=== PATIENT | female | born 1940 | race Caucasian/White ===

== ENCOUNTER 2016-11-04 18:29 | Inpatient (IN) | payer OTHER, BC ==
[~2016-11-04] VITALS: Ht 152.4 cm; Wt 96.5 kg
[~2016-11-04 18:29] MED LIST: ALL100 PO; ASPEC325 PO; ATOR-24 PO; CHOL100010 PO; HYDR-5688 PO; HYG/25 PO; LISI40TA PO; NIAC250T8 PO; SNK PO; SYN25 PO
[2016-11-04] MEDS ORDERED: CEFTRIAXONE SOD INJ 1 GM ADDVIAL IV STA (18:51)
--- NOTE | 2016-11-04 19:27 | EMERGENCY ROOM VISIT NOTE ---
History Report prepared by Leonardo: Artis Rodriguez Under the Supervision of: Dr. Kemal Grady M.D. First contact with patient: 18:44 Chief Complaint: URINARY SYMPTOMS Stated Complaint: UTI,SENT BY History of Present Illness The patient is a 76 year old female who presents to the Emergency Room with complaints of persistent urinary symptoms beginning 1 week ago. Her symptoms include decreased urinary output and frequency. She was seen by her PCP shortly prior to arrival for her symptoms and was referred to the ED. Her symptoms include shortness of breath with exertion, weakness, headache, fever, and chills. The patient's outpatient blood work today revealed a white blood cell count of 8.79, a hemoglobin of 11.4 and a creatinine of 3.1. She was seen at an urgent care facility two days ago for urinary symptoms and was started on a three day course of Bactrim. The patient notes that she was born with only one kidney. She states that she has not had much to drink today. She denies any chest pain, abdominal pain, cough, vomiting, or diarrhea. I obtained laboratory results from the [facility]. Urine appeared cloudy in color. Urinalysis revealed 1+ blood, 3+ leukocyte esterase, 0-2 RBC, 25-30 WBC, 0-2 epithelial and 3+ bacteria. Source of History: patient Onset: 1 week ago Quality: other (urinary symptoms) Timing: other (persistent) Associated Symptoms: + fevers, + chills, + headache, + SOB (with exertion), No cough, No chest pain, No vomiting, No abdominal pain, No diarrhea Review of Systems See HPI for pertinent positives & negatives. A total of 10 systems reviewed and were otherwise negative. Past Medical & Surgical Medical Problems: (1) Renal agenesis Family History No pertinent family history stated. Social History Smoking Status: Never Smoker Housing Status: lives with family Current/Historical Medications Scheduled Allopurinol (Allopurinol), 100 MG PO QAM Aspirin (Aspirin Ec), 325 MG PO QAM Atorvastatin (Lipitor), 40 MG PO HS Chlorthalidone (Hygroton), 25 MG PO QAM Cholecalciferol (D 1000), 1,000 UNITS PO QAM Levothyroxine Sodium (Synthroid), 25 MCG PO QAM Lisinopril (Zestril), 40 MG PO QAM Niacin (Niacin), 250 MG PO HS Allergies Coded Allergies: No Known Allergies (Verified , 11/04/16) Physical Exam Vital Signs Date Time Temp Pulse Resp B/P (MAP) Pulse Ox O2 Delivery O2 Flow Rate FiO2 11/04/16 20:21 81 19 142/63 96 Room Air 11/04/16 19:42 86 11/04/16 19:05 Room Air 11/04/16 18:31 36.9 102 20 124/64 95 Room Air Physical Exam GENERAL: Patient is in no acute distress. HEENT: No acute trauma, normocephalic atraumatic, mucous membranes moist, no nasal congestion, no scleral icterus. NECK: No stridor, no adenopathy, no meningismus, trachea is midline. LUNGS: Clear to auscultation bilaterally, no wheeze, no rhonchi, breath sounds equal. HEART: Without murmurs gallops or rubs, regular rate and rhythm. ABDOMEN: Soft, nontender, bowel sounds positive, no hernias, no peritonitis. EXTREMITIES: No cyanosis, full range of motion of all the joints without pain or difficulty, no signs for acute trauma. Mild bilateral pedal edema. NEUROLOGIC: Oriented x 3, no acute motor or sensory deficits, no focal weakness. SKIN: No rash, no jaundice, no diaphoresis. Medical Decision & Procedures ER Provider Diagnostic Interpretation: Radiology results as stated below per my review and radiologist interpretation: EXAMINATION: RENAL ULTRASOUND FINDINGS: The right kidney measures 8 cm. The left kidney measures 9.4 cm. . There is a 21 mm left renal cyst. The right kidney is abnormal in morphology. A contrast-enhanced CT scan or MRI scan might be considered in follow-up. There is a small amount of perinephric fluid bilaterally. There is equivocal dilatation of the right renal collecting system. The bladder was well-distended. Neither ureteral jet was visualized. IMPRESSION : 1. Abnormal morphology of the right kidney with equivocal dilatation of the collecting system 2. 21 mm left renal cyst 3. Small amount of perinephric fluid bilaterally Electronically signed by: Ronal Hughes M.D. CHEST ONE VIEW PORTABLE FINDINGS: The heart is mildly enlarged. There is no failure. There is no focal pulmonary consolidation. There is mild aortic tortuosity/ectasia. There are minor basilar atelectatic changes. No pleural effusions are visualized.[ IMPRESSION: No active disease in the chest. Electronically signed by: Ronal Hughes M.D. Laboratory Results 11/04/16 19:52 Red Blood Count 3.57, Mean Corpuscular Volume 94.7, Mean Corpuscular Hemoglobin 32.2, Mean Corpuscular Hemoglobin Concent 34.0, Mean Platelet Volume 9.7, Neutrophils (%) (Auto) 74.4, Lymphocytes (%) (Auto) 13.9, Monocytes (%) (Auto) 9.4, Eosinophils (%) (Auto) 1.5, Basophils (%) (Auto) 0.2, Neutrophils # (Auto) 6.13, Lymphocytes # (Auto) 1.14, Monocytes # (Auto) 0.77, Eosinophils # (Auto) 0.12, Basophils # (Auto) 0.02 11/04/16 19:52 Test 11/04/16 19:52 11/04/16 19:58 11/04/16 20:15 White Blood Count 8.23 K/uL (4.8-10.8) Red Blood Count 3.57 M/uL (4.2-5.4) Hemoglobin 11.5 g/dL (12.0-16.0) Hematocrit 33.8 % (37-47) Mean Corpuscular Volume 94.7 fL (80-100) Mean Corpuscular Hemoglobin 32.2 pg (25-34) Mean Corpuscular Hemoglobin Concent 34.0 g/dl (32-36) Platelet Count 256 K/uL (130-400) Mean Platelet Volume 9.7 fL (7.4-10.4) Neutrophils (%) (Auto) 74.4 % Lymphocytes (%) (Auto) 13.9 % Monocytes (%) (Auto) 9.4 % Eosinophils (%) (Auto) 1.5 % Basophils (%) (Auto) 0.2 % Neutrophils # (Auto) 6.13 K/uL (1.4-6.5) Lymphocytes # (Auto) 1.14 K/uL (1.2-3.4) Monocytes # (Auto) 0.77 K/uL (0.11-0.59) Eosinophils # (Auto) 0.12 K/uL (0-0.5) Basophils # (Auto) 0.02 K/uL (0-0.2) RDW Standard Deviation 46.7 fL (36.4-46.3) RDW Coefficient of Variation 13.5 % (11.5-14.5) Immature Granulocyte % (Auto) 0.6 % Immature Granulocyte # (Auto) 0.05 K/uL (0.00-0.02) Prothrombin Time 10.8 SECONDS (9.0-12.0) Prothromb Time International Ratio 1.0 (0.9-1.1) Activated Partial Thromboplast Time 23.1 SECONDS (21.0-31.0) Partial Thromboplastin Ratio 0.9 Anion Gap 10.0 mmol/L (3-11) Est Creatinine Clear Calc Drug Dose 14.4 ml/min Estimated GFR () 14.0 Estimated GFR (Non- 12.1 BUN/Creatinine Ratio 13.1 (10-20) Calcium Level 8.7 mg/dl (8.5-10.1) Magnesium Level 2.1 mg/dl (1.8-2.4) Total Bilirubin 0.2 mg/dl (0.2-1) Aspartate Amino Transf (AST/SGOT) 19 U/L (15-37) Alanine Aminotransferase (ALT/SGPT) 28 U/L (12-78) Alkaline Phosphatase 96 U/L (45-117) Troponin I < 0.015 ng/ml (0-0.045) Total Protein 7.1 gm/dl (6.4-8.2) Albumin 3.4 gm/dl (3.4-5.0) Globulin 3.7 gm/dl (2.5-4.0) Albumin/Globulin Ratio 0.9 (0.9-2) Thyroid Stimulating Hormone (TSH) 0.894 uIu/ml (0.300-4.500) Chemistry Specimen Hemolysis Bedside Lactic Acid Venous 1.54 mmol/L (0.90-1.70) Urine Color YELLOW Urine Appearance CLEAR (CLEAR) Urine pH 5.5 (4.5-7.5) Urine Specific [place] 1.018 (1.000-1.030) Urine Protein NEG (NEG) Urine Glucose (UA) NEG (NEG) Urine Ketones NEG (NEG) Urine Occult Blood NEG (NEG) Urine Nitrite NEG (NEG) Urine Bilirubin NEG (NEG) Urine Urobilinogen NEG (NEG) Urine Leukocyte Esterase NEG (NEG) Laboratory results reviewed by me. Medications Administered Medications (Trade) Dose Ordered Sig/Mary Route Start Time Stop Time Status Last Admin Dose Admin Ceftriaxone Sodium (Rocephin Inj) 1 gm NOW STAT IV 11/04/16 18:51 11/04/16 18:59 DC 11/04/16 20:19 1 GM Sodium Chloride 500 ml @ 999 mls/hr Q31M STAT IV 11/04/16 20:18 11/04/16 20:48 DC 11/04/16 20:23 999 MLS/HR Sodium Chloride 1,000 ml @ 125 mls/hr Q8H STAT IV 11/04/16 20:18 11/05/16 04:17 11/04/16 20:24 125 MLS/HR ECG Indication: weakness Rate (beats per minute): 90 Rhythm: normal sinus Findings: RBBB (incomplete), no ectopy, other (Old inferior infarct) ED Course 1846: The patient was evaluated in room B2. A complete history and physical exam was performed. 1850: Ordered Rocephin Inj 1 gm IV. 2018: Ordered Sodium Chloride 1000 ml @ 125 mls/hr IV, Sodium Chloride 500 ml @ 999 mls/hr IV. 8: Upon reexamination the patient is resting comfortably. I discussed results and treatment plan with the patient. She verbalizes agreement and understanding. The patient will be evaluated for further management. Medical Decision The patient is a 76 year old female who presents to the ED with complaints of persistent urinary symptoms. Differential diagnoses considered include pyelonephritis, renal failure, electrolyte imbalance, anemia, failed outpatient treatment, dehydration, and renal obstruction. Blood pressure screening: Patient was found to have a slightly elevated blood pressure due to circumstances. I do not believe that the patient requires hypertension monitoring. Medication Reconciliation: I attest that I have personally reviewed the patient' s current medication list. There is no leukocytosis or worrisome anemia. Renal panel testing shows acute renal failure. There was no hepatitis. No evidence for any issues with her thyroid. Chest x-ray does not show CHF or pneumonia. EKG shows a sinus rhythm , no acute ischemia. Cardiac enzyme testing times one is not consistent with acute cardiac injury. Lactic acid level was not elevated making sepsis less likely. Renal ultrasound shows some abnormal morphology to the right kidney and collecting system, the left renal system was without significant findings. Of note, the patient by report only has one normal functioning kidney. Today's urinalysis appears clean. The urinalysis report from a few days ago from the outpatient clinic does suggest infection, no culture was available for review. The patient received IV saline, she was given IV ceftriaxone. She seems to be resting comfortably. The patient requires admission/observation. She is in acute renal failure. I did speak with case management. The on-call hospitalist was consulted. Consults Time Called: 2054 Consulting Physician: Dr. Shahrzad Holloway Returned Call: [phone] Discussed the patient's case. The patient will be evaluated for further management. Impression Primary Impression: Acute renal failure Additional Impression: UTI (urinary tract infection) Scribe Attestation The scribe's documentation has been prepared under my direction and personally reviewed by me in its entirety. I confirm that the note above accurately reflects all work, treatment, procedures, and medical decision making performed by me. Departure Information Dispostion Being Evaluated By Hospitalist Referrals Jose Patino M.D. (PCP) Patient Instructions My [facility] Problem Qualifiers
[2016-11-04] MEDS ORDERED: ASPI325T39 PO (19:37)
[2016-11-04] MEDS ORDERED: CHOL100041 PO (19:37)
[2016-11-04] MEDS ORDERED: LEVO25TA PO (19:37)
[2016-11-04] MEDS ORDERED: ALL100 PO (19:37)
[2016-11-04 20:06] LABS: BASO % 0.2 %; BASO ABS # 0.02 K/uL (0-0.2); COMPLETE YES; EOS % 1.5 %; HEMATOCRIT 33.8 % (37-47); IG% 0.6 %; LYMPH % 13.9 %; LYMPH ABS # 1.14 K/uL (1.2-3.4); MEAN CELL VOLUME 94.7 fL (80-100); MEAN CORPUSCULAR HEMOGLOBIN 32.2 pg (25-34); MEAN PLATELET VOLUME 9.7 fL (7.4-10.4); MONO % 9.4 %; NEUT % 74.4 %; PLATELET COUNT 256 K/uL (130-400); RED BLOOD COUNT 3.57 M/uL (4.2-5.4); WHITE BLOOD COUNT 8.23 K/uL (4.8-10.8)
[2016-11-04] MEDS ORDERED: SODIUM CHLORIDE 0.9% 1000ML 1,000 ML IV STA (20:18)
[2016-11-04] MEDS ORDERED: SODIUM CHLORIDE 0.9% 500ML 500 ML IV STA (20:18)
[2016-11-04 20:20] LABS: PARTIAL THROMBOPLASTIN RATIO 0.9; PROTHROMBIN TIME (PATIENT) 10.8 SECONDS (9.0-12.0)
[2016-11-04 20:36] LABS: URINE APPEARANCE CLEAR (CLEAR); URINE BILIRUBIN NEG (NEG); URINE COLOR YELLOW; URINE NITRITE NEG (NEG); URINE PH 5.5 (4.5-7.5); URINE SPECIFIC GRAVITY 1.018 (1.000-1.030); UROBILINOGEN NEG (NEG); ZZURINE CULT IF INDIC CATH NO
--- NOTE | 2016-11-04 20:36 | DIAGNOSTIC IMAGING REPORT ---
CHEST ONE VIEW PORTABLE CLINICAL HISTORY: Altered mental status. Weakness. COMPARISON STUDY: 12/05/2014 FINDINGS: The heart is mildly enlarged. There is no failure. There is no focal pulmonary consolidation. There is mild aortic tortuosity/ectasia. There are minor basilar atelectatic changes. No pleural effusions are visualized.[ IMPRESSION: No active disease in the chest. Electronically signed by: Roanl Hughes M.D. 11/04/2016 8:35 PM Dictated Date/Time: 11/04/2016 8:34 PM
[2016-11-04 20:44] LABS: MANUAL MICROSCOPIC REQUIRED? NO; REVIEW REQ? NO
[2016-11-04 20:50] LABS: ALB/GLOB RATIO 0.9 (0.9-2); ALKALINE PHOSPHATASE 96 U/L (45-117); ALT/SGPT 28 U/L (12-78); AST/SGOT 19 U/L (15-37); BLOOD UREA NITROGEN 46 mg/dl (7-18); BUN/CREATININE RATIO 13.1 (10-20); CALCIUM 8.7 mg/dl (8.5-10.1); CARBON DIOXIDE 25 mmol/L (21-32); CHLORIDE 106 mmol/L (98-107); GLUCOSE 133 mg/dl (70-99); MAGNESIUM 2.1 mg/dl (1.8-2.4); POTASSIUM 4.1 mmol/L (3.5-5.1); SODIUM 141 mmol/L (136-145); THYROID STIMULATING HORMONE 0.894 uIu/ml (0.300-4.500)
--- NOTE | 2016-11-04 21:34 | DIAGNOSTIC IMAGING REPORT ---
EXAMINATION: RENAL ULTRASOUND CLINICAL HISTORY: Renal failure.. POSSIBLE SOLITARY KIDNEY COMPARISON STUDY: None FINDINGS: The right kidney measures 8 cm. The left kidney measures 9.4 cm. . There is a 21 mm left renal cyst. The right kidney is abnormal in morphology. A contrast-enhanced CT scan or MRI scan might be considered in follow-up. There is a small amount of perinephric fluid bilaterally. There is equivocal dilatation of the right renal collecting system. The bladder was well-distended. Neither ureteral jet was visualized. IMPRESSION : 1. Abnormal morphology of the right kidney with equivocal dilatation of the collecting system 2. 21 mm left renal cyst 3. Small amount of perinephric fluid bilaterally Electronically signed by: Ronal Hughes M.D. 11/04/2016 9:32 PM Dictated Date/Time: 11/04/2016 9:25 PM
[2016-11-05 00:30] VITALS: BP 143/83; PULSE 79; TEMP 36.8; O2SAT 97; Ht 152.4 cm; Wt 96.5 kg
[2016-11-05] MEDS ORDERED: ACETAMINOPHEN 325 MG TAB PO PRN (00:30)
[2016-11-05] MEDS ORDERED: ONDANSETRON INJ 2 MG/ML 2 ML VIAL IV PRN (00:30)
[2016-11-05] MEDS ORDERED: DEXTROSE 50% 50 ML SYR IV PRN (00:30)
[2016-11-05] MEDS ORDERED: TRAMADOL HCL 50 MG TAB PO PRN (00:30)
[2016-11-05] MEDS ORDERED: HYDROmorphone INJ 0.5 MG/0.5 ML SYR IV PRN (00:30)
[2016-11-05] MEDS ORDERED: GLUCOSE 10 TABS/TUBE PO PRN (00:30)
[2016-11-05] MEDS ORDERED: GLUCAGON FOR INJ 1 MG VIAL SQ PRN (00:30)
[2016-11-05] MEDS ORDERED: GLUCOSE 40% GEL 15 GM TUBE PO PRN (00:30)
[2016-11-05] MEDS ORDERED: SODIUM CHLORIDE 0.45% 1000ML 1,000 ML IV SCH (02:30)
[2016-11-05] MEDS: HEPARIN SOD 5000 UNIT/0.5 ML CARP SQ SCH ×3 (06:00→20:11)
--- NOTE | 2016-11-05 06:50 | DIAGNOSTIC IMAGING REPORT ---
HEAD CT NONCONTRAST CT DOSE: 537.48 mGy.cm HISTORY: fagan TECHNIQUE: Multiaxial CT images of the head were performed without the use of intravenous contrast. Comparison: None. Findings: The paranasal sinuses and mastoid air cells are clear. The calvarium and skull base are intact. The ventricles and sulci are within normal limits. There is no mass, hematoma, midline shift, or acute infarct. Impression: No acute intracranial abnormality. Electronically signed by: Guillermo Will M.D. 11/05/2016 6:49 AM Dictated Date/Time: 11/05/2016 6:48 AM
[2016-11-05] MEDS: LEVOTHYROXINE 25 MCG TAB PO SCH (06:51)
[2016-11-05 06:58] LABS: BASO % 0.4 %; BASO ABS # 0.03 K/uL (0-0.2); COMPLETE YES; EOS % 2.9 %; HEMATOCRIT 32.8 % (37-47); IG% 0.7 %; LYMPH % 16.7 %; MEAN CELL VOLUME 95.1 fL (80-100); MEAN CORPUSCULAR HEMOGLOBIN 31.9 pg (25-34); MEAN CORPUSCULAR HGB CONC 33.5 g/dl (32-36); MONO % 9.7 %; NEUT % 69.6 %; PLATELET COUNT 220 K/uL (130-400); RED BLOOD COUNT 3.45 M/uL (4.2-5.4); WHITE BLOOD COUNT 7.19 K/uL (4.8-10.8)
--- NOTE | 2016-11-05 07:04 | HISTORY & PHYSICAL EXAMINATION ---
DATE OF ADMISSION: 11/04/2016 PRIMARY CARE DOCTOR: Dr. Patino CHIEF COMPLAINT: Abnormal blood work. HISTORY OF PRESENT ILLNESS: Hx obtained from px and records. Medical history is significant for hypertension, DM2 diet-controlled, arthritis , hypothyroidism and chronic kidney disease (baseline creatinine of 1.5). Recent confinement December 2014 under Orthopedic service for a hip surgery. In the last 2 months, patient noted some shortness of breath on exertion. No unusual leg swelling. No chest pain. Denies depression. Last week, patient was feeling lousy, urinary bladder discomfort. frequency fever 102 frontal headache symptoms. Seen at [facility]. Bactrim prescribed for UTI. chronic right knee pain bothering her as well. ([facility] appt contemplated this Friday.) Patient also taking 2 tablets of Aleve every 4 hours RTC for aches. Patient noted decreased urination. Patient had a followup at PCP's office today, outpatient blood work showed TSH normal, creatinine of 3.1. Patient sent to the Emergency Room. MEDICAL HISTORY: As above. SURGERIES: She has had hip surgery, knee surgery, tonsillectomy and D&C. HOME MEDICATIONS: Include; lisinopril, niacin, aspirin, allopurinol, Lipitor, Hygroton, Synthroid and cholecalciferol. ALLERGIES: No known drug allergies. FAMILY HISTORY: Diabetes and heart disease. PERSONAL SOCIAL HISTORY: Nonsmoker. No chronic intake of alcoholic beverages. [employer] employee. REVIEW OF SYSTEMS: As per HPI, all other ROS negative. PHYSICAL EXAMINATION: VITAL SIGNS: Blood pressure was noted to be 124/64, pulse rate 81, RR 19, temperature 36.8 and sats 96 on room air. GENERAL: Noted to be obese, comfortable, slightly anxious, in no respiratory distress. SKIN: Pallor HEENT: Pale palpebral conjunctivae. Dry mucosa. NECK: Short. CHEST: Decreased breath sounds. HEART: Regular rate and rhythm. ABDOMEN: Some distention, NT EXTREMITIES: Minimal LE edema, R knee tenderness NEUROLOGIC: No gross focality. LABORATORIES: Hemoglobin was noted to be 11.5, hematocrit 30.8 white cell count 8.2, platelets 200 Sodium 140, potassium 4.1, chloride 106, CO2 25, BUN 46, creatinine 3.5, glucose 103. Hemoglobin A1c from August 2016 was 6. Chest x-ray; no active disease in the chest. CT of the head; no acute pathology. Renal ultrasound : 1. Abnormal morphology of the right kidney with equivocal dilatation of the collecting system 2. 21 mm left renal cyst 3. Small amount of perinephric fluid bilaterally UA normal . ASSESSMENT: 1. Acute renal failure on chronic renal insufficiency likely secondary to medications (OTC NSAIDs, Bactrim for recent UTI/home ACEI, diuretics) 2. Hypertension, stable. 3. Chronic anemia secondary to chronic kidney disease. Hg at baseline 4. DM2, diet controlled, well-controlled as of recent A1c. 5. Exertional shortness of breath for months differentials include : undiagnosed pulmonary hypertension, RSHF, pulmonary embolism chronic obstructive pulmonary disease from passive smoking, sleep disordered breathing PLAN: GMF Monitor creatinine response to IV fluids. May need Nephrology opinion if wo improvement. Hold JAYDA inhibitor, diuretics for now. Patient was counseled about hazards of NSAID use w/ hx of CKF 2D echo. VQ scan. Outpatient PFTs, sleep study RE shortness of breath. Further mx pending cooper results PT/OT eval ISS BG goal 140-180 DVT prophylaxis, Heparin subQ. Full code MTDD
[2016-11-05 07:32] VITALS: BP 123/73; PULSE 75; TEMP 36.7; O2SAT 95
[2016-11-05 07:33] LABS: BUN/CREATININE RATIO 15.1 (10-20); CALCIUM 8.5 mg/dl (8.5-10.1); CREATININE 2.6 mg/dl (0.60-1.20); POTASSIUM 4.2 mmol/L (3.5-5.1)
[2016-11-05] MEDS: INSULIN ASPART 100 UNITS/ML 3 ML PEN SC SCH ×4 (08:33→20:31)
[2016-11-05] MEDS: ASPIRIN 325 MG ECTAB PO SCH (08:36)
[2016-11-05] MEDS: ALLOPURINOL 100 MG TAB PO SCH (08:36)
--- NOTE | 2016-11-05 10:12 | Progress Note ---
Medicine Progress Note Date & Time of Visit: Nov 05, 2016 at 10:03. Subjective patient seen sitting up in bed family at bedside states she feels improved today compared to yesterday voiding well, no dysuria/hematuria no abdominal pain ,nausea/vomiting reports exertional dyspnea, no dyspnea at rest no chest pain ,dizziness, palpitations no other symptoms Objective Last 8 Hrs Date Time Temp Pulse Resp B/P (MAP) Pulse Ox O2 Delivery O2 Flow Rate FiO2 11/05/16 08:04 Room Air 11/05/16 07:32 36.7 75 16 123/73 (90) 95 Room Air Physical Exam: General- oriented x 3, not in distress, speaks in sentences with no effort Head- atraumatic Eyes- EOMI, anicteric ENT- oropharynx clear Neck- no JVD Lungs- clear breath sounds bilaterally, no rales/wheezes Heart- regular rhythm; no murmur, normal rate Abdomen- normal bowel sounds, soft, nontender Extremities- no pretibial edema, no calf tenderness Neuro- alert, oriented x 3; no gross focal deficits Skin- warm & dry Laboratory Results: Last 24 Hours Test 11/04/16 19:52 11/04/16 19:58 11/04/16 20:15 11/05/16 06:40 White Blood Count 8.23 K/uL 7.19 K/uL Red Blood Count 3.57 M/uL 3.45 M/uL Hemoglobin 11.5 g/dL 11.0 g/dL Hematocrit 33.8 % 32.8 % Mean Corpuscular Volume 94.7 fL 95.1 fL Mean Corpuscular Hemoglobin 32.2 pg 31.9 pg Mean Corpuscular Hemoglobin Concent 34.0 g/dl 33.5 g/dl Platelet Count 256 K/uL 220 K/uL Mean Platelet Volume 9.7 fL 9.0 fL Neutrophils (%) (Auto) 74.4 % 69.6 % Lymphocytes (%) (Auto) 13.9 % 16.7 % Monocytes (%) (Auto) 9.4 % 9.7 % Eosinophils (%) (Auto) 1.5 % 2.9 % Basophils (%) (Auto) 0.2 % 0.4 % Neutrophils # (Auto) 6.13 K/uL 5.00 K/uL Lymphocytes # (Auto) 1.14 K/uL 1.20 K/uL Monocytes # (Auto) 0.77 K/uL 0.70 K/uL Eosinophils # (Auto) 0.12 K/uL 0.21 K/uL Basophils # (Auto) 0.02 K/uL 0.03 K/uL RDW Standard Deviation 46.7 fL 46.9 fL RDW Coefficient of Variation 13.5 % 13.4 % Immature Granulocyte % (Auto) 0.6 % 0.7 % Immature Granulocyte # (Auto) 0.05 K/uL 0.05 K/uL Prothrombin Time 10.8 SECONDS Prothromb Time International Ratio 1.0 Activated Partial Thromboplast Time 23.1 SECONDS Partial Thromboplastin Ratio 0.9 Sodium Level 141 mmol/L 142 mmol/L Potassium Level 4.1 mmol/L 4.2 mmol/L Chloride Level 106 mmol/L 110 mmol/L Carbon Dioxide Level 25 mmol/L 23 mmol/L Anion Gap 10.0 mmol/L 9.0 mmol/L Blood Urea Nitrogen 46 mg/dl 39 mg/dl Creatinine 3.50 mg/dl 2.60 mg/dl Est Creatinine Clear Calc Drug Dose 14.4 ml/min 19.4 ml/min Estimated GFR () 14.0 20.1 Estimated GFR (Non- 12.1 17.3 BUN/Creatinine Ratio 13.1 15.1 Random Glucose 133 mg/dl 110 mg/dl Calcium Level 8.7 mg/dl 8.5 mg/dl Magnesium Level 2.1 mg/dl Total Bilirubin 0.2 mg/dl Aspartate Amino Transf (AST/SGOT) 19 U/L Alanine Aminotransferase (ALT/SGPT) 28 U/L Alkaline Phosphatase 96 U/L Troponin I < 0.015 ng/ml Total Protein 7.1 gm/dl Albumin 3.4 gm/dl Globulin 3.7 gm/dl Albumin/Globulin Ratio 0.9 Thyroid Stimulating Hormone (TSH) 0.894 uIu/ml Chemistry Specimen Hemolysis Bedside Lactic Acid Venous 1.54 mmol/L Urine Color YELLOW Urine Appearance CLEAR Urine pH 5.5 Urine Specific [place] 1.018 Urine Protein NEG Urine Glucose (UA) NEG Urine Ketones NEG Urine Occult Blood NEG Urine Nitrite NEG Urine Bilirubin NEG Urine Urobilinogen NEG Urine Leukocyte Esterase NEG Test 11/05/16 07:54 Bedside Glucose 119 mg/dl Date/Time Source Procedure Growth Status 11/04/16 19:52 Blood Blood Culture Pending Received 11/04/16 19:39 Blood Blood Culture Pending Received Assessment & Plan 76 year old female with history of CKD 3, DM, HTN, Hypothyroidism presenting with elevated crea. Acute renal failure on CKD3 -- likely secondary to medications (OTC NSAIDs, Bactrim for recent UTI/home ACEI , diuretics) -- crea improved from 3.5 to 2.6 continue IV fluids Renal US showing abnormal right kidney morphology will consult Nephro -- hold Chlorthalidone, Lisinopril Exertional Dyspnea -- ongoing for several months differentials include : undiagnosed pulmonary hypertension, pulmonary embolism chronic obstructive pulmonary disease from passive smoking, sleep disordered breathing - CXR unrevealing - Echo: pending V/Q scan: pending - outpatient PFTs Hypertension -- monitor Chronic anemia secondary to chronic kidney disease - Hg at baseline DM2, diet controlled, well-controlled as of recent A1c. - BSGs stable - monitor DVT proph Heparin Full Code Dispo pending anticipate d/c home when medically stable Current Inpatient Medications: Current Inpatient Medications Medications (Trade) Dose Ordered Sig/Mary Route Start Time Stop Time Status Last Admin Dose Admin Heparin Sodium (Porcine) (Heparin Sq 5000 Unit/0.5ml) 5,000 unit Q8H SQ 11/05/16 06:00 12/05/16 05:59 Acetaminophen (Tylenol Tab) 650 mg Q4H PRN PO 11/05/16 00:30 12/05/16 00:29 Insulin Aspart (novoLOG ASPART) SLIDING SCALE If C... ACHS SC 11/05/16 06:30 12/05/16 06:59 Glucose (Glucose 40% Gel) 15-30 GRAMS 15 GRAMS... UD PRN PO 11/05/16 00:30 12/05/16 00:29 Glucose (Glucose Chew Tab) 4-8 Tablets 4 Tabl... UD PRN PO 11/05/16 00:30 12/05/16 00:29 Dextrose (Dextrose 50% 50ML Syringe) 25-50ML OF 50% DW IV FOR... UD PRN IV 11/05/16 00:30 12/05/16 00:29 Glucagon (Glucagon Inj) 1 mg UD PRN SQ 11/05/16 00:30 12/05/16 00:29 Ondansetron HCl (Zofran Inj) 4 mg Q6H PRN IV 11/05/16 00:30 12/05/16 00:29 Tramadol HCl (Ultram Tab) 25 mg Q6H PRN PO 11/05/16 00:30 12/05/16 00:29 Hydromorphone HCl (Dilaudid Inj) 0.5 mg Q3H PRN IV 11/05/16 00:30 11/19/16 00:29 Allopurinol (Zyloprim Tab) 100 mg QAM PO 11/05/16 08:00 12/05/16 08:59 11/05/16 08:36 100 MG Aspirin (Ecotrin Tab) 325 mg QAM PO 11/05/16 08:00 12/05/16 08:59 11/05/16 08:36 325 MG Atorvastatin Calcium (Lipitor Tab) 40 mg HS PO 11/05/16 21:00 12/05/16 20:59 Levothyroxine Sodium (Synthroid Tab) 25 mcg DAILYBB PO 11/05/16 06:30 12/05/16 06:29 11/05/16 06:51 25 MCG Sodium Chloride 1,000 ml @ 80 mls/hr [id number] IV 11/05/16 10:00 12/05/16 09:59
[2016-11-05] MEDS: SODIUM CHLORIDE 0.9% 1000ML 1,000 ML IV SCH ×2 (10:24→20:29)
--- NOTE | 2016-11-05 11:27 | DIAGNOSTIC IMAGING REPORT ---
NUCLEAR MEDICINE VENTILATION/PERFUSION STUDY CLINICAL HISTORY: Shortness of breath. Possible pulmonary embolism. COMPARISON STUDY: Chest x-ray dated 11/04/2016 FINDINGS: The patient was ventilated utilizing 32.6 mCi of technetium 99m DTPA aerosol. The patient was perfused utilizing 5.6 mCi of technetium 99m MAA. There is mild central deposition of aerosol consistent with airway disease. There is a subtle matched defect involving the superior segment left lower lobe. No significant VQ mismatches are visualized. This examination is of low probability for acute pulmonary embolism. IMPRESSION: Low probability of acute pulmonary embolism. Electronically signed by: Ronal Hughes M.D. 11/05/2016 11:26 AM Dictated Date/Time: 11/05/2016 11:23 AM
[2016-11-05 16:08] VITALS: BP 140/80; PULSE 83; TEMP 36.9; O2SAT 98
--- NOTE | 2016-11-05 16:43 | NEPHROLOGY CONSULTATION ---
DATE OF CONSULTATION: 11/05/2016 REASON FOR CONSULTATION: NICHO and concerning finding on renal ultrasound. HISTORY OF PRESENT ILLNESS: This is a 76-year-old female who follows in my CKD clinic with baseline creatinine of 1.5 with diet-controlled diabetes as well as hypertension. She does have atrophic right kidney with some mild hydro on the right kidney, who did have a urinary tract infection and was treated with Bactrim. The patient also was taking 2 Aleve every 4 hours around the clock for muscle aches, noted decrease in urination and came in with a creatinine in the 3s. Stopped the Bactrim, started to hydrate the patient and the creatinine has improved from 3.5 down to 2.6. The patient is urinating, her appetite is starting to improve. She starting to feel better. When the renal ultrasound was done, showed a right kidney of 8 cm, left kidney of 9.4 cm with a 21 mm left renal cyst with a right kidney that is abnormal in morphology. They were recommending contrast enhanced CT scan or MRI in followup with a small amount of perinephric fluid bilaterally and equivocal dilation of the right renal collecting system. PAST MEDICAL HISTORY: Hypertension, diet-controlled diabetes, CKD stage III with a baseline creatinine of 1.5, hypothyroidism. PAST SURGICAL HISTORY: Tonsillectomy, knee surgery, hip surgery. FAMILY HISTORY: Significant for diabetes and heart disease. SOCIAL HISTORY: No smoking, no alcohol, no drugs. Works at the [employer]. REVIEW OF SYSTEMS: Positive occasional headache. Positive decreased appetite, which is improving. No nausea, vomiting. Has not moved her bowels, but she has not ate much either. No blurry vision, no dysphagia, no shortness of breath, no chest pain. No rash or itching. All other review of systems is otherwise negative. CURRENT MEDICATIONS: Lipitor 40 mg at night, normal saline at 80 mL an hour, allopurinol 100 mg a day, aspirin 325 mg a day, Levothyroxine 25 mcg daily, heparin 5000 units subQ q. 8. PHYSICAL EXAMINATION: VITAL SIGNS: Temperature 36.7, pulse 75, respiratory rate 16, blood pressure 123/73, satting 95% on room air. GENERAL: Awake, alert, oriented x3. EYES: No scleral icterus. ENT: Moist mucous membranes. NECK: Supple. PULMONARY: Clear to auscultation. CARDIAC: Regular rate and rhythm. ABDOMEN: Bowel sounds positive, soft, nontender. EXTREMITIES: No clubbing, cyanosis or edema. NEUROLOGICALLY: Nonfocal. DERM: No rash or ulcers noted. LABORATORY DATA: Sodium was 142, potassium 4.2, chloride is 110, bicarbonate is 23, BUN is 39, creatinine is 2.6, glucose 110, calcium is 8.5, white count 7, H&H 11 and 32, platelet count is 220. INR is 1. UA is bland. IMPRESSION AND PLAN: 1. Acute kidney injury in the setting of Bactrim and nonsteroidal antiinflammatory drugs, which appears to be improving quickly with IV fluids. Creatinine likely will be back to baseline tomorrow. Appears to be tolerating the IV fluids, with no shortness of breath. Her lungs are clear to auscultation with no edema. Would continue IV fluids and reevaluate creatinine tomorrow. Creatinine is back to baseline tomorrow. Okay with stopping the IV fluids. 2. Abnormal morphology on right kidney. Will discuss further with urology to see if we should proceed with the CT scan of the kidneys. Given the fact that the patient has acute kidney injury, may want to consider further imaging as an outpatient and/or urologic consultation as an outpatient for further evaluation, but we will discuss further with urology to determine whether they should see the patient in house or not. Appreciate the consultation.
[2016-11-05] MEDS: ATORVASTATIN 40 MG TAB PO SCH (20:29)
[2016-11-05 23:20] VITALS: BP 133/67; PULSE 66; TEMP 36.8; O2SAT 96
[2016-11-06] MEDS: HEPARIN SOD 5000 UNIT/0.5 ML CARP SQ SCH ×3 (04:42→20:46)
[2016-11-06] MEDS: LEVOTHYROXINE 25 MCG TAB PO SCH (06:24)
[2016-11-06] MEDS: INSULIN ASPART 100 UNITS/ML 3 ML PEN SC SCH ×4 (06:30→20:47)
[2016-11-06] MEDS: ALLOPURINOL 100 MG TAB PO SCH (07:26)
[2016-11-06] MEDS: ASPIRIN 325 MG ECTAB PO SCH (07:26)
[2016-11-06 08:01] LABS: BUN/CREATININE RATIO 18.1 (10-20); CREATININE 1.9 mg/dl (0.60-1.20); POTASSIUM 4.3 mmol/L (3.5-5.1)
[2016-11-06 08:04] LABS: CALCIUM 8.8 mg/dl (8.5-10.1)
[2016-11-06 08:06] VITALS: BP 108/66; PULSE 67; TEMP 36.6; O2SAT 97
[2016-11-06] MEDS: SODIUM CHLORIDE 0.9% 1000ML 1,000 ML IV SCH ×2 (08:45→18:42)
--- NOTE | 2016-11-06 09:44 | Nephrology Progress Note ---
Nephrology Progress Note Date of Service: Nov 06, 2016. Subjective Patient is a 76-year-old female with NICHO on CKD stage G3 without proteinuria in the setting of UTI on Bactrim and NSAID use. Patient states that she is greatly improved and eager to go home. reports good urination and good appetite. had bowel movement yesterday. Not currently on IV fluids. no SOB, nausea, confusion , dysuria, or chest pain. Objective Date Time Temp Pulse Resp B/P (MAP) Pulse Ox O2 Delivery O2 Flow Rate FiO2 11/06/16 08:06 36.6 67 16 108/66 (80) 97 Room Air 11/05/16 23:20 36.8 66 16 133/67 (89) 96 Room Air 11/05/16 20:00 Room Air 11/05/16 16:22 Room Air 11/05/16 16:08 36.9 83 20 140/80 (100) 98 Room Air Physical Exam: General: Alert, no distress, well nourished and well developed Head: Normocephalic, No masses, lesions, tenderness, or abnormalities ENT: no scleral icterus, moist mucosal membranes Neck: Supple, no adenopathy Heart: Regular rate and rhythm, no murmurs, no gallops Lungs: clear to auscultation Abdomen: Soft, Nontender, nondistended, +Bowel Sounds Extremities: No joint deformities, effusion, or inflammation, no clubbing, + trace edema LLE Neuro Exam: Alert and oriented x 3 with fluent speech, no focal motor/sensory deficits Current Inpatient Medications Medications (Trade) Dose Ordered Sig/Mary Route Start Time Stop Time Status Last Admin Dose Admin Heparin Sodium (Porcine) (Heparin Sq 5000 Unit/0.5ml) 5,000 unit Q8H SQ 11/05/16 06:00 12/05/16 05:59 Acetaminophen (Tylenol Tab) 650 mg Q4H PRN PO 11/05/16 00:30 12/05/16 00:29 Insulin Aspart (novoLOG ASPART) SLIDING SCALE If C... ACHS SC 11/05/16 06:30 12/05/16 06:59 Glucose (Glucose 40% Gel) 15-30 GRAMS 15 GRAMS... UD PRN PO 11/05/16 00:30 12/05/16 00:29 Glucose (Glucose Chew Tab) 4-8 Tablets 4 Tabl... UD PRN PO 11/05/16 00:30 12/05/16 00:29 Dextrose (Dextrose 50% 50ML Syringe) 25-50ML OF 50% DW IV FOR... UD PRN IV 11/05/16 00:30 12/05/16 00:29 Glucagon (Glucagon Inj) 1 mg UD PRN SQ 11/05/16 00:30 12/05/16 00:29 Ondansetron HCl (Zofran Inj) 4 mg Q6H PRN IV 11/05/16 00:30 12/05/16 00:29 Tramadol HCl (Ultram Tab) 25 mg Q6H PRN PO 11/05/16 00:30 12/05/16 00:29 Hydromorphone HCl (Dilaudid Inj) 0.5 mg Q3H PRN IV 11/05/16 00:30 11/19/16 00:29 Allopurinol (Zyloprim Tab) 100 mg QAM PO 11/05/16 08:00 12/05/16 08:59 11/06/16 07:26 100 MG Aspirin (Ecotrin Tab) 325 mg QAM PO 11/05/16 08:00 12/05/16 08:59 11/06/16 07:26 325 MG Atorvastatin Calcium (Lipitor Tab) 40 mg HS PO 11/05/16 21:00 12/05/16 20:59 11/05/16 20:29 40 MG Levothyroxine Sodium (Synthroid Tab) 25 mcg DAILYBB PO 11/05/16 06:30 12/05/16 06:29 11/06/16 06:24 25 MCG Sodium Chloride 1,000 ml @ 80 mls/hr [id number] IV 11/05/16 10:00 12/05/16 09:59 11/06/16 08:45 80 MLS/HR Last 24 Hours Test 11/05/16 11:23 11/05/16 16:45 11/05/16 20:31 11/06/16 07:02 Bedside Glucose 140 mg/dl 125 mg/dl 148 mg/dl Sodium Level 141 mmol/L Potassium Level 4.3 mmol/L Chloride Level 110 mmol/L Carbon Dioxide Level 22 mmol/L Anion Gap 9.0 mmol/L Blood Urea Nitrogen 34 mg/dl Creatinine 1.90 mg/dl Est Creatinine Clear Calc Drug Dose 26.6 ml/min Estimated GFR () 29.4 Estimated GFR (Non- 25.3 BUN/Creatinine Ratio 18.1 Random Glucose 118 mg/dl Calcium Level 8.8 mg/dl Test 11/06/16 07:47 Bedside Glucose 125 mg/dl Assessment & Plan NICHO on CKD 3 secondary to NSAID use and Bactrim. Patient's renal function is improving significantly. Creatinine at 1.9. no SOB. volume status appropriate. Almost back to baseline. Abnormal morphology on right kidney. Given recent NICHO, may want to consider further imaging as an outpatient and/or urologic consultation as an outpatient for further evaluation. Would like urology input as to whether patient should undergo imaging before d/c. This patient was seen and treated with direct collaboration with Dr. Pineda. Thank you for the opportunity to participate in this patient's care. Appreciate the Consult. ATTENDING NOTE: pt seen on 11/06/26 I performed a history and physical examination of the patient, including specifically on history- pt doing well and inquiring about when to go home. pt did undergo Ct scan and awaiting results-evaluated by urology, on physical exam -cta, no edema, and my impression and plan are NICHO on ckd stage 3 with creatinine back to baseline, ok from renal perspective to go home once medically cleared by urology. awaiting ct scan results. I have discussed the patient's management with Jocelyn Rodriguez PA-C, Please refer to above note for the documented findings and plan of care. Edward Pineda DO
--- NOTE | 2016-11-06 13:47 | Urology Consultation ---
History General Date of Service: Nov 06, 2016. Chief Complaint: right hydronephrosis Primary Care Physician: Jose aPtino M.D. Pt seen a urologist before?: No History of Present Illness am asked by DR adhikari to evaluate and treat patient for right hydronephrosis. She is admitted with illness of unknown origin. She has had fevers, poor appetite, fatigue, and very frequent urination and headache. She went to urgent care in [place] and was told she had a UTI. She has chronic renal insufficiency but was prescribed double strength bactrim. She had follow up labs and was found to have acute on chronic renal insufficiency with a cr of 3. she was directed to ER. here she has improved rapidly and her headache is gone, her appetite is normal, she is afebrile with normal white count and her urinary frequency is normal. Her creatinine is improving at 1.9 today. Her renal ultrasound shows right hydro and an unusual fluid collection around right kidney and to lessen extent left kidney. She at no time had flank pain during her illness. Imaging Imaging: Ultrasound Laboratory Results Past 24 Hours Test 11/05/16 16:45 11/05/16 20:31 11/06/16 07:02 11/06/16 07:47 Range/Units Bedside Glucose 125 148 125 70-90 mg/dl Sodium Level 141 136-145 mmol/L Potassium Level 4.3 3.5-5.1 mmol/L Chloride Level 110 98-107 mmol/L Carbon Dioxide Level 22 21-32 mmol/L Anion Gap 9.0 3-11 mmol/L Blood Urea Nitrogen 34 7-18 mg/dl Creatinine 1.90 0.60-1.20 mg/dl Est Creatinine Clear Calc Drug Dose 26.6 ml/min Estimated GFR () 29.4 Estimated GFR (Non- 25.3 BUN/Creatinine Ratio 18.1 10-20 Random Glucose 118 70-99 mg/dl Calcium Level 8.8 8.5-10.1 mg/dl Test 11/06/16 11:37 Range/Units Bedside Glucose 105 70-90 mg/dl Labs were reviewed and are within normal limits unless listed below. 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 [employer] ) Immunizations History of Influenza Vaccine: No History of Tetanus Vaccine?: Yes History of Pneumococcal: Yes History of Hepatitis B Vaccine: No History of MDRO No Allergies Coded Allergies: No Known Allergies (Verified , 11/04/16) Medications Home Medications: Home Meds and Scripts Medications Dose Route/Sig Max Daily Dose Days Date Category Aspirin Ec (Aspirin) 325 Mg Tab 325 Mg PO QAM 11/04/16 Reported D 1000 (Cholecalciferol) 1,000 Unit Cap 1,000 Units PO QAM 11/04/16 Reported Allopurinol 100 Mg Tab 100 Mg PO QAM 11/04/16 Reported Synthroid (Levothyroxine Sodium) 25 Mcg Tab 25 Mcg PO QAM 11/04/16 Reported Lipitor (Atorvastatin Calcium) 40 Mg Tab 40 Mg PO HS 12/08/14 Reported Hygro[place] (Chlorthalidone) 25 Mg Tab 25 Mg PO QAM 12/08/14 Reported Zestril (Lisinopril) 40 Mg Tab 40 Mg PO QAM 12/08/14 Reported Niacin 250 Mg Tab 250 Mg PO HS 12/08/14 Reported Inpatient Medications: Current Inpatient Medications Medications (Trade) Dose Ordered Sig/Mary Route Start Time Stop Time Status Last Admin Dose Admin Heparin Sodium (Porcine) (Heparin Sq 5000 Unit/0.5ml) 5,000 unit Q8H SQ 11/05/16 06:00 12/05/16 05:59 Acetaminophen (Tylenol Tab) 650 mg Q4H PRN PO 11/05/16 00:30 12/05/16 00:29 Insulin Aspart (novoLOG ASPART) SLIDING SCALE If C... ACHS SC 11/05/16 06:30 12/05/16 06:59 Glucose (Glucose 40% Gel) 15-30 GRAMS 15 GRAMS... UD PRN PO 11/05/16 00:30 12/05/16 00:29 Glucose (Glucose Chew Tab) 4-8 Tablets 4 Tabl... UD PRN PO 11/05/16 00:30 12/05/16 00:29 Dextrose (Dextrose 50% 50ML Syringe) 25-50ML OF 50% DW IV FOR... UD PRN IV 11/05/16 00:30 12/05/16 00:29 Glucagon (Glucagon Inj) 1 mg UD PRN SQ 11/05/16 00:30 12/05/16 00:29 Ondansetron HCl (Zofran Inj) 4 mg Q6H PRN IV 11/05/16 00:30 12/05/16 00:29 Tramadol HCl (Ultram Tab) 25 mg Q6H PRN PO 11/05/16 00:30 12/05/16 00:29 Hydromorphone HCl (Dilaudid Inj) 0.5 mg Q3H PRN IV 11/05/16 00:30 11/19/16 00:29 Allopurinol (Zyloprim Tab) 100 mg QAM PO 11/05/16 08:00 12/05/16 08:59 11/06/16 07:26 100 MG Aspirin (Ecotrin Tab) 325 mg QAM PO 11/05/16 08:00 12/05/16 08:59 11/06/16 07:26 325 MG Atorvastatin Calcium (Lipitor Tab) 40 mg HS PO 11/05/16 21:00 12/05/16 20:59 11/05/16 20:29 40 MG Levothyroxine Sodium (Synthroid Tab) 25 mcg DAILYBB PO 11/05/16 06:30 12/05/16 06:29 11/06/16 06:24 25 MCG Sodium Chloride 1,000 ml @ 80 mls/hr [id number] IV 11/05/16 10:00 12/05/16 09:59 11/06/16 08:45 80 MLS/HR Review of Systems Review of Systems Constitutional: + fever, + frequent headaches Eyes: No blurred vision Neurological: No dizzy Endocrine: + tired/sluggish, No excessive thirst Gastrointestinal: + nausea, No abdominal pain, No indigestion, No vomiting, No constipation Cardiovascular: No chest pain, No palpitations, No swelling ankles/feet Respiratory: No shortness of breath, No chronic cough Skin: No rash Musculoskeletal: + joint pain, + back pain, + arthritis Female : + frequent urination, + infections, No painful urination, No urinary retention, No weak stream, No kidney stones Physical Exam Vital Signs: Vital Signs Past 12 Hours Date Time Temp Pulse Resp B/P (MAP) Pulse Ox O2 Delivery O2 Flow Rate FiO2 11/06/16 08:06 36.6 67 16 108/66 (80) 97 Room Air 11/06/16 08:00 Room Air Physical Exam: General Appearance: WD/WN, no apparent distress, + obese Eyes: bilateral eyes normal inspection ENT: hearing grossly normal Neck: supple, no adenopathy Respiratory/Chest: no respiratory distress, no accessory muscle use Gastrointestinal: Abdomen: normal abdomen Bladder: normal bladder Renal: normal renal Hernia: absent hernia Extremities: non-tender, normal inspection, no pedal edema, no calf tenderness , normal capillary refill Neurologic/Psychiatric: alert, normal mood/affect, oriented x 3 Skin: normal color, warm/dry, no rash Lymphatic: no adenopathy Assessment & Plan Assessment & Plan right hydronephrosis with perinephric fluid collection will need a ct to determine the source of the panfilo-renal fluid collection One possible cause of perinephric fluid is a perforated fornix due to high pressures from an obstructing stone, but one would think she would have had severe colic prior to the perforation. she is certain she had no flank or bladder pain during her illness.
--- NOTE | 2016-11-06 15:16 | DIAGNOSTIC IMAGING REPORT ---
ABDOMEN AND PELVIS CT WITHOUT CONTRAST CT DOSE: 1068.98 mGy.cm HISTORY: Abnormal ultrasound right hydronephrosis, perinephric fluid, elevated cr TECHNIQUE: Multiaxial CT images of the abdomen and pelvis were performed without contrast. COMPARISON STUDY: Ultrasound 11/04/2016 FINDINGS: Minimal dependent atelectatic change of the lung bases. Liver and spleen are unremarkable. There is fatty replacement of the pancreas. The left kidney demonstrates a 2 cm cyst centrally. It is negative for hydronephrosis. 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 There are 2 nonobstructing calcifications of the right proximal ureter. Largest measures 5 mm with a small measuring 3 mm. Mild right renal hydronephrosis. Bowel pattern overall is nonobstructive. Scattered colonic diverticulosis. No evidence for diverticulitis. Fat-containing lesion relating to the left ovary measuring 4.2 x 3.8 cm. This consistent with an ovarian turmoil. Bilateral hip prosthetics limiting resolution of the low pelvic region. IMPRESSION: 1. Small left renal cyst. 2. Congenitally malrotated right kidney with 2 partially obstructing calculi of the proximal right ureter . These measure 5 and 3 mm respectively. 3. Scattered colonic diverticulosis. 4. 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 Electronically signed by: Guillermo Will M.D. 11/06/2016 3:14 PM Dictated Date/Time: 11/06/2016 3:07 PM
[2016-11-06 15:30] VITALS: BP 139/81; PULSE 65; TEMP 36.6; O2SAT 100
[2016-11-06 16:00] VITALS: O2SAT 100
--- NOTE | 2016-11-06 17:31 | Progress Note ---
Medicine Progress Note Date & Time of Visit: Nov 06, 2016 at 17:26. Subjective patient seen sitting up in bedside chair brighter states she feels better today than yesterday appetite improving no problems voiding, no dysuria/hematuria, abdominal pain had PT today, tolerated well, felt somewhat dyspneic when she returned to her room denies chest pain, palpitations, dizziness no other symptoms Objective Last 8 Hrs Date Time Temp Pulse Resp B/P (MAP) Pulse Ox O2 Delivery O2 Flow Rate FiO2 11/06/16 15:30 36.6 65 18 139/81 (100) 100 Room Air Mechanical Ventilator Physical Exam: General- oriented x 3, not in distress, speaks in sentences with no effort Eyes- anicteric Neck- no JVD Lungs- clear breath sounds bilaterally, no wheezing Heart- regular rhythm; no murmur, normal rate Abdomen- normal bowel sounds, soft, nontender Extremities- no pretibial edema, no calf tenderness Neuro- alert, oriented x 3; no gross focal deficits Skin- warm & dry Laboratory Results: Last 24 Hours Test 11/05/16 20:31 11/06/16 07:02 11/06/16 07:47 11/06/16 11:37 Bedside Glucose 148 mg/dl 125 mg/dl 105 mg/dl Sodium Level 141 mmol/L Potassium Level 4.3 mmol/L Chloride Level 110 mmol/L Carbon Dioxide Level 22 mmol/L Anion Gap 9.0 mmol/L Blood Urea Nitrogen 34 mg/dl Creatinine 1.90 mg/dl Est Creatinine Clear Calc Drug Dose 26.6 ml/min Estimated GFR () 29.4 Estimated GFR (Non- 25.3 BUN/Creatinine Ratio 18.1 Random Glucose 118 mg/dl Calcium Level 8.8 mg/dl Test 11/06/16 16:40 Bedside Glucose 95 mg/dl Assessment & Plan 76 year old female with history of CKD 3, DM, HTN, Hypothyroidism presenting with elevated crea. Acute renal failure on CKD3 -- likely secondary to medications (OTC NSAIDs, Bactrim for recent UTI/home ACEI , diuretics) -- crea improved from 3.5 to 2.6 to 1.9 continue gentle IV fluids Renal US showing abnormal right kidney morphology CT abdomen: 2 partially obstructing stones in the right proximal ureter, mild hydronephrosis -- feeling better overall -- for stent placement tomorrow per Dr. Tinsley appreciate Urology and Nephro SVC input -- hold Chlorthalidone, Lisinopril for now Exertional Dyspnea -- ongoing for several months differentials include : undiagnosed pulmonary hypertension, pulmonary embolism chronic obstructive pulmonary disease from passive smoking, sleep disordered breathing - CXR unrevealing - Echo: pending V/Q scan: low probability for PE 2 step exercise test: negative - follow up echo may need trial of bronchodilators, PFTs as outpatient Hypertension -- stable -- monitor Chronic anemia - secondary to chronic kidney disease - Hg at baseline DM2, diet controlled, well-controlled as of recent A1c. - BSGs stable - monitor DVT proph Heparin Full Code Dispo pending anticipate d/c home when medically stable Current Inpatient Medications: Current Inpatient Medications Medications (Trade) Dose Ordered Sig/Mary Route Start Time Stop Time Status Last Admin Dose Admin Heparin Sodium (Porcine) (Heparin Sq 5000 Unit/0.5ml) 5,000 unit Q8H SQ 11/05/16 06:00 12/05/16 05:59 Acetaminophen (Tylenol Tab) 650 mg Q4H PRN PO 11/05/16 00:30 12/05/16 00:29 Insulin Aspart (novoLOG ASPART) SLIDING SCALE If C... ACHS SC 11/05/16 06:30 12/05/16 06:59 Glucose (Glucose 40% Gel) 15-30 GRAMS 15 GRAMS... UD PRN PO 11/05/16 00:30 12/05/16 00:29 Glucose (Glucose Chew Tab) 4-8 Tablets 4 Tabl... UD PRN PO 11/05/16 00:30 12/05/16 00:29 Dextrose (Dextrose 50% 50ML Syringe) 25-50ML OF 50% DW IV FOR... UD PRN IV 11/05/16 00:30 12/05/16 00:29 Glucagon (Glucagon Inj) 1 mg UD PRN SQ 11/05/16 00:30 12/05/16 00:29 Ondansetron HCl (Zofran Inj) 4 mg Q6H PRN IV 11/05/16 00:30 12/05/16 00:29 Tramadol HCl (Ultram Tab) 25 mg Q6H PRN PO 11/05/16 00:30 12/05/16 00:29 Hydromorphone HCl (Dilaudid Inj) 0.5 mg Q3H PRN IV 11/05/16 00:30 11/19/16 00:29 Allopurinol (Zyloprim Tab) 100 mg QAM PO 11/05/16 08:00 12/05/16 08:59 11/06/16 07:26 100 MG Aspirin (Ecotrin Tab) 325 mg QAM PO 11/05/16 08:00 12/05/16 08:59 11/06/16 07:26 325 MG Atorvastatin Calcium (Lipitor Tab) 40 mg HS PO 11/05/16 21:00 12/05/16 20:59 11/05/16 20:29 40 MG Levothyroxine Sodium (Synthroid Tab) 25 mcg DAILYBB PO 11/05/16 06:30 12/05/16 06:29 11/06/16 06:24 25 MCG Sodium Chloride 1,000 ml @ 60 mls/hr [id number] IV 11/06/16 17:30 12/06/16 17:29 UNV
[2016-11-06] MEDS: ATORVASTATIN 40 MG TAB PO SCH (20:47)
[2016-11-06 22:49] VITALS: BP 149/83; PULSE 64; TEMP 36.5; O2SAT 96
[2016-11-07] VITALS (7 sets, daily range): BP systolic 120–169; BP diastolic 75–88; PULSE 66–80; TEMP 36.3–36.8; O2SAT 94–99
[2016-11-07] MEDS: HEPARIN SOD 5000 UNIT/0.5 ML CARP SQ SCH ×2 (05:24→13:14)
[2016-11-07] MEDS: LEVOTHYROXINE 25 MCG TAB PO SCH (05:33)
[2016-11-07] MEDS: INSULIN ASPART 100 UNITS/ML 3 ML PEN SC SCH ×4 (06:30→21:23)
[2016-11-07] MEDS: ALLOPURINOL 100 MG TAB PO SCH (08:07)
[2016-11-07 08:12] LABS: BUN/CREATININE RATIO 17.9 (10-20); CREATININE 1.6 mg/dl (0.60-1.20); POTASSIUM 4.5 mmol/L (3.5-5.1)
[2016-11-07 08:50] LABS: CALCIUM 8.7 mg/dl (8.5-10.1)
[2016-11-07] MEDS: SODIUM CHLORIDE 0.9% 1000ML 1,000 ML IV SCH (09:53)
--- NOTE | 2016-11-07 11:57 | Nephrology Progress Note ---
Nephrology Progress Note Date of Service: Nov 07, 2016. Subjective 76 yo female with ujan which improved with fluids and stopping bactrim. during workup, found concerning finding on right kidney. urology consulted and obtained a ct scan which showed congenital malrotation of the kidney and also incidental finding of two partially obstructed kidney stones. for stenting scheduled after 5 tonight. pt very comfortable and bored. despite the two stones , pt with no symptoms or pain. urinating well. on low rate of fluids and tolerating them well. Objective Date Time Temp Pulse Resp B/P (MAP) Pulse Ox O2 Delivery O2 Flow Rate FiO2 11/07/16 08:08 36.8 73 18 120/75 99 Room Air 11/07/16 08:00 Room Air 11/07/16 06:55 36.8 73 18 120/75 (90) 99 Room Air 11/07/16 00:30 Room Air 11/06/16 22:49 36.5 64 18 149/83 (105) 96 11/06/16 16:00 100 Room Air 11/06/16 15:30 36.6 65 18 139/81 (100) 100 Room Air Mechanical Ventilator Physical Exam: General-aaox3 Eyes-no scleral icterus ENT-mmm Neck-supple Lungs-cta Heart-rrr Abdomen-bs+ s/nt/nd Extremities-no c/c/e Neuro-nonfocal Current Inpatient Medications Medications (Trade) Dose Ordered Sig/Mary Route Start Time Stop Time Status Last Admin Dose Admin Heparin Sodium (Porcine) (Heparin Sq 5000 Unit/0.5ml) 5,000 unit Q8H SQ 11/05/16 06:00 12/05/16 05:59 Acetaminophen (Tylenol Tab) 650 mg Q4H PRN PO 11/05/16 00:30 12/05/16 00:29 Insulin Aspart (novoLOG ASPART) SLIDING SCALE If C... ACHS SC 11/05/16 06:30 12/05/16 06:59 Glucose (Glucose 40% Gel) 15-30 GRAMS 15 GRAMS... UD PRN PO 11/05/16 00:30 12/05/16 00:29 Glucose (Glucose Chew Tab) 4-8 Tablets 4 Tabl... UD PRN PO 11/05/16 00:30 12/05/16 00:29 Dextrose (Dextrose 50% 50ML Syringe) 25-50ML OF 50% DW IV FOR... UD PRN IV 11/05/16 00:30 12/05/16 00:29 Glucagon (Glucagon Inj) 1 mg UD PRN SQ 11/05/16 00:30 12/05/16 00:29 Ondansetron HCl (Zofran Inj) 4 mg Q6H PRN IV 11/05/16 00:30 12/05/16 00:29 Tramadol HCl (Ultram Tab) 25 mg Q6H PRN PO 11/05/16 00:30 12/05/16 00:29 Hydromorphone HCl (Dilaudid Inj) 0.5 mg Q3H PRN IV 11/05/16 00:30 11/19/16 00:29 Allopurinol (Zyloprim Tab) 100 mg QAM PO 11/05/16 08:00 12/05/16 08:59 11/07/16 08:07 100 MG Atorvastatin Calcium (Lipitor Tab) 40 mg HS PO 11/05/16 21:00 12/05/16 20:59 11/06/16 20:47 40 MG Levothyroxine Sodium (Synthroid Tab) 25 mcg DAILYBB PO 11/05/16 06:30 12/05/16 06:29 11/07/16 05:33 25 MCG Sodium Chloride 1,000 ml @ 60 mls/hr [id number] IV 11/06/16 17:30 12/06/16 17:29 11/07/16 09:53 60 MLS/HR Last 24 Hours Test 11/06/16 16:40 11/06/16 20:38 11/07/16 07:28 Bedside Glucose 95 mg/dl 159 mg/dl Sodium Level 142 mmol/L Potassium Level 4.5 mmol/L Chloride Level 111 mmol/L Carbon Dioxide Level 22 mmol/L Anion Gap 9.0 mmol/L Blood Urea Nitrogen 29 mg/dl Creatinine 1.60 mg/dl Est Creatinine Clear Calc Drug Dose 31.6 ml/min Estimated GFR () 36.2 Estimated GFR (Non- 31.2 BUN/Creatinine Ratio 17.9 Random Glucose 116 mg/dl Calcium Level 8.7 mg/dl Assessment & Plan juan on ckd stage 3 and creatinine back to baseline. ok from renal perspective to go home once urology clears the patient. will discuss doing a 24 hour urorisk in the future at the next office visit. volume status acceptable. tolerating low rate of fluids. for stenting tonight to help relieve the stone burden. greatly appreciate urology help.
[2016-11-07] MEDS ORDERED: FENTANYL CITRATE INJ 50 MCG/1 ML 2 ML VIAL ONE (16:38)
[2016-11-07] MEDS ORDERED: MIDAZOLAM HCL 1 MG/ML 2ML VIAL ONE (16:38)
[2016-11-07] MEDS ORDERED: CEFAZOLIN IV 2,000 MG/60 ML D5W IV ONE (16:39)
[2016-11-07] MEDS ORDERED: CONRAY 30% 150ML BOTTLE ONE (16:44)
--- NOTE | 2016-11-07 16:44 | History & Physical Bridge Note ---
H&P Re-Evaluation Bridge Note: I have examined the patient, reviewed the History & Physical and in the interval since the performance of the History & Physical I have noted the following changes of clinical significance: there are 2 larger stones partially obstructing the right kidney we plan right ureteroscopy laser lithotripsy basket stone extraction stent placement. I described surgery and she had an opportunity to ask questions and signed consent.
[2016-11-07] MEDS ORDERED: LACTATED RINGER'S 1000ML 1,000 ML IV PRN (16:48)
[2016-11-07] MEDS ORDERED: FENTANYL CITRATE INJ 50 MCG/1 ML 2 ML VIAL IV PRN (17:00)
[2016-11-07] MEDS ORDERED: ONDANSETRON INJ 2 MG/ML 2 ML VIAL IV PRN (17:00)
[2016-11-07] MEDS ORDERED: BELLADONNA/OPIUM SUPP 60 MG SUPP PR ONE ×2 (17:39→17:43)
[2016-11-07] MEDS ORDERED: ONDANSETRON INJ 2 MG/ML 2 ML VIAL ONE (17:44)
[2016-11-07] MEDS ORDERED: SUCCINYLCHOLINE CHLORIDE 20 MG/ML 10 ML VIAL IV ONE (17:44)
[2016-11-07] MEDS ORDERED: PROPOFOL IV EMULSION 10 MG/ML 20 ML VIAL IV ONE (17:44)
--- NOTE | 2016-11-07 18:13 | [facility] Operative Report ---
Operative Report Operative Date Nov 07, 2016. Pre-Operative Diagnosis Right obstructing upper ureteral stones Post-Operative Diagnosis right upper ureteral stones and right upper ureteral stricture Procedure(s) Performed cysto right ureteroscopy placement of right ureteral stent Surgeon Dr. Tinsley Dredge Pipe Installer Surgeon(s) none Estimated Blood Loss 0 ml Findings tight stricture no bigger than wire in right upper ureter. Radio-opaque kidney stones. Fluids 600mL Specimens Microbiology: Urine culture, Low colony count cystoscopy urine Drains 6 fr 24 centimeter double j stent Anesthesia GET Complication(s) None Disposition Recovery Room / PACU Indications febrile illness acute renal failure and obstructing right upper ureteral stones. Description of Procedure Patient was given general ET anesthesia and placed in lithotomy position. Her genitals were prepped and draped in sterile fashion. Time out held with team. I placed a 21 fr rigid cystoscope to bladder. The urethra is unremarkable. There is moderate prolapse. 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 The UOs are laterally displaced. I placed a stiff wire up right ureter and there is slight resistance to reach her low lying kidney. I then used a dual lumen catheter to calibrate the UO. I placed a flexible ureteroscope up the right ureter along side the wire and the ureter is generous size until the upper ureter where it abruptly narrows to a pinhole not bigger than the stiff wire. Under direct vision it was very difficult to get a second road runner wire thru the stricture to the kidney. I placed a 5 fr open ended to kidney and injected 3mL of dye and see dilated calyces. I then passed a 6 fr open ended to calibrate the ureteral stricture to allow for easier passage of the stent. I placed a 6 fr 24 centimeter double J stent over the stiff wire and positioned the renal and bladder ends with fluoro. I There is brisk drainage. Drainage is a bit cloudy I left bladder empty and concluded case. I placed a belladonna and opium suppository for post-op pain. She extubated and transferred to recovery under my escort, in stable condition. 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 Any exceptions are noted below.
[2016-11-07] MEDS ORDERED: LABETALOL HCL IV 5 MG/ML 20ML IV STA (18:38)
[2016-11-07] MEDS ORDERED: LABETALOL HCL IV 5 MG/ML 20ML IV ONE (18:38)
--- NOTE | 2016-11-07 19:15 | Anesthesiology Progress Note ---
Anesthesia Post Op Note Date & Time Nov 07, 2016 at 19:15 Vital Signs Pain Intensity: 0 Vital Signs Past 12 Hours Date Time Temp Pulse Resp B/P (MAP) Pulse Ox O2 Delivery O2 Flow Rate FiO2 11/07/16 19:12 69 16 98 11/07/16 19:12 68 16 11/07/16 19:11 159/77 11/07/16 19:07 63 18 165/49 94 11/07/16 19:07 62 18 11/07/16 19:02 65 14 96 11/07/16 19:02 67 14 11/07/16 19:01 140/69 11/07/16 18:57 64 19 96 11/07/16 18:57 64 19 11/07/16 18:56 167/77 11/07/16 18:54 66 22 96 11/07/16 18:54 66 22 11/07/16 18:51 155/83 11/07/16 18:49 64 18 95 11/07/16 18:49 65 18 11/07/16 18:46 168/73 11/07/16 18:44 64 17 96 11/07/16 18:44 64 17 11/07/16 18:41 155/90 11/07/16 18:39 74 16 11/07/16 18:39 77 16 94 11/07/16 18:36 160/109 11/07/16 18:34 78 18 11/07/16 18:34 81 18 96 11/07/16 18:31 177/80 11/07/16 18:29 79 14 11/07/16 18:29 78 14 96 11/07/16 18:26 167/82 11/07/16 18:24 76 15 11/07/16 18:24 77 15 95 11/07/16 18:24 36.6 78 17 167/82 100 Nasal Cannula 10 11/07/16 18:21 164/71 11/07/16 18:19 80 17 11/07/16 18:19 82 17 95 11/07/16 18:18 162/75 11/07/16 18:16 154/111 11/07/16 18:14 82 17 99 11/07/16 18:14 80 17 11/07/16 18:13 78 18 11/07/16 18:13 78 18 100 11/07/16 18:11 163/69 11/07/16 18:08 82 21 11/07/16 18:08 81 21 184/79 100 11/07/16 18:07 181/83 11/07/16 18:06 185/85 11/07/16 18:04 36.0 81 22 180/88 99 Mask 10 11/07/16 18:03 84 17 99 11/07/16 18:03 84 17 11/07/16 18:01 168/87 11/07/16 17:59 180/88 11/07/16 17:58 85 17 11/07/16 17:58 84 17 98 11/07/16 16:16 Room Air 11/07/16 16:01 36.3 66 20 169/88 (115) 96 Room Air 11/07/16 08:08 36.8 73 18 120/75 99 Room Air 11/07/16 08:00 Room Air Notes Mental Status: alert / awake / arousable, participated in evaluation Pt Amnestic to Procedure: Yes Nausea / Vomiting: adequately controlled Pain: adequately controlled Airway Patency, RR, SpO2: stable & adequate BP & HR: stable & adequate Hydration State: stable & adequate Anesthetic Complications: no major complications apparent
[2016-11-07] MEDS ORDERED: CLONIDINE HCL 0.1 MG TAB PO PRN (20:30)
--- NOTE | 2016-11-07 20:33 | Progress Note ---
Medicine Progress Note Date & Time of Visit: Nov 07, 2016 at 20:29. Subjective seen sitting up in bed, alert states she feels ok overall after procedure minimal abdominal pain no chest pain, dyspnea, dizziness, palpitations no other symptoms Objective Last 8 Hrs Date Time Temp Pulse Resp B/P (MAP) Pulse Ox O2 Delivery O2 Flow Rate FiO2 11/07/16 20:05 36.3 80 20 160/83 (108) 94 Room Air 11/07/16 19:30 36.3 68 18 160/77 (104) 98 Room Air 11/07/16 19:12 69 16 98 11/07/16 19:12 68 16 11/07/16 19:11 159/77 11/07/16 19:07 63 18 165/49 94 11/07/16 19:07 62 18 11/07/16 19:02 65 14 96 11/07/16 19:02 67 14 11/07/16 19:01 140/69 11/07/16 18:57 64 19 96 11/07/16 18:57 64 19 11/07/16 18:56 167/77 11/07/16 18:54 66 22 96 11/07/16 18:54 66 22 11/07/16 18:51 155/83 11/07/16 18:49 64 18 95 11/07/16 18:49 65 18 11/07/16 18:46 168/73 11/07/16 18:44 64 17 96 11/07/16 18:44 64 17 11/07/16 18:41 155/90 11/07/16 18:39 74 16 11/07/16 18:39 77 16 94 11/07/16 18:36 160/109 11/07/16 18:34 78 18 11/07/16 18:34 81 18 96 11/07/16 18:31 177/80 11/07/16 18:29 79 14 11/07/16 18:29 78 14 96 11/07/16 18:26 167/82 11/07/16 18:24 76 15 11/07/16 18:24 77 15 95 11/07/16 18:24 36.6 78 17 167/82 100 Nasal Cannula 10 11/07/16 18:21 164/71 11/07/16 18:19 80 17 11/07/16 18:19 82 17 95 11/07/16 18:18 162/75 11/07/16 18:16 154/111 11/07/16 18:14 82 17 99 11/07/16 18:14 80 17 11/07/16 18:13 78 18 11/07/16 18:13 78 18 100 11/07/16 18:11 163/69 11/07/16 18:08 82 21 11/07/16 18:08 81 21 184/79 100 11/07/16 18:07 181/83 11/07/16 18:06 185/85 11/07/16 18:04 36.0 81 22 180/88 99 Mask 10 11/07/16 18:03 84 17 99 11/07/16 18:03 84 17 11/07/16 18:01 168/87 11/07/16 17:59 180/88 11/07/16 17:58 85 17 11/07/16 17:58 84 17 98 11/07/16 16:16 Room Air 11/07/16 16:01 36.3 66 20 169/88 (115) 96 Room Air Physical Exam: General- oriented x 3, not in distress, speaks in sentences with no effort Eyes- anicteric Neck- no JVD Lungs- clear breath sounds no rales/wheezes bilaterally Heart- regular rhythm; no murmur, normal rate Abdomen- normal bowel sounds, soft, nontender Extremities- no pretibial edema, no calf tenderness Neuro- alert, oriented x 3; no gross focal deficits Skin- warm & dry Laboratory Results: Last 24 Hours Test 11/06/16 20:38 11/07/16 07:28 11/07/16 07:50 11/07/16 11:42 Bedside Glucose 159 mg/dl 103 mg/dl 106 mg/dl Sodium Level 142 mmol/L Potassium Level 4.5 mmol/L Chloride Level 111 mmol/L Carbon Dioxide Level 22 mmol/L Anion Gap 9.0 mmol/L Blood Urea Nitrogen 29 mg/dl Creatinine 1.60 mg/dl Est Creatinine Clear Calc Drug Dose 31.6 ml/min Estimated GFR () 36.2 Estimated GFR (Non- 31.2 BUN/Creatinine Ratio 17.9 Random Glucose 116 mg/dl Calcium Level 8.7 mg/dl Pro-B-Type Natriuretic Peptide 136 pg/ml Test 11/07/16 16:08 11/07/16 18:05 Bedside Glucose 107 mg/dl 101 mg/dl Date/Time Source Procedure Growth Status 11/07/16 17:43 Urine,Catheterized Urine Culture Pending Received Assessment & Plan 76 year old female with history of CKD 3, DM, HTN, Hypothyroidism presenting with elevated crea. Acute renal failure on CKD3 -- likely secondary to medications (OTC NSAIDs, Bactrim for recent UTI/home ACEI , diuretics) -- crea improved from 3.5 to 2.6 to 1.9 continue gentle IV fluids Renal US showing abnormal right kidney morphology CT abdomen: 2 partially obstructing stones in the right proximal ureter, mild hydronephrosis -- feeling fine overall -- s/p right ureteral stent placement by Dr. Tinsley 11/07/16 appreciate Urology and Nephro SVC input -- hold Chlorthalidone, Lisinopril for now Exertional Dyspnea -- ongoing for several months differentials include : undiagnosed pulmonary hypertension, pulmonary embolism chronic obstructive pulmonary disease from passive smoking, sleep disordered breathing - CXR unrevealing - Echo: pending V/Q scan: low probability for PE 2 step exercise test: negative - follow up echo may need trial of bronchodilators, PFTs as outpatient Hypertension add PRN clonidine -- monitor Chronic anemia - secondary to chronic kidney disease - Hg at baseline DM2, diet controlled, well-controlled as of recent A1c. - BSGs stable - monitor DVT proph hold heparin tonight post procedure Full Code Dispo anticipate d/c home tomorrow Current Inpatient Medications: Current Inpatient Medications Medications (Trade) Dose Ordered Sig/Mary Route Start Time Stop Time Status Last Admin Dose Admin Heparin Sodium (Porcine) (Heparin Sq 5000 Unit/0.5ml) 5,000 unit Q8H SQ 11/05/16 06:00 12/05/16 05:59 Acetaminophen (Tylenol Tab) 650 mg Q4H PRN PO 11/05/16 00:30 12/05/16 00:29 Insulin Aspart (novoLOG ASPART) SLIDING SCALE If C... ACHS SC 11/05/16 06:30 12/05/16 06:59 Glucose (Glucose 40% Gel) 15-30 GRAMS 15 GRAMS... UD PRN PO 11/05/16 00:30 12/05/16 00:29 Glucose (Glucose Chew Tab) 4-8 Tablets 4 Tabl... UD PRN PO 11/05/16 00:30 12/05/16 00:29 Dextrose (Dextrose 50% 50ML Syringe) 25-50ML OF 50% DW IV FOR... UD PRN IV 11/05/16 00:30 12/05/16 00:29 Glucagon (Glucagon Inj) 1 mg UD PRN SQ 11/05/16 00:30 12/05/16 00:29 Ondansetron HCl (Zofran Inj) 4 mg Q6H PRN IV 11/05/16 00:30 12/05/16 00:29 Tramadol HCl (Ultram Tab) 25 mg Q6H PRN PO 11/05/16 00:30 12/05/16 00:29 Hydromorphone HCl (Dilaudid Inj) 0.5 mg Q3H PRN IV 11/05/16 00:30 11/19/16 00:29 Allopurinol (Zyloprim Tab) 100 mg QAM PO 11/05/16 08:00 12/05/16 08:59 11/07/16 08:07 100 MG Atorvastatin Calcium (Lipitor Tab) 40 mg HS PO 11/05/16 21:00 12/05/16 20:59 11/06/16 20:47 40 MG Levothyroxine Sodium (Synthroid Tab) 25 mcg DAILYBB PO 11/05/16 06:30 12/05/16 06:29 11/07/16 05:33 25 MCG Lactated Ringer's 1,000 ml @ 130 mls/hr Q7H42M PRN IV 11/07/16 16:48 11/08/16 16:47
--- NOTE | 2016-11-07 21:03 | DIAGNOSTIC IMAGING REPORT ---
INTRAOPERATIVE RADIOGRAPHS CLINICAL HISTORY: Right-sided ureteral stent placement. Fluoroscopy time: 55 seconds. FINDINGS: 3 spot fluoroscopic views of the right mid abdomen from a retrograde ureterogram and ureteral stent placement procedure are presented. The initial image shows cannulation of the right ureter. The final 2 images show a right ureteral stent having been deployed. IMPRESSION: Intraoperative images from right ureteral stent placement as above. See operative report for detailed findings. Electronically signed by: Kemal Arevalo M.D. 11/07/2016 9:01 PM Dictated Date/Time: 11/07/2016 9:00 PM
[2016-11-07] MEDS: ATORVASTATIN 40 MG TAB PO SCH (21:22)
[2016-11-08 00:10] VITALS: BP 156/84; PULSE 71; TEMP 36.6; O2SAT 99
[2016-11-08 04:28] VITALS: BP 119/67; PULSE 72; TEMP 36.4; O2SAT 95
[2016-11-08] MEDS: LEVOTHYROXINE 25 MCG TAB PO SCH (05:42)
[2016-11-08 07:46] VITALS: BP 123/78; PULSE 75; TEMP 36.8; O2SAT 96
[2016-11-08 07:59] LABS: BASO % 0.3 %; BASO ABS # 0.02 K/uL (0-0.2); COMPLETE YES; EOS % 2.6 %; HEMATOCRIT 35.5 % (37-47); IG% 0.5 %; LYMPH % 15.3 %; MEAN CELL VOLUME 96.2 fL (80-100); MEAN CORPUSCULAR HEMOGLOBIN 31.4 pg (25-34); MEAN CORPUSCULAR HGB CONC 32.7 g/dl (32-36); MEAN PLATELET VOLUME 8.8 fL (7.4-10.4); MONO % 5.9 %; NEUT % 75.4 %; PLATELET COUNT 256 K/uL (130-400); RED BLOOD COUNT 3.69 M/uL (4.2-5.4); WHITE BLOOD COUNT 7.83 K/uL (4.8-10.8)
[2016-11-08] MEDS: INSULIN ASPART 100 UNITS/ML 3 ML PEN SC SCH ×2 (08:08→12:31)
[2016-11-08] MEDS: ALLOPURINOL 100 MG TAB PO SCH (08:09)
[2016-11-08 08:36] LABS: CALCIUM 9.2 mg/dl (8.5-10.1); CREATININE 1.5 mg/dl (0.60-1.20)
--- NOTE | 2016-11-08 08:56 | Anesthesiology Progress Note ---
Anesthesia Post Op Note Date & Time Nov 08, 2016 at 08:53 Vital Signs Pain Intensity: 0 Vital Signs Past 12 Hours Date Time Temp Pulse Resp B/P (MAP) Pulse Ox O2 Delivery O2 Flow Rate FiO2 11/08/16 08:00 Room Air 11/08/16 07:46 36.8 75 16 123/78 (93) 96 Room Air 11/08/16 04:28 36.4 72 18 119/67 (84) 95 Room Air 11/08/16 00:10 36.6 71 20 156/84 (108) 99 Room Air 11/07/16 23:45 Room Air 11/07/16 21:40 36.4 66 18 148/81 (103) 98 Room Air Notes Mental Status: alert / awake / arousable, participated in evaluation Pt Amnestic to Procedure: Yes Nausea / Vomiting: adequately controlled Pain: adequately controlled Airway Patency, RR, SpO2: stable & adequate BP & HR: stable & adequate Hydration State: stable & adequate Anesthetic Complications: no major complications apparent
--- NOTE | 2016-11-08 10:31 | ECHOCARDIOGRAM REPORT ---
*NOTICE TO RECEIVING [employer] This information is strictly Confidential and protected under [place] law. [place] law prohibits you from making any further disclosure of this information unless further disclosure is expressly permitted by the written consent of the person to whom it pertains or is authorized by law. A general authorization for the release of medical or other information is not sufficient for this purpose. Hospital accepts no responsibility if the information is made available to any other person, INCLUDING THE PATIENT. Interpretation Summary * Name: WALT CALDWELL Study Date: 11/08/2016 06:50 AM BP: 123/78 mmHg * Patient Location: [facility] HR: 74 * : 1940 (M/d/yyyy) Gender: Female Height: 60 in * Age: 76 yrs Ethnicity: CA Weight: 212 lb * Referring Physician: Jose Patino * Performed By: Kirstin Hansen RCS * * Reason For Study: EXERTIONAL DYSPNEA * BSA: 1.9 m2 * -- Conclusions -- * Normal LV chamber size with mild concentric LVH, sigmoid appearing septum. * Normal LV systolic function, EF 55-60%. * No segmental left ventricular wall motion abnormalities are noted. * Grade II diastolic dysfunction. * Aortic valve sclerosis mild, without significant aortic valvular stenosis. * Small, circumferential pericardial effusion without hemodynamic compromise. Procedure Details * A complete two-dimensional transthoracic echocardiogram was performed (2D, M-mode, Doppler and color flow Doppler). Left Ventricle * The left ventricle is normal in size. * There is mild concentric left ventricular hypertrophy. * Left ventricular systolic function is normal. * No segmental left ventricular wall motion abnormalities are noted. * Ejection Fraction = 55-60%. * The left ventricular wall motion is normal. Right Ventricle * The right ventricular cavity size is normal (basal dimension <4.2 cm in right ventricular apical 4-chamber view). * The right ventricular systolic function is normal as assessed by tricuspid annular plane systolic excursion (TAPSE) (normal >1.5 cm). Atria * The left atrial size is normal. * Right atrial size is normal. * No ASD detected; PFO is not assessed. Mitral Valve * The mitral valve is normal in structure and function. Tricuspid Valve * The tricuspid valve is normal in structure and function. Aortic Valve * The aortic valve is trileaflet. * Aortic valve sclerosis mild, without significant aortic valvular stenosis. * There is no significant aortic regurgitation. Pulmonic Valve * The pulmonary valve is not well seen, but the Doppler examination is normal without significant regurgitation or stenosis. Great Vessels * The aortic root is normal size. Pericardium/Pleural * Small pericardial effusion. * A circumferential pericardial effusion is noted. Left Ventricular Diastolic Function * Diastolic dysfunction, Grade II (pseudonormalization pattern). MMode 2D Measurements and Calculations IVSd 1.5 cm IVSs 1.7 cm LVIDd 4.4 cm LVIDs 3.2 cm LVPWd 1.2 cm LVPWs 1.6 cm IVS/LVPW 1.2 FS 27.1 % EDV(Teich) 88.5 ml ESV(Teich) 41.6 ml EF(Teich) 53.0 % EDV(cubed) 86.1 ml ESV(cubed) 33.4 ml EF(cubed) 61.2 % % IVS thick 8.1 % % LVPW thick 26.7 % LV mass(C)d 238.8 grams LV mass(C)dI 124.8 grams/m\S\2 LV mass(C)s 196.5 grams LV mass(C)sI 102.7 grams/m\S\2 SV(Teich) 46.9 ml SI(Teich) 24.5 ml/m\S\2 SV(cubed) 52.7 ml SI(cubed) 27.6 ml/m\S\2 Ao root diam 2.8 cm Ao root area 6.0 cm\S\2 LA dimension 3.2 cm LA/Ao 1.2 LVOT diam 2.0 cm LVOT area 3.2 cm\S\2 LVAd ap4 28.1 cm\S\2 LVLd ap4 7.5 cm EDV(MOD-sp4) 85.9 ml EDV(sp4-el) 90.2 ml LVAs ap4 17.5 cm\S\2 LVLs ap4 6.4 cm ESV(MOD-sp4) 40.6 ml ESV(sp4-el) 40.3 ml EF(MOD-sp4) 52.7 % EF(sp4-el) 55.3 % LVAd ap2 28.8 cm\S\2 LVLd ap2 7.5 cm EDV(MOD-sp2) 90.8 ml EDV(sp2-el) 93.2 ml LVAs ap2 20.2 cm\S\2 LVLs ap2 6.8 cm ESV(MOD-sp2) 51.3 ml ESV(sp2-el) 51.3 ml EF(MOD-sp2) 43.5 % EF(sp2-el) 45.0 % LVLd %diff 0.99 % EDV(MOD-bp) 88.1 ml LVLs %diff 5.2 % ESV(MOD-bp) 46.8 ml EF(MOD-bp) 46.9 % SV(MOD-sp4) 45.2 ml SI(MOD-sp4) 23.6 ml/m\S\2 SV(MOD-sp2) 39.5 ml SI(MOD-sp2) 20.6 ml/m\S\2 SV(MOD-bp) 41.3 ml SI(MOD-bp) 21.6 ml/m\S\2 SV(sp4-el) 49.9 ml SI(sp4-el) 26.1 ml/m\S\2 SV(sp2-el) 41.9 ml SI(sp2-el) 21.9 ml/m\S\2 Doppler Measurements and Calculations MV E max camilla 118.1 cm/sec MV A max camilla 105.2 cm/sec MV E/A 1.1 MV P1/2t max camilla 117.7 cm/sec MV P1/2t 60.9 msec MVA(P1/2t) 3.6 cm\S\2 MV dec slope 566.3 cm/sec\S\2 MV dec time 0.21 sec Ao V2 max 184.2 cm/sec Ao max PG 13.6 mmHg Ao max PG (full) 8.4 mmHg MARY(V,A) 2.0 cm\S\2 MARY(V,D) 2.0 cm\S\2 LV V1 max PG 5.2 mmHg LV V1 max 113.5 cm/sec PA V2 max 105.9 cm/sec PA max PG 4.5 mmHg TR max camilla 299.3 cm/sec
[2016-11-08 11:39] VITALS: BP 152/84; PULSE 70; TEMP 36.7; O2SAT 100
[2016-11-08 15:29] VITALS: BP 152/84; PULSE 70; TEMP 36.7; O2SAT 100
--- NOTE | 2016-11-08 15:36 | Progress Note ---
Medicine Progress Note Date & Time of Visit: Nov 08, 2016 at 15:25. Subjective patient seen resting in bedside chair in good spirits states she feels well overall and is eager to go home has blood tinged urine, but no dysuria/abdominal pain/fever/chills denies chest pain, dyspnea, palpitations, dizziness ambulates in room with no problems states she is ready and would like to go home today no other symptoms Objective Last 8 Hrs Date Time Temp Pulse Resp B/P (MAP) Pulse Ox O2 Delivery O2 Flow Rate FiO2 11/08/16 11:39 36.7 70 16 152/84 (106) 100 Room Air 11/08/16 08:00 Room Air 11/08/16 07:46 36.8 75 16 123/78 (93) 96 Room Air Physical Exam: General- oriented x 3, not in distress, speaks in sentences with no effort Eyes- anicteric Neck- no JVD Lungs- clear breath sounds bilaterally, no rales/wheezes Heart- regular rhythm; no murmur, normal rate Abdomen- normal bowel sounds, soft, nontender Extremities- no pretibial edema, no calf tenderness Neuro- alert, oriented x 3; no gross focal deficits Skin- warm & dry Laboratory Results: Last 24 Hours Test 11/07/16 16:08 11/07/16 18:05 11/07/16 20:40 11/08/16 07:46 Bedside Glucose 107 mg/dl 101 mg/dl 106 mg/dl White Blood Count 7.83 K/uL Red Blood Count 3.69 M/uL Hemoglobin 11.6 g/dL Hematocrit 35.5 % Mean Corpuscular Volume 96.2 fL Mean Corpuscular Hemoglobin 31.4 pg Mean Corpuscular Hemoglobin Concent 32.7 g/dl Platelet Count 256 K/uL Mean Platelet Volume 8.8 fL Neutrophils (%) (Auto) 75.4 % Lymphocytes (%) (Auto) 15.3 % Monocytes (%) (Auto) 5.9 % Eosinophils (%) (Auto) 2.6 % Basophils (%) (Auto) 0.3 % Neutrophils # (Auto) 5.91 K/uL Lymphocytes # (Auto) 1.20 K/uL Monocytes # (Auto) 0.46 K/uL Eosinophils # (Auto) 0.20 K/uL Basophils # (Auto) 0.02 K/uL RDW Standard Deviation 46.2 fL RDW Coefficient of Variation 13.2 % Immature Granulocyte % (Auto) 0.5 % Immature Granulocyte # (Auto) 0.04 K/uL Sodium Level 142 mmol/L Potassium Level 5.0 mmol/L Chloride Level 109 mmol/L Carbon Dioxide Level 24 mmol/L Anion Gap 9.0 mmol/L Blood Urea Nitrogen 23 mg/dl Creatinine 1.50 mg/dl Est Creatinine Clear Calc Drug Dose 33.7 ml/min Estimated GFR () 39.1 Estimated GFR (Non- 33.7 BUN/Creatinine Ratio 15.0 Random Glucose 116 mg/dl Calcium Level 9.2 mg/dl Date/Time Source Procedure Growth Status 11/07/16 17:43 Urine,Catheterized Urine Culture - Preliminary NO GROWTH - LESS THAN 1,000 COLONIES/... Resulted Assessment & Plan 76 year old female with history of CKD 3, DM, HTN, Hypothyroidism presenting with elevated crea. Acute renal failure on CKD3 -- likely secondary to medications (OTC NSAIDs, Bactrim for recent UTI/home ACEI , diuretics) -- Partially Obstructing Right Ureter Stones [employer] Inspector Dr. Pineda consulted given IV fluids crea improved from 3.5 to 1.5 Renal US showing abnormal right kidney morphology CT abdomen: 2 partially obstructing stones in the right proximal ureter, mild hydronephrosis -- s/p right ureteral stent placement by Dr. Tinsley 11/07/[address] Tinsley in 2 week for stent removal -- hold Chlorthalidone, Lisinopril for now -- repeat PRP on follow up with PCP Exertional Dyspnea -- ongoing for several months - CXR unrevealing - Echo: -- Conclusions -- * Normal LV chamber size with mild concentric LVH, sigmoid appearing septum. * Normal LV systolic function, EF 55-60%. * No segmental left ventricular wall motion abnormalities are noted. * Grade II diastolic dysfunction. * Aortic valve sclerosis mild, without significant aortic valvular stenosis. * Small, circumferential pericardial effusion without hemodynamic compromise. - V/Q scan: low probability for Pulmonary Embolism - 2 step exercise test: no oxygen desaturation with ambulation, does not require oxygen - will need PFTs as outpatient, trial of Albuterol PRN consider stress test if persistent Hypertension -- hold Lisinopril and Chlorthalidone for acute renal failure -- Amlodipine 5mg po daily for now -- monitor as outpatient Chronic anemia - secondary to chronic kidney disease - Hg at baseline DM2, diet controlled, well -controlled as of recent A1c. - BSGs stable Dispo d/c home ff up with PCP next week ff up with Urologist in 2 weeks for stent removal Current Inpatient Medications: Current Inpatient Medications Medications (Trade) Dose Ordered Sig/Mary Route Start Time Stop Time Status Last Admin Dose Admin Acetaminophen (Tylenol Tab) 650 mg Q4H PRN PO 11/05/16 00:30 12/05/16 00:29 Insulin Aspart (novoLOG ASPART) SLIDING SCALE If C... ACHS SC 11/05/16 06:30 12/05/16 06:59 Glucose (Glucose 40% Gel) 15-30 GRAMS 15 GRAMS... UD PRN PO 11/05/16 00:30 12/05/16 00:29 Glucose (Glucose Chew Tab) 4-8 Tablets 4 Tabl... UD PRN PO 11/05/16 00:30 12/05/16 00:29 Dextrose (Dextrose 50% 50ML Syringe) 25-50ML OF 50% DW IV FOR... UD PRN IV 11/05/16 00:30 12/05/16 00:29 Glucagon (Glucagon Inj) 1 mg UD PRN SQ 11/05/16 00:30 12/05/16 00:29 Ondansetron HCl (Zofran Inj) 4 mg Q6H PRN IV 11/05/16 00:30 12/05/16 00:29 Tramadol HCl (Ultram Tab) 25 mg Q6H PRN PO 11/05/16 00:30 12/05/16 00:29 Hydromorphone HCl (Dilaudid Inj) 0.5 mg Q3H PRN IV 11/05/16 00:30 11/19/16 00:29 Allopurinol (Zyloprim Tab) 100 mg QAM PO 11/05/16 08:00 12/05/16 08:59 11/08/16 08:09 100 MG Atorvastatin Calcium (Lipitor Tab) 40 mg HS PO 11/05/16 21:00 12/05/16 20:59 11/07/16 21:22 40 MG Levothyroxine Sodium (Synthroid Tab) 25 mcg DAILYBB PO 11/05/16 06:30 12/05/16 06:29 11/08/16 05:42 25 MCG Lactated Ringer's 1,000 ml @ 130 mls/hr Q7H42M PRN IV 11/07/16 16:48 11/08/16 16:47 Clonidine HCl (Catapres Tab) 0.1 mg Q6H PRN PO 11/07/16 20:30 12/07/16 20:29
[2016-11-08] MEDS ORDERED: PRVHFAIN INH (15:44)
[2016-11-08] MEDS ORDERED: NRV5 PO (15:44)
--- NOTE | 2016-11-08 15:57 | Discharge Instructions ---
Discharge Instructions Date of Service Nov 08, 2016. Admission Reason for Admission: ARF Discharge Discharge Diagnosis / Problem: Acute Renal Failure Discharge Goals Goal(s): Diagnostic testing, Therapeutic intervention Activity Recommendations Activity Limitations: as noted below (No heavy exertion until follow up with Primary Care Physician) Lifting Limitations: until after follow-up appointment Exercise/Sports Limitations: until after follow-up appointment Instructions / Follow-Up Instructions / Follow-Up PLEASE REVIEW YOUR NEW MEDICATION LIST AND FOLLOW INSTRUCTIONS CAREFULLY. NO NSAIDS- including Aspirin, Ibuprofen, Naproxen. ALWAYS CONSULT WITH YOUR DOCTOR PRIOR TO TAKING ANY NEW MEDICATION. ENSURE ADEQUATE DAILY FLUID INTAKE. CALL YOUR PRIMARY CARE PHYSICIAN OR RETURN TO ER IMMEDIATELY IF WITH RECURRENCE OF SYMPTOMS, WEAKNESS, NAUSEA/VOMITING, FEVER/CHILLS, INCREASING BLOOD IN THE URINE, PAIN WITH URINATION. FOLLOW UP WITH PCP OFFICE WITH JOSE HOROWITZ ON Friday11/11/16 AT 1: 25PM. FOLLOW UP WITH DR. EMILY JAMES IN 2 WEEKS FOR STENT REMOVAL. TEL. NO. . Current Hospital Diet Patient's current hospital diet: Diabetes Type 2 Diet Discharge Diet Recommended Diet: AHA Diet (Heart Healthy), Diabetes Type 2 Diet Procedures Procedures Performed: Cystoscopy, right ureteroscopy, placement of right ureteral stent Pending Studies Studies pending at discharge: yes List of pending studies: repeat blood work Medical Emergencies . Who to Call and When: Medical Emergencies: If at any time you feel your situation is an emergency, please call 911 immediately. . Non-Emergent Contact Non-Emergency issues call your: Primary Care Provider, Urologist (Dr. James) Call Non-Emergent contact if: you have a fever, your pain is not controlled, your pain is worsening, you have any medication questions . . "Provider Documentation" section prepared by Myles Darling. . VTE Core Measure Inpt VTE Proph given/why not?: Unfractionated heparin SQ, SCD's
--- NOTE | 2016-11-08 16:12 | Discharge Summary ---
Discharge Summary Date of Service Nov 08, 2016. Discharge Summary Admission Date: Nov 04, 2016 at 23:45 Discharge Date: Nov 08, 2016 Discharge Disposition: Home Principal Diagnosis: Acute renal failure on CKD3 -- likely secondary to medications (OTC NSAIDs, Bactrim for recent UTI/home ACEI , diuretics) -- Partially Obstructing Right Ureter Stones Secondary Diagnoses/Problems: Please refer to hospital course below for further details. Procedures: 11/07/16: cysto right ureteroscopy placement of right ureteral stent (by Dr. James) ABDOMEN AND PELVIS CT WITHOUT CONTRAST CT DOSE: 1068.98 mGy.cm HISTORY: Abnormal ultrasound right hydronephrosis, perinephric fluid, elevated cr TECHNIQUE: Multiaxial CT images of the abdomen and pelvis were performed without contrast. COMPARISON STUDY: Ultrasound 11/04/2016 FINDINGS: Minimal dependent atelectatic change of the lung bases. Liver and spleen are unremarkable. There is fatty replacement of the pancreas. The left kidney demonstrates a 2 cm cyst centrally. It is negative for hydronephrosis. 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 There are 2 nonobstructing calcifications of the right proximal ureter. Largest measures 5 mm with a small measuring 3 mm. Mild right renal hydronephrosis. Bowel pattern overall is nonobstructive. Scattered colonic diverticulosis. No evidence for diverticulitis. Fat-containing lesion relating to the left ovary measuring 4.2 x 3.8 cm. This consistent with an ovarian turmoil. Bilateral hip prosthetics limiting resolution of the low pelvic region. IMPRESSION: 1. Small left renal cyst. 2. Congenitally malrotated right kidney with 2 partially obstructing calculi of the proximal right ureter . These measure 5 and 3 mm respectively. 3. Scattered colonic diverticulosis. 4. 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 VQ scan: IMPRESSION: Low probability of acute pulmonary embolism. 2D Echo: * -- Conclusions -- * Normal LV chamber size with mild concentric LVH, sigmoid appearing septum. * Normal LV systolic function, EF 55-60%. * No segmental left ventricular wall motion abnormalities are noted. * Grade II diastolic dysfunction. * Aortic valve sclerosis mild, without significant aortic valvular stenosis. * Small, circumferential pericardial effusion without hemodynamic compromise. Procedure Details * A complete two-dimensional transthoracic echocardiogram was performed (2D, M-mode, Doppler and color flow Doppler). Left Ventricle * The left ventricle is normal in size. * There is mild concentric left ventricular hypertrophy. * Left ventricular systolic function is normal. * No segmental left ventricular wall motion abnormalities are noted. * Ejection Fraction = 55-60%. * The left ventricular wall motion is normal. Right Ventricle * The right ventricular cavity size is normal (basal dimension <4.2 cm in right ventricular apical 4-chamber view). * The right ventricular systolic function is normal as assessed by tricuspid annular plane systolic excursion (TAPSE) (normal >1.5 cm). Atria * The left atrial size is normal. * Right atrial size is normal. * No ASD detected; PFO is not assessed. Mitral Valve * The mitral valve is normal in structure and function. Tricuspid Valve * The tricuspid valve is normal in structure and function. Aortic Valve * The aortic valve is trileaflet. * Aortic valve sclerosis mild, without significant aortic valvular stenosis. * There is no significant aortic regurgitation. Pulmonic Valve * The pulmonary valve is not well seen, but the Doppler examination is normal without significant regurgitation or stenosis. Great Vessels * The aortic root is normal size. Pericardium/Pleural * Small pericardial effusion. * A circumferential pericardial effusion is noted. Left Ventricular Diastolic Function * Diastolic dysfunction, Grade II (pseudonormalization pattern). Consultations: Car Icer Dr. Pineda, Urologist Dr. James Pending Studies/Follow-Up: Repeat PRP on follow up; Monitor BP; Please refer to hospital course below. Medication Reconciliation New Medications: Albuterol (Ventolin Hfa) 60 Puffs/5400 Mcg Aers 2 PUFFS INH Q4H PRN for SOB/Wheezing, #1 UNIT 1 Refill Amlodipine Besylate (Amlodipine Besylate) 5 Mg Tab 5 MG PO DAILY for 30 Days, #30 TAB 1 Refill Continued Medications: Allopurinol (Allopurinol) 100 Mg Tab 100 MG PO QAM Atorvastatin (Lipitor) 40 Mg Tab 40 MG PO HS, TAB Cholecalciferol (D 1000) 1,000 Unit Cap 1000 UNITS PO QAM Levothyroxine Sodium (Synthroid) 25 Mcg Tab 25 MCG PO QAM, TAB Niacin (Niacin) 250 Mg Tab 250 MG PO HS, TAB Discontinued Medications: Aspirin (Aspirin Ec) 325 Mg Tab 325 MG PO QAM Chlorthalidone (Hygroton) 25 Mg Tab 25 MG PO QAM, TAB Lisinopril (Zestril) 40 Mg Tab 40 MG PO QAM, TAB Admission Information HPI (per Admitting provider): HISTORY OF PRESENT ILLNESS: Hx obtained from px and records. Medical history is significant for hypertension, DM2 diet-controlled, arthritis , hypothyroidism and chronic kidney disease (baseline creatinine of 1.5). Recent confinement December 2014 under Orthopedic service for a hip surgery. In the last 2 months, patient noted some shortness of breath on exertion. No unusual leg swelling. No chest pain. Denies depression. Last week, patient was feeling lousy, urinary bladder discomfort. frequency fever 102 frontal headache symptoms. Seen at [facility]. Bactrim prescribed for UTI. chronic right knee pain bothering her as well. (Outpx Ortho appt contemplated this Friday.) Patient also taking 2 tablets of Aleve every 4 hours RTC for aches. Patient noted decreased urination. Patient had a followup at PCP's office today, outpatient blood work showed TSH normal, creatinine of 3.1. Patient sent to the Emergency Room. Physical Exam (per Admitting): VITAL SIGNS: Blood pressure was noted to be 124/64, pulse rate 81, RR 19, temperature 36.8 and sats 96 on room air. GENERAL: Noted to be obese, comfortable, slightly anxious, in no respiratory distress. SKIN: Pallor HEENT: Pale palpebral conjunctivae. Dry mucosa. NECK: Short. CHEST: Decreased breath sounds. HEART: Regular rate and rhythm. ABDOMEN: Some distention, NT EXTREMITIES: Minimal LE edema, R knee tenderness NEUROLOGIC: No gross focality. Hospital Course 76 year old female with history of CKD 3, DM, HTN, Hypothyroidism presenting with elevated crea. Acute renal failure on CKD3 -- likely secondary to medications (OTC NSAIDs, Bactrim for recent UTI/home ACEI , diuretics) -- Partially Obstructing Right Ureter Stones -- Car Icer Dr. Pineda consulted given IV fluids crea improved from 3.5 to 1.5 Renal US showing abnormal right kidney morphology CT abdomen: 2 partially obstructing stones in the right proximal ureter, mild hydronephrosis -- s/p right ureteral stent placement by Dr. James 11/07/[address] James in 2 week for stent removal -- hold Chlorthalidone, Lisinopril for now -- repeat PRP on follow up with PCP Exertional Dyspnea -- ongoing for several months - CXR unrevealing - Echo: -- Conclusions -- * Normal LV chamber size with mild concentric LVH, sigmoid appearing septum. * Normal LV systolic function, EF 55-60%. * No segmental left ventricular wall motion abnormalities are noted. * Grade II diastolic dysfunction. * Aortic valve sclerosis mild, without significant aortic valvular stenosis. * Small, circumferential pericardial effusion without hemodynamic compromise. - V/Q scan: low probability for Pulmonary Embolism - 2 step exercise test: no oxygen desaturation with ambulation, does not require oxygen - will need PFTs as outpatient, trial of Albuterol PRN consider stress test if persistent Hypertension -- hold Lisinopril and Chlorthalidone for acute renal failure -- Amlodipine 5mg po daily for now -- monitor as outpatient Chronic anemia - secondary to chronic kidney disease - Hg at baseline DM2, diet controlled, well -controlled as of recent A1c. - BSGs stable Left Dermoid Ovarian Cyst - seen on CT abdomen - monitor Dispo d/c home ff up with PCP next week ff up with Urologist in 2 weeks for stent removal Total time spent on discharge = 40 minutes This includes examination of the patient, discharge planning, medication reconciliation, and communication with other providers. Discharge Instructions Discharge Instructions Date of Service Nov 08, 2016. Admission Reason for Admission: ARF Discharge Discharge Diagnosis / Problem: Acute Renal Failure Discharge Goals Goal(s): Diagnostic testing, Therapeutic intervention Activity Recommendations Activity Limitations: as noted below (No heavy exertion until follow up with Primary Care Physician) Lifting Limitations: until after follow-up appointment Exercise/Sports Limitations: until after follow-up appointment Instructions / Follow-Up Instructions / Follow-Up PLEASE REVIEW YOUR NEW MEDICATION LIST AND FOLLOW INSTRUCTIONS CAREFULLY. NO NSAIDS- including Aspirin, Ibuprofen, Naproxen. ALWAYS CONSULT WITH YOUR DOCTOR PRIOR TO TAKING ANY NEW MEDICATION. ENSURE ADEQUATE DAILY FLUID INTAKE. CALL YOUR PRIMARY CARE PHYSICIAN OR RETURN TO ER IMMEDIATELY IF WITH RECURRENCE OF SYMPTOMS, WEAKNESS, NAUSEA/VOMITING, FEVER/CHILLS, INCREASING BLOOD IN THE URINE, PAIN WITH URINATION. FOLLOW UP WITH PCP OFFICE WITH JOSE HOROWITZ ON Friday11/11/16 AT 1: 25PM. FOLLOW UP WITH DR. EMILY JAMES IN 2 WEEKS FOR STENT REMOVAL. TEL. NO. . Current Hospital Diet Patient's current hospital diet: Diabetes Type 2 Diet Discharge Diet Recommended Diet: AHA Diet (Heart Healthy), Diabetes Type 2 Diet Procedures Procedures Performed: Cystoscopy, right ureteroscopy, placement of right ureteral stent Pending Studies Studies pending at discharge: yes List of pending studies: repeat blood work Medical Emergencies . Who to Call and When: Medical Emergencies: If at any time you feel your situation is an emergency, please call 911 immediately. . Non-Emergent Contact Non-Emergency issues call your: Primary Care Provider, Urologist (Dr. James) Call Non-Emergent contact if: you have a fever, your pain is not controlled, your pain is worsening, you have any medication questions . . "Provider Documentation" section prepared by Myles Darling. . VTE Core Measure Inpt VTE Proph given/why not?: Unfractionated heparin SQ, SCD's
[2016-11-27] MEDS ORDERED: AMLO-110 PO (10:02)
[2016-11-27] MEDS ORDERED: METO25TA3 PO (10:02)
[2016-12-04] MEDS ORDERED: TAMS0.4C38 PO (08:36)
[2016-12-04] MEDS ORDERED: PHEN-775 PO (08:36)
[2016-12-04] MEDS ORDERED: OXYC-57 PO (08:36)
[2017-02-04] MEDS ORDERED: LEVO50TA6 PO (09:19)
[2017-02-04] MEDS ORDERED: ATOR-24 PO (09:19)
[2017-02-04] MEDS ORDERED: ALLO300T2 PO (09:19)
== END 2016-11-08 16:15 | disposition home or self-care (01) | DRG 660 ==
LOC: C.EDB 18:30 → C.MS4W 23:45 → ENRESERV 23:59 → CANRESERV 23:59 → ENRESERV 11-05 00:24
PROVIDERS: ADMIT Internal Medicine; ATTEND Internal Medicine
PROC: 0T768ZZ Dilation of Right Ureter, Via Natural or Artificial Opening Endoscopic (ICD-10-PCS; principal; 2016-11-08)
DX: N20.1 Calculus of ureter (principal); N17.9 Acute kidney failure, unspecified; Z68.41 Body mass index [BMI] 40.0-44.9, adult; N18.3 Chronic kidney disease, stage 3 (moderate); T36.95XA Adverse effect of unspecified systemic antibiotic, initial encounter; T46.4X5A Adverse effect of angiotensin-converting-enzyme inhibitors, initial encounter; T39.315A Adverse effect of propionic acid derivatives, initial encounter; T50.2X5A Adverse effect of carbonic-anhydrase inhibitors, benzothiadiazides and other diuretics, initial encounter; E03.9 Hypothyroidism, unspecified; E11.22 Type 2 diabetes mellitus with diabetic chronic kidney disease; I12.9 Hypertensive chronic kidney disease with stage 1 through stage 4 chronic kidney disease, or unspecified chronic kidney disease; D63.1 Anemia in chronic kidney disease; E66.9 Obesity, unspecified; M19.90 Unspecified osteoarthritis, unspecified site; R06.09 Other forms of dyspnea; D27.9 Benign neoplasm of unspecified ovary; Q63.2 Ectopic kidney; Z79.899 Other long term (current) drug therapy; Z79.82 Long term (current) use of aspirin; Z79.1 Long term (current) use of non-steroidal anti-inflammatories (NSAID)

== ENCOUNTER 2016-12-04 05:05 | Day surgery (SDC) | payer OTHER, BC ==
[2016-11-27 10:03] VITALS: BMI 39.0
[~2016-12-04] VITALS: Ht 152.4 cm; Wt 90.9 kg
[~2016-12-04 05:05] MED LIST changes: +AMLO-110 PO; -ASPEC325 PO; -ATOR-24 PO; -CHOL100010 PO; +CHOL100041 PO; -HYDR-5688 PO; -HYG/25 PO; +LEVO25TA PO; -LISI40TA PO; +METO25TA3 PO; +PRVHFAIN INH; -SNK PO; -SYN25 PO
[2016-12-04 05:46] VITALS: BP 148/64; PULSE 75; TEMP 36.5; O2SAT 96; Ht 152.4 cm; Wt 90.9 kg
[2016-12-04] MEDS ORDERED: LACTATED RINGER'S 1000ML 1,000 ML IV SCH (06:00)
[2016-12-04] MEDS ORDERED: ONDANSETRON INJ 2 MG/ML 2 ML VIAL ONE (06:40)
[2016-12-04] MEDS ORDERED: LIDOCAINE HCL 2% 2 ML VIAL (20MG/ML) ONE (06:40)
[2016-12-04] MEDS ORDERED: PROPOFOL IV EMULSION 10 MG/ML 20 ML VIAL IV ONE (06:40)
[2016-12-04] MEDS ORDERED: DEXAMETHASONE SOD INJ 4 MG/ML VIAL ONE (06:40)
[2016-12-04] MEDS ORDERED: FENTANYL CITRATE INJ 50 MCG/1 ML 2 ML VIAL ONE (06:41)
[2016-12-04] MEDS ORDERED: NURSING VERBAL MED ORDER ONE (07:00)
[2016-12-04] MEDS ORDERED: CEFAZOLIN IV 2,000 MG/60 ML D5W IV ONE (07:04)
--- NOTE | 2016-12-04 07:07 | History and Physical ---
History Date of Service: Dec 04, 2016. Chief Complaint: right ureteral stones Primary Care Physician: Jose Patino M.D. Pt seen a urologist before?: Yes If yes, why?: right ureteral stones History of Present Illness Patient here for stone surgery. She had attempt a few weeks ago but her upper ureter was severely strictured so only a stent was placed. We plan to remove stone today. She has no symptoms of uti now. Imaging CT Laboratory Labs were reviewed and are within normal limits unless listed below. Labs are available in the chart and at [facility] Problem List Medical Problems: (1) Acute renal failure Status: Acute (2) UTI (urinary tract infection) Status: Acute Past History Past Medical History: arthritis, coronary artery disease, diabetes, gout, high cholesterol, hypertension Family History not contributory for this issue Social History Hx Tobacco Use In Past Year?: No Smoking: non-smoker Alcohol: never Drug use: none Marital status: Housing status: lives with family Occupation status: employed Immunizations History of Influenza Vaccine: No History of Tetanus Vaccine?: Yes History of Pneumococcal: Yes History of Hepatitis B Vaccine: No History of MDRO No Allergies Coded Allergies: Sulfamethoxazole w/Trimethoprim (Verified Allergy, Unknown, "MADE ME WORSE WITH THE UTI", 12/04/16) Medications Home Medications: Home Meds and Scripts Medications Dose Route/Sig Max Daily Dose Days Date Category Norvasc (Amlodipine Besylate) 5 Mg Tab 5 Mg PO QAM 11/27/16 Reported Toprol-Xl (Metoprolol Succinate) 25 Mg Tabcr 12.5 Mg PO QAM 11/27/16 Reported Ventolin Hfa (Albuterol) 60 Puffs/5400 Mcg Aers 2 Puffs INH Q4H PRN 11/08/16 Rx D 1000 (Cholecalciferol) 1,000 Unit Cap 1,000 Units PO QAM 11/04/16 Reported Allopurinol 100 Mg Tab 100 Mg PO QAM 11/04/16 Reported Synthroid (Levothyroxine Sodium) 25 Mcg Tab 25 Mcg PO QAM 11/04/16 Reported Niacin 250 Mg Tab 250 Mg PO HS 12/08/14 Reported Inpatient Medications: Current Inpatient Medications Medications (Trade) Dose Ordered Sig/Mary Route Start Time Stop Time Status Last Admin Dose Admin Lactated Ringer's 1,000 ml @ 15 mls/hr Q24H IV 12/04/16 06:00 12/05/16 05:59 Miscellaneous Information (Nursing Verbal Med Order) 1 ea ONE ONCE N/A 12/04/16 07:00 12/04/16 07:01 UNV Review of Systems Review of Systems Constitutional: No fever, No chills Neurological: No dizzy Endocrine: + tired/sluggish, No excessive thirst, No too hot, No too cold Gastrointestinal: No abdominal pain, No indigestion, No nausea, No vomiting Respiratory: + shortness of breath, + chronic cough Female : + frequent urination, No painful urination, No infections, No kidney stones Physical Exam Vital Signs: Vital Signs Past 12 Hours Date Time Temp Pulse Resp B/P (MAP) Pulse Ox O2 Delivery O2 Flow Rate FiO2 12/04/16 05:46 36.5 75 20 148/64 (92) 96 Room Air Physical Exam: General Appearance: WD/WN, no apparent distress, + obese Eyes: bilateral eyes normal inspection ENT: hearing grossly normal Neck: supple, no adenopathy, no JVD, trachea midline Respiratory/Chest: normal breath sounds, no respiratory distress, no accessory muscle use Cardiovascular: regular rate, rhythm, no edema Extremities: non-tender, normal inspection, no calf tenderness, + pedal edema Neurologic/Psychiatric: alert, normal mood/affect, oriented x 3 Skin: normal color, warm/dry, no rash Assessment & Plan Assessment & Plan right ureteral stones and right upper ureteral stricture. 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
[2016-12-04] MEDS ORDERED: CONRAY 30% 150ML BOTTLE ONE (07:29)
[2016-12-04] MEDS ORDERED: BELLADONNA/OPIUM SUPP 60 MG SUPP PR ONE ×2 (07:59→08:02)
[2016-12-04] MEDS ORDERED: EpHEDrine SULFATE 50MG/5ML SYR ONE (08:22)
--- NOTE | 2016-12-04 08:27 | DIAGNOSTIC IMAGING REPORT ---
RETROGRADE INCLUDES KUB HISTORY: 76 years Female RT CYSTOSCOPY,LITHOTRYPSY COMPARISON: Retrograde cystourethrogram 11/07/2016, CT 11/06/2016 TECHNIQUE: 3 spot fluoroscopic images of the right abdomen and pelvis were obtained utilizing 50.2 seconds of fluoroscopy time. FINDINGS: First image demonstrates cannulation of the right ureter with injection of contrast into the right renal collecting system which again appears moderately dilated. The second image demonstrates contrast superior to the expected region of the right kidney collecting system suspicious for possible forniceal rupture. The last image demonstrates distal portion of the right ureteral stent in the expected region of the urinary bladder. No definite filling defects are seen to suggest residual calculus. Incidental note is made of right hip arthroplasty. IMPRESSION: Intraoperative images of right sided cystoscopy and lithotripsy. Please see procedural report for further details. The above report was generated using voice recognition software. It may contain grammatical, syntax or spelling errors. Electronically signed by: Antony Fontaine M.D. 12/04/2016 8:26 AM Dictated Date/Time: 12/04/2016 8:18 AM
--- NOTE | 2016-12-04 08:33 | [facility] Operative Report ---
Operative Report Operative Date Dec 04, 2016. Pre-Operative Diagnosis Right Ureteral stone, right ureteral stricture Post-Operative Diagnosis no stones seen, Right Ureteral stricture Procedure(s) Performed Cystoscopy, Right Ureteroscopy, Right Ureteral Stent Exchange Surgeon Dr. Sherri Tinsley Quill Picking Machine Operator Surgeon(s) None Estimated Blood Loss 0ml Findings ureteral stricture in upper ureter has widened enough to just barely allow scope passage. Fluids 1000mL Specimens No specimens per Dr. Tinsley Drains 6 fr 24 centimeter double J ureteral stent Anesthesia LMA Complication(s) None Disposition Recovery Room / PACU Indications admitted last month with multifactorial renal failure. CT showed right hydro with 2 stones in upper ureter. Ureteroscopy was attempted but scope could not get beyond a tight upper right ureteral stricture. Stent was placed and now we return weeks later to remove stones. Description of Procedure Patient was given general LMA anesthesia and placed in very low narrow lithotomy position. She has poor mobility in hips and knees and so positioning was very gentle. Her genitals were prepped and draped in sterile fashion. Time out held with team. I placed a half speculum in vaginal for posterior retraction. I placed a 22 fr rigid cystoscope to bladder. The urethra is unremarkable. The UOs are laterally displaced and half stadium shape. I grasped stent tip and withdrew to the meatus. I placed a stiff wire up the stent to the low lying kidney. I removed stent and found it to be intact. I placed a flexible ureteroscope over a second wire up the ureter. It is a tight fit at the upper ureteral stricture but with medium pressure the scope passes into the collecting system. I carefully examined the collecting system and see no stone. I backed down the upper ureter and see no stone. I injected dye into the kidney to map out the calyces to make sure I inspected each one. I do not see any stone. I withdrew scope slowly and find ureter to be stone free. I placed a 24 centimeter 6 Fr double J stent easily. I left bladder empty and concluded case. I placed a belladonna and opium suppository for post-op pain. She transferred to recovery under my escort, in stable condition. Plan: Home today Pyridium for dysuria x 3 days flomax daily oral pain meds as needed stent out one week ASA 3 clean contaminated case 30 seconds fluoro ancef antibiotic workers compensation analyst I attest to the content of the Intraoperative Record and any orders documented therein. Any exceptions are noted below.
[2016-12-04] MEDS ORDERED: TAMS0.4C38 PO (08:36)
[2016-12-04] MEDS ORDERED: PHEN-775 PO (08:36)
[2016-12-04] MEDS ORDERED: OXYC-57 PO (08:36)
--- NOTE | 2016-12-04 08:37 | Discharge Instructions ---
Discharge Instructions Date of Service Dec 04, 2016. Admission Reason for Admission: Kidney Stones Discharge Discharge Diagnosis / Problem: right ureteral stricture Discharge Goals Goal(s): Decrease discomfort, Improve disease control Activity Recommendations Activity Limitations: resume your previous activity Lifting Limitations: none Exercise/Sports Limitations: none Shower/Bathe: no limitations Driving or Machine Use: resume 1 day after discharge . Discharge Diet Recommended Diet: Diabetes Type 2 Diet Fluid Restriction: None Procedures Procedures Performed: Cystoscopy, Right Ureteroscopy, Right Ureteral Stent Exchange Pending Studies Studies pending at discharge: no Medical Emergencies . Who to Call and When: Medical Emergencies: If at any time you feel your situation is an emergency, please call 911 immediately. . Non-Emergent Contact Non-Emergency issues call your: Urologist ([phone]) Call Non-Emergent contact if: temperature is above 101, your pain is not controlled . . "Provider Documentation" section prepared by Sherri Tinsley. . VTE Core Measure Inpt VTE Proph given/why not?: SCD's [place] Drug Monitoring Program Search Results: patient reviewed within database, no issues identified
[2016-12-04] MEDS ORDERED: ONDANSETRON INJ 2 MG/ML 2 ML VIAL IV PRN (08:45)
[2016-12-04] MEDS ORDERED: FENTANYL CITRATE INJ 50 MCG/1 ML 2 ML VIAL IV PRN (08:45)
[2016-12-04] MEDS ORDERED: ATROPINE SULFATE 0.1 MG/ML 5ML SYR IV PRN (08:45)
[2016-12-04 09:00] VITALS: BP 143/71; PULSE 81; TEMP 36.4; O2SAT 94
[2016-12-04 09:30] VITALS: BP 152/71; PULSE 78; TEMP 36.4; O2SAT 96
--- NOTE | 2016-12-04 09:52 | Anesthesiology Progress Note ---
Anesthesia Post Op Note Date & Time Dec 04, 2016 at 09:51 Vital Signs Pain Intensity: 0 Vital Signs Past 12 Hours Date Time Temp Pulse Resp B/P (MAP) Pulse Ox O2 Delivery O2 Flow Rate FiO2 12/04/16 09:30 36.4 78 20 152/71 96 Room Air 12/04/16 09:00 36.4 81 20 143/71 94 Room Air 12/04/16 08:52 145/74 12/04/16 08:51 78 15 12/04/16 08:51 78 15 93 12/04/16 08:47 142/80 12/04/16 08:46 77 14 97 12/04/16 08:46 77 14 12/04/16 08:42 144/69 12/04/16 08:41 76 16 96 12/04/16 08:41 76 16 12/04/16 08:39 36.9 79 16 144/69 96 Nasal Cannula 2 12/04/16 08:37 145/75 12/04/16 08:36 80 19 12/04/16 08:36 80 19 94 12/04/16 08:32 146/70 12/04/16 08:31 79 15 12/04/16 08:31 79 15 96 12/04/16 08:27 146/72 12/04/16 08:26 76 16 96 12/04/16 08:26 77 16 12/04/16 08:25 77 14 96 12/04/16 08:25 76 14 12/04/16 08:22 150/65 12/04/16 08:20 77 12 97 12/04/16 08:20 77 12 12/04/16 08:16 146/69 12/04/16 08:15 78 12 12/04/16 08:15 36.1 79 14 146/69 (97) 96 Nasal Cannula 10 12/04/16 08:15 78 12 96 12/04/16 05:46 36.5 75 20 148/64 (92) 96 Room Air Notes Mental Status: alert / awake / arousable, participated in evaluation Pt Amnestic to Procedure: Yes Nausea / Vomiting: adequately controlled Pain: adequately controlled Airway Patency, RR, SpO2: stable & adequate BP & HR: stable & adequate Hydration State: stable & adequate Anesthetic Complications: no major complications apparent
[2016-12-04 10:00] VITALS: BP 158/72; PULSE 80; TEMP 36.5; O2SAT 93
[2017-02-04] MEDS ORDERED: ALLO300T2 PO (09:19)
[2017-02-04] MEDS ORDERED: LEVO50TA6 PO (09:19)
[2017-02-04] MEDS ORDERED: ATOR-24 PO (09:19)
== END 2016-12-04 10:09 | disposition home or self-care (01) ==
LOC: C.ACU 05:05
PROVIDERS: ATTEND Urology
DX: N13.5 Crossing vessel and stricture of ureter without hydronephrosis (principal); I25.10 Atherosclerotic heart disease of native coronary artery without angina pectoris; I10 Essential (primary) hypertension; E78.00 Pure hypercholesterolemia, unspecified; E11.9 Type 2 diabetes mellitus without complications; M10.9 Gout, unspecified; M19.90 Unspecified osteoarthritis, unspecified site; Z79.899 Other long term (current) drug therapy

== ENCOUNTER 2017-02-05 08:29 | Inpatient (IN) | payer OTHER, BC ==
[2017-02-04 09:21] VITALS: BMI 39.0
[2017-02-05] VITALS (8 sets, daily range): BP systolic 118–161; BP diastolic 44–84; PULSE 69–80; TEMP 36.3–36.7; O2SAT 94–97; Ht 152.4 cm; Wt 90.9 kg
[~2017-02-05] VITALS: Ht 152.4 cm; Wt 90.9 kg
--- NOTE | 2017-02-05 07:08 | History and Physical ---
History & Physical Date Feb 05, 2017. Chief Complaint Severe end-stage DJD right knee large positive conservative therapy including physical therapy viscous supplementations corticosteroid injections relative rest and activity modification History of Present Illness The patient is a 76 year old female with complaints of persistent ongoing right knee pain failed attempts at recent viscus supplementation corticosteroid injection presents for total knee arthroplasty Past Medical/Surgical History Medical Problems: (1) ARF (acute renal failure) (2) Renal agenesis Additional History Hepatic Disease: No Endocrine Disorder: No Kidney Disease: No Hypertension: Yes Heart Disease: Yes Bleeding Tendencies: No Infectious Diseases: No Allergies Coded Allergies: Sulfamethoxazole w/Trimethoprim (Verified Allergy, Unknown, "MADE ME WORSE WITH THE UTI", 02/04/17) Home Medications Scheduled Allopurinol (Zyloprim), 300 MG PO QAM Amlodipine (Norvasc), 2.5 MG PO QAM Atorvastatin (Lipitor), 40 MG PO HS Cholecalciferol (D 1000), 1,000 UNITS PO QAM Levothyroxine Sodium (Levothyroxine Sodium), 1 TAB PO QAM Metoprolol Succ (Toprol Xl) (Toprol-Xl), 12.5 MG PO QAM Niacin (Niacin), 250 MG PO HS Physical Examination Skin: warm/dry, no rash Eyes: normal inspection, EOMI, sclerae normal ENT: normal ENT inspection, pharynx normal Head: normocephalic, atraumatic Neck: supple, no adenopathy, trachea midline Respiratory/Chest: lungs clear, normal breath sounds, no respiratory distress Cardiovascular: regular rate, rhythm, no edema, no murmur Abdomen / GI: normal bowel sounds, non tender Back: normal inspection Extremities: + pertinent finding (severe DJD with varus alignment right knee) Neurologic/Psych: no motor/sensory deficits, alert, normal reflexes, oriented x 3 Diagnosis 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
--- NOTE | 2017-02-05 07:14 | History & Physical Bridge Note ---
H&P Re-Evaluation Bridge Note: I have examined the patient, reviewed the History & Physical and in the interval since the performance of the History & Physical I have noted the following changes of clinical significance: No changes noted
[~2017-02-05 08:29] MED LIST changes: +ACETAMINOPHEN 500 MG TAB PO SCH; -ALL100 PO; +ALLO300T2 PO; +ATOR-24 PO; +BUPIVACAINE 0.25% 30 ML VIAL ONE; +BUPIVACAINE 0.5 % 5 MG/1 ML PF 10ML VIAL ONE; +CEFAZOLIN 2000 MG/60 ML D5W IV SCH; +CeleBREX 200 MG CAP PO SCH; +DEXAMETHASONE 4 MG TAB PO SCH; +FAMOTIDINE 20 MG TAB PO SCH; +GABAPENTIN 300 MG CAP PO SCH; +LACTATED RINGER'S 1000ML 1,000 ML IV SCH; -LEVO25TA PO; +LEVO50TA6 PO; +METOCLOPRAMIDE HCL 10 MG TAB PO SCH; -PRVHFAIN INH
[2017-02-05] MEDS ORDERED: ROPIVACAINE 5MG/ML 30 ML 150 MG, BUPIVACAINE/EPINEPHR 0.5% MPF 30 ML, KETOROLAC TROMETH... INFIL SCH ×7 (09:00)
[2017-02-05] MEDS ORDERED: MIDAZOLAM HCL 1 MG/ML 2ML VIAL ONE (10:22)
[2017-02-05] MEDS ORDERED: PROPOFOL IV EMULSION 10 MG/ML 20 ML VIAL IV ONE ×2 (10:22→13:09)
[2017-02-05] MEDS ORDERED: ONDANSETRON INJ 2 MG/ML 2 ML VIAL IV PRN ×2 (11:00→14:00)
[2017-02-05] MEDS ORDERED: FENTANYL CITRATE INJ 50 MCG/1 ML 2 ML VIAL IV PRN (11:00)
[2017-02-05] MEDS ORDERED: HYDROmorphone INJ 1 MG/ML SYR IV PRN (11:00)
[2017-02-05] MEDS ORDERED: LABETALOL HCL IV 5 MG/ML 20ML IV PRN (11:00)
[2017-02-05] MEDS ORDERED: EpHEDrine SULFATE INJ 50 MG/ML AMP IV PRN (11:00)
[2017-02-05] MEDS ORDERED: MEPERIDINE HCL 25 MG/ML CARP IV PRN (11:00)
[2017-02-05] MEDS ORDERED: ATROPINE SULFATE 0.1 MG/ML 5ML SYR IV PRN (11:00)
[2017-02-05] MEDS: TRANEXAMIC ACID INJ 1,000 MG in SODIUM CHLORIDE 0.9% 100ML 100 ML IV SCH ×2 (11:15→16:49)
[2017-02-05] MEDS ORDERED: ORTHO JOINT ANESTHETIC ONE (11:24)
[2017-02-05] MEDS ORDERED: POVIDONE-IODINE OP SOLN 30 ML BTL ONE (11:24)
[2017-02-05] MEDS ORDERED: BACITRACIN 50000 UNIT VIAL ONE (11:24)
--- NOTE | 2017-02-05 13:14 | [facility] Operative Report ---
Operative Report Operative Date Feb 05, 2017. Pre-Operative Diagnosis Severe end-stage degenerative joint disease Post-Operative Diagnosis Same as preoperative diagnosis Procedure(s) Performed Right total knee arthroplasty utilizing Hansen & Nephew journey 2 nonlocked total knee arthroplasty size 3 femur to tibia Poly-[address] Eber Ariza Passenger [employer]ge Master Surgeon(s) Rajan Ballesteros PA-C Estimated Blood Loss 5 mL Findings Severe end-stage DJD with [id number] changes varus alignment large muscle conservative therapy including injections viscus of rotations corticosteroid injections Roto-Rest activity modification attempt at weight reduction Specimens Permanent specimens A: Right knee bone and tissue Complication(s) None Disposition Recovery Room / PACU Indications Severe varus DJD [id number] changes subchondral sclerosis subchondral cystic changes large medial and lateral osteophytes as well as patellofemoral bone-on- bone Nourse wants to conservative therapy Description of Procedure After proper prepping and draping of the Right lower extremity anterior midline incision was made over the region of the extensor extensor mechanism after meticulous hemostasis was obtained and maintained in subcutaneous tissues a medial parapatellar incision was made The patella was subluxed lateralward the medial lateral gutter were cleaned from any hypertrophic synovitis and scar tissue of the distal femoral block was placed and the distal femoral osteotomy cut was made subsequently the chamfers anterior and posterior osteotomy cuts were made utilizing the 4-in-1 block the tibia was subsequently subluxed anteriorward medial and ateral meniscal remnants were excised in their entirety remnants of the anterior and posterior cruciate ligaments were excised in their entirety excellent exposure of the proximal tibia was obtained the tibial osteotomy guide was placed on the proximal tibial osteotomy cut was made once again the knee was irrigated with copious amounts of sterile saline solution the patella was subsequently everted lateralward thickened scar tissue around the patella was removed the patella was subsequently cut utilizing a freehand technique and was drilled prepared for final preparation and placement of patella socially flexion-extension gaps were checked and the equal and symmetric trials were placed to the appropriate femoral and tibial trials with poly-spacer being placed for equal flexion and extension gaps and full range of motion including extension to 0 and flexion to 140 the trial components after having been taken to recovery range of motion was subsequently removed meticulous hemostasis was obtained and maintained subsequently a knee block injection of joint cocktail including ropivacaine 0.5% 150 mg. Bupivacaine 0.5 % epinephrine 1-200,030 mL's toradol 30 mg dexamethasone 4 mg ketamine 10 mg clonidine 100 micrograms normal saline solution 30 mg was infiltrated into the soft tissues of the posterior knee medial lateral gutters and periosteal synovium special attention was paid to protect neurovascular structures at all times subsequently trial components having been removed the knee was irrigated with sterile saline solution. debris was removed the proximal tibia was subsequently prepared and was made ready for the placement of the tibial component tibial component was also cemented and tamped into position the femoral component was subsequently placed and cemented in the position the patellar component was subsequently cemented in position because hemostasis once again obtained and maintained wound having been thoroughly irrigated with debridement and debridement lavage was performed as well as a medial parapatellar incision closed with #1 Vicryl in interrupted fashion subcutaneous was closed with #2 Vicryl skin was closed with skin clips. PA-C was necessary for prepping and drapping as well as wound closure of deep fascia Sub cutaneous tissue and skin and was necessary for the case. A sterile compressive dressing was placed patient was taken to recovery in stable condition of report dictated by To I attest to the content of the Intraoperative Record and any orders documented therein. Any exceptions are noted below. I attest to the content of the Intraoperative Record and any orders documented therein. Any exceptions are noted below.
[2017-02-05] MEDS ORDERED: ALUMINUM/MAGNESIUM/SIMETH (MAALOX MAX) 30 ML UDC PO PRN (14:00)
[2017-02-05] MEDS ORDERED: OXYCODONE HCL IR 5 MG TAB (IMMEDIATE RELEASE) PO PRN (14:00)
[2017-02-05] MEDS ORDERED: BISACODYL 10 MG SUPP PR PRN (14:00)
[2017-02-05] MEDS ORDERED: TRAMADOL HCL 50 MG TAB PO PRN (14:00)
[2017-02-05] MEDS ORDERED: MAGNESIUM HYDROXIDE SUSP 30 ML UDC PO PRN (14:00)
[2017-02-05] MEDS ORDERED: MoRPHine SULFATE 2 MG/ML CARP IV PRN (14:00)
[2017-02-05] MEDS ORDERED: MoRPHine SULFATE 4 MG/ML 1 ML CARP\\VIAL IV PRN (14:00)
--- NOTE | 2017-02-05 14:40 | Anesthesiology Progress Note ---
Anesthesia Post Op Note Date & Time Feb 05, 2017 at 14:40 Vital Signs Pain Intensity: 0 Vital Signs Past 12 Hours Date Time Temp Pulse Resp B/P (MAP) Pulse Ox O2 Delivery O2 Flow Rate FiO2 02/05/17 14:35 36.4 61 16 135/70 100 Nasal Cannula 2 02/05/17 14:25 66 15 142/66 100 Nasal Cannula 2 02/05/17 14:15 71 19 133/72 100 Nasal Cannula 2 02/05/17 14:05 74 18 133/77 100 Nasal Cannula 2 02/05/17 13:57 36.4 75 16 124/63 99 Oxymask 10 02/05/17 09:10 36.5 72 20 151/79 95 Room Air Notes Mental Status: alert / awake / arousable, participated in evaluation Pt Amnestic to Procedure: Yes Nausea / Vomiting: adequately controlled Pain: adequately controlled Airway Patency, RR, SpO2: stable & adequate BP & HR: stable & adequate Hydration State: stable & adequate Neuraxial Anesthesia: was administered, sensory block is resolving Anesthetic Complications: no major complications apparent
--- NOTE | 2017-02-05 14:54 | DIAGNOSTIC IMAGING REPORT ---
RIGHT KNEE 1 OR 2 VIEWS ROUTINE CLINICAL HISTORY: AP/LATERAL IN PACU RIGHT KNEE Right COMPARISON: None. DISCUSSION: Total right knee prosthetic in position. Good contact between prosthetic and underlying bone. Alignment is anatomic. Expected soft tissue postoperative change IMPRESSION: Anatomic alignment status post right knee arthroplasty The above report was generated using voice recognition software. It may contain grammatical, syntax or spelling errors. Electronically signed by: Guillermo Will M.D. 02/05/2017 2:53 PM Dictated Date/Time: 02/05/2017 2:52 PM
[2017-02-05] MEDS ORDERED: INFLUENZA VACCINE HIGH DOSE 65+ 0.5 ML SYR IM. ONE (16:45)
[2017-02-05] MEDS ORDERED: INFLUENZA ADMINISTRATION CHARGE ONE (16:45)
[2017-02-05] MEDS: D5W AND 1/2NSS + 20MEQ KCL 1,000 ML IV SCH (16:51)
[2017-02-05] MEDS: FERROUS GLUCONATE 324 MG TAB PO SCH (17:45)
[2017-02-05] MEDS: ACETAMINOPHEN 500 MG TAB PO SCH ×2 (18:13→22:16)
[2017-02-05] MEDS: CEFAZOLIN IV 2,000 MG in DEXTROSE 5% 50ML 50 ML IV SCH (20:29)
[2017-02-05] MEDS: OXYCODONE HCL 10 MG TABCR (OXYCONTIN) PO SCH (20:29)
[2017-02-05] MEDS: DOCUSATE SODIUM 100 MG CAP PO SCH (20:30)
[2017-02-05] MEDS: ASPIRIN 81 MG ECTAB PO SCH (20:30)
[2017-02-05] MEDS: SENNA 8.6 MG TAB PO SCH (20:30)
[2017-02-05] MEDS: ATORVASTATIN 40 MG TAB PO SCH (20:31)
[2017-02-06] MEDS: D5W AND 1/2NSS + 20MEQ KCL 1,000 ML IV SCH ×2 (02:37→12:22)
[2017-02-06] MEDS: CEFAZOLIN IV 2,000 MG in DEXTROSE 5% 50ML 50 ML IV SCH (03:34)
[2017-02-06 03:37] VITALS: BP 128/72; PULSE 78; TEMP 36.5; O2SAT 97
[2017-02-06] MEDS: LEVOTHYROXINE 50 MCG TAB PO SCH (06:03)
[2017-02-06] MEDS: ACETAMINOPHEN 500 MG TAB PO SCH ×4 (06:04→22:26)
[2017-02-06 07:33] VITALS: BP 136/78; PULSE 68; TEMP 36.4; O2SAT 95
[2017-02-06 08:28] LABS: HEMATOCRIT 35.7 % (37-47); MEAN CELL VOLUME 95.7 fL (80-100); MEAN CORPUSCULAR HEMOGLOBIN 32.2 pg (25-34); MEAN CORPUSCULAR HGB CONC 33.6 g/dl (32-36); MEAN PLATELET VOLUME 8.6 fL (7.4-10.4); PLATELET COUNT 213 K/uL (130-400); RED BLOOD COUNT 3.73 M/uL (4.2-5.4); WHITE BLOOD COUNT 14.23 K/uL (4.8-10.8)
[2017-02-06] MEDS: PANTOprazole SOD 40 MG TAB PO SCH (08:32)
[2017-02-06] MEDS: ASPIRIN 81 MG ECTAB PO SCH ×2 (08:33→21:08)
[2017-02-06] MEDS: METOPROLOL SUCC 25MG EXT REL TAB PO SCH (08:33)
[2017-02-06] MEDS: ALLOPURINOL 300 MG TAB PO SCH (08:33)
[2017-02-06] MEDS: AMLODIPINE BESYLATE 5 MG TAB PO SCH (08:33)
[2017-02-06] MEDS: MULTIVITAMIN TAB PO SCH (08:34)
[2017-02-06] MEDS: FERROUS GLUCONATE 324 MG TAB PO SCH ×3 (08:34→17:04)
[2017-02-06] MEDS: DOCUSATE SODIUM 100 MG CAP PO SCH ×2 (08:34→21:08)
[2017-02-06] MEDS: OXYCODONE HCL 10 MG TABCR (OXYCONTIN) PO SCH ×2 (08:36→21:00)
[2017-02-06 08:57] LABS: BUN/CREATININE RATIO 17.6 (10-20); CALCIUM 9.3 mg/dl (8.5-10.1); CREATININE 1.6 mg/dl (0.60-1.20); POTASSIUM 4.6 mmol/L (3.5-5.1)
--- NOTE | 2017-02-06 09:56 | Anesthesiology Progress Note ---
Anesthesia Post Op Note Date & Time Feb 06, 2017 at 09:56 Vital Signs Pain Intensity: 0.0 Vital Signs Past 12 Hours Date Time Temp Pulse Resp B/P (MAP) Pulse Ox O2 Delivery O2 Flow Rate FiO2 02/06/17 07:33 36.4 68 18 136/78 (97) 95 Room Air 02/06/17 07:25 Room Air 02/06/17 03:37 36.5 78 16 128/72 (90) 97 Room Air 02/05/17 23:57 Room Air 02/05/17 23:50 36.5 73 16 118/44 (68) 94 Room Air Notes Mental Status: alert / awake / arousable, participated in evaluation Pt Amnestic to Procedure: Yes Nausea / Vomiting: adequately controlled Pain: adequately controlled Airway Patency, RR, SpO2: stable & adequate BP & HR: stable & adequate Hydration State: stable & adequate Neuraxial Anesthesia: sensory block resolved Anesthetic Complications: no major complications apparent
--- NOTE | 2017-02-06 10:43 | Orthopedic Progress Note ---
Orthopedic Progress Note Date of Service Feb 06, 2017. Subjective Post OP Day: 1 Reports: feeling well, Denies: complaints Objective calves soft nontender, N/V intact, dressing C/D/I, A&O x3, toes mobile Date Time Temp Pulse Resp B/P (MAP) Pulse Ox O2 Delivery O2 Flow Rate FiO2 02/06/17 07:33 36.4 68 18 136/78 (97) 95 Room Air 02/06/17 07:25 Room Air 02/06/17 03:37 36.5 78 16 128/72 (90) 97 Room Air 02/05/17 23:57 Room Air 02/05/17 23:50 36.5 73 16 118/44 (68) 94 Room Air 02/05/17 20:10 36.4 77 18 161/79 (106) 95 Room Air 02/05/17 18:42 36.7 76 18 127/69 (88) 94 Room Air 02/05/17 17:45 36.7 80 16 139/73 (95) 97 Room Air 02/05/17 16:45 36.3 69 18 146/80 (102) 95 Room Air 02/05/17 16:15 36.6 73 17 146/84 (104) 97 Room Air 02/05/17 15:45 97 Nasal Cannula 2.0 02/05/17 15:45 Room Air 02/05/17 15:45 36.4 77 16 156/78 (104) 97 Nasal Cannula 2.0 02/05/17 15:45 97 Nasal Cannula 2.0 02/05/17 15:30 72 15 138/73 100 Nasal Cannula 2 02/05/17 15:15 72 17 139/73 99 Nasal Cannula 2 02/05/17 14:45 36.4 78 17 151/73 100 Nasal Cannula 2 02/05/17 14:35 36.4 61 16 135/70 100 Nasal Cannula 2 02/05/17 14:25 66 15 142/66 100 Nasal Cannula 2 02/05/17 14:15 71 19 133/72 100 Nasal Cannula 2 02/05/17 14:05 74 18 133/77 100 Nasal Cannula 2 02/05/17 13:57 36.4 75 16 124/63 99 Oxymask 10 Laboratory Results 24 Hours: Test 02/06/17 08:15 Hematocrit 35.7 % Hemoglobin 12.0 g/dL Assessment & Plan Assessment: POD 1 s/p Right TKA Plan: PT/OT Planning for OPPT [facility] Planning Pain Management: Oxycontin, Ultram, PO Tylenol, Oxy IR DVT Prophylaxis: TEDs, SCDs, ASA Discharge Planning Discharge Planning: home with oppt
[2017-02-06 10:54] VITALS: O2SAT 95
[2017-02-06 11:41] VITALS: BP 134/68; PULSE 62; TEMP 36.6; O2SAT 99
--- NOTE | 2017-02-06 12:51 | Discharge Instructions ---
Discharge Instructions Date of Service Feb 06, 2017. Admission Reason for Admission: Right Knee Osteoarthritis Discharge Discharge Diagnosis / Problem: right total knee replacement Discharge Goals Goal(s): Decrease discomfort, Improve function, Increase independence Activity Recommendations Activity Limitations: as noted below Weightbearing Status: Right weightbearing (as tolerated) . Instructions / Follow-Up Instructions / Follow-Up ACTIVITY RECOMMENDATIONS: SELF CARE INSTRUCTIONS AFTER TOTAL KNEE REPLACEMENT A. You may need to continue a physical therapy program after discharge from the hospital. There are several options available to you. Your doctor will assist you in selecting the best one for you. 1. An out-patient facility 2 to 3 times a week for therapy or home therapy. 2. Continue working on all exercises taught to you in the hospital. Your goals should be to increase bending of your knee to 90 degrees and beyond and to fully straighten your knee. B. You may progress at your own pace from walking with a walker or crutches to a cane; then to no assistive devices. C. Make walking a part of your daily routine. Be up as much as comfortable with rest periods throughout the day. Rest with leg elevation is very important. Use the ice wrap frequently for the first 3-4 weeks. D. There are no restrictions on activities. You may ride in a car, shop, participate in meters superintendent and all social activities. E. Wear the long elastic stockings (ERICH hose) 20 hours a day for 2 weeks after surgery. They can be removed several times a day for laundering and for a bath. F. You may shower, no tub baths until cleared by your doctor. SPECIAL CARE INSTRUCTIONS: VERY IMPORTANT TO READ AND REVIEW A. There are a few signs you need to watch for after you are home. Call [facility] if you notice any of the followin. Increased severe knee pain. Some pain is expected especially when you exercise. 2. Increased swelling in your leg or knee; pain or swelling of the calf muscle in either lower leg. 3. Any fluid drainage from the incision. 4. Shortness of breath or chest pain. B. Please call [facility] at if you have any concerns or questions about your operation or recovery. The doctor or his nurse will return your call promptly. C. You must take antibiotics before dental work, bladder, bowel or other surgery. Your doctor will provide you with a permanent care to carry describing this precaution. IMPORTANT: * REMEMBER TO TAKE ASPIRIN, 81 MG, TWICE DAILY FOR 4 WEEKS UNLESS OTHERWISE DIRECTED. THIS IS YOUR BLOOD THINNER. * HIGH RISK PATIENTS MAY BE PRESCRIBED A STRONGER BLOOD THINNER. THIS WILL BE PROVIDED AT DISCHARGE. * CALL IF INCREASED PAIN, REDNESS, DRAINAGE OR FEVER GREATER THAT 101. * WEAR ERICH HOSE 20 HOURS PER DAY FOR 2 WEEKS. * YOU MAY HAVE A LARGE BAND-AID LIKE DRESSING (SILVERON). THIS WILL REMAIN ON YOUR INCISION FOR 7 DAYS, THEN CAN BE REMOVED. IF INCISION IS LEAKING THROUGH DRESSING, CALL THE OFFICE . DERMABOND Prineo- This is a mesh tape dressing that is covered with glue. It should remain in place until the incision is properly healed, usually 10-14 days. This dressing is designed to naturally slough off. You may trim the excess mesh tape as it peels off. Incision may be briefly wet in a shower. Dry immediately by blotting with a clean, dry towel. Do not bath or swim until instructed by your doctor. Do not scratch, rub, or pick at the dressing. Do not apply any topical ointments or lotions until dressing is completely removed and/or instructed by your doctor. There may be a small piece of suture material at one end of your incision. Do not pull or trim this. If it is bothersome or catching on clothing, you may cover it with a band-aid. FOLLOW UP VISIT: If appointment is not already scheduled: Please call [facility] to make a follow-up appointment for 2 weeks after your surgery at . Current Hospital Diet Patient's current hospital diet: Regular Diet Discharge Diet Recommended Diet: Regular Diet Procedures Procedures Performed: Right total knee arthroplasty utilizing Hansen & Nephew journey 2 nonlocked total knee arthroplasty size 3 femur to tibia Poly-29 oval patella Pending Studies Studies pending at discharge: no Medical Emergencies . Who to Call and When: Medical Emergencies: If at any time you feel your situation is an emergency, please call 911 immediately. . Non-Emergent Contact Non-Emergency issues call your: Primary Care Provider, Surgeon . "Provider Documentation" section prepared by Guillermo Bowman. . VTE Core Measure Inpt VTE Proph given/why not?: Other Anticoagulation (ASA 81mg po bid x 1 month ), T.E.DJuanita Stockings, SCD's [place] Drug Monitoring Program Search Results: patient reviewed within database, no issues identified
[2017-02-06 16:01] VITALS: BP 129/81; PULSE 64; TEMP 36.5; O2SAT 99
[2017-02-06] MEDS: ATORVASTATIN 40 MG TAB PO SCH (21:08)
[2017-02-06] MEDS: SENNA 8.6 MG TAB PO SCH (21:09)
[2017-02-06 23:03] VITALS: BP 131/79; PULSE 71; TEMP 36.7; O2SAT 97
[2017-02-07] MEDS: LEVOTHYROXINE 50 MCG TAB PO SCH (05:54)
[2017-02-07] MEDS: ACETAMINOPHEN 500 MG TAB PO SCH (05:54)
[2017-02-07 06:21] VITALS: BP 134/87; PULSE 66; TEMP 36.8; O2SAT 97
[2017-02-07] MEDS: FERROUS GLUCONATE 324 MG TAB PO SCH (07:30)
[2017-02-07] MEDS: MULTIVITAMIN TAB PO SCH (07:30)
[2017-02-07] MEDS: AMLODIPINE BESYLATE 5 MG TAB PO SCH (07:31)
[2017-02-07] MEDS: PANTOprazole SOD 40 MG TAB PO SCH (07:32)
[2017-02-07] MEDS: METOPROLOL SUCC 25MG EXT REL TAB PO SCH (07:32)
[2017-02-07] MEDS: ALLOPURINOL 300 MG TAB PO SCH (07:33)
[2017-02-07] MEDS: OXYCODONE HCL 10 MG TABCR (OXYCONTIN) PO SCH (07:37)
--- NOTE | 2017-02-07 07:49 | Orthopedic Progress Note ---
Orthopedic Progress Note Date of Service Feb 07, 2017. Subjective Post OP Day: 2 Reports: feeling well, pain controlled w PO medications, Denies: complaints, chest pain, SOB, nausea / vomiting, light headedness, calf pain Objective calves soft nontender, N/V intact, capillary refill less than 2 sec., dressing C /D/I (prevena in place), A&O x3, toes mobile Date Time Temp Pulse Resp B/P (MAP) Pulse Ox O2 Delivery O2 Flow Rate FiO2 02/07/17 06:21 36.8 66 16 134/87 (103) 97 Room Air 02/06/17 23:41 Room Air 02/06/17 23:03 36.7 71 16 131/79 (96) 97 Room Air 02/06/17 16:45 Room Air 02/06/17 16:01 36.5 64 16 129/81 (97) 99 Room Air 02/06/17 11:41 36.6 62 18 134/68 (90) 99 Room Air 02/06/17 10:54 95 Room Air Laboratory Results 24 Hours: Test 02/06/17 08:15 Hematocrit 35.7 % Hemoglobin 12.0 g/dL Assessment & Plan Assessment: POD 2 s/p Right TKA Plan: PT/OT Planning for OPPT [facility] Discharge Planning Discharge Planning: home with oppt DVT Prophylaxis: TEDs, SCDs, ASA Therapy: Physical Therapy
[2017-02-07] MEDS ORDERED: CLC100 PO (08:07)
[2017-02-07] MEDS ORDERED: ONDA8TAB6 PO (08:07)
[2017-02-07] MEDS ORDERED: HYDR-5688 PO (08:07)
[2017-02-07] MEDS ORDERED: ASPEC81 PO (08:07)
[2017-02-07] MEDS: ASPIRIN 81 MG ECTAB PO SCH (08:55)
[2017-02-07] MEDS: DOCUSATE SODIUM 100 MG CAP PO SCH (08:55)
--- NOTE | 2017-02-07 09:26 | Discharge Summary ---
Orthopedic Discharge Summary Admission Date/Reason Feb 05, 2017 at 10:30 Right Knee Osteoarthritis. Discharge Date/Disposition Feb 07, 2017 Home Diagnosis Principal Diagnosis: Right Knee Osteoarthritis Secondary Diagnoses/Problems: Htn, CKD, DM2, Hypothyroid Procedure(s) Performed Right TKA Medication Reconciliation New Medications: Hydrocodone/Acetaminophen 5MG/325MG ([place] 5MG/325MG) Tab 1-2 TABLETS PO q4-6 hours PRN for Pain, #60 TAB Ondansetron Hcl (Zofran) 8 Mg Tab 8 MG PO Q8 PRN for Nausea, #20 TAB Aspirin (Aspirin EC Low Dose) 81 Mg Ectab 81 MG PO BID for 30 Days, #60 TAB Docusate Sodium (Docusate Sodium) 100 Mg Cap 100 MG PO BID for 10 Days, #20 CAP Continued Medications: Allopurinol (Zyloprim) 300 Mg Tab 300 MG PO QAM, TAB Amlodipine (Norvasc) 5 Mg Tab 2.5 MG PO QAM, TAB Atorvastatin (Lipitor) 40 Mg Tab 40 MG PO HS, TAB Cholecalciferol (D 1000) 1,000 Unit Cap 1000 UNITS PO PM Levothyroxine Sodium (Levothyroxine Sodium) 50 Mcg Tab 1 TAB PO QAM, TAB 3 Refills Metoprolol Succ (Toprol Xl) (Toprol-Xl) 25 Mg Tabcr 12.5 MG PO QAM Niacin (Niacin) 250 Mg Tab 250 MG PO HS, TAB Admission Physical Exam As per Admitting History & Physical. Hospital Course The Patient had an uneventful hospital course. Labs remained stable- lowest hemoglobin recorded: 12.0 . Pain controlled on oral medications. Participated in PT with ambulation distance of 400 feet. ROM of operative knee reached 85 degrees. Drainage output totaled 650 cc prior to discontinuation. Patient did not have a reported bowel movement. Incision remained clean/dry/ intact. DVT prophylaxis with Aspirin EC 81mg BID x 30 days/Jax stockings. Patient discharged home with Outpatient PT in stable condition. Please refer to daily progress notes for further details. Discharge Instructions Please refer to the electronic Patient Visit Report (Discharge Instructions) for additional information.
[2017-02-07 09:44] VITALS: BP 134/87; PULSE 66; TEMP 36.8; O2SAT 97
== END 2017-02-07 10:17 | disposition home or self-care (01) | DRG 470 ==
LOC: C.ACU 08:29 → C.MSN 10:30 → ENRESERV 15:21
PROVIDERS: ADMIT Orthopaedic Surgery; ATTEND Orthopaedic Surgery
PROC: 0SRC0J9 Replacement of Right Knee Joint with Synthetic Substitute, Cemented, Open Approach (ICD-10-PCS; principal; 2017-02-05 11:15)
DX: M17.11 Unilateral primary osteoarthritis, right knee (principal); Q60.0 Renal agenesis, unilateral; I12.9 Hypertensive chronic kidney disease with stage 1 through stage 4 chronic kidney disease, or unspecified chronic kidney disease; N18.9 Chronic kidney disease, unspecified; E11.9 Type 2 diabetes mellitus without complications; E03.9 Hypothyroidism, unspecified; R01.1 Cardiac murmur, unspecified; R00.2 Palpitations; E66.9 Obesity, unspecified; Z68.39 Body mass index [BMI] 39.0-39.9, adult; Z79.899 Other long term (current) drug therapy

== ENCOUNTER 2024-09-09 11:31 | Inpatient (IN) ==
--- NOTE | 2024-08-18 13:58 | PAT Medication Instructions ---
Medication Instructions Date of Service August 18, 2024 Home Medications acetaminophen 325 mg tablet 325 mg PO QID PRN allopurinol 300 mg tablet 300 mg PO QAM aspirin 81 mg tablet,delayed release 81 mg PO QAM atorvastatin 80 mg tablet 80 mg PO QAM cholecalciferol (vitamin D3) 25 mcg (1,000 unit) capsule (Vitamin D3) 50 mcg PO DAILY hydrochlorothiazide 12.5 mg tablet 12.5 mg PO 3XWK levothyroxine 50 mcg tablet 50 mcg PO QAM lisinopril 10 mg tablet 10 mg PO QAM metoprolol succinate 25 mg tablet,extended release 24 hr 12.5 mg PO QAM ASK your prescriber and surgeon aspirin 81 mg tablet,delayed release 81 mg PO QAM DO NOT take the morning of surgery cholecalciferol (vitamin D3) 25 mcg (1,000 unit) capsule (Vitamin D3) 50 mcg PO DAILY hydrochlorothiazide 12.5 mg tablet 12.5 mg PO 3XWK lisinopril 10 mg tablet 10 mg PO QAM Take morning of surgery With a small sip of water, OTHERWISE NOTHING TO EAT OR DRINK AFTER MIDNIGHT: acetaminophen 325 mg tablet 325 mg PO QID PRN(if needed) allopurinol 300 mg tablet 300 mg PO QAM atorvastatin 80 mg tablet 80 mg PO QAM levothyroxine 50 mcg tablet 50 mcg PO QAM metoprolol succinate 25 mg tablet,extended release 24 hr 12.5 mg PO QAM Take evening before surgery acetaminophen 325 mg tablet 325 mg PO QID PRN(if needed) Other Notes If you have any questions please call us at [phone] or [phone] or [phone] or [phone]
--- NOTE | 2024-08-26 11:45 | Anesthesiology Consultation ---
Date of Service August 26, 2024 Assessment & Plan (1) Encounter for pre-operative examination: - awaiting surgeon ordered medical clearance, S PCP 08/31/24. - patient plans to complete UA and take specimen to [facility] 08/30/ or 08/31. - check BSG am DOS. - cardiology office visit 08/05/24 [facility]: "...decompression and fusion under general anesthesia...chronically with dyspnea with activities of daily living...RBBB...aortic stenosis...stage III CKD...risk stratify via 2 day Lexiscan nuclear stress testing. If stress testing is acceptable, patient would be considered an acceptable, at least moderate, perioperative risk...aspirin should be held for the shortest period of time felt to be safe...lisinopril and HCTZ should be held the morning of procedure, resuming postoperatively as hemodynamics permit...exertional dyspnea, multifactorial in etiology (aortic stenosis, deconditioning, diffuse arthritis, obesity, aging), stable...repeat resting echocardiography at [facility] in July 2025...bilateral carotid bruits...July 2024 revealed stable mild bilateral ICA disease..." Subsequent stress test acceptable. Chart Review Chart Review: Pending: Refer to Additional Notes / Consult section and Patient seen in Pre Admission Testing Teaching & Discussion Pre-Anesthesia Teaching/Discussion Notes: Instructed NPO after midnight before surgery, except medications with 15 cc of water. Medication instructions provided according to the PAT guidelines. History Surgery Operation Date: 09/09/24 11:05 Proposed Procedures p T9-T10 Decompression and Fusion with Spinal Cord Monitoring - Wolfgang Jordan y, Height/Weight Height: 5 ft Weight: 90.2 kg Allergies Allergy/AdvReac Type Severity Reaction Status Date / Time sulfamethoxazole [Bactrim] Allergy Unknown "made the Verified 08/18/24 10:02 UTI worse" trimethoprim [Bactrim] Allergy Unknown "made the Verified 08/18/24 10:02 UTI worse" Medications Home Medications Medication Instructions Recorded Confirmed Last Taken acetaminophen 325 mg tablet 325 mg PO QID PRN Pain 08/18/24 08/18/24 Unknown allopurinol 300 mg tablet 300 mg PO QAM 08/18/24 08/18/24 Unknown aspirin 81 mg tablet,delayed 81 mg PO QAM 08/18/24 08/18/24 Unknown release atorvastatin 80 mg tablet 80 mg PO QAM 08/18/24 08/18/24 Unknown cholecalciferol (vitamin D3) 25 50 mcg PO DAILY 08/18/24 08/18/24 Unknown mcg (1,000 unit) capsule (Vitamin D3) hydrochlorothiazide 12.5 mg tablet 12.5 mg PO 3XWK 08/18/24 08/18/24 Unknown levothyroxine 50 mcg tablet 50 mcg PO QAM 08/18/24 08/18/24 Unknown lisinopril 10 mg tablet 10 mg PO QAM 08/18/24 08/18/24 Unknown metoprolol succinate 25 mg 12.5 mg PO QAM 08/18/24 08/18/24 Unknown tablet,extended release 24 hr Past Medical History Medical History (Updated 08/26/24 @ 12:30 by Danika Duckworth PA-C) Aortic stenosis moderate Carotid artery stenosis mild bilat ICA stenosis per [facility] EMR CKD (chronic kidney disease) stage 3, GFR 30-59 ml/min Degenerative disc disease MUSA (dyspnea on exertion) chronic Gout History of kidney stones Hyperlipidemia Hypertension controlled, stable per pt Hypothyroidism Osteoarthritis RBBB Type 2 diabetes mellitus Patient denies h/o stroke, seizures, heart attack, heart failure, blood clots/DVTs or blood transfusions. Exercise / Class Metabolic Activity II 4-5 Yardwork/Stairs/Walk up hill (chronic shortness of breath with one flight of stairs-denies change or worsening; denies chest discomfort) Past Family History Family History Mother Diabetes Aunt No problems noted. Past Surgical History Surgical History History of cataract surgery bilat History of cystoscopy hx of stent and since removed History of dilatation and curettage History of tonsillectomy History of tooth extraction History of total hip arthroplasty bilat History of total knee replacement right Past Anesthesia History No Hx of Anesthesia Complications and No Family Hx of Anesthesia Complications History of PONV No Hx of PONV and No Hx of Motion Sickness Social History Smoking Status: Never smoker Do You Dip or Chew Tobacco: No Hx Alcohol Use: No Hx Substance Use: No substance use type: does not use Review of Systems Patient denies chest pain, snoring, witnessed apneas, reflux, fever, chills, cough, wheezing, or palpitations. Physical Exam Vital Signs Vitals BP 139/79 P 85 TEMP 97.7 SP02 96% on RA RESP 18 Physical Patient resting comfortably in chair in no acute distress, alert and oriented, responding appropriately throughout visit Full cervical extension range of motion without pain TMD 3.5 finger breadths Mallampati Score 3 Dentition: edentulous, full upper and lower dentures Lungs: normal respiratory effort. Good air movement, clear throughout to auscultation, no adventitious breath sounds Cardiac: regular rate and rhythm, 2/6 systolic murmur, no gallops or rubs Carotid arteries: negative bruit bilat Lab Results Anesthesia Preop Results Results Anesthesia Widget: WBC 6.62 K/ul (4.8-10.8) 08/26/24 Hgb 12.1 g/dl (12.0-16.0) 08/26/24 Hct 37.6 % (37.0-47.0) 08/26/24 Plt 155 K/uL (130-400) 08/26/24 Na 141 mmol/L (136-145) 08/26/24 K 4.9 mmol/L (3.5-5.1) 08/26/24 Cl 107 mmol/L (98-107) 08/26/24 CO2 30 mmol/L (21-32) 08/26/24 BUN 29 mg/dl (6-23) H 08/26/24 Creat 1.37 mg/dl (0.6-1.2) H 08/26/24 Glucose Level 212 mg/dl (70-99(Fasting)) H 08/26/24 PT 10.3 Seconds (9.0-12.0) 08/26/24 PTT 21 Seconds (21-31) 08/26/24 INR 0.9 (0.9-1.1) 08/26/24 HA1c 7.1 % (4.5-5.6) H 08/26/24 Blood Type A Negative 08/26/24 Antibody Screen NEGATIVE 08/26/24 Testing Electrocardiogram Date: 08/05/24 NSR, rate 87 bpm RBBB Inferior infarct, cited on or before 02/11/19 No significant change vs 08/25/23 EKG Chest X-Ray Date: 08/26/24 No acute findings. Echocardiogram Date: 07/29/24 EF 55-59% Normal LV wall motion Severely calcified Moderate aortic valve stenosis (MARY 0.8 cm2, mean PG 25 mmHg, max 43 mmHg) Moderate aortic regurgitation Mild cLVH Mild mitral regurgitation Mild tricuspid regurgitation Grade I diastolic dysfunction Stress Test Date: 08/17/24 MPHR 73% Normal without evidence of scar or inducible ischemia Normal wall motion EF > 70% Other Testing Carotid doppler 07/29/24 Right carotid artery duplex examination indicates evidence of less than 50% stenosis of the internal carotid artery. Left carotid artery duplex examination indicates evidence of less than 50% stenosis of the internal carotid artery.
[2024-09-09] MEDS: GABAPENTIN 300 MG CAP PO SCH (11:13)
[2024-09-09] MEDS: ACETAMINOPHEN 500 MG TAB PO SCH (11:13)
[2024-09-09] MEDS: LR 15ML/HR IV SCH (11:13)
[2024-09-09] MEDS: LR 60ML/HR IV SCH (11:14)
[2024-09-09] MEDS: CeleBREX 200 MG CAP PO SCH (11:14)
[~2024-09-09 11:31] MED LIST changes: -ACETAMINOPHEN 500 MG TAB PO SCH; -ALLO300T2 PO; -AMLO-110 PO; -ATOR-24 PO; -BUPIVACAINE 0.25% 30 ML VIAL ONE; -BUPIVACAINE 0.5 % 5 MG/1 ML PF 10ML VIAL ONE; -CEFAZOLIN 2000 MG/60 ML D5W IV SCH; -CHOL100041 PO; -CeleBREX 200 MG CAP PO SCH; -DEXAMETHASONE 4 MG TAB PO SCH; +DEXAMETHASONE SOD INJ 4 MG/ML VIAL ONE; -FAMOTIDINE 20 MG TAB PO SCH; -GABAPENTIN 300 MG CAP PO SCH; -LACTATED RINGER'S 1000ML 1,000 ML IV SCH; -LEVO50TA6 PO; +LIDOCAINE 2% 2 ML VIAL/AMP(20MG/ML) INFIL ONE; -METO25TA3 PO; -METOCLOPRAMIDE HCL 10 MG TAB PO SCH; -NIAC250T8 PO; +ONDANSETRON INJ 2 MG/ML 2 ML VIAL ONE; +PROPOFOL IV EMULSION 10 MG/ML 20 ML VIAL IV ONE; +ROCURONIUM BROMIDE 10 MG/ML 5 ML VIAL IV ONE; +fentaNYL citrate PF 100 MCG/2 ML VIAL ONE
--- NOTE | 2024-09-09 12:34 | History & Physical Bridge Note ---
Date of Service September 09, 2024 History & Physical Bridge Note I have examined the patient, reviewed the History & Physical and in the interval since the performance of the History & Physical I have noted the following changes of clinical significance: no changes noted
--- NOTE | 2024-09-09 12:35 | History & Physical Report ---
Date of Service September 09, 2024 Assessment & Plan (1) Myelopathy concurrent with and due to spinal stenosis of thoracic region: Plan: T9-T10 decompression and fusion History of Present Illness Chief Complaint: Thoracic back pain with leg weakness Primary Care Provider: Jose Patino MD This is a 84-year-old female presents with severe thoracic spinal stenosis and myelopathy is here for surgical invention. Allergies Allergy/AdvReac Type Severity Reaction Status Date / Time sulfamethoxazole [Bactrim] Allergy Unknown "made the Verified 09/09/24 11:04 UTI worse" trimethoprim [Bactrim] Allergy Unknown "made the Verified 09/09/24 11:04 UTI worse" Home Medications Medication Instructions Recorded Confirmed Type acetaminophen 325 mg tablet 325 mg PO QID PRN Pain 08/18/24 09/09/24 History allopurinol 300 mg tablet 300 mg PO QAM 08/18/24 09/09/24 History aspirin 81 mg tablet,delayed 81 mg PO QAM 08/18/24 09/09/24 History release atorvastatin 80 mg tablet 80 mg PO QAM 08/18/24 09/09/24 History cholecalciferol (vitamin D3) 25 50 mcg PO DAILY 08/18/24 09/09/24 History mcg (1,000 unit) capsule (Vitamin D3) hydrochlorothiazide 12.5 mg tablet 12.5 mg PO 3XWK 08/18/24 09/09/24 History levothyroxine 50 mcg tablet 50 mcg PO QAM 08/18/24 09/09/24 History lisinopril 10 mg tablet 10 mg PO QAM 08/18/24 09/09/24 History metoprolol succinate 25 mg 12.5 mg PO QAM 08/18/24 09/09/24 History tablet,extended release 24 hr Past Med/Surg History Problem List (Updated 09/09/24 @ 12:35 by Wolfgang Porras DO) Myelopathy concurrent with and due to spinal stenosis of thoracic region Encounter for pre-operative examination Right knee DJD Renal agenesis (Chronic) Medical History (Updated 09/09/24 @ 12:35 by Wolfgang Porras DO) Carotid artery stenosis mild bilat ICA stenosis per S EMR Type 2 diabetes mellitus CKD (chronic kidney disease) stage 3, GFR 30-59 ml/min Aortic stenosis moderate RBBB Hyperlipidemia Hypertension controlled, stable per pt Degenerative disc disease Osteoarthritis Gout Hypothyroidism History of kidney stones MUSA (dyspnea on exertion) chronic Surgical History History of dilatation and curettage History of tooth extraction History of total knee replacement right History of total hip arthroplasty bilat History of cataract surgery bilat History of tonsillectomy History of cystoscopy hx of stent and since removed Family History Mother Diabetes Aunt No problems noted. Social History Smoking Status: Never smoker Second Hand Exposure: No; Do You Dip or Chew Tobacco: No; Tobacco Cessation Education Requested by Patient: No Hx Alcohol Use: No Hx Substance Use: No Preferred Language: Lao Communication Ability: Effective Char Filter Operator Helper Required: No Beliefs That Will Affect Care: None Current Living Situation: Family Other Information That Helps Us Care for You: No Feels Safe at Home: Yes Safety Concerns: Feels Safe At This Time Assistive Devices: Denture - Upper and Glasses Physical Exam Physical Exam: Patient is alert and oriented Heart regular rhythm Lungs clear Results & Data Results & Data Vital Signs (Past 12 Hours) Vital Signs Temp Pulse Resp BP Pulse Ox O2 Del Method 09/09/24 11:31 36.6 C 73 20 182/89 H 96 Room Air
[2024-09-09] MEDS: ceFAZolin 2000MG 2,000 MG/15 ML SYR IV SCH ×2 (13:09→22:30)
[2024-09-09] MEDS ORDERED: PHENYLEPHRINE HCL 10 MG/ML VIAL ONE (13:25)
[2024-09-09] MEDS ORDERED: fentaNYL citrate PF 100 MCG/2 ML VIAL IV PRN (13:28)
[2024-09-09] MEDS ORDERED: FLUMAZENIL 0.1 MG/1 ML 10 ML VIAL IV PRN (13:28)
[2024-09-09] MEDS ORDERED: ATROPINE SULFATE 0.1 MG/ML 10ML SYR IV PRN (13:28)
[2024-09-09] MEDS ORDERED: NALOXONE HCL 0.4 MG/1 ML VIAL/CARP IV PRN ×2 (13:28→16:43)
[2024-09-09] MEDS ORDERED: HYDROmorphone INJ 1 MG/ML SYRINGE IV PRN ×2 (13:28→16:43)
[2024-09-09] MEDS ORDERED: ePHEDrine sulfate 50 MG/ML AMP IV PRN (13:28)
[2024-09-09] MEDS ORDERED: PROMETHAZINE HCL 6.25 MG in SODIUM CHLORIDE 0.9% 50 ML IV PRN (13:28)
[2024-09-09] MEDS ORDERED: ONDANSETRON INJ 2 MG/ML 2 ML VIAL IV PRN ×2 (13:28→16:43)
[2024-09-09] MEDS ORDERED: fentaNYL citrate PF 100 MCG/2 ML VIAL ONE (13:39)
[2024-09-09] MEDS: BUPIVACAINE/EPINEPHRINE 0.25% 1:200,000 30 ML VIAL ONE (13:55)
[2024-09-09] MEDS ORDERED: SUGAMMADEX SODIUM 200 MG/2 ML VIAL IV ONE (14:10)
[2024-09-09] MEDS: ceFAZolin 330 MG/ML 1 GM VIAL ONE (14:22)
[2024-09-09] MEDS: FLOSEAL HEMOSTATIC MATRIX 10ML TOP ONE (14:23)
--- NOTE | 2024-09-09 14:25 | Operative Report ---
Post Operative Report Pre & Post Diagnosis Operation Date: 09/09/24 12:35 Pre-Op Diagnosis: Thoracic spinal stenosis with myelopathy Post-Op Diagnosis: Same I identified the patient and participated in the time-out.: Yes Procedure Operation Date: 09/09/24 12:35 Actual Procedures #1 thoracic decompression with bilateral medial facetectomies foraminotomies T9- T10. #2 posterior spinal fusion T9-T10. #3 placement posterior instrumentation using medic Creo T9-T10. #4 placement of infuse collagen sponge, with Koros in the posterior gutters T9-T10. Surgeon Wolfgang Porras, DO [employer] Field Coordinator Genevieve Mobley Estimated Blood Loss 150 Findings See Below The patient is 5 foot tall weighing 89 kg with a BMI in excess of 38. The patient's body obesity contribute to significant technical difficulty with positioning exposure and the procedure itself. This added at least 50% increased operative time. Specimens None Indications This is an 84-year-old female who presents with the above-mentioned diagnosis. In light of her myelopathy we elected undergo decompression in hopes of preventing further decline. Description of Procedure Patient was met with identified informed consent obtained. Patient was then taken to the operative suite underwent intubation placed in a prone position on the OR table chest padded bolsters. All bony promises well-padded eyes inspected to ensure no external precipice on them. This point the thoracic spine was prepped and draped in dorsal fashion. The assistance of fluoroscopy identified the T9 team 10 to space. Sharp dissection with the assistance of Bovie cautery from down to expose the lamina of T9 and transverse processes of T9-10. Informed complete laminectomy of T9 with bilateral medial facetectomies for complete wide decompression of this level. Pedicle screws then placed in T9-T10 bilaterally with assistance of fluoroscopy and appropriate size ke locked into position. The transverse processes of T9-T10 produced a cortical bleeding bone. Infuse collagen sponge combined with Koros bone graft placed in the posterior gutters. 15 round ATA drain inserted. The incision was then closed with 1 Vicryl the fascia 2-0 Vicryl subcutaneously and 4 Monocryl for final skin closure. Steri-Strips sterile dressing placed. Patient waken taken to PACU in stable condition. Please note spinal cord monitoring was utilized at the procedure no changes noted. Genevieve Linn was present at the entire surgery while the patient positioning complex portion of the surgery and final skin closure. I attest to the content of the Intraoperative Record and any orders documented therein. Any exceptions are noted below.
--- NOTE | 2024-09-09 14:48 | Fluoroscopy Report ---
FL thoracic spine 2V CLINICAL HISTORY: T9-T10 DECOMPRESSION COMPARISON STUDY: None FLUOROSCOPY TIME: 27 seconds FLUOROSCOPY IMAGES: There are EXPOSURE DOSE: 10 mGy FINDINGS: Fluoroscopy was provided for spinal surgery. IMPRESSION: Intraoperative fluoroscopy. ACT 112: Negative or not required by law. Electronically signed by: Tony Noguera M.D. 09/09/2024 2:47 PM
[2024-09-09] MEDS: hydrALAZINE HCL 20 MG/ML VIAL IV STA ×2 (15:21→15:41)
[2024-09-09] MEDS: hydrALAZINE HCL 20 MG/ML VIAL ONE (15:21)
--- NOTE | 2024-09-09 16:09 | Anesthesiology Progress Note ---
Date of Service September 09, 2024 Anesthesia Post Procedure Vital Signs Vital Signs: Temp Pulse Pulse Resp BP Pulse Ox O2 Del Method 09/09/24 15:45 76 21 164/64 H 94 Room Air 09/09/24 15:35 36.2 C L 73 17 191/86 H 94 Room Air 09/09/24 15:25 59 L 16 178/69 H 94 Room Air 09/09/24 15:15 57 L 15 177/83 H 97 Room Air 09/09/24 15:05 54 L 15 173/74 H 99 High Flow Nasal Cannula 09/09/24 14:55 58 L 15 173/72 H 97 High Flow Nasal Cannula 09/09/24 14:47 36 C L 61 18 177/80 H 96 High Flow Nasal Cannula 09/09/24 11:31 36.6 C 73 20 182/89 H 96 Room Air O2 Flow Rate 09/09/24 15:45 09/09/24 15:35 09/09/24 15:25 09/09/24 15:15 09/09/24 15:05 2 09/09/24 14:55 3 09/09/24 14:47 4 09/09/24 11:31 Transfer of Care Handoff Completed per policy Notes Mental Status: alert / awake / arousable Patient Amnestic to Procedure: Yes Nausea / Vomiting: adequately controlled Pain: adequately controlled Airway Patency, RR, SpO2: stable & adequate BP & HR: stable & adequate Hydration State: stable & adequate Anesthetic Complications: no major complications apparent
[2024-09-09] MEDS ORDERED: DO NOT ADMINISTER FLU VACCINE PRN (16:43)
[2024-09-09] MEDS ORDERED: MAGNESIUM HYDROXIDE SUSP 30 ML UDC PO PRN (16:43)
[2024-09-09] MEDS ORDERED: PROMETHAZINE 12.5 MG/50.5 ML BAG IV PRN (16:43)
[2024-09-09] MEDS ORDERED: ONDANSETRON 4 MG OD TAB PO PRN (16:43)
[2024-09-09] MEDS ORDERED: hydrOXYzine HCl 25 MG TAB PO PRN (16:43)
[2024-09-09] MEDS ORDERED: ACETAMINOPHEN 1,000 MG/100 ML VIAL IV PRN (16:43)
[2024-09-09] MEDS ORDERED: DO NOT ADMINISTER PNEUMOCOCCAL VACCINE PRN (16:43)
[2024-09-09] MEDS ORDERED: oxyCODONE HCL IR 5 MG TAB (IMMEDIATE RELEASE) PO PRN (16:43)
[2024-09-09] MEDS ORDERED: diphenhydrAMINE Capsule 25 MG CAP PO PRN (16:43)
[2024-09-09] MEDS ORDERED: LORazepam 0.5 MG TAB PO PRN (16:43)
[2024-09-09] MEDS ORDERED: bisacodyL 10 MG SUPP PR PRN (16:43)
[2024-09-09] MEDS ORDERED: HYDROmorphone INJ 0.5 MG/0.5 ML SYR IV PRN (16:43)
[2024-09-09] MEDS ORDERED: METOCLOPRAMIDE HCL INJ 5 MG/ML 2 ML VIAL IV PRN (16:43)
[2024-09-09] MEDS ORDERED: LORazepam 2 MG/1 ML VIAL IV PRN (16:43)
[2024-09-09] MEDS ORDERED: ALUMINUM/MAGNESIUM SUSP 30 ML UDC PO PRN (16:43)
[2024-09-09] MEDS ORDERED: traMADol HCL 50 MG TABLET PO PRN (16:43)
[2024-09-09] MEDS ORDERED: FAMOTIDINE 20 MG TAB PO PRN (16:43)
[2024-09-09] MEDS ORDERED: SOD PHOSPHATE/SOD BIPHOSPHATE ENEMA 132 ML BTL PR PRN (16:43)
--- NOTE | 2024-09-09 16:55 | Hospitalist Consultation ---
Date of Consultation September 09, 2024 Assessment & Plan (1) Myelopathy concurrent with and due to spinal stenosis of thoracic region: (2) S/P spinal surgery: Micaela Giles is an 84y/o F with PMHx significant for DM type II, hypothyroidism, HTN, HLD, CKD stage IIIb, dyspnea on exertion, nonrheumatic aort ic valve stenosis and primary osteoarthritis of right shoulder who is being seen in consultation for routine postoperative medical management after undergoing elective T9-T10 decompression and fusion performed by Dr. Porras on 09/09/24. Per ortho for pain control, wound care, anticoagulation and activities. Continue incentive spirometry, PT/OT when appropriate as per ortho team. Preop Hgb = 12.1; monitor H/H for acute blood loss anemia and transfuse blood products PRN. (3) Type 2 diabetes mellitus: Hgb A1c 7.1% as of 08/26/24. Utilize SSI regimen while inpatient. BSG checks ACHS. Patient not currently on any glycemic agents as an outpatient. (4) Stage 3b chronic kidney disease (CKD): Cr stable as of 08/26/24, baseline Cr around 1.2-1.4 as per chart review. Avoid nephrotoxic agents when able. Monitor renal function closely with daily labs and renally dose medications when able. (5) Hypertension: Hold HCTZ for now. Continue additional home antihypertensives with routine BP monitoring and hold parameters. Other Chronic Medical Conditions: Hypothyroidism/HLD/Gout - Continue home medications for these specific conditions as tolerated/as able. DVT Prophylaxis: SCDs/TEDs as per primary service. Code Status: FULL CODE PCP: Jose Patino MD Disposition: Discharge planning as per primary service. Thank you for this consultation. We will follow the patient with you during their hospital stay. You can reach a [facility] via eeden. Patient seen in collaboration with Dr. Hall. Please see addendum. I spent a total of 40 minutes coordinating, documenting, and providing care for this patient excluding time spent in the performance of separately billed ser vices or time spent by another provider/QHP. This included personally reviewing all current laboratories and imaging studies, medical reconciliation, outpatient chart review and discussion with specialists. This chart was completed in part utilizing Speech Voice Recognition Software. Grammatical errors, random word insertions, pronoun errors, and incomplete sentences are an occasional consequence of this system due to software limitations, ambient noise, and hardware issues. Any formal questions or concerns about the content, text, or information contained within the body of this dictation should be directly addressed to the provider for clarification. Supervising Physician Co-Signing Physician Notes Attending addendum: The patient was seen and examined in medical floor She is status post T9-T10 decompression and fusion Minimal pain in the lower back otherwise asymptomatic On examination Lying in bed without any acute distress Hemodynamically stable and is afebrile Chest clear to auscultate bilateral HeartS1-S2, regular Abdomenbenign Extremitiesno edema His labs, medications and imaging studies reviewed Status post T9-T10 decompression fusion and doing fine following surgery Remains medically stable with other medical conditions as mentioned in consultation note Agree with assessment plan as outlined above by jaelyn Patel PA-C and take the full responsibility of care in the hospital Total time taken to document on this was [address] Socrates Hall History of Present Illness Reason for Consultation: Routine Postoperative Medical Management Requesting Physician: Wolfgang Porras DO Attending Physician: Wolfgang Porras DO History of Present Illness Micaela Giles is an 84y/o F with PMHx significant for DM type II, hypothyroidism, HTN, HLD, CKD stage IIIb, dyspnea on exertion, nonrheumatic aortic valve stenosis and primary osteoarthritis of right shoulder who is being seen in consultation for routine postoperative medical management after undergoing elective T9-T10 decompression and fusion performed by Dr. Porras on 09/09/24. History obtained from the patient and associated chart review. Feeling well postoperatively, pain controlled. Has Raya catheter in place which is intact and draining clear, yellow urine without issue. Also has ATA drain x 1 wh ich is draining serosanguineous output. Denies any chest pain or SOB. Last BM was yesterday. BLE neuropathy improving. Has not yet been out of bed postoperatively. Allergies Allergy/AdvReac Type Severity Reaction Status Date / Time sulfamethoxazole [Bactrim] Allergy Unknown "made the Verified 09/09/24 11:04 UTI worse" trimethoprim [Bactrim] Allergy Unknown "made the Verified 09/09/24 11:04 UTI worse" Home Medications Medication Instructions Recorded Confirmed Type acetaminophen 325 mg tablet 325 mg PO QID PRN Pain 08/18/24 09/09/24 History allopurinol 300 mg tablet 300 mg PO QAM 08/18/24 09/09/24 History aspirin 81 mg tablet,delayed 81 mg PO QAM 08/18/24 09/09/24 History release atorvastatin 80 mg tablet 80 mg PO QAM 08/18/24 09/09/24 History cholecalciferol (vitamin D3) 25 50 mcg PO DAILY 08/18/24 09/09/24 History mcg (1,000 unit) capsule (Vitamin D3) hydrochlorothiazide 12.5 mg tablet 12.5 mg PO 3XWK 08/18/24 09/09/24 History levothyroxine 50 mcg tablet 50 mcg PO QAM 08/18/24 09/09/24 History lisinopril 10 mg tablet 10 mg PO QAM 08/18/24 09/09/24 History metoprolol succinate 25 mg 12.5 mg PO QAM 08/18/24 09/09/24 History tablet,extended release 24 hr Patient History Medical History Carotid artery stenosis mild bilat ICA stenosis per [facility] E[facility] Type 2 diabetes mellitus CKD (chronic kidney disease) stage 3, GFR 30-59 ml/min Aortic stenosis moderate RBBB Hyperlipidemia Hypertension controlled, stable per pt Degenerative disc disease Osteoarthritis Gout Hypothyroidism History of kidney stones MUSA (dyspnea on exertion) chronic Surgical History History of dilatation and curettage History of tooth extraction History of total knee replacement right History of total hip arthroplasty bilat History of cataract surgery bilat History of tonsillectomy History of cystoscopy hx of stent and since removed Family History Mother Diabetes Aunt No problems noted. Social History Smoking Status: Never smoker Second Hand Exposure: No; Do You Dip or Chew Tobacco: No; Tobacco Cessation Education Requested by Patient: No Hx Alcohol Use: No Hx Substance Use: No Preferred Language: Fijian Communication Ability: Effective Dispatcher Tow Truck Required: No Beliefs That Will Affect Care: None Current Living Situation: Family Other Information That Helps Us Care for You: No Feels Safe at Home: Yes Safety Concerns: Feels Safe At This Time Assistive Devices: Denture - Upper and Glasses Review of Systems Review of Systems: At least ten systems reviewed and negative, except as noted in the HPI. Physical Exam Physical Exam: General: WD/WN, elderly F. NAD. Laying down in bed. Very pleasant. A&Ox4, conversing appropriately. HEENT: Normocephalic, atraumatic. Conjunctivae normal. External ear and nose normal, oropharynx normal. Respiratory: Normal respiratory effort, lungs clear to auscultation bilaterally. On RA. No accessory muscle use. Cardiovascular: Regular rate and rhythm. + holosystolic murmur. Normal peripheral pulses. No BLE edema. Abdomen/GI: Normal bowel sounds, soft, nondistended, nontender to palpation in all quadrants. : Raya catheter intact and draining clear, yellow urine without issue. Extremities/MSK: BLE TEDs in place. Surgical site dressing C/D/I. ATA drain x 1 intact and draining serosanguineous output. Results & Data Results & Data Vital Signs (Past 12 Hours) Vital Signs Temp Pulse Pulse Resp BP Pulse Ox O2 Del Method 09/09/24 16:47 35.5 C L 75 16 125/68 92 Room Air 09/09/24 16:00 36.3 C L 75 16 136/62 93 Room Air 09/09/24 15:45 76 21 164/64 H 94 Room Air 09/09/24 15:35 36.2 C L 73 17 191/86 H 94 Room Air 09/09/24 15:25 59 L 16 178/69 H 94 Room Air 09/09/24 15:15 57 L 15 177/83 H 97 Room Air 09/09/24 15:05 54 L 15 173/74 H 99 High Flow Nasal Cannula 09/09/24 14:55 58 L 15 173/72 H 97 High Flow Nasal Cannula 09/09/24 14:47 36 C L 61 18 177/80 H 96 High Flow Nasal Cannula 09/09/24 11:31 36.6 C 73 20 182/89 H 96 Room Air O2 Flow Rate 09/09/24 16:47 09/09/24 16:00 09/09/24 15:45 09/09/24 15:35 04/24/25 15:25 09/09/24 15:15 09/09/24 15:05 2 09/09/24 14:55 3 09/09/24 14:47 4 09/09/24 11:31 (3) Type 2 diabetes mellitus Diabetes mellitus complication status: without complication Diabetes mellitus bi application developer insulin use: unspecified bi application developer insulin use status Qualified Code(s): E11.9 - Type 2 diabetes mellitus without complications (5) Hypertension Hypertension type: unspecified Qualified Code(s): I10 - Essential (primary) hypertension
[2024-09-09] MEDS ORDERED: DEXTROSE 50% 50 ML SYRINGE IV PRN (17:26)
[2024-09-09] MEDS ORDERED: GLUCAGON FOR INJ 1 MG VIAL SQ PRN (17:26)
[2024-09-09] MEDS ORDERED: GLUCOSE 10 TAB/TUBE PO PRN (17:26)
[2024-09-09] MEDS ORDERED: GLUCOSE 40% GEL 15 GM TUBE PO PRN (17:26)
[2024-09-09] MEDS ORDERED: CARBOHYDRATES FOR HYPOGLYCEMIA PO PRN (17:26)
[2024-09-09] MEDS: dexAMETHasone 6 MG in SYRINGE 0 ML IV SCH (17:33)
--- OUTSIDE RECORDS SUMMARY | 2024-09-09 18:28 | External Medical Summary | Summary of Care ---
Author Name Unknown Organization [facility] Address [address] [place] [address] Phone [phone] Care Team Providers Care Corporate Accountant Name Role Phone Jose Patino MD Primary Care Provide r Reason for Visit * Reason Onset Date Comments Advice 09/03/2024 Encounter Details Date Type Department Care Team (Late st Contact Info) Description 09/03/2024 Telephone Family Medicine [address] [phone] Jose Patino MD [address] [place] [address] [place] [address] Advice Allergies Active Allergy Reactions Criticality Noted Date Comments Sulfamethoxazole-Trim ethoprim Other (Please comment) 11/11/2016 Kidney function documented as of this encounter (statuses as of 09/07/2024) Medications acetaminophen (TYLENOL) 325 MG Tablet Take 2 Tablets by mouth 4 times a day as needed. Active Aspirin 81 MG Tablet Take 1 Tablet by mouth in the morning. 31 Tab 5 8 Active Cholecalciferol (VITAMIN D) 2000 units Capsule Take 1 Capsule by mouth in the morning. 9 Active Lisinopril 10 MG Oral Tablet (Prinivil)Indicatio ns:HTN, goal below 140/90 Take 1 Tablet by mouth in the morning. 90 Tablet 1 5 Active Levothyroxine Sodium 50 MCG Oral Tablet (Levoxyl)Indication s:Other specified hypothyroidism TAKE ONE TABLET BY MOUTH first thing in the morning 90 Tablet 3 5 Active hydroCHLOROthiazide 12.5 MG Oral CapsuleIndications: HTN, goal below 140/90,Diastolic dysfunction,Hyperte nsive heart and kidney disease without heart failure and with stage 3 chronic kidney disease, unspecified whether stage 3a or 3b CKD (HCC) Take 1 Capsule by mouth in the morning. Every morning.. 90 Capsule 3 5 Active Gabapentin 100 MG Oral Capsule (Neurontin)Indicati ons:Lumbar radicular pain,Radicular pain of thoracic region Take one capsule by mouth 1 hour prior to bed for one week then increase to one capsule AM and one capsule PM. 60 Capsule 2 5 Active Atorvastatin Calcium 80 MG Oral Tablet (Lipitor)Indication s:Dyslipidemia, goal LDL below 100 Take 1 Tablet by mouth in the morning. In the morning.. 90 Tablet 5 Active Allopurinol 300 MG Oral Tablet (Zyloprim)Indicatio ns:Gouty arthropathy Take 1 Tablet by mouth in the morning. 90 Tablet 2 5 Active Metoprolol Succinate ER 25 MG Oral Tablet Extended Release 24 Hour (toPROL XL)Indications:HTN, goal below 140/90 Take 0.5 Tablets by mouth in the morning. 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 hydroCHLOROthiazide 12.5 MG Oral Capsule; Take 1 Capsule by mouth in the morning. Every morning.. Metoprolol Succinate ER 25 MG Oral Tablet Extended Release 24 Hour (toPROL XL); Take 0.5 Tablets by mouth in the morning. Dyslipidemia, goal LDL below 100 04/25/2009 Overview (04/25/2009): Per Lipid Taxonomy. Assessment & Plan (08/31/2024 3:40 PM EDT): Orders: Atorvastatin Calcium 80 MG Oral Tablet (Lipitor); Take 1 Tablet by mouth in the morning. In the morning.. Type 2 diabetes mellitus wit h hemoglobin A1c goal of less than 7.0% 03/02/2009 Overview (09/12/2015): Modified per Diabetes protocol #14. ICD-10 update of inactive term Hypothyroidism 07/26/2007 Assessment & Plan (08/31/2024 3:40 PM EDT): - stable no changes Orders: Levothyroxine Sodium 50 MCG Oral Tablet (Levoxyl); TAKE ONE TABLET BY MOUTH first thing in the morning documented as of this encounter (statuses as of 09/07/2024) Resolved Problems Problem Noted Date Diagnosed Date Resolved Date Hypertensive heart and kidne y disease without heart failure and with stage 3 chronic kidney disease 06/14/2022 12/12/2022 Type 2 diabetes mellitus wit h stage 3 chronic kidney disease, without long-term current use of insulin 06/02/2020 06/08/2021 Body mass index (BMI) of 40. 0 to 44.9 in adult 06/02/2020 06/02/2020 Diabetes mellitus with stage 3 chronic kidney disease 03/27/2020 06/02/2020 Overview: Per CKD protocol Body mass index (BMI) of 45. 0 to 49.9 in adult 11/29/2019 06/02/2020 Overview: Per Obesity protocol - Per Obesity protocol - - Body mass index (BMI) of 40. 0 to 44.9 in adult 12/28/2018 12/02/2019 Overview: Per Obesity protocol - - Body mass index (BMI) of 45. 0 to 49.9 in adult 02/23/2018 12/31/2018 Overview: Per Obesity protocol #1 - - Body mass index (BMI) of 40. 0 to 44.9 in adult 12/30/2017 03/02/2018 Overview: Per Obesity protocol #1 - Type 2 diabetes mellitus wit h stage 3 chronic kidney disease, without long-term current use of insulin 03/13/2017 03/30/2020 Overview: Per CKD protocol Hypertensive heart and kidne y disease without heart failure and with chronic kidney disease stage III 03/13/2017 03/30/2020 Overview: Per CKD protocol BMI 40.0-44.9, adult 05/26/2011 018 Kidney disease, chronic, sta ge III (GFR 30-59 ml/min) 12/07/2009 06/02/2020 Overview (12/07/2009): Per CKD Protocol, #1 Obesity, morbid (more than 1 00 lbs over ideal weight or BMI > 40) 10/31/2009 07/06/2024 Overview (08/07/2015): Per Obesity Protocol, #19 ICD-10 update of inactive term HTN, goal below 130/80 06/14/200902/24 Overview (06/14/2009): Modified per HTN Taxonomy. HTN, GOAL BELOW 140/90 03/24/200906/14 Overview (06/14/2009): Modified per HTN Taxonomy. DM type 2, not at goal 11/18/200703/02 Overview (03/02/2009): Modified per Diabetes protocol #14. ADVANCE DIRECTIVE INFORMATION 07/12/2005 03/22/2024 Overview (07/12/2005): Yes, Patient instructed to provide copy of advance directive for provider to review and to be scanned into Electronic Medical Record ABN CLINICAL FINDING NEC 01/28/200504/2015 Mixed dyslipidemia 01/28/2005 9 Overview (04/25/2009): Per Lipid Taxonomy. HTN, goal below 140/90 05/31/200403/24 Overview (03/24/2009): Modified per HTN Taxonomy. Dyslipidemia, goal to be determined 04/12/2009 Overview (04/12/2009): Per Lipid Taxonomy documented as of this encounter (statuses as of 09/07/2024) Immunizations Name Administration Dates Next Due COVID-19 mRNA, LNP-s, No Pre serve, 2-Dose Series (Moderna) 08/17/2020,07/13/2020 Pneumococcal Conjugate Vacc, 13 Valent (Prevnar) 02/27/2015 Pneumococcal Polysaccharide PPV23 (Pneumovax) 11/26/2006 Seasonal Influenza Vac., MDV , IM, 0.5 mL (Fluzone) 03/05/2014,03/03/2013,02/04/2012,07/2011,05/07/2010,02/23/2009,02/24/20 08 Seasonal Influenza, PF, 6 M & above, IM , (FluLaval or Fluzone) 05/20/2024,02/10/2018 02/10/2019 Seasonal Influenza, Quadriva lent Hd (Fluzone Hd) 05/29/2023,06/08/2021 Seasonal Influenza, Quadriva lent, No Preserve, IM 02/11/2017,03/08/2016,02/27/2015 Seasonal Influenza, Trivalen t, Adjuvanted, 65+ YRS, PF, (Fluad) 04/07/2020,02/11/2019 02/12/2020 TD, Preservative Free 02/24/2008 Varicella Zoster Vaccine Henry lt (Zostavax) 02/16/2013 documented as of this encounter Social History Tobacco Use Types Packs/Day Years Used Date Smoking Tobacco: Never Smokeless Tobacco: Never Alcohol Use Standard Drinks/Week Comments No 0 (1 standard drink = 0.6 oz pur e alcohol) PHQ-2 Answer Date Recorded PHQ Adult Total Score 0 07/06/2024 Comments No Sex and Gender Information Value Date Recorded Sex Assigned at Not on file Legal Sex Female 5:27 AM EST Gender Identity Not on file Sexual Orientation Not on file documented as of this encounter Miscellaneous Notes * Telephone Encounter - Dora Mathew CMA - 09/07/2024 3:15 PM EDT [facility] called back and states per Dr Porras no need to treat asymptomatic UTI at this time * Telephone Encounter - Wanda Santoro OSA - 09/07/2024 3:12 PM EDT Returning Call to office. Transferred call to [facility] * Telephone Encounter - Jayesh Worley CRNP - 09/06/2024 4:07 PM EDT Spoke with José Luis at [facility]. Going to reach out to Dr. Porras to see if he would like this treated or not given the patient is asymptomatic. If requesting treatment will plan to send Keflex BID x5 days. * Telephone Encounter - Jayesh Worley CRNP - 09/06/2024 4:03 PM EDT Called to speak with patient. She is not having any symptoms. Generally would not recommend treating asymptomatic bacteruria. Will reach out to [facility] to clarify if they are requiring treatment prior to procedure. * Telephone Encounter - Margarita Monroy LPN - 09/06/2024 3:01 PM EDT Pre op urine culture shows UTI. They are reaching out to PCP for treatment. * Telephone Encounter - Renita Hansen OSA - 09/03/2024 12:39 PM EDT Danika from [facility] called to speak to Jayesh Worley about abnormal lab results. documented in this encounter Plan of Treatment Upcoming Encounters Date Type Department Care Team (Late st Contact Info) Description 01/31/2025 2:00 PM EDT Office Visit Family Medicine [address] [place] [phone] Jose Patino MD [address] [place] [address] [place] [address] 04/07/2025 3:20 PM EST Office Visit Nephrology [address] [place] [address] Yina Francois MD [address] [place], [place] [address] [address] 06/21/2025 2:00 PM EST Office Visit Cardiology [address] [place] [address] Guillermo Kulkarni PA-C [address] [place] [address] Health Maintenance Due Date Last Done Comments DXA Scan 1941 Adult Wellness Visit 2007 DTap/Tdap Vaccines (1 - Tdap) 02/25/2008 02/24/2008 Zoster Vaccines (2 of 3) 04/13/2013 02/16/2013 COVID-19 Vaccine ( season) 2024 08/17/2020, 07/13/2020 Diabetic Eye Exam 02/13/2025 02/14/2024, , 10/04/2022, Additional history exists GFR 02/25/2025 08/26/2024, 06/19, 12/26/2023, Additional history exists HbA1c 02/25/2025 08/26/2024, 06/19, 12/26/2023, Additional history exists Albumin/Creatinine Ratio 07/06/2025 025, 05/29/2023, 09/12/2022, Additional history exists CKD PHOS USE SMARTSET 91218 07/06/202506/19, 05/29/2023, 12/12/2022, Additional history exists Depression Screening 07/06/2025 07/06/2024 Diabetic Foot Exam 07/06/2025 07/06/2024, 0 06/14/2022, 06/08/2021, Additional history exists TSH 07/06/2025 07/06/2024, 05/19, 06/14/2022, Additional history exists CKD HGB USE SMARTSET 91636 08/26/202508/26, 08/25/2023, 05/29/2023, Additional history exists Pneumococcal Vaccine: 50+ Years Completed 02/27/2015, 11/26/2006 Influenza Vaccine (FLU shot) Completed 06/2024, 05/29/2023, 03/25/2022, Additional history exists HPV (Gardasil) Vaccine Aged Out No lo nger eligible based on patient's age to complete this topic Hepatitis B Vaccine Aged Out No longe r eligible based on patient's age to complete this topic MENINGOCOCCAL (MENACTRA/MENVEO) Aged Out No longer eligible based on patient's age to complete this topic Meningitis B Vaccine (Bexsero/Trumemba) Aged Out No longer eligible based on patient's age to complete this topic documented as of this encounter Medical Devices Not on filedocumented as of this encounter Visit Diagnoses Diagnosis Preop examination- Primary Preoperative examination, unspecified HTN, goal below 140/90 Unspecified essential hypertension Other specified hypothyroidism Diastolic dysfunction Heart disease, unspecified Hypertensive heart and kidney disease without heart failure and with stage 3 chronic kidney disease, unspecified whether stage 3a or 3b CKD (HCC) Lumbar radicular pain Thoracic or lumbosacral neuritis or radiculitis, unspecified Radicular pain of thoracic region Thoracic or lumbosacral neuritis or radiculitis, unspecified Dyslipidemia, goal LDL below 100 Other and unspecified hyperlipidemia Gouty arthropathy Gouty arthropathy, unspecified Asymptomatic bacteriuria- Primary Other nonspecific finding on examination of urine documented in this encounter Care Teams Corporate Accountant Relationship Specialty Start Date End Date Jose Patino MD [address] [place] [address] [place] [id number] PCP - General Family Medicine 11/25/14 documented as of this encounter
--- OUTSIDE RECORDS SUMMARY | 2024-09-09 18:29 | External Medical Summary | Summary of Care ---
Author Name Unknown Organization [facility] Address [address] [place] [address] Phone [phone] Care Team Providers Care Windlasser Name Role Phone Jose Patino MD Primary Care Provide r Encounter Details Date Type Department Care Team (Late st Contact Info) Description 09/03/2024 Orders Only Family Medicine [address] [phone] Jose Patino MD [address] [place], [place] [address] [address] Allergies Active Allergy Reactions Criticality Noted Date Comments Sulfamethoxazole-Trim ethoprim Other (Please comment) 11/11/2016 Kidney function documented as of this encounter (statuses as of 09/03/2024) Medications acetaminophen (TYLENOL) 325 MG Tablet Take [...] as of this encounter (statuses as of 09/03/2024) Active Problems Problem Noted Date Diagnosed Date [...] as of this encounter (statuses as of 09/03/2024) Resolved Problems Problem Noted Date Diagnosed Date [...] as of this encounter (statuses as of 09/03/2024) Immunizations Name Administration Dates Next Due COVID-19 [...] on file documented as of this encounter Plan of Treatment Upcoming Encounters Date Type Department Care Team (Late st Contact Info) Description 01/31/2025 2:00 PM EDT Office Visit Family Medicine [address] [place] [phone] Jose Patino MD [address] [place] [address] [place] [address] 04/07/2025 3:20 PM EST Office Visit Nephrology [address] [place] [address] Yina Francois MD [address] [facility] [place] [address] 06/21/2025 2:00 PM EST Office Visit Cardiology [address] [place] [address] Guillermo Kulkarni PAAniyahC [address] [place] [address] Health Maintenance Due Date Last Done Comments DXA Scan 1941 Adult Wellness Visit 2007 DTap/Tdap Vaccines (1 - Tdap) 02/25/2008 02/24/2008 Zoster Vaccines (2 of 3) 04/13/2013 02/16/2013 COVID-19 Vaccine (3 - season) 2024 08/17/2020, 07/13/2020 Diabetic Eye Exam 02/13/2025 02/14/2024, , 10/04/2022, Additional history exists GFR 02/25/2025 08/26/2024, 06/19, 12/26/2023, Additional history exists HbA1c 02/25/2025 08/26/2024, 06/19, 12/26/2023, Additional history exists Albumin/Creatinine Ratio 07/06/2025 025, 05/29/2023, 09/12/2022, Additional history exists CKD PHOS USE SMARTSET 60600 07/06/202506/19, 05/29/2023, 12/12/2022, Additional history exists Depression Screening 07/06/2025 07/06/2024 Diabetic Foot Exam 07/06/2025 07/06/2024, 0 06/14/2022, 06/08/2021, Additional history exists TSH 07/06/2025 07/06/2024, 05/19, 06/14/2022, Additional history exists CKD HGB USE SMARTSET 31668 08/26/202508/26, 08/25/2023, 05/29/2023, Additional history exists Pneumococcal [...] Not on filedocumented as of this encounter Procedures Procedure Name Priority Date/Time Associated Diagnosis Comments XR CHEST 2 VIEWS Routine 08/26/2024 CHEMISTRY-OUTSIDE Routine 08/26/2024 documented in this encounter Results * (ABNORMAL) CHEMISTRY-OUTSIDE (08/26/2024) Not all results display below - see scan for full detail OUTSIDE LAB (SEE SCANNED REPORT) Comment:SCAN INCLUDES - PREA DMISSION TESTING: CBCD, PT, INR, PTT, BMP, HBA1C, UA CREATININE 1.37(A) 0.6 - 1.2 MG/DL OUTSIDE LAB (SEE SCANNED REPORT) EGFR 38.31 OUTSIDE LA B (SEE SCANNED REPORT) POTASSIUM 4.9 3.5 - 5.1 MMOL/L OUTSIDE LAB (SEE SCANNED REPORT) GLUCOSE 212(A) 70 - 99 MG/DL OUTSIDE LAB (SEE SCANNED REPORT) HOURS FASTING OUTSID E LAB (SEE SCANNED REPORT) TRIGLYCERIDES-OU TSIDE LAB OUTSIDE LAB (SEE SCANNED REPORT) CHOLESTEROL-OUTS RENNY LAB OUTSIDE LAB (SEE SCANNED REPORT) HDL-OUTSIDE LAB OUTS RENNY LAB (SEE SCANNED REPORT) CHOL/HDL RATIO-OUTSIDE LAB OUTSIDE LAB (SEE SCANNED REPORT) LDL (CALCULATED)-OUT SIDE LAB OUTSIDE LAB (SEE SCANNED REPORT) LDL (DIRECT MEASURE)-OUTSIDE LAB OUTSIDE LAB (SEE SCANNED REPORT) HEMOGLOBIN, J9I-PPLGIYI LAB 7.1(A) 4.5 - 5.6 % OUTSIDE LAB (SEE SCANNED REPORT) PHOSPHORUS-OUTSI DE LAB OUTSIDE LAB (SEE SCANNED REPORT) PTH-OUTSIDE LAB OUTS RENNY LAB (SEE SCANNED REPORT) MICROALBUMIN RATIO-OUTSIDE LAB OUTSIDE LAB (SEE SCANNED REPORT) PROTEIN, UA-OUTSIDE LAB 1+(H) NEGATIVE OUTSIDE LAB (SEE SCANNED REPORT) HGB 12.1 12.0 - 16.0 G/DL OUTSIDE LAB (SEE SCANNED REPORT) 08/26/2024 Wolfgang Porras DO LABORATORY Fin al Result OUTSIDE LAB (SEE SCANNED REPORT) * XR CHEST 2 VIEWS (08/26/2024) Anatomical Region Laterality Modality Chest Other 08/26/2024 us Wolfgang Porras DO RADIOLOGY (RAD GENE RAL) Final Result documented in this encounter Care Teams Windlasser Relationship Specialty Start Date End Date Jose Patino MD NPI: [id number] [place] [address] [place] [address] PCP - General Family Medicine 11/25/14 documented as of this encounter
--- OUTSIDE RECORDS SUMMARY | 2024-09-09 18:29 | External Medical Summary | Summary of Care ---
Author Name Unknown Organization [facility] Address [address] [place] [address] Phone [phone] Care Team Providers Care Information Management Officer Name Role Phone Jose Patino MD Primary Care Provide r Encounter Details Date Type Department Care Team (Late st Contact Info) Description 08/27/2024 Result Scan Unspecified Department <No scans attached> Allergies Active Allergy Reactions Criticality Noted Date Comments Sulfamethoxazole-Trim ethoprim Other (Please comment) 11/11/2016 Kidney function documented as of this encounter (statuses as of 09/03/2024) Medications acetaminophen (TYLENOL) 325 MG Tablet Take 2 Tablets by mouth 4 times a day as needed. Active Aspirin 81 MG Tablet Take 1 Tablet by mouth in the morning. 31 Tab 5 02/10/2018 Active Cholecalciferol (VITAMIN D) 2000 units Capsule Take 1 Capsule by mouth in the morning. 08/06/2018 Active documented as of this encounter (statuses [...] 2:00 PM EDT Office Visit Family Medicine [address] [place] [phone] Jose Patino MD [address] [place] [address] [place] [address] 04/07/2025 3:20 PM EST Office Visit Nephrology [address] [place] [address] Yina Francois MD [address] [place], [place] [address] [address] 06/21/2025 2:00 PM EST Office Visit Cardiology [address] [place] [address] Guillermo Kulkarni PA-C [address] [place] [address] Health Maintenance Due Date Last Done Comments DXA Scan 1940 Adult Wellness Visit 2007 DTap/Tdap Vaccines (1 - Tdap) 02/25/2008 02/24/2008 Zoster Vaccines (2 of 3) 04/13/2013 02/16/2013 COVID-19 Vaccine (3 season) 2024 08/17/2020, 07/13/2020 Diabetic Eye Exam 02/13/2025 02/14/2024, , 10/04/2022, Additional history exists GFR 02/25/2025 08/26/2024, 06/19, 12/26/2023, Additional history exists HbA1c 02/25/2025 08/26/2024, 06/19, 12/26/2023, Additional history exists Albumin/Creatinine Ratio 07/06/2025 025, 05/29/2023, 09/12/2022, Additional history exists CKD PHOS USE SMARTSET 68224 07/06/202506/19, 05/29/2023, 12/12/2022, Additional history exists Depression Screening 07/06/2025 07/06/2024 Diabetic Foot Exam 07/06/2025 07/06/2024, 0 06/14/2022, 06/08/2021, Additional history exists TSH 07/06/2025 07/06/2024, 05/19, 06/14/2022, Additional history exists CKD HGB USE SMARTSET 08196 08/26/202508/26, 08/25/2023, 05/29/2023, Additional history exists Pneumococcal [...] Procedure Name Priority Date/Time Associated Diagnosis Comments OUTSIDE LAB RESULTS 08/27/2024 OUTSIDE LAB RESULTS 08/26/2024 documented in this encounter Results * OUTSIDE LAB RESULTS (08/27/2024) 08/27/2024 us No Physician Data Unknown LABORATORY Final Result * OUTSIDE LAB RESULTS (08/26/2024) 08/26/2024 us No Physician Data Unknown LABORATORY Final Result documented in this encounter Care Teams Information Management Officer Relationship Specialty Start Date End Date Jose Patino MD [address] [place] [address] [place] [address] PCP - General Family Medicine 11/25/14 documented as of this encounter
--- OUTSIDE RECORDS SUMMARY | 2024-09-09 18:29 | External Medical Summary | Summary of Care ---
Author Name Unknown Organization [facility] Address [address] [place] [address] Phone [phone] Care Team Providers Care Assessment Nurse Name Role Phone Jose Patino MD Primary Care Provide r Reason for Visit * Reason Onset Date Comments Advice 09/03/2024 Encounter Details Date Type Department Care Team (Late st Contact Info) Description 09/03/2024 Telephone Family Medicine [address] [phone] Jose Patino MD [address] [place] [address] [place] [address] Advice Allergies Active Allergy Reactions Criticality [...] Mathew CMA - 09/07/2024 3:15 PM EDT [facility] [place] and [place] per Dr Porras no need to treat asymptomatic UTI at this time * Telephone Encounter - Wanda Santoro OSA - 09/07/2024 3:12 PM EDT Returning Call to office. Transferred call to [facility] * Telephone Encounter - Jayesh Worley CRNP - 09/06/2024 4:07 PM EDT Spoke with José Luis at [facility] Going to reach out to Dr. Porras [...] treating asymptomatic bacteruria. Will reach out to [facility] to clarify if they are requiring treatment prior to procedure. * Telephone Encounter - Margarita Monroy LPN - 09/06/2024 3:01 PM EDT Pre op urine culture shows UTI. They are reaching out to PCP for treatment. * Telephone Encounter - Renita Hansen OSA - 09/03/2024 12:39 PM EDT Danika from [facility] called to speak to Jayesh Worley about abnormal lab results. documented in this encounter Plan of Treatment Upcoming Encounters Date Type Department Care Team (Late st Contact Info) Description 01/31/2025 2:00 PM EDT Office Visit Family Medicine [address] [place] [phone] Jose Patino MD [address] [place] [address] [place] [address] 04/07/2025 3:20 PM EST Office Visit Nephrology [address] [place] [address] Yina Francois MD [address] [place], [place] [address] [address] 06/21/2025 2:00 PM EST Office Visit Cardiology [address] [place] [address] Guillermo Kulkarni PA-C [address] [place] [address] Health Maintenance Due Date Last Done Comments [...] Additional history exists CKD PHOS USE SMARTSET 09405 07/06/202506/19, 05/29/2023, 12/12/2022, Additional history exists Depression Screening 07/06/2025 07/06/2024 Diabetic Foot Exam 07/06/2025 07/06/2024, 0 06/14/2022, 06/08/2021, Additional history exists TSH 07/06/2025 07/06/2024, 05/19, 06/14/2022, Additional history exists CKD HGB USE SMARTSET 50608 08/26/202508/26, 08/25/2023, 05/29/2023, Additional history exists Pneumococcal [...] urine documented in this encounter Care Teams Assessment Nurse Relationship Specialty Start Date End Date Jose Patino MD [address] [place] [address] [place] [address] PCP - General Family Medicine 11/25/14 documented as of this encounter
--- OUTSIDE RECORDS SUMMARY | 2024-09-09 18:29 | External Medical Summary | Summary of Care ---
Author Name Unknown Organization [facility] Address [address] [place] [address] Phone [phone] Care Team Providers Care Last Pattern Grader Name Role Phone Jose Patino MD Primary Care Provide r Reason for Visit * Reason Onset Date Comments Advice 09/03/2024 Encounter Details Date Type Department Care Team (Late st Contact Info) Description 09/03/2024 Telephone Family Medicine [address] [phone] Jose Patino MD [address] [place] [address] [place] [id number] Advice Allergies Active Allergy [...] encounter Miscellaneous Notes * Telephone Encounter - Jayesh Worley CRNP - 09/06/2024 4:07 PM EDT Spoke with José Luis at [facility]. Going to reach out to Dr. Porras [...] treating asymptomatic bacteruria. Will reach out to U to clarify if they are requiring treatment prior to procedure. * Telephone Encounter - Margarita Monroy LPN - 09/06/2024 3:01 PM EDT Pre op urine culture shows UTI. They are reaching out to PCP for treatment. * Telephone Encounter - Renita Hansen OSA - 09/03/2024 12:39 PM EDT Danika from [facility] called to speak to Jayesh Worley about abnormal lab results. documented in this encounter Plan of Treatment Upcoming Encounters Date Type Department Care Team (Late st Contact Info) Description 01/31/2025 2:00 PM EDT Office Visit Family Medicine [address] [place] [phone] Jose Patino MD [address] [place] [address] [place] [id number] 04/07/2025 3:20 PM EST Office Visit Nephrology [address] [place] [address] FrancoisYina larios [facility] [address] 06/21/2025 2:00 PM EST Office Visit Cardiology [address] [place] [address] Guillermo Kulkarni PADeric [address] [place] [address] Health Maintenance Due Date Last Done Comments [...] 06/19, 12/26/2023, Additional history exists Albumin/Creatinine Ratio 07/06/20252 025, 05/29/2023, 09/12/2022, Additional history exists CKD PHOS USE SMARTSET 06157 07/06/202506/19, 05/29/2023, 12/12/2022, Additional history exists Depression Screening 07/06/2025 07/06/2024 Diabetic Foot Exam 07/06/2025 07/06/2024, 0 06/14/2022, 06/08/2021, Additional history exists TSH 07/06/2025 07/06/2024, 05/19, 06/14/2022, Additional history exists CKD HGB USE SMARTSET 63384 08/26/202508/26, 08/25/2023, 05/29/2023, Additional history exists Pneumococcal [...] urine documented in this encounter Care Teams Last Pattern Grader Relationship Specialty Start Date End Date Jose Patino MD [address] [place] [address] [place] [id number] PCP - General Family Medicine 11/25/14 documented as of this encounter
--- OUTSIDE RECORDS SUMMARY | 2024-09-09 18:29 | External Medical Summary | Summary of Care ---
Author Name Unknown Organization [facility] Address [address] [place] [address] Phone [phone] Care Team Providers Care Mobile Home Mechanic Name Role Phone Jose Patino MD Primary Care Provide r Reason for Visit * Reason Onset Date Comments FYI 09/03/2024 Encounter Details Date Type Department Care Team (Late st Contact Info) Description 09/03/2024 Telephone Family Medicine [address] [phone] Jose Patino MD [address] [place] [address] [place] [phone] FYI Allergies Active Allergy Reactions Criticality Noted Date [...] encounter Miscellaneous Notes * Telephone Encounter - Nohemi Carrillo LPN - 09/03/2024 10:41 AM EDT Pre op note faxed to Dr. Porras's office. * Telephone Encounter - Jose Patino MD - 09/03/2024 10:35 AM EDT Please fax preoperative clearance office note from 08/31/[address] Porras's office. * Telephone Encounter - Sandra Swanson OSA - 09/03/2024 9:39 AM EDT Fran Webb needs the Dr to give the word that Micaela is or is not good for surgery. She was seen for the clearance however the Dr did not let them know if she was good or not. documented in this encounter Plan of Treatment Upcoming Encounters Date Type Department Care Team (Late st Contact Info) Description 01/31/2025 2:00 PM EDT Office Visit Family Medicine [address] [place] [phone] Jose Patino MD [address] [place] [address] [place] [phone] 04/07/2025 3:20 PM EST Office Visit Nephrology [address] [place] [address] Yina Francois MD [address] [place] [address] 06/21/2025 2:00 PM EST Office Visit Cardiology [address] [place] [address] Guillermo Kulkarni PA-C [address] [place] [address] Health Maintenance Due Date Last Done Comments [...] Additional history exists CKD PHOS USE SMARTSET 16859 07/06/202506/19, 05/29/2023, 12/12/2022, Additional history exists Depression Screening 07/06/2025 07/06/2024 Diabetic Foot Exam 07/06/2025 07/06/2024, 0 06/14/2022, 06/08/2021, Additional history exists TSH 07/06/2025 07/06/2024, 05/19, 06/14/2022, Additional history exists CKD HGB USE SMARTSET 30136 08/26/202508/26, 08/25/2023, 05/29/2023, Additional history exists Pneumococcal [...] Not on filedocumented as of this encounter Care Teams Mobile Home Mechanic Relationship Specialty Start Date End Date Jose Patino MD [address] [place] [address] [place] [id number] PCP - General Family Medicine 11/25/14 documented as of this encounter
[2024-09-09] MEDS: ACETAMINOPHEN 500 MG TAB PO PRN (22:29)
[2024-09-09] MEDS: DOCUSATE SODIUM/SENNA 50/8.6MG TAB PO SCH (22:29)
[2024-09-09] MEDS: INSULIN ASPART PER UNIT CHARGE SC SCH (22:30)
[2024-09-10] MEDS: LEVOTHYROXINE SODIUM 50 MCG TABLET PO SCH (06:24)
[2024-09-10] MEDS: POLYETHYLENE (MIRALAX) 17 GM PACK PO SCH (06:24)
[2024-09-10] MEDS: ATORVASTATIN 40 MG TAB PO SCH (08:11)
[2024-09-10] MEDS: hydroCHLOROthiazide 25 MG TAB PO SCH (08:11)
[2024-09-10] MEDS: allopurinoL 300 MG TAB PO SCH (08:12)
[2024-09-10] MEDS: lisinopril 10 MG TAB PO SCH (08:12)
[2024-09-10] MEDS: ASPIRIN 81 MG ECTAB PO SCH (08:12)
[2024-09-10] MEDS: METOPROLOL SUCC 25MG EXT REL TAB PO SCH (08:12)
[2024-09-10] MEDS: CHOLECALCIFEROL 25 MCG (1000 UNITS) TAB PO SCH (08:12)
[2024-09-10 08:20] LABS: Magnesium 1.7 mg/dl (1.7-2.4)
[2024-09-10 08:26] LABS: BUN Creatinine Ratio 23.8 (10-20); Creatinine Clr Calc Pharmacy 34.7 ml/min
[2024-09-10 09:38] LABS: Hematocrit (blood only) 38.1 % (37.0-47.0); Hemoglobin 12.8 g/dl (12.0-16.0); Mean Corpuscular Hemoglobin 32.6 pg (25.0-34.0); Mean Corpuscular Hgb Conc 33.6 g/dL (32.0-36.0); Mean Corpuscular Volume 96.9 fL (80.0-100.0); Mean Platelet Volume 10.1 fL (9.4-12.4); Platelet Count 209 K/uL (130-400); RDW Coefficient of Variation 13.8 % (11.5-14.5); RDW Standard Deviation 48.5 fL (36.4-46.3); Red Blood Count 3.93 M/uL (4.20-5.40); White Blood Count 11.94 K/ul (4.8-10.8)
--- NOTE | 2024-09-10 09:47 | Orthopedic Progress Note ---
Date of Service September 10, 2024 Assessment & Plan (1) Myelopathy concurrent with and due to spinal stenosis of thoracic region: Plan: At this time we will continue physical therapy monitor her ATA operatively discharge over the next few days. Admission and Anticipated Discharge Date Admission Date: September 09, 2024 Subjective back pain controlled leg symptoms improved Physical Exam Physical Exam: Patient is sitting in the chair at the bedside. She is comfortable. Good strength testing. Results & Data Vital Signs (Past 12 Hours) Vital Signs Temp Pulse Resp BP Pulse Ox O2 Del Method 09/10/24 07:34 36.3 C L 67 18 183/71 H 94 Room Air 09/10/24 03:06 36.3 C L 60 16 146/66 H 97 Room Air 09/09/24 23:09 36.3 C L 68 16 165/85 H 94 Room Air Queries Orthopedic Spine Obesity: Yes
[2024-09-10 09:57] LABS: Basophils # (auto) 0.02 K/uL (0.00-0.20); Basophils % (auto) 0.2 %; Immature Granulocytes # (auto) 0.06 K/uL (0.01-0.20); Immature Granulocytes % (auto) 0.5 %; Lymphocytes # (auto) 0.71 K/uL (1.20-3.40); Lymphocytes % (auto) 5.9 %; Monocytes % (auto) 1.7 %; Neutrophils # (auto) 10.95 K/uL (1.40-6.50); Neutrophils % (auto) 91.7 %
--- NOTE | 2024-09-10 10:21 | Hospitalist Progress Note ---
Date of Service September 10, 2024 Assessment & Plan (1) Myelopathy concurrent with and due to spinal stenosis of thoracic region: (2) S/P spinal surgery: Plan: Micaela Giles is an 84y/o F with PMHx significant for DM type II, hypothyroidism, HTN, HLD, CKD stage IIIb, dyspnea on exertion, nonrheumatic aortic valve stenosis and primary osteoarthritis of right shoulder who is being seen in consultation for routine postoperative medical management after undergoi ng elective T9-T10 decompression and fusion performed by Dr. Porras on 09/09/24. S/P T9-T10 decompression fusion by Dr. Porras POD #1 Per ortho for pain control, wound care, anticoagulation and activities. Continue incentive spirometry, PT/OT when appropriate as per ortho team. Preop Hgb = 12.1; post operative day 1 hgb is 12.8 repeat cbc in a.m. Minimal blood loss with surgery (3) Type 2 diabetes mellitus: Plan: Hgb A1c 7.1% as of 08/26/24. ISS per protocol, BSG 157 (4) Stage 3b chronic kidney disease (CKD): Plan: Chronic, stable Cr 1.22, baseline 1.2-1.4 avoid nephrotoxic agents (5) Hypertension: Plan: Continue HCTZ and lisinopril BP elevated today, likely in setting of pain and IV steroids will have nursing closely monitor DVT Prophylaxis: SCDs/TEDs as per primary service. Code Status: FULL CODE PCP: Jose Patino MD Disposition: per primary Thank you for this consultation. We will follow the patient with you during their hospital stay. You can reach a member of the [facility] 09/12 via Register My Info. I spent a total of 45 minutes coordinating, documenting, and providing care for this patient excluding time spent in the performance of separately billed services or time spent by another provider/QHP. This included personally reviewing all current laboratories and imaging studies, medical reconciliation, outpatient chart review and discussion with specialists. Admission and Anticipated Discharge Date Admission Date: September 09, 2024 Supervising Physician Co-Signing Physician Notes I have reviewed the advanced practitioner's documentation, and I agree with, and take responsibility for the plan of care Subjective Pt was seen and examined in room 301-1. F/U Thoracic surgery by Dr. Porras. She states her buttock/leg pain has resolved. She is so thankful for that. She tolerated her breakfast. She denies f/c/s, chest pain, sob, n/v. She is passing gas. She has a mccormack cath in tact. Review of Systems Review of Systems: All systems reviewed & are unremarkable except as noted in HPI & below Physical Exam Physical Exam: Gen: WD/WN, NAD, A&O x3, sitting up in bed HEENT: Normocephalic, atraumatic, conjunctivae moist, sclerae anicteric, mucous membranes moist. Lung: Clear to Auscultation bilaterally, no wheezes/rales/rhonchi Heart: Regular rate, regular rhythm, 2/6 CADEN noted LUSB, rubs, or gallops Abdomen: Soft, NT, ND +BS x 4 Extremities: No edema, b/l SCDs, lumbar dressing CDI, paco drain with serosang drainage Skin: Warm, no rash, negative turgor. : mccormack cath in tact Results & Data Results & Data Vital Signs (Past 12 Hours) Vital Signs Temp Pulse Resp BP Pulse Ox O2 Del Method 09/10/24 07:34 36.3 C L 67 18 183/71 H 94 Room Air 09/10/24 03:06 36.3 C L 60 16 146/66 H 97 Room Air 09/09/24 23:09 36.3 C L 68 16 165/85 H 94 Room Air Laboratory Results Short CBC 09/10/24 09/10/24 Range/Units 07:43 09:08 WBC Cancelled 11.94 H Hgb Cancelled 12.8 Hct Cancelled 38.1 Plt Count Cancelled 209 BMP 09/10/24 07:43 Sodium 137 Potassium 5.0 Chloride 105 Carbon Dioxide 25 BUN 29 H Creatinine 1.22 H Glucose 149 H Calcium 9.0 I have independently reviewed and interpreted patient's cbc, bmp, mag Medications Administered Current Inpatient Medications Acetaminophen (Acetaminophen 500 Mg Tab) 1,000 mg PO Q8H PRN PRN Reason: MILD Pain Scale 1,2,3 & Pre PT Stop: 10/09/24 16:42 Last Admin: 09/09/24 22:29 Dose: 1,000 mg Al Hydrox/Mg Hydrox/Simethicone (Aluminum/Magnesium Susp 30 Ml Udc) 30 ml PO Q6H PRN PRN Reason: Dyspepsia Stop: 10/09/24 16:42 Allopurinol (Allopurinol 300 Mg Tab) 300 mg PO [facility] Stop: 10/10/24 08:59 Last Admin: 09/10/24 08:12 Dose: 300 mg Aspirin (Aspirin 81 Mg Ectab) 81 mg PO [facility] Stop: 10/10/24 08:59 Last Admin: 09/10/24 08:12 Dose: 81 mg Atorvastatin Calcium (Atorvastatin 40 Mg Tab) 80 mg PO [facility] Stop: 10/10/24 08:59 Last Admin: 09/10/24 08:11 Dose: 80 mg Bisacodyl (Bisacodyl 10 Mg Supp) 10 mg WI DAILY PRN PRN Reason: Constipation Stop: 10/09/24 16:42 Dextrose (Dextrose 50% 50 Ml Syringe) 25 - 50 ml IV UD PRN; Protocol PRN Reason: Hypoglycemia Protocol Stop: 10/09/24 17:25 Diphenhydramine HCl (Diphenhydramine Capsule 25 Mg Cap) 25 mg PO Q6H PRN PRN Reason: Allergic Rhinitis/Insomnia Stop: 10/09/24 16:42 Famotidine (Famotidine 20 Mg Tab) 20 mg PO Q12H PRN PRN Reason: Dyspepsia Stop: 10/09/24 16:42 Glucagon (Glucagon For Inj 1 Mg Vial) 1 mg SQ UD PRN; Protocol PRN Reason: Hypoglycemia Protocol Stop: 10/09/24 17:25 Glucose (Glucose 40% Gel 15 Gm Tube) 15 - 30 gm PO UD PRN; Protocol PRN Reason: Hypoglycemia Protocol Stop: 10/09/24 17:25 Glucose (Glucose 10 Tab/Tube) 4 - 8 tab PO UD PRN; Protocol PRN Reason: Hypoglycemia Protocol Stop: 10/09/24 17:25 Hydrochlorothiazide (Hydrochlorothiazide 25 Mg Tab) 12.5 mg PO MoWeFr@0900 [facility] Stop: 10/10/24 08:59 Last Admin: 09/10/24 08:11 Dose: 12.5 mg Hydromorphone HCl (Hydromorphone Inj 0.5 Mg/0.5 Ml Syr) 0.5 mg IV Q3H PRN PRN Reason: MODERATE Pain (Scale 4,5,6) & Pre PT Stop: 09/23/24 16:42 Hydromorphone HCl (Hydromorphone Inj 1 Mg/Ml Syringe) 1 mg IV Q3H PRN PRN Reason: SEVERE Pain (Scale 7,8,9,10) Stop: 09/23/24 16:42 Hydroxyzine HCl (Hydroxyzine Hcl 25 Mg Tab) 25 mg PO Q8H PRN PRN Reason: Anxiety Stop: 10/09/24 16:42 Acetaminophen (Ofirmev) 1,000 mg in 100 mls @ 400 mls/hr IV Q8H PRN PRN Reason: Pain Rating 1-3 & Pre PT Stop: 09/10/24 16:43 Promethazine HCl (Phenergan) 12.5 mg in 50.5 mls @ 202 mls/hr IV Q6H PRN PRN Reason: Nausea And Vomiting Stop: 10/09/24 16:42 Influenza Virus Vaccine Quadrival (Do Not Administer Flu Vaccine) 1 each N/A PRN PRN PRN Reason: Notification Stop: 10/09/24 16:42 Insulin Aspart (Insulin Aspart Per Unit Charge) 0 units SC ACHS [facility] Stop: 10/09/24 20:59 Last Admin: 09/10/24 08:14 Dose: 5 units Levothyroxine Sodium (Levothyroxine Sodium 50 Mcg Tablet) 50 mcg PO DAILYBB [facility] Stop: 10/10/24 06:29 Last Admin: 09/10/24 06:24 Dose: 50 mcg Lisinopril (Lisinopril 10 Mg Tab) 10 mg PO QAM [facility] Stop: 10/10/24 08:59 Last Admin: 09/10/24 08:12 Dose: 10 mg Lorazepam (Lorazepam 0.5 Mg Tab) 0.5 mg PO Q8H PRN PRN Reason: Sedation/Anxiety Stop: 10/09/24 16:42 Lorazepam (Lorazepam 2 Mg/1 Ml Vial) 0.5 mg IV Q8H PRN PRN Reason: Sedation/Anxiety Stop: 10/09/24 16:42 Magnesium Hydroxide (Magnesium Hydroxide Susp 30 Ml Udc) 30 ml PO Q24H PRN PRN Reason: Constipation Stop: 10/09/24 16:42 Metoclopramide HCl (Metoclopramide Hcl Inj 5 Mg/Ml 2 Ml Vial) 10 mg IV Q6H PRN PRN Reason: Nausea &/or Vomiting Stop: 10/09/24 16:42 Metoprolol Succinate (Metoprolol Succ 25mg Ext Rel Tab) 12.5 mg PO QAM [facility] Stop: 10/10/24 08:59 Last Admin: 09/10/24 08:12 Dose: 12.5 mg Miscellaneous (Carbohydrates For Hypoglycemia ) 15 - 30 gm PO UD PRN PRN Reason: Hypoglycemia Protocol Stop: 10/09/24 17:25 Naloxone HCl (Naloxone Hcl 0.4 Mg/1 Ml Vial/Carp) 0.1 mg IV Q5M PRN PRN Reason: Oversedation/Resp depression Stop: 10/09/24 16:42 Ondansetron HCl (Ondansetron Inj 2 Mg/Ml 2 Ml Vial) 4 mg IV Q6H PRN PRN Reason: Nausea &/or Vomiting Stop: 10/09/24 16:42 Ondansetron HCl (Ondansetron 4 Mg Od Tab) 4 mg PO Q6H PRN PRN Reason: Nausea Stop: 10/09/24 16:42 Oxycodone HCl (Oxycodone Hcl Ir 5 Mg Tab (Immediate Release)) 5 - 10 mg PO Q4H PRN PRN Reason: Pain & Pre PT Stop: 09/23/24 16:42 Pneumococcal Polyvalent Vaccine (Do Not Administer Pneumococcal Vaccine) 1 each N/A PRN PRN PRN Reason: Notification Stop: 10/09/24 16:42 Polyethylene Glycol (Polyethylene (Miralax) 17 Gm Pack) 17 gm PO Q6 [facility] Stop: 10/10/24 05:59 Last Admin: 09/10/24 06:24 Dose: 17 gm Senna/Docusate Sodium (Docusate Sodium/Senna 50/8.6mg Tab) 2 tab PO HS [facility] Stop: 10/09/24 20:59 Last Admin: 09/09/24 22:29 Dose: 2 tab Sodium Biphosphate/Sodium Phosphate (Sod Phosphate/Sod Biphosphate Enema 132 Ml Btl) 132 ml WI ONE PRN PRN Reason: Constipation Stop: 10/09/24 16:42 Tramadol HCl (Tramadol Hcl 50 Mg Tablet) 50 - 100 mg PO Q4H PRN PRN Reason: Moderate-Severe pain & Pre PT Stop: 10/09/24 16:42 Vitamin D (Cholecalciferol 25 Mcg (1000 Units) Tab) 50 mcg PO DAILY [facility] Stop: 10/10/24 08:59 Last Admin: 09/10/24 08:12 Dose: 50 mcg (3) Type 2 diabetes mellitus Diabetes mellitus complication status: without complication Diabetes mellitus retirement insulin use: unspecified retirement insulin use status Qualified Code(s): E11.9 - Type 2 diabetes mellitus without complications (5) Hypertension Hypertension type: unspecified Qualified Code(s): I10 - Essential (primary) hypertension
[2024-09-11 06:21] LABS: Hematocrit (blood only) 36.6 % (37.0-47.0); Hemoglobin 12.1 g/dl (12.0-16.0); Mean Corpuscular Hemoglobin 32.4 pg (25.0-34.0); Mean Corpuscular Hgb Conc 33.1 g/dL (32.0-36.0); Mean Corpuscular Volume 98.1 fL (80.0-100.0); Mean Platelet Volume 10.1 fL (9.4-12.4); Platelet Count 220 K/uL (130-400); RDW Coefficient of Variation 13.9 % (11.5-14.5); RDW Standard Deviation 49.3 fL (36.4-46.3); Red Blood Count 3.73 M/uL (4.20-5.40); White Blood Count 16.94 K/ul (4.8-10.8)
--- NOTE | 2024-09-11 07:21 | Hospitalist Progress Note ---
Date of Service September 11, 2024 Assessment & Plan (1) Myelopathy concurrent with and due to spinal stenosis of thoracic region: (2) S/P spinal surgery: Plan: Micaela Giles is an 84y/o F with PMHx significant for DM type II, hypothyroidism, HTN, HLD, CKD stage IIIb, dyspnea on exertion, nonrheumatic aortic valve stenosis and primary osteoarthritis of right shoulder who is being seen in consultation for routine postoperative medical management after undergoi ng elective T9-T10 decompression and fusion performed by Dr. Porras on 09/09/24. S/P T9-T10 decompression fusion by Dr. Porras POD #2 Per ortho for pain control, wound care, anticoagulation and activities. Continue incentive spirometry, PT/OT when appropriate as per ortho team. Preop Hgb = 12.1; today Hgb 12.11 repeat cbc in a.m. Minimal blood loss with surgery (3) Type 2 diabetes mellitus: Plan: Hgb A1c 7.1% as of 08/26/24. ISS per protocol (4) Stage 3b chronic kidney disease (CKD): Plan: Chronic, stable Cr 1.22, baseline 1.2-1.4 avoid nephrotoxic agents Check BMP in AM to monitor (5) Hypertension: Plan: Continue HCTZ and lisinopril BP was elevated post op; likely secondary to steroids. This has resolved; normotensive today. DVT Prophylaxis: SCDs/TEDs as per primary service. Code Status: FULL CODE PCP: Jose Patino MD Disposition: per primary Thank you for this consultation. We will follow the patient with you during their hospital stay. You can reach a member of [facility] via Deminos. I spent a total of 42 minutes coordinating, documenting, and providing care for this patient excluding time spent in the performance of separately billed services or time spent by another provider/QHP. This included personally reviewing all current laboratories and imaging studies, medical reconciliation, outpatient chart review and discussion with specialists. Admission and Anticipated Discharge Date Admission Date: September 09, 2024 Supervising Physician Co-Signing Physician Notes I have reviewed the advanced practitioner's documentation, and I agree with, and take responsibility for the plan of care Subjective Patient sitting in her bedside chair in no apparent acute distress. Patient slept in her bedside chair overnight stating that the bed was uncomfortable and made her back hurt. ZERO doses of pain medication given over the past 24 hours. Denies chest pain, shortness of breath, dizziness, peripheral neuropathy impro ving in her lower extremities. Noted chronic murmur on examination; patient states this is not a new finding for her. Reports that her legs are chronically enlarged; adjusted ERICH hose for comfort Ortho has not seen patient yet this morning; plan for home without rehab support pending additional recommendations with PT. Review of Systems Review of Systems: Neuro: (-) Falls, trauma, slurred speech HEENT: (-) [place], dizziness, dysphagia, visual or auditory changes CV: (-) CP, palpitations, swelling Resp: (-) SOB GI: (-) appetite changes, N/V/D, bowel changes. positive flatulence : (-) urinary changes Skin: (-) rashes Psych: (-) anxiety, depression Physical Exam Physical Exam: Neuro: AAOx4, PERRLA, no aphagia, memory changes, CNII-XII grossly intact HEENT: head normocephalic, moist mucus membranes CV: S1/S2, (-) M/G/R, (-) edema, cap refill < 3 seconds. ATA drain x 1. Resp: Lungs CTA in all ramsey. On RA GI: Abdomen S/NT/ND, Ax4 bowel sounds, (-) CVA tenderness Positive BM x 1 Musculoskeletal: 5/5 B/L UE strength, 5/5 B/L LE strength. No gait disturbance Skin: (-) rashes , (-) erythema. Vertical thoracic level dressing CDI. Psych: euthymic mood Results & Data Results & Data Vital Signs (Past 12 Hours) Vital Signs Temp Pulse Resp BP Pulse Ox O2 Del Method 09/11/24 07:12 36.4 C L 66 16 121/73 100 Room Air 09/10/24 19:22 36.4 C L 79 18 138/83 98 Room Air (3) Type 2 diabetes mellitus Diabetes mellitus complication status: without complication Diabetes mellitus buttermaker helper insulin use: unspecified buttermaker helper insulin use status Qualified Code(s): E11.9 - Type 2 diabetes mellitus without complications (5) Hypertension Hypertension type: unspecified Qualified Code(s): I10 - Essential (primary) hypertension
--- NOTE | 2024-09-11 09:58 | Orthopedic Progress Note ---
Date of Service September 11, 2024 Assessment & Plan (1) Myelopathy concurrent with and due to spinal stenosis of thoracic region: Plan: We will continue physical therapy today monitor her ATA output possible discharge home tomorrow. Admission and Anticipated Discharge Date Admission Date: September 09, 2024 Subjective Back pain controlled leg symptoms improved. She is tolerating physical therapy. Physical Exam Physical Exam: Patient is in the chair at the bedside. Discomfort is constricted testing. Results & Data Vital Signs (Past 12 Hours) Vital Signs Temp Pulse Resp BP Pulse Ox O2 Del Method 09/11/24 07:49 36.3 C L 66 18 142/85 H 98 Room Air 09/11/24 07:12 36.4 C L 66 16 121/73 100 Room Air Queries Orthopedic Spine Obesity: Yes
--- NOTE | 2024-09-12 07:06 | Hospitalist Progress Note ---
Date of Service September 12, 2024 Assessment & Plan (1) Myelopathy concurrent with and due to spinal stenosis of thoracic region: (2) S/P spinal surgery: Plan: Micaela Giles is an 84y/o F with PMHx significant for DM type II, hypothyroidism, HTN, HLD, CKD stage IIIb, dyspnea on exertion, nonrheumatic aortic valve stenosis and primary osteoarthritis of right shoulder who is being seen in consultation for routine postoperative medical management after undergoi ng elective T9-T10 decompression and fusion performed by Dr. Porras on 09/09/24. S/P T9-T10 decompression fusion by Dr. Porras POD #3 Per ortho for pain control, wound care, anticoagulation and activities. Continue incentive spirometry, PT/OT when appropriate as per ortho team. Preop Hgb = 12.1-->12.2 Minimal blood loss with surgery (3) Type 2 diabetes mellitus: Plan: Hgb A1c 7.1% as of 08/26/24. ISS per protocol (4) Stage 3b chronic kidney disease (CKD): Plan: NICHO on CKD: Chronic, stable Cr 1.22, baseline 1.2-1.4; this AM 2.1--> repeat 2.54 Gave 500 cc bolus; no improvement Check BMP in AM to monitor Hold Lisinopril and other nephrotoxic agents LR @ 80/hr Repeat BMP in AM; if continues to worsen, consider renal US and Nephro involvement (5) Hypertension: Plan: HCTZ and lisinopril BP normotensive; hold HCTZ and Lisinopril given NICHO DVT Prophylaxis: SCDs/TEDs as per primary service. Code Status: FULL CODE PCP: Jose Patino MD Disposition: per primary Thank you for this consultation. We will follow the patient with you during their hospital stay. You can reach a member [facility] 09/12 via [employer]. I spent a total of 56 minutes coordinating, documenting, and providing care for this patient excluding time spent in the performance of separately billed services or time spent by another provider/QHP. This included personally reviewing all current laboratories and imaging studies, medical reconciliation, outpatient chart review and discussion with specialists. Admission and Anticipated Discharge Date Admission Date: September 09, 2024 Supervising Physician Co-Signing Physician Notes 09/12/2024 The patient was seen and examined in the presence of her granddaughter She has been feeling much better and is noted to have minimally increased BUN and creatinine today She has been given a small amount of intravenous fluid and also advised to drink more fluid and she wants to go home this afternoon On examination Sitting on a chair without any acute distress Remains hemodynamically stable Unremarkable physical examination Her labs, medications and imaging studies noted She is status post [id number] and fusion and doing fine following the procedure Minimally elevated BUN and creatinine likely secondary dehydration and will get minimal dose of IV fluid and the PRP will be rechecked prior to discharge this afternoon Agree with assessment and plan as outlined above by Serena GRACE and take the full responsibility of care in the hospital Total time taken to document all this including patient's examination reviewing the chart and medications was [address] Socrates Hall Subjective Patient sitting in her bedside chair in no apparent acute distress. Patient slept in her bedside chair overnight stating that the bed was uncomfortable and made her back hurt. She received Tylenol for pain control Denies chest pain, shortness of breath, dizziness, peripheral neuropathy improving in her lower extremities. Noted chronic murmur on examination; patient states this is not a new finding for her. Reports that her legs are chronically enlarged; TEDS removed overnight by patient. Discussed worsening creatinine/NICHO with Ortho and discussed pt staying inpt for closer monitoring. See below for A/P for further details. Review of Systems Review of Systems: Neuro: (-) Falls, trauma, slurred speech HEENT: (-) VELÁSQUEZ, dizziness, dysphagia, visual or auditory changes CV: (-) CP, palpitations, swelling Resp: (-) SOB GI: (-) appetite changes, N/V/D, bowel changes. positive flatulence : (-) urinary changes Skin: (-) rashes Psych: (-) anxiety, depression Physical Exam Physical Exam: Neuro: AAOx4, PERRLA, no aphagia, memory changes, CNII-XII grossly intact HEENT: head normocephalic, moist mucus membranes CV: S1/S2, (-) M/G/R, (-) edema, cap refill < 3 seconds. ATA drain x 1. Resp: Lungs CTA in all ramsey. On RA GI: Abdomen S/NT/ND, Ax4 bowel sounds, (-) CVA tenderness Positive BM x 1 Musculoskeletal: 5/5 B/L UE strength, 5/5 B/L LE strength. No gait disturbance Skin: (-) rashes , (-) erythema. Vertical thoracic level dressing CDI. Psych: euthymic mood Results & Data Results & Data Vital Signs (Past 12 Hours) Vital Signs Temp Pulse Resp BP Pulse Ox O2 Del Method 09/11/24 20:09 36.9 C 71 16 124/74 94 Room Air Laboratory Results Short CBC 09/12/24 Range/Units 07:05 WBC 12.73 H (4.8-10.8) K/ul Hgb 12.2 (12.0-16.0) g/dl Hct 36.9 L (37.0-47.0) % Plt Count 227 (130-400) K/uL BMP 09/12/24 09/12/24 07:05 14:35 Sodium 135 L 134 L Potassium 5.0 4.8 Chloride 101 101 Carbon Dioxide 26 27 BUN 69 H D 74 H Creatinine 2.19 H D 2.54 H D Glucose 165 H 143 H Calcium 8.8 8.4 L (3) Type 2 diabetes mellitus Diabetes mellitus complication status: without complication 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
[2024-09-12 07:23] LABS: Hematocrit (blood only) 36.9 % (37.0-47.0); Hemoglobin 12.2 g/dl (12.0-16.0); Mean Corpuscular Hemoglobin 32.8 pg (25.0-34.0); Mean Corpuscular Hgb Conc 33.1 g/dL (32.0-36.0); Mean Corpuscular Volume 99.2 fL (80.0-100.0); Mean Platelet Volume 9.8 fL (9.4-12.4); Nucleated RBC # (auto) 0.04 K/uL (0.00-0.12); Nucleated RBC % (auto) 0.3 %; Platelet Count 227 K/uL (130-400); RDW Coefficient of Variation 14.2 % (11.5-14.5); RDW Standard Deviation 51.5 fL (36.4-46.3); Red Blood Count 3.72 M/uL (4.20-5.40); White Blood Count 12.73 K/ul (4.8-10.8)
[2024-09-12 07:55] LABS: BUN Creatinine Ratio 31.5 (10-20); Calcium 8.8 mg/dl (8.6-10.3); Creatinine Clr Calc Pharmacy 19.3 ml/min
--- NOTE | 2024-09-12 08:29 | Discharge Summary ---
Date of Service September 12, 2024 Admission HPI Per Admitting Provider This is a 84-year-old female presents with severe thoracic spinal stenosis and myelopathy is here for surgical invention. Admission Exam (Per Admitting) Constitutional WD/WN, vitals as above Eyes normal visual ramsey by confrontation ENMT external ear and nose normal, oropharynx normal Neck normal visual inspection Respiratory normal respiratory effort Cardiovascular Extremities: normal capillary refill Gastrointestinal (Abdomen) Inspection/Auscultation: abdomen normal to inspection Musculoskeletal Spine: + pain with thoraco-lumbar ROM Extremities: extremities normal to inspection and strength 5/5 throughout Skin no rashes, warm and dry Neurologic normal touch/pain/proprioception and moves all extremities Psychiatric A+Ox3, euthymic affect Eye Contact: good eye contact Discharge Data Consultations 09/09/24 16:43 Consult Hospitalist Routine Procedures Performed Operation Date: 09/09/24 12:35 Actual Procedures p T9-T10 Decompression and Fusion with Spinal Cord Monitoring(Not Applicable) - Wolfgang Porras, Hospital Course (1) Myelopathy concurrent with and due to spinal stenosis of thoracic region: Micaela is being discharged home on postoperative day 3 status post T9-T10 decompression and instrumented fusion. She is doing really well. She is Ambulating over 300 feet in physical therapy plus the hallways. ATA drain output last shift was 10 cc. H&H upon day of discharge was 12.2 and 36.9. She has had a bowel movement. Lower extremity symptoms that she had preoperatively are greatly improved. She has had an uneventful hospital course. Lab values have been stable. Discharge Instructions ACTIVITY RECOMMENDATIONS: SELF CARE INSTRUCTIONS AFTER THORACIC/LUMBAR FUSIONS 1. You may walk to your tolerance. It is good exercise for your legs and back. Expect some back and intermittent leg aches and pains. 2. You may perform "counter-top" level activities (make a sandwich, randy with a project, etc.). 3. No bending or lifting of more than 10 pounds or back twisting of any nature (roll like a log when turning in bed). 4. You may ride in a car for 20-30 minutes at a time. No driving until after your first visit with your doctor. 5. Frequent changes of position and restricting sitting to 30 minutes at a time will help limit the amount of back spasms and stiffness you may experience. 6. You may discontinue the use of ambulatory aids (cane, crutches, etc.) once your strength and confidence allow. 7. You may drivers license examiner the shower and let water strike your incision when you arrive home at least once daily. Do not take a tub bath, sit in a hot tub or go into a swimming pool until after your first recheck in the office. 8. You may resume previous diet. SPECIAL CARE INSTRUCTIONS: VERY IMPORTANT TO READ AND REVIEW A. Your surgical incision has been closed with a cosmetic suture under the skin that will dissolve in about 6 weeks. In 14 days, you can use a pair of clean scissors and cut the suture that is left outside of the skin at the ends of your incision. 1. The small skin tapes can be removed 7 days after surgery if they have not fallen off by that point. 2. You may keep the wound open to air as much as possible to promote healing after post-op day number 5 unless told otherwise by your doctor. 3. If you think the wound looks like it is becoming infected (redness or worsening drainage) and/or you are experiencing fever, chill or worsening back pain and muscle spasms, contact the office so that we may evaluate you as soon as possible. B. Complications are uncommon, but please contact us if you have any signs or symptoms of: 1. wound infection (fever higher than 102.5 degrees F, redness, separation of wound, drainage, or increasing pain from the incision) 2. blood clots in legs (pain, swelling, redness and warmth in legs) 3. urinary tract infection (fever higher than 102.5 degrees F, burning upon urination or increased frequency of urination) 4. nerve problems (inability to walk on your toes or heels, numbness, loss of bowel or bladder control) 5. any other symptoms that concern you C. Please call the office at if you have any concerns or questions about your operation or recovery. D. No smoking! Smoking drastically decreases the chance of a solid fusion. E. Do not take any anti-inflammatory medications (Indocin, Advil, Motrin, Aspirin, Naprosyn, etc.) as these may inhibit the chance of a solid fusion. Tylenol is okay to take for pain. MANAGING PAIN AFTER SPINAL SURGERY 1. Narcotic medication is intended for short-term use and will be provided for surgical pain. Surgical pain usually lasts for a period of 4-6 weeks. Narcotic medication includes Percocet, Vicodin, Darvocet, Tylenol #3 or Lortab. 2. Longer-term pain is more appropriately treated with non-narcotic medication such as Tylenol ES. 3. Muscle spasm is not appropriately treated with narcotics. Muscle relaxers such as Soma, Flexeril or Skelaxin can be used along with Tylenol ES. 4. Remember that we all live with some "aches and pains". This is not unusual or uncommon after an injury or as we get older. a. Back pain is expected and may include muscle spasms for 4 to 6 weeks after surgery. The pain should gradually improve. If the pain worsens for no apparent reason, please contact the office. b. Intermittent leg pain may also be experienced and should not be concerned about unless it worsens for no apparent reason. If so, please contact the office. 5. We will provide appropriate medication within the normal guidelines of their prescribed use. We will also be very cautious and aware of potential abuse and extended duration of patients' medication needs. a. Pain medications are for your comfort and to assist with sleep and rest so that the tissue can heal. They are not provided in order to return to normal activity and should not be used through the day. To do so or worsening pain at night can result from ongoing tissue damage and development of tolerance to the prescribed medicine. 6. Please allow 2-3 days to process refills. Prescriptions will not be mailed but must be picked up at the office. FOLLOW UP VISIT: Keep your scheduled follow-up appointment. Any questions, please call the office at .
[2024-09-12] MEDS: SODIUM CHLORIDE 0.9% 500 ML IV SCH (10:32)
[2024-09-12 15:08] LABS: BUN Creatinine Ratio 29.1 (10-20); Calcium 8.4 mg/dl (8.6-10.3); Creatinine Clr Calc Pharmacy 16.7 ml/min; Potassium 4.8 mmol/L (3.5-5.1)
[2024-09-12] MEDS: LACTATED RINGER'S 1,000 ML IV SCH (15:48)
[2024-09-13 07:37] LABS: Hematocrit (blood only) 34.3 % (37.0-47.0); Hemoglobin 11.2 g/dl (12.0-16.0); Mean Corpuscular Hemoglobin 32.6 pg (25.0-34.0); Mean Corpuscular Hgb Conc 32.7 g/dL (32.0-36.0); Mean Corpuscular Volume 99.7 fL (80.0-100.0); Platelet Count 186 K/uL (130-400); RDW Coefficient of Variation 14.2 % (11.5-14.5); RDW Standard Deviation 51.2 fL (36.4-46.3); Red Blood Count 3.44 M/uL (4.20-5.40); White Blood Count 10.64 K/ul (4.8-10.8)
[2024-09-13 07:54] LABS: BUN Creatinine Ratio 33.2 (10-20); Calcium 8.6 mg/dl (8.6-10.3); Creatinine Clr Calc Pharmacy 21.6 ml/min; Potassium 4.7 mmol/L (3.5-5.1)
[2024-09-13 07:55] VITALS: BP 138/78; PULSE 78; RESP 16; TEMP 97.7; O2SAT 97
--- NOTE | 2024-09-13 08:03 | Hospitalist Progress Note ---
Date of Service September 13, 2024 Assessment & Plan (1) Myelopathy concurrent with and due to spinal stenosis of thoracic region: (2) S/P spinal surgery: Plan: Micaela Giles is an 84y/o F with PMHx significant for DM type II, hypothyroidism, HTN, HLD, CKD stage IIIb, dyspnea on exertion, nonrheumatic aortic valve stenosis and primary osteoarthritis of right shoulder who is being seen in consultation for routine postoperative medical management after undergoi ng elective T9-T10 decompression and fusion performed by Dr. Porras on 09/09/24. S/P T9-T10 decompression fusion by Dr. Porras POD #3 Per ortho for pain control, wound care, anticoagulation and activities. Continue incentive spirometry, PT/OT when appropriate as per ortho team. Preop Hgb = 12.1-->12.2 Minimal blood loss with surgery (3) Type 2 diabetes mellitus: Plan: Hgb A1c 7.1% as of 08/26/24. ISS per protocol (4) Stage 3b chronic kidney disease (CKD): Plan: NICHO on CKD: Chronic, stable Cr 1.22, baseline 1.2-1.4; this AM 2.1-->2.54. This AM improved with IVF overnight to 1.96 discontinue IV fluids Lisinopril restarted Note to follow up with blood work with PCP in a few days to ensure complete resolution of NICHO (5) Hypertension: Plan: HCTZ and lisinopril BP normotensive; hold HCTZ and Lisinopril given NICHO; resume and follow blood work in a few days upon discharge DVT Prophylaxis: SCDs/TEDs as per primary service. Code Status: FULL CODE PCP: Jose Patino MD Disposition: per primary Thank you for this consultation. We will follow the patient with you during their hospital stay. You can reach a member of the [facility] 09/12 via [employer]. I spent a total of 48 minutes coordinating, documenting, and providing care for this patient excluding time spent in the performance of separately billed services or time spent by another provider/QHP. This included personally reviewing all current laboratories and imaging studies, medical reconciliation, outpatient chart review and discussion with specialists. Admission and Anticipated Discharge Date Admission Date: September 09, 2024 Supervising Physician Co-Signing Physician Notes 09/12/2024 The patient was seen and examined in the presence of her granddaughter She has been feeling much better and is noted to have minimally increased BUN and creatinine today She has been given a small amount of intravenous fluid and also advised to drink more fluid and she wants to go home this afternoon 09/14/2019 The patient was seen and examined in medical floor She has been feeling much better and denies any significant symptoms Her creatinine has improved and she will be discharged home this afternoon She was advised to drink more fluid On examination Sitting on a chair without any acute distress Remains hemodynamically stable Unremarkable physical examination Her labs, medications and imaging studies noted She is status post [id number] and fusion and doing fine following the procedure Creatinine has improved and she will be discharged home this afternoon Agree with assessment and plan as outlined above by Serena GRACE and take the full responsibility of care in the hospital Total time taken to document all this including patient's examination reviewing the chart and medications was [address] Socrates Hall Subjective Patient sitting in her bedside chair in no apparent acute distress. Patient slept in her bed more last evening and moved to the chair in the middle of the night. Denies chest pain, shortness of breath, dizziness, peripheral neuropathy improving in her lower extremities. Noted chronic murmur on examination; patient states this is not a new finding for her. Creatinine improved this AM: ok for discharge today. Discussed with Ortho and RN as wel. I called pt son Gio @ [phone] Review of Systems Review of Systems: Neuro: (-) Falls, trauma, slurred speech HEENT: (-) VELÁSQUEZ, dizziness, dysphagia, visual or auditory changes CV: (-) CP, palpitations, swelling Resp: (-) SOB GI: (-) appetite changes, N/V/D, bowel changes. positive flatulence : (-) urinary changes Skin: (-) rashes Psych: (-) anxiety, depression Physical Exam Physical Exam: Neuro: AAOx4, PERRLA, no aphagia, memory changes, CNII-XII grossly intact HEENT: head normocephalic, moist mucus membranes CV: S1/S2, (-) M/G/R, (-) edema, cap refill < 3 seconds. ATA drain x 1. Resp: Lungs CTA in all ramsey. On RA GI: Abdomen S/NT/ND, Ax4 bowel sounds, (-) CVA tenderness Positive BM x 1 Musculoskeletal: 5/5 B/L UE strength, 5/5 B/L LE strength. No gait disturbance Skin: (-) rashes , (-) erythema. Vertical thoracic level dressing CDI. Psych: euthymic mood Results & Data Results & Data Vital Signs (Past 12 Hours) Vital Signs Temp Pulse Resp BP Pulse Ox O2 Del Method 09/13/24 07:53 36.5 C 78 16 138/78 97 Room Air Laboratory Results Short CBC 09/13/24 Range/Units 07:26 WBC 10.64 (4.8-10.8) K/ul Hgb 11.2 L (12.0-16.0) g/dl Hct 34.3 L (37.0-47.0) % Plt Count 186 (130-400) K/uL BMP 09/12/24 09/13/24 14:35 07:26 Sodium 134 L 137 Potassium 4.8 4.7 Chloride 101 104 Carbon Dioxide 27 27 BUN 74 H 65 H Creatinine 2.54 H D 1.96 H D Glucose 143 H 154 H Calcium 8.4 L 8.6 (3) Type 2 diabetes mellitus Diabetes mellitus complication status: without complication 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
--- NOTE | 2024-09-13 11:01 | Discharge Summary ---
Date of Service September 13, 2024 Admission HPI Per Admitting Provider This is a 84-year-old female presents with severe thoracic spinal stenosis and myelopathy is here for surgical invention. Principal Diagnosis Thoracic stenosis with myelopathy Discharge Data Allergies Allergy/AdvReac Type Severity Reaction Status Date / Time sulfamethoxazole [Bactrim] Allergy Unknown "made the Verified 09/09/24 11:04 UTI worse" trimethoprim [Bactrim] Allergy Unknown "made the Verified 09/09/24 11:04 UTI worse" Consultations 09/09/24 16:43 Consult Hospitalist Routine Procedures Performed Operation Date: 09/09/24 12:35 Actual Procedures p T9-T10 Decompression and Fusion with Spinal Cord Monitoring(Not Applicable) - Wolfgang Porras DO Ordered Studies 09/09/24 12:35 [place] thoracic spine 2V Routine Hospital Course (1) Myelopathy concurrent with and due to spinal stenosis of thoracic region: Patient underwent thoracic decompression fusion earlier as well as taken orthopedic for postoperative. Postop patient progressed appropriately throughout her stay. ATA drain decreasing. Strength improved. Good pain control. Subsidy discharged home. Discharge orders instructions found in chart for further review. Total Time Total Time Spent Total Time Spent (In Minutes): 20 minutes Discharge Plan Discharge Items Patient Disposition: Home - Self-Care Reason For Visit: Thoracic Disc Herniation, Spinal Cord Compression, Discharge Diagnosis: Thoracic discrimination with myelopathy Activity: As commented below Lifting: No more than 5 pounds Bathing Comment: brooklynn shower 09/12 Exercise/Sports: None Non-emergency contact: Primary Care Provider Call non-emergency contact if: you have any medication questions Follow-up/Referrals: Jose Patino MD [Primary Care Provider] - (Date & Time 09/17/2024 10:20 AM Provider: Nela Treviño MD Family Medicine [facility]) Diet: Regular Addtl Attending Provider Instructions: ACTIVITY RECOMMENDATIONS: SELF CARE INSTRUCTIONS AFTER THORACIC/LUMBAR FUSIONS 1. You may walk to your tolerance. It is good exercise for your legs and back. Expect some back and intermittent leg aches and pains. 2. You may perform "counter-top" level activities (make a sandwich, randy with a project, etc.). 3. No bending or lifting of more than 10 pounds or back twisting of any nature (roll like a log when turning in bed). 4. You may ride in a car for 20-30 minutes at a time. No driving until after your first visit with your doctor. 5. Frequent changes of position and restricting sitting to 30 minutes at a time will help limit the amount of back spasms and stiffness you may experience. 6. You may discontinue the use of ambulatory aids (cane, crutches, etc.) once your strength and confidence allow. 7. You may testing shaking shipping the shower and let water strike your incision when you arrive home at least once daily. Do not take a tub bath, sit in a hot tub or go into a swimming pool until after your first recheck in the office. 8. You may resume previous diet. SPECIAL CARE INSTRUCTIONS: VERY IMPORTANT TO READ AND REVIEW A. Your surgical incision has been closed with a cosmetic suture under the skin that will dissolve in about 6 weeks. In 14 days, you can use a pair of clean scissors and cut the suture that is left outside of the skin at the ends of your incision. 1. The small skin tapes can be removed 7 days after surgery if they have not fallen off by that point. 2. You may keep the wound open to air as much as possible to promote healing after post-op day number 5 unless told otherwise by your doctor. 3. If you think the wound looks like it is becoming infected (redness or worsening drainage) and/or you are experiencing fever, chill or worsening back pain and muscle spasms, contact the office so that we may evaluate you as soon as possible. B. Complications are uncommon, but please contact us if you have any signs or symptoms of: 1. wound infection (fever higher than 102.5 degrees F, redness, separation of wound, drainage, or increasing pain from the incision) 2. blood clots in legs (pain, swelling, redness and warmth in legs) 3. urinary tract infection (fever higher than 102.5 degrees F, burning upon urination or increased frequency of urination) 4. nerve problems (inability to walk on your toes or heels, numbness, loss of bowel or bladder control) 5. any other symptoms that concern you C. Please call the office at if you have any concerns or questions about your operation or recovery. D. No smoking! Smoking drastically decreases the chance of a solid fusion. E. Do not take any anti-inflammatory medications (Indocin, Advil, Motrin, Aspirin, Naprosyn, etc.) as these may inhibit the chance of a solid fusion. Tylenol is okay to take for pain. MANAGING PAIN AFTER SPINAL SURGERY 1. Narcotic medication is intended for short-term use and will be provided for surgical pain. Surgical pain usually lasts for a period of 4-6 weeks. Narcotic medication includes Percocet, Vicodin, Darvocet, Tylenol #3 or Lortab. 2. Longer-term pain is more appropriately treated with non-narcotic medication such as Tylenol ES. 3. Muscle spasm is not appropriately treated with narcotics. Muscle relaxers such as Soma, Flexeril or Skelaxin can be used along with Tylenol ES. 4. Remember that we all live with some "aches and pains". This is not unusual or uncommon after an injury or as we get older. a. Back pain is expected and may include muscle spasms for 4 to 6 weeks after surgery. The pain should gradually improve. If the pain worsens for no apparent reason, please contact the office. b. Intermittent leg pain may also be experienced and should not be concerned about unless it worsens for no apparent reason. If so, please contact the office. 5. We will provide appropriate medication within the normal guidelines of their prescribed use. We will also be very cautious and aware of potential abuse and extended duration of patients' medication needs. a. Pain medications are for your comfort and to assist with sleep and rest so that the tissue can heal. They are not provided in order to return to normal activity and should not be used through the day. To do so or worsening pain at night can result from ongoing tissue damage and development of tolerance to the prescribed medicine. 6. Please allow 2-3 days to process refills. Prescriptions will not be mailed but must be picked up at the office. FOLLOW UP VISIT: Keep your scheduled follow-up appointment. Any questions, please call the office at . Addtl Public Health Dentist Provider Instructions: [facility] Hospitalist Service was grateful to be involved with your care during your hospital stay. We assisted in monitoring your blood work and identified that your kidney function was worsening from when you arrived to the hospital. This is not uncommon after surgery due to something called hypovolemia. Your creatinine ( kidney function blood test) increased from 1.22 to 2.19 and further increased to 2.54. We gave you additional IV fluids and your creatinine improved to 1.96 this morning. We also held your blood pressure medications (Lisinopril and HCTZ) as these medications can worsen kidney function. We feel comfortable with you resuming your blood pressure medications and recommend having basic blood work done (PRP) within 2-3 days of being discharged to monitor your kidney function. We wish you the best with your continued recovery. Pending Studies at Discharge: No Stand-Alone Forms: [facility], Pain - Opioid Pain Management, Smoking Cessation Medications and DC Order Prescriptions: New tramadol 50 mg tablet 50 mg PO Q6H PRN (Reason: pain, moderate) Qty: 30 0RF oxycodone 5 mg tablet 5 mg PO Q6H PRN (Reason: pain) Qty: 30 0RF Continued acetaminophen 325 mg Tablet 325 mg PO QID PRN (Reason: Pain) aspirin 81 mg Tablet,Delayed Release (Dr/Ec) 81 mg PO QAM levothyroxine 50 mcg Tablet 50 mcg PO QAM lisinopril 10 mg Tablet 10 mg PO QAM allopurinol 300 mg Tablet 300 mg PO QAM metoprolol succinate 25 mg Tablet Extended Release 24 Hr 12.5 mg PO QAM cholecalciferol (vitamin D3) [Vitamin D3] 25 mcg (1,000 unit) Capsule 50 mcg PO DAILY hydrochlorothiazide 12.5 mg Tablet 12.5 mg PO 3XWK Patient Comments: M/W/F atorvastatin 80 mg Tablet 80 mg PO QAM Discharge Orders: Discharge Order (Routine); Ordered 09/13/24 Ordered By: Serena Ji/Other Patient Handouts: DVT Post Op Prevention Admission Data Admit Date/Time: 09/09/24 14:28 Attending Provider: Wolfgang Porras Admit Provider: Wolfgang Porras Primary Care Provider: Jose Patino Other Providers: Katty Garza; Jenn Hall Other Interventions: Discharge Summary Assessment (RN) Last Done: 09/13/24 09:42
== END 2024-09-13 11:55 | disposition home or self-care (01) | DRG 451 ==
LOC: ASU 11:31 → 3E 14:28

== ENCOUNTER 2024-12-18 14:12 | Inpatient (IN) ==
--- NOTE | 2024-12-18 14:31 | Emergency Department Note ---
History of Present Illness General Chief Complaint: Back Injury/Pain Stated Complaint: LOWER BACK PAIN Time Seen by Provider: 12/18/24 14:21 History of Present Illness Provider Complaint: back injury Onset (ago): hour(s) (13) Duration: constant and progressively worsening Location: lumbar spine Quality: + sharp, + dull, + aching and + throbbing Radiation: left leg and right leg Relieved By: + immobilization Exacerbated By: + movement and + walking Context: + fall; no history of kidney stones or no IV drug use Associated symptoms: + difficulty walking; no increased urinary urgency, no increased urinary frequency, no urinary incontinence, no fecal incontinence, no a change in bowel habits, no fever, no chills, no abdominal pain, no dysuria, no hematuria or no parasthesias Patient denies striking her head. Patient denies any chest pain abdominal pain difficulty breathing or headache. No neck pain. Home Medications Medication Instructions Recorded Confirmed Type acetaminophen 325 mg tablet 325 mg PO QID PRN Pain 08/18/24 12/18/24 History allopurinol 300 mg tablet 300 mg PO QAM 08/18/24 12/18/24 History aspirin 81 mg tablet,delayed 81 mg PO QAM 08/18/24 12/18/24 History release atorvastatin 80 mg tablet 80 mg PO QAM 08/18/24 12/18/24 History cholecalciferol (vitamin D3) 25 50 mcg PO DAILY 08/18/24 12/18/24 History mcg (1,000 unit) capsule (Vitamin D3) hydrochlorothiazide 12.5 mg tablet 12.5 mg PO 3XWK 08/18/24 12/18/24 History levothyroxine 50 mcg tablet 50 mcg PO QAM 08/18/24 12/18/24 History lisinopril 10 mg tablet 10 mg PO QAM 08/18/24 12/18/24 History metoprolol succinate 25 mg 12.5 mg PO QAM 08/18/24 12/18/24 History tablet,extended release 24 hr oxycodone 5 mg tablet 5 mg PO Q6H PRN Pain 12/18/24 12/18/24 History tramadol 50 mg tablet 50 mg PO Q6H PRN Pain 12/18/24 12/18/24 History Allergies Allergy/AdvReac Type Severity Reaction Status Date / Time sulfamethoxazole [Bactrim] AdvReac Intermediate "made the Verified 12/18/24 17:01 UTI worse" trimethoprim [Bactrim] AdvReac Intermediate "made the Verified 12/18/24 17:01 UTI worse" Past Med/Surg History Problem List (Updated 12/18/24 @ 18:15 by Gorge Girard MD) Back pain (Acute) Lumbar stenosis with neurogenic claudication Stage 3b chronic kidney disease (CKD) S/P spinal surgery 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) Medical History Carotid artery stenosis mild bilat ICA stenosis per [facility] EMR Type 2 diabetes mellitus CKD (chronic kidney disease) stage 3, GFR 30-59 ml/min Aortic stenosis moderate RBBB Hyperlipidemia Hypertension controlled, stable per pt Degenerative disc disease Osteoarthritis Gout Hypothyroidism History of kidney stones MUSA (dyspnea on exertion) chronic Surgical History History of dilatation and curettage History of tooth extraction History of total knee replacement right History of total hip arthroplasty bilat History of cataract surgery bilat History of tonsillectomy History of cystoscopy hx of stent and since removed Family History Mother Diabetes Aunt No problems noted. Social History Smoking Status: Never smoker Second Hand Exposure: No; Do You Dip or Chew Tobacco: No; Hx Alcohol Use: No Hx Substance Use: No Preferred Language: Serbian Communication Ability: Effective Piping Blocker Required: No Beliefs That Will Affect Care: None Current Living Situation: Family Feels Safe at Home: Yes Assistive Devices: Walker Physical Exam Vital Signs Vital Signs - 24 hr 12/18/24 14:18 12/18/24 14:18 12/18/24 14:24 Temperature 36.6 C 36.6 C Temperature Source Oral Oral Pulse Rate 77 78 Pulse Rate [Apical] 79 Pulse Rhythm Regular Pulse Rhythm [Apical] Regular Pulse Strength Normal Pulse Strength [Apical] Normal Respiratory Rate 17 17 Respiratory Effort / Characteristics Non-Labored Non-Labored Spontaneous Respiratory Depth Normal Normal Respiratory Pattern Regular Regular Blood Pressure 161/77 H Blood Pressure [Left Arm] 161/77 H Blood Pressure Mean 105 Blood Pressure Mean [Left Arm] 105 Blood Pressure Position Sitting Blood Pressure Position [Left Arm] Sitting Pulse Oximetry 98 99 Oxygen Delivery Method Room Air Room Air Sepsis Recent Fever Within 48 Hours No Sepsis New/Unexplained Change in Mental Status N/A Sepsis Action Taken by Nursing No Action Required 12/18/24 15:13 12/18/24 15:13 Temperature Temperature Source Pulse Rate Pulse Rate [Apical] 69 Pulse Rhythm Pulse Rhythm [Apical] Pulse Strength Pulse Strength [Apical] Respiratory Rate 18 Respiratory Effort / Characteristics Respiratory Depth Respiratory Pattern Blood Pressure Blood Pressure [Left Arm] 190/93 H Blood Pressure Mean Blood Pressure Mean [Left Arm] 125 Blood Pressure Position Blood Pressure Position [Left Arm] Pulse Oximetry 97 Oxygen Delivery Method Room Air Room Air Sepsis Recent Fever Within 48 Hours Sepsis New/Unexplained Change in Mental Status Sepsis Action Taken by Nursing Physical Exam HENT: Exam performed. -Head: Normocephalic and atraumatic. -Right Ear: External ear normal. No mastoid erythema -Left Ear: External ear normal. No mastoid erythema -Mouth/Throat: The oropharynx is clear and moist. No trismus in the jaw. No dental abscesses or uvula swelling. No oropharyngeal exudate or tonsillar abscesses. EYES: Conjunctivae and EOM are normal. Pupils are equal, round, and reactive to light. Right eye exhibits no discharge. Left eye exhibits no discharge. No scleral icterus. NECK: Normal range of motion. Neck supple. No JVD present. No spinous process tenderness present. No tracheal deviation and normal range of motion present. CV: Normal rate, regular rhythm. Systolic murmur present and intact distal pulses. There is no peripheral edema. Palpable radial pulses bue. PULM/CHEST: Effort normal and breath sounds normal. No respiratory distress. No stridor. She has no wheezes. She has no rales. -Chest Wall: She exhibits no tenderness. ABD: The abdomen is soft. There is no tenderness. There is no rebound, no guarding. MUSC/SKEL: No C or T-spine tenderness. Pain on palpation of the L-spine reproducing chief complaint. NEURO: Diminished sensation bilateral lower extremities. Sensation in the bilateral upper extremities are intact. Motor grossly intact. SKIN: Skin is warm and dry. She is not diaphoretic. Course Course 1421: The patient was evaluated in room C6. A complete history and physical exam was performed Cardiac monitoring: An order was placed for continuous cardiac monitoring. The monitor shows a rate of 70 with sinus rhythm interpreted by me 1713: Vital signs stable. Labs and imaging are unremarkable. Patient states her pain is better with morphine but is afraid that her pain will reappear. Family is stating they cannot manage her pain at home. After long discussion with the patient and her son at bedside we thought it was best for the patient to be admitted for pain control PT OT eval and possible placement into rehab facility. Administered Medications Discontinued Medications Morphine Sulfate (Morphine Sulfate 4 Mg/Ml 1 Ml Carp\\Vial) 4 mg IV NOW STA Stop: 12/18/24 15:09 Last Admin: 12/18/24 15:25 Dose: 4 mg Documented By: LEANNA Ondansetron HCl (Ondansetron Inj 2 Mg/Ml 2 Ml Vial) 4 mg IV NOW STA Stop: 12/18/24 15:09 Last Admin: 12/18/24 15:25 Dose: 4 mg Documented By: LEANNA Medical Decision Making Laboratory Data Attestation: I reviewed the patient's lab results. 12/18/24 14:20 12/18/24 14:20 Lab Results 12/18/24 Range/Units 14:20 WBC 8.03 (4.8-10.8) K/ul RBC 3.73 L (4.20-5.40) M/uL Hgb 12.1 (12.0-16.0) g/dl Hct 37.3 (37.0-47.0) % MCV 100.0 (80.0-100.0) fL MCH 32.4 (25.0-34.0) pg MCHC 32.4 (32.0-36.0) g/dL RDW Std Deviation 50.1 H (36.4-46.3) fL RDW Coeff of Rubi 13.7 (11.5-14.5) % Plt Count 216 (130-400) K/uL MPV 10.1 (9.4-12.4) fL Immature Gran % (Auto) 0.6 % Neut % (Auto) 68.7 % Lymph % (Auto) 20.3 % Benton % (Auto) 8.6 % Eos % (Auto) 1.4 % Baso % (Auto) 0.4 % Neut # (Auto) 5.52 (1.40-6.50) K/uL Lymph # (Auto) 1.63 (1.20-3.40) K/uL Benton # (Auto) 0.69 H (0.11-0.59) K/uL Eos # (Auto) 0.11 (0.00-0.50) K/uL Baso # (Auto) 0.03 (0.00-0.20) K/uL Immature Gran # (Auto) 0.05 (0.01-0.20) K/uL PT 10.3 (9.0-12.0) Seconds INR 0.9 (0.9-1.1) APTT 25 (21-31) Seconds PTT Ratio 0.9 Sodium 141 (136-145) mmol/L Potassium 4.7 (3.5-5.1) mmol/L Chloride 108 H (98-107) mmol/L Carbon Dioxide 25 (21-32) mmol/L Anion Gap 8 (3-11) BUN 37 H (6-23) mg/dl Creatinine 1.30 H (0.6-1.2) mg/dl Est Cr Clr Drug Dosing 29.9 ml/min eGFR 40.80 BUN/Creatinine Ratio 28.5 H (10-20) Glucose 148 H (70-99(Fasting)) mg/dl Calcium 9.6 (8.6-10.3) mg/dl Magnesium 1.6 L (1.7-2.4) mg/dl Total Creatine Kinase 30 (26-192) U/L Troponin I High Sens 13.9 (0-14) pg/ml Imaging Data Attestation: I personally reviewed and interpreted this imaging study as follows: My Impression: Chest x-ray negative. Airway clear. No pneumothorax. No consolidation. No cardiomegaly or cephalization.. No free air under the diaphragm. No fractures of the skeletal structures. Radiologist's Impression: Lumbar Spine X-Ray 12/18/24 14:29 Exam: XR lumbar and thoracic spine, 5 views History: Back pain Comparison: None available. Findings: AP and lateral views the lumbar spine were obtained. 5 lumbar type vertebral bodies are assumed for the purpose of this dictation. There is no acute osseous abnormality of the thoracic or lumbar spine. Normal lumbar lordosis is maintained. 5 mm of L3 anterolisthesis appears related to degenerative facet changes. Degenerative facet changes are moderate to advanced extending from L3-4 to L4-5, L5-S1. Severe L5-S1 degenerative disc height loss. Posterior ke and screw fixation changes of the thoracic spine are seen at T9-T10. Moderate multilevel degenerative disc height loss of the thoracic spine and prominent marginal osteophytes are seen. Vascular calcifications. The visualized bowel gas pattern is non-obstructive. Decreased bone mineral density. Bilateral hip arthroplasty. Impression: 1. No acute osseous abnormality. 2. Multilevel degenerative changes Electronically signed by Adrian Hansen 12-18-2024 4:02 PM Chest X-Ray 12/18/24 14:30 Chest radiograph, one view History: Trauma Comparison: None Findings: Single AP view of the chest performed. No focal consolidation or pleural effusion. No pneumothorax. The cardiomediastinal silhouette is within normal limits. Normal pulmonary vascularity. No evidence for lymphadenopathy. No visualized bony or soft tissue abnormality. Prominent, hypertrophic degenerative changes of both glenohumeral joints. Impression: Normal chest radiograph Electronically signed by Adrian Hansen 12-18-2024 3:53 PM Thoracic Spine X-Ray 12/18/24 14:31 Exam: XR lumbar and thoracic spine, 5 views History: Back pain Comparison: None available. Findings: AP and lateral views the lumbar spine were obtained. 5 lumbar type vertebral bodies are assumed for the purpose of this dictation. There is no acute osseous abnormality of the thoracic or lumbar spine. Normal lumbar lordosis is maintained. 5 mm of L3 anterolisthesis appears related to degenerative facet changes. Degenerative facet changes are moderate to advanced extending from L3-4 to L4-5, L5-S1. Severe L5-S1 degenerative disc height loss. Posterior ke and screw fixation changes of the thoracic spine are seen at T9-T10. Moderate multilevel degenerative disc height loss of the thoracic spine and prominent marginal osteophytes are seen. Vascular calcifications. The visualized bowel gas pattern is non-obstructive. Decreased bone mineral density. Bilateral hip arthroplasty. Impression: 1. No acute osseous abnormality. 2. Multilevel degenerative changes Electronically signed by Adrian Hansen 12-18-2024 4:02 PM ECG Data Attestation: I personally reviewed and interpreted this ECG as follows: Rate (beats per minute): 74 Rhythm: normal sinus Findings: + RBBB; no ST depression, no ST elevation or no prolonged QT MDM Narrative 1421: The patient was evaluated in room C6. A complete history and physical exam was performed Cardiac monitoring: An order was placed for continuous cardiac monitoring. The monitor shows a rate of 70 with sinus rhythm interpreted by va 1713: Vital signs stable. Labs and imaging are unremarkable. Patient states her pain is better with morphine but is afraid that her pain will reappear. Family is stating they cannot manage her pain at home. After long discussion with the patient and her son at bedside we thought it was best for the patient to be admitted for pain control PT OT eval and possible placement into rehab facility. Impression & Plan Back pain Discharge Plan Visit Data Chief Complaint: Back Injury/Pain Stated Complaint: LOWER BACK PAIN ED Provider: Gorge Girard Discharge Problem: Back pain Patient Disposition: Admitted As Inpatient Condition: Fair Forms Stand Alone Forms: [facility] Prescriptions Prescriptions: No Action tramadol 50 mg tablet 50 mg PO Q6H PRN (Reason: Pain) oxycodone 5 mg tablet 5 mg PO Q6H PRN (Reason: Pain) acetaminophen 325 mg Tablet 325 mg PO QID PRN (Reason: Pain) aspirin 81 mg Tablet,Delayed Release (Dr/Ec) 81 mg PO QAM levothyroxine 50 mcg Tablet 50 mcg PO QAM lisinopril 10 mg Tablet 10 mg PO QAM allopurinol 300 mg Tablet 300 mg PO QAM metoprolol succinate 25 mg Tablet Extended Release 24 Hr 12.5 mg PO QAM cholecalciferol (vitamin D3) [Vitamin D3] 25 mcg (1,000 unit) Capsule 50 mcg PO DAILY hydrochlorothiazide 12.5 mg Tablet 12.5 mg PO 3XWK Patient Comments: M/W/F Rx Instructions: MON, WED, & FRI atorvastatin 80 mg Tablet 80 mg PO QAM Referrals Referrals: Jose Patino MD [Primary Care Provider] - Discharge Problem: Back pain Qualifiers: Back pain location: low back pain Chronicity: acute Back pain laterality: m idline Sciatica presence: unspecified whether sciatica present Qualified Code(s): M54.50 - Low back pain, unspecified
[2024-12-18 14:42] LABS: Hematocrit (blood only) 37.3 % (37.0-47.0); Hemoglobin 12.1 g/dl (12.0-16.0); Immature Granulocytes # (auto) 0.05 K/uL (0.01-0.20); Immature Granulocytes % (auto) 0.6 %; Mean Corpuscular Hemoglobin 32.4 pg (25.0-34.0); Mean Corpuscular Volume 100.0 fL (80.0-100.0); Platelet Count 216 K/uL (130-400); RDW Standard Deviation 50.1 fL (36.4-46.3); Red Blood Count 3.73 M/uL (4.20-5.40); White Blood Count 8.03 K/ul (4.8-10.8)
[2024-12-18 14:49] LABS: Anion Gap 8.0 (3-11); Blood Urea Nitrogen 37.0 mg/dl (6-23); Calcium 9.6 mg/dl (8.6-10.3); Carbon Dioxide 25.0 mmol/L (21-32); Chloride 108.0 mmol/L (98-107); Creatine Kinase 30.0 U/L (26-192); Creatinine Clr Calc Pharmacy 29.9 ml/min; Glucose 148.0 mg/dl (70-99(Fasting)); Magnesium 1.6 mg/dl (1.7-2.4); Potassium 4.7 mmol/L (3.5-5.1); Sodium 141.0 mmol/L (136-145)
[2024-12-18] MEDS: MoRPHine SULFATE 4 MG/ML 1 ML CARP\\VIAL IV STA (15:25)
[2024-12-18] MEDS: ONDANSETRON INJ 2 MG/ML 2 ML VIAL IV STA (15:25)
[2024-12-18 15:38] LABS: INR 0.9 (0.9-1.1); Partial Thromboplastin Time 25 Seconds (21-31); Prothrombin Time 10.3 Seconds (9.0-12.0)
--- NOTE | 2024-12-18 15:54 | XRay Report ---
Chest radiograph, one view History: Trauma Comparison: None Findings: Single AP view of the chest performed. No focal consolidation or pleural effusion. No pneumothorax. The cardiomediastinal silhouette is within normal limits. Normal pulmonary vascularity. No evidence for lymphadenopathy. No visualized bony or soft tissue abnormality. Prominent, hypertrophic degenerative changes of both glenohumeral joints. Impression: Normal chest radiograph Electronically signed by Adrian Hnasen 12-18-2024 3:53 PM
--- NOTE | 2024-12-18 15:54 | Electrocardiogram Report ---
Test Reason : Blood Pressure : */* mmHG Vent. Rate : 74 BPM Atrial Rate : 74 BPM P-R Int : 178 ms QRS Dur : 114 ms QT Int : 400 ms P-R-T Axes : 21 -17 5 degrees QTcB Int : 444 ms Normal sinus rhythm Right bundle branch block Possible Lateral infarct , age undetermined possible Inferior infarct (cited on or before 04-Nov-2016) Abnormal ECG When compared with ECG of 04-Nov-2016 19:05, Right bundle branch block is now Present Borderline criteria for Lateral infarct are now Present Confirmed by Adrian Sorto ([id number]) on 12/18/2024 3:54:11 PM Referred By: REFERRED SELF Confirmed By: Adrian Sorto
--- NOTE | 2024-12-18 16:02 | XRay Report ---
Exam: XR lumbar and thoracic spine, 5 views History: Back pain Comparison: None available. Findings: AP and lateral views the lumbar spine were obtained. 5 lumbar type vertebral bodies are assumed for the purpose of this dictation. There is no acute osseous abnormality of the thoracic or lumbar spine. Normal lumbar lordosis is maintained. 5 mm of L3 anterolisthesis appears related to degenerative facet changes. Degenerative facet changes are moderate to advanced extending from L3-4 to L4-5, L5-S1. Severe L5-S1 degenerative disc height loss. Posterior ke and screw fixation changes of the thoracic spine are seen at T9-T10. Moderate multilevel degenerative disc height loss of the thoracic spine and prominent marginal osteophytes are seen. Vascular calcifications. The visualized bowel gas pattern is non-obstructive. Decreased bone mineral density. Bilateral hip arthroplasty. Impression: 1. No acute osseous abnormality. 2. Multilevel degenerative changes Electronically signed by Adrian Hansen 12-18-2024 4:02 PM
--- NOTE | 2024-12-18 17:39 | History & Physical Report ---
Date of Service December 18, 2024 Assessment & Plan (1) Lumbar stenosis with neurogenic claudication: (2) Recurrent falls: (3) Hypertension: (4) Stage 3b chronic kidney disease (CKD): (5) Hypothyroidism: (6) Hypomagnesemia: (7) Type 2 diabetes mellitus: Plan 84 yo female with pmhx of DM Type 2, hypothyroidism, HTN, dyslipidemia, CKD Stage 3b, osteoarthritis, s/p bilateral T9-T10 facetectomies/foraminotomies and fusion done on 09/09/24 c/b radicular pain/chronic pain syndrome now following with pain management who presents to the ED today for fall and intractable back pain in the setting of deconditioning and chronic pain syndrome. Work-up in the ED included thoracic and lumbar spine x-rays, which were negative. Labs without evidence of leukocytosis or anemia. Magnesium low at 1.6. Creatinine appears to be around baseline at 1.30. Pt was referred for admission for pain management, evaluation by PT/OT, and additional work-up of worsening back pain and recurrent falls. -Suspect patient with mechanical falls at home due to progressive deconditioning and weakness/giving out of RLE -Patient has neuropathic pain with nociceptive components, neuropathic pain not being addressed by medications at home - was prescribed gabapentin in the past but reports she is not taking this/does not recall taking it -treatment for chronic pain is physical therapy, non-opioids, multifaceted pain management #Fall #Intractable Back Pain #Chronic Pain Syndrome - chronic pain in setting of facetectomy and foraminotomies in 08/2024 -Admit to med surg -PT/OT ordered -NSAIDS relative contraindication due to CKD -lidocaine patch, scheduled acetaminopehn ordered -rotate oxycodone 5mg/tramadol 50mg to dilaudid 2mg (oxycodone not effective at home, 5mg oxy=7.5MME/4=around 2, no dose reduction given noneffective oxycodone) -IV dilaudid 0.5mg for breakthrough pain -would titrate off opioids post discharge if possible -start pregablin 25mg tid, target dose 150 mg per day due to renal function -ortho spine consult, appreciate recs -MRI thoracic and lumbar spine in view of LE weakness, recurrent falls #Hypomagnesemia - Replete and repeat labs in the AM #HTN - BPs elevated in the ED, likely due to pain in combination with missed doses of medications this morning -continue lisinopril -continue metoprolol per cardiology recommendations (outpatient cardio note from July 2024 in Epic reviewed) -continue aspirin #DM Type 2 -not on meds at home -monitor #Hypothyroidism -continue levothyroxine #HLD -continue statin Pt seen and reviewed with collaborating physician, Dr. Bagley. Plan of care discussed and as outlined above. Code status: full code DVT prophylaxis: Lovenox Pt's son Bharathi (Gio Johnston) updated at the bedside. He reports that his brother (Preston Giles) has POA for decision-making. Jeremiah Forrest PA-C History of Present Illness Chief Complaint: fall, intractable back pain Primary Care Provider: Jose Patino MD 84 yo female with pmhx of DM Type 2, hypothyroidism, HTN, dyslipidemia, CKD Stage 3b, osteoarthritis, s/p bilateral T9-T10 facetectomies/foraminotomies and fusion done on 09/09/24 c/b radicular pain/chronic pain syndrome now following with pain management who presents to the ED today for fall and intractable back pain. Last admission was on 08/2024 for the facetectomies and foraminotomies/fusion. Pt reports improvement of her thoracic back pain since surgery but increasing pain in the lumbar area. She underwent L3L4 MARCELO on 11/15/24 with one day of relief before return of pain. Since the MARCELO, her pain and functional status has continued to worsen. She reports four falls in the last month, with most recent being around 1 am today when she went to get into bed and could lift her right leg resulting in a loss of balance and fall onto her knees. She denies LOC or hitting her head. Her son, who she lives with, came and helped her into bed. This morning, when she went to get out of bed, she was unable to move her legs to get up. When her son came home, he found her in bed and called EMS. Pt reports ongoing issues with numbness and pain radiating in her right > left leg, right leg is giving out on her at times which is contributing to her falls. She denies loss of control of bowel or bladder. She does struggle with some constipation but uses prn stool softeners, salads to help regulate bowel movements. She denies recent illness, denies chest pain, palpitations, shortness of breath, syncope, dizziness, VELÁSQUEZ. She is taking acetaminophen twice a day most days and more recently has tried using the Tramadol and oxycodone she received after her surgery in August but it doesn't seem to help her pain. She lives with her son, uses a cane to ambulate but does have access to a walker as well. She was given morphine in the ED for pain with partial improvement of her symptoms. Allergies Allergy/AdvReac Type Severity Reaction Status Date / Time sulfamethoxazole [Bactrim] AdvReac Intermediate "made the Verified 12/18/24 17:01 UTI worse" trimethoprim [Bactrim] AdvReac Intermediate "made the Verified 12/18/24 17: UTI worse" Home Medications Medication Instructions Recorded Confirmed Type acetaminophen 325 mg tablet 325 mg PO QID PRN Pain 08/18/24 12/18/24 History allopurinol 300 mg tablet 300 mg PO QAM 08/18/24 12/18/24 History aspirin 81 mg tablet,delayed 81 mg PO QAM 08/18/24 12/18/24 History release atorvastatin 80 mg tablet 80 mg PO QAM 08/18/24 12/18/24 History cholecalciferol (vitamin D3) 25 50 mcg PO DAILY 08/18/24 12/18/24 History mcg (1,000 unit) capsule (Vitamin D3) hydrochlorothiazide 12.5 mg tablet 12.5 mg PO 3XWK 08/18/24 12/18/24 History levothyroxine 50 mcg tablet 50 mcg PO QAM 08/18/24 12/18/24 History lisinopril 10 mg tablet 10 mg PO QAM 08/18/24 12/18/24 History metoprolol succinate 25 mg 12.5 mg PO QAM 08/18/24 12/18/24 History tablet,extended release 24 hr oxycodone 5 mg tablet 5 mg PO Q6H PRN Pain 12/18/24 12/18/24 History tramadol 50 mg tablet 50 mg PO Q6H PRN Pain 12/18/24 12/18/24 History Past Med/Surg History Problem List (Updated 12/18/24 @ 18:41 by Teresita Forrest PA-C) Hypomagnesemia Recurrent falls Back pain (Acute) Lumbar stenosis with neurogenic claudication Stage 3b chronic kidney disease (CKD) S/P spinal surgery 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) Medical History (Updated 12/18/24 @ 18:41 by Teresita Forrest PA-C) Carotid artery stenosis mild bilat ICA stenosis per [facility] EMR Type 2 diabetes mellitus CKD (chronic kidney disease) stage 3, GFR 30-59 ml/min Aortic stenosis moderate RBBB Hyperlipidemia Hypertension controlled, stable per pt Degenerative disc disease Osteoarthritis Gout Hypothyroidism History of kidney stones MUSA (dyspnea on exertion) chronic Surgical History History of surgical procedure on thoracic spine T9-T10 decompression fusion - August 2024 History of dilatation and curettage History of tooth extraction History of total knee replacement right History of total hip arthroplasty bilat History of cataract surgery bilat History of tonsillectomy History of cystoscopy hx of stent and since removed Family History Mother Diabetes Aunt No problems noted. Social History Smoking Status: Never smoker Second Hand Exposure: No; Do You Dip or Chew Tobacco: No; Hx Alcohol Use: No Hx Substance Use: No Preferred Language: German Communication Ability: Effective Race Car Driver Required: No Beliefs That Will Affect Care: None Current Living Situation: Family Feels Safe at Home: Yes Assistive Devices: Walker Review of Systems Review of Systems: All systems reviewed & are unremarkable except as noted in Subjective Physical Exam Physical Exam: General: awake, alert, appears anxious HEENT: no scleral icterus, moist oral mucosa Neck: supple, trachea midline Heart: RRR, +systolic murmur Lungs: CTA bilaterally, no W/R/R Abdomen: soft, NT, +BS Extremities: no pedal edema, distal pulses intact and equal Skin: warm, dry Neurologic: Ox3, no confusion or dysarthria, moving all extremities, dorsiflexion/plantar flexion 3-4/5 bilaterally but unclear how much is true weakness vs. related to movement causing pain Back: mild to moderate lumbosacral tenderness to palpation Results & Data Results & Data Vital Signs (Past 12 Hours) Vital Signs Temp Pulse Pulse Resp BP BP Pulse Ox 12/18/24 15:13 69 18 190/93 H 97 12/18/24 15:13 12/18/24 14:24 78 12/18/24 14:18 36.6 C 79 17 161/77 H 99 12/18/24 14:18 36.6 C 77 17 161/77 H 98 O2 Del Method 12/18/24 15:13 Room Air 12/18/24 15:13 Room Air 12/18/24 14:24 12/18/24 14:18 Room Air 12/18/24 14:18 Room Air Laboratory Results Lab Results 12/18/24 Range/Units 14:20 WBC 8.03 (4.8-10.8) K/ul RBC 3.73 L (4.20-5.40) M/uL Hgb 12.1 (12.0-16.0) g/dl Hct 37.3 (37.0-47.0) % MCV 100.0 (80.0-100.0) fL MCH 32.4 (25.0-34.0) pg MCHC 32.4 (32.0-36.0) g/dL RDW Std Deviation 50.1 H (36.4-46.3) fL RDW Coeff of Rubi 13.7 (11.5-14.5) % Plt Count 216 (130-400) K/uL MPV 10.1 (9.4-12.4) fL Immature Gran % (Auto) 0.6 % Neut % (Auto) 68.7 % Lymph % (Auto) 20.3 % Cameron % (Auto) 8.6 % Eos % (Auto) 1.4 % Baso % (Auto) 0.4 % Neut # (Auto) 5.52 (1.40-6.50) K/uL Lymph # (Auto) 1.63 (1.20-3.40) K/uL Cameron # (Auto) 0.69 H (0.11-0.59) K/uL Eos # (Auto) 0.11 (0.00-0.50) K/uL Baso # (Auto) 0.03 (0.00-0.20) K/uL Immature Gran # (Auto) 0.05 (0.01-0.20) K/uL PT 10.3 (9.0-12.0) Seconds INR 0.9 (0.9-1.1) APTT 25 (21-31) Seconds PTT Ratio 0.9 Sodium 141 (136-145) mmol/L Potassium 4.7 (3.5-5.1) mmol/L Chloride 108 H (98-107) mmol/L Carbon Dioxide 25 (21-32) mmol/L Anion Gap 8 (3-11) BUN 37 H (6-23) mg/dl Creatinine 1.30 H (0.6-1.2) mg/dl Est Cr Clr Drug Dosing 29.9 ml/min eGFR 40.80 BUN/Creatinine Ratio 28.5 H (10-20) Glucose 148 H (70-99(Fasting)) mg/dl Calcium 9.6 (8.6-10.3) mg/dl Magnesium 1.6 L (1.7-2.4) mg/dl Total Creatine Kinase 30 (26-192) U/L Troponin I High Sens 13.9 (0-14) pg/ml Diagnostic Findings Lumbar Spine X-Ray 12/18/24 14:29 Exam: XR lumbar and thoracic spine, 5 views History: Back pain Comparison: None available. Findings: AP and lateral views the lumbar spine were obtained. 5 lumbar type vertebral bodies are assumed for the purpose of this dictation. There is no acute osseous abnormality of the thoracic or lumbar spine. Normal lumbar lordosis is maintained. 5 mm of L3 anterolisthesis appears related to degenerative facet changes. Degenerative facet changes are moderate to advanced extending from L3-4 to L4-5, L5-S1. Severe L5-S1 degenerative disc height loss. Posterior ke and screw fixation changes of the thoracic spine are seen at T9-T10. Moderate multilevel degenerative disc height loss of the thoracic spine and prominent marginal osteophytes are seen. Vascular calcifications. The visualized bowel gas pattern is non-obstructive. Decreased bone mineral density. Bilateral hip arthroplasty. Impression: 1. No acute osseous abnormality. 2. Multilevel degenerative changes Electronically signed by Adrian Hansen 12-18-2024 4:02 PM Chest X-Ray 12/18/24 14:30 Chest radiograph, one view History: Trauma Comparison: None Findings: Single AP view of the chest performed. No focal consolidation or pleural effusion. No pneumothorax. The cardiomediastinal silhouette is within normal limits. Normal pulmonary vascularity. No evidence for lymphadenopathy. No visualized bony or soft tissue abnormality. Prominent, hypertrophic degenerative changes of both glenohumeral joints. Impression: Normal chest radiograph Electronically signed by Adrian Hansen 12-18-2024 3:53 PM Thoracic Spine X-Ray 12/18/24 14:31 Exam: XR lumbar and thoracic spine, 5 views History: Back pain Comparison: None available. Findings: AP and lateral views the lumbar spine were obtained. 5 lumbar type vertebral bodies are assumed for the purpose of this dictation. There is no acute osseous abnormality of the thoracic or lumbar spine. Normal lumbar lordosis is maintained. 5 mm of L3 anterolisthesis appears related to degenerative facet changes. Degenerative facet changes are moderate to advanced extending from L3-4 to L4-5, L5-S1. Severe L5-S1 degenerative disc height loss. Posterior ke and screw fixation changes of the thoracic spine are seen at T9-T10. Moderate multilevel degenerative disc height loss of the thoracic spine and prominent marginal osteophytes are seen. Vascular calcifications. The visualized bowel gas pattern is non-obstructive. Decreased bone mineral density. Bilateral hip arthroplasty. Impression: 1. No acute osseous abnormality. 2. Multilevel degenerative changes Electronically signed by Adrian Hansen 12-18-2024 4:02 PM Medications Administered Discontinued Medications Morphine Sulfate (Morphine Sulfate 4 Mg/Ml 1 Ml Carp\\Vial) 4 mg IV NOW STA Stop: 12/18/24 15:09 Last Admin: 12/18/24 15:25 Dose: 4 mg Documented By: LEANNA Ondansetron HCl (Ondansetron Inj 2 Mg/Ml 2 Ml Vial) 4 mg IV NOW STA Stop: 12/18/24 15:09 Last Admin: 12/18/24 15:25 Dose: 4 mg Documented By: LEANNA Code Status & VTE Plan VTE Prophylaxis Plan VTE Prophylaxis will be ordered: Yes Supervising Physician Co-Signing Physician Notes Patient seen and examined at bedside. Helped co-write note above. Pain control as above, imaging as above, ortho spine consult as above. I have seen and discussed the case with the collaborating advanced practitioner. I agree with the above H&P. I have reviewed and confirmed the patients medical history, the findings on physical examination, and the patients diagnosis and treatment plan with Teresita Forrest PA-C and agree with the information documented. I spent a total of 30 minutes coordinating, documenting, and providing care for this patient excluding time spent in the performance of separately billed services. All of the aforementioned completed outside of collaborating with the assigned advanced practitioner for a full treatment plan. I have reviewed the advanced practitioner's documentation, and I agree with, and take responsibility for the plan of care (3) Hypertension Hypertension type: unspecified Qualified Code(s): I10 - Essential (primary) hypertension (5) Hypothyroidism Hypothyroidism type: unspecified Qualified Code(s): E03.9 - Hypothyroidism, unspecified (7) Type 2 diabetes mellitus Diabetes mellitus complication status: without complication Diabetes mellitus buttermaker continuous churn insulin use: unspecified buttermaker continuous churn insulin use status Qualified Code(s): E11.9 - Type 2 diabetes mellitus without complications
[2024-12-18] MEDS: LIDOCAINE 5% 1 PATCH TD STA (18:12)
[2024-12-18] MEDS: HYDROmorphone INJ 0.5 MG/0.5 ML SYR IV PRN (18:13)
[2024-12-18] MEDS: METOPROLOL SUCC 25MG EXT REL TAB PO ONE (19:16)
[2024-12-18] MEDS: MAGNESIUM SULFATE / D5W 1 GM/100 ML BAG IV ONE (19:23)
[2024-12-18] MEDS: PREGABALIN 25 MG CAP PO SCH (21:25)
[2024-12-18] MEDS: ENOXAPARIN INJ 40 MG/0.4 ML SYR SQ SCH (21:25)
[2024-12-18] MEDS: REMOVE LIDODERM PATCH SCH (21:26)
[2024-12-18] MEDS: ACETAMINOPHEN SUSP 160 MG/5 ML BTL PO SCH (21:26)
[2024-12-19 06:37] LABS: Hematocrit (blood only) 34.4 % (37.0-47.0); Hemoglobin 10.8 g/dl (12.0-16.0); Immature Granulocytes # (auto) 0.03 K/uL (0.01-0.20); Immature Granulocytes % (auto) 0.5 %; Mean Corpuscular Hemoglobin 31.8 pg (25.0-34.0); Mean Corpuscular Volume 101.2 fL (80.0-100.0); Platelet Count 185 K/uL (130-400); RDW Standard Deviation 50.9 fL (36.4-46.3); Red Blood Count 3.40 M/uL (4.20-5.40); White Blood Count 5.46 K/ul (4.8-10.8)
[2024-12-19 07:07] LABS: Anion Gap 8.0 (3-11); Blood Urea Nitrogen 38.0 mg/dl (6-23); Calcium 9.0 mg/dl (8.6-10.3); Carbon Dioxide 25.0 mmol/L (21-32); Chloride 107.0 mmol/L (98-107); Creatinine Clr Calc Pharmacy 30.9 ml/min; Glucose 109.0 mg/dl (70-99(Fasting)); Magnesium 1.8 mg/dl (1.7-2.4); Potassium 5.3 mmol/L (3.5-5.1); Sodium 140.0 mmol/L (136-145)
[2024-12-19] MEDS: CHOLECALCIFEROL 25 MCG (1000 UNITS) TAB PO SCH (09:22)
[2024-12-19] MEDS: LEVOTHYROXINE SODIUM 50 MCG TABLET PO SCH (09:22)
[2024-12-19] MEDS: ASPIRIN 81 MG ECTAB PO SCH (09:22)
[2024-12-19] MEDS: ATORVASTATIN 40 MG TAB PO SCH (09:22)
[2024-12-19] MEDS: METOPROLOL SUCC 25MG EXT REL TAB PO SCH (09:23)
[2024-12-19] MEDS: POLYETHYLENE (MIRALAX) 17 GM PACK PO PRN (09:26)
--- NOTE | 2024-12-19 13:38 | Hospitalist Progress Note ---
Date of Service December 19, 2024 Assessment & Plan (1) Lumbar stenosis with neurogenic claudication: (2) Recurrent falls: (3) Hypertension: (4) Stage 3b chronic kidney disease (CKD): (5) Hypothyroidism: (6) Hypomagnesemia: (7) Type 2 diabetes mellitus: Plan 84 yo female with pmhx of DM Type 2, hypothyroidism, HTN, dyslipidemia, CKD Stage 3b, osteoarthritis, s/p bilateral T9-T10 facetectomies/foraminotomies and fusion done on 09/09/24 c/b radicular pain/chronic pain syndrome now following with pain management who presents to the ED today for fall and intractable back pain in the setting of deconditioning and chronic pain syndrome. Work-up in the ED included thoracic and lumbar spine x-rays, which were negative. Labs without evidence of leukocytosis or anemia. Magnesium low at 1.6. Creatinine appears to be around baseline at 1.30. Pt was referred for admission for pain management, evaluation by PT/OT, and additional work-up of worsening back pain and recurrent falls. -Suspect patient with mechanical falls at home due to progressive deconditioning and weakness/giving out of RLE -Patient has neuropathic pain with nociceptive components, neuropathic pain not being addressed by medications at home - was prescribed gabapentin in the past but reports she is not taking this/does not recall taking it -treatment for chronic pain is physical therapy, non-opioids, multifaceted pain management #Fall #Intractable Back Pain #Chronic Pain Syndrome - chronic pain in setting of facetectomy and foraminotomies in 08/2024 - has had injection at the back as an outpatient without any improvement Denies any bladder and/or bowel problem -rotate oxycodone 5mg/tramadol 50mg to dilaudid 2mg (oxycodone not effective at home, 5mg oxy=7.5MME/4=around 2, no dose reduction given noneffective oxycodone) -IV dilaudid 0.5mg for breakthrough pain -would titrate off opioids post discharge if possible -start pregablin 25mg tid, target dose 150 mg per day due to renal function - orthospine consult has not been placed - awaiting MRI of the lumbar and thoracic spine for further evaluation Minimally better since admission Will ask Ortho evaluation by Dr. Porras as per patient choice #Hypomagnesemia - Replete and repeat labs in the AM Magnesium is normal #HTN - BPs elevated in the ED, likely due to pain in combination with missed doses of medications this morning -continue lisinopril -continue metoprolol per cardiology recommendations (outpatient cardio note from July 2024 in Epic reviewed) -continue aspirin #DM Type 2 -not on meds at home -monitor #Hypothyroidism -continue levothyroxine #HLD -continue statin Code status: full code DVT prophylaxis: Lovenox Pt's son Bharathi (Gio Johnston) updated at the bedside. He reports that his brother (Preston Giles) has POA for decision-making. Admission and Anticipated Discharge Date Admission Date: December 18, 2024 Subjective 12/19/2024 The patient was seen and examined in medical floor in presence of her sister She was admitted with intractable back pain with radiculopathy with failed outpatient injection Denies any urinary and/or bowel problem Will have MRI and further management as per orthospine Review of Systems Review of Systems: All systems reviewed and are unremarkable except as noted below Physical Exam Physical Exam: Sitting on a chair with low back pain and numbness involving the legs Constitutional: well developed, well nourished, + ill appearing and + obese Eyes: PERRL, conjunctivae normal, anicteric sclerae ENMT: external ear and nose normal, oropharynx normal Neck: trachea midline, no thyromegaly Respiratory: no respiratory distress Auscultation: lungs clear to auscultation bilaterally Cardiovascular: Rate/Rhythm: regular rate and regular rhythm; not tachycardic Heart Sounds: normal S1 and normal S2; no murmur Extremities: no edema Gastrointestinal (Abdomen): Inspection/Auscultation: normal bowel sounds; abdomen not distended Percussion/Palpation: abdomen soft; abdomen nontender Musculoskeletal: Low back pain with tenderness of the lumbar spine area Neurologic: normal touch/pain/proprioception and moves all extremities; no focal motor deficits Lymphatic: no cervical or axillary lymphadenopathy Results & Data Results & Data Vital Signs (Past 12 Hours) Vital Signs Temp Pulse Resp BP Pulse Ox O2 Del Method 12/19/24 07:23 36.5 C 71 18 144/82 H 98 Room Air Laboratory Results Short CBC 12/18/24 12/19/24 Range/Units 14:20 05:38 WBC 8.03 5.46 (4.8-10.8) K/ul Hgb 12.1 10.8 L (12.0-16.0) g/dl Hct 37.3 34.4 L (37.0-47.0) % Plt Count 216 185 (130-400) K/uL BMP 12/18/24 12/19/24 14:20 05:38 Sodium 141 140 Potassium 4.7 5.3 H Chloride 108 H 107 Carbon Dioxide 25 25 BUN 37 H 38 H Creatinine 1.30 H 1.31 H Glucose 148 H 109 H Calcium 9.6 9.0 Cardiac Enzymes 12/18/24 Range/Units 14:20 Total Creatine Kinase 30 (26-192) U/L Medications Administered Current Inpatient Medications Acetaminophen (Acetaminophen Susp 160 Mg/5 Ml Btl) 1,000 mg PO Q8 [facility] Stop: 01/17/25 21:59 Last Admin: 12/19/24 13:20 Dose: 1,000 mg Allopurinol (Allopurinol 300 Mg Tab) 300 mg PO [facility] Stop: 01/18/25 08:59 Last Admin: 12/19/24 09:22 Dose: 300 mg Aspirin (Aspirin 81 Mg Ectab) 81 mg PO [facility] Stop: 01/18/25 08:59 Last Admin: 12/19/24 09:22 Dose: 81 mg Atorvastatin Calcium (Atorvastatin 40 Mg Tab) 80 mg PO [facility] Stop: 01/18/25 08:59 Last Admin: 12/19/24 09:22 Dose: 80 mg Enoxaparin Sodium (Enoxaparin Inj 40 Mg/0.4 Ml Syr) 40 mg SQ Q24H [facility] Stop: 01/17/25 20:59 Last Admin: 12/18/24 21:25 Dose: 40 mg Hydromorphone HCl (Hydromorphone Hcl 2 Mg Tab) 2 mg PO Q4 PRN PRN Reason: Severe Pain (Scale 7, 8, 9,10) Stop: 01/01/25 17:34 Hydromorphone HCl (Hydromorphone Inj 0.5 Mg/0.5 Ml Syr) 0.5 mg IV Q4 PRN PRN Reason: Breakthrough Pain Stop: 01/01/25 17:34 Last Admin: 12/19/24 05:49 Dose: 0.5 mg Levothyroxine Sodium (Levothyroxine Sodium 50 Mcg Tablet) 50 mcg PO [facility] Stop: 01/18/25 08:59 Last Admin: 12/19/24 09:22 Dose: 50 mcg Lisinopril (Lisinopril 10 Mg Tab) 10 mg PO QAM [facility] Stop: 01/18/25 08:59 Last Admin: 12/19/24 09:22 Dose: 10 mg Metoprolol Succinate (Metoprolol Succ 25mg Ext Rel Tab) 12.5 mg PO QAM [facility] Stop: 01/18/25 08:59 Last Admin: 12/19/24 09:23 Dose: 12.5 mg Miscellaneous (Remove Lidoderm Patch) 1 each N/A DAILY@2100 [facility] Stop: 01/17/25 20:59 Last Admin: 12/18/24 21:26 Dose: 1 each Ondansetron HCl (Ondansetron Inj 2 Mg/Ml 2 Ml Vial) 4 mg IV Q6H PRN PRN Reason: Nausea Stop: 01/17/25 20:21 Polyethylene Glycol (Polyethylene (Miralax) 17 Gm Pack) 17 gm PO DAILY PRN PRN Reason: Constipation Stop: 01/17/25 20:21 Last Admin: 12/19/24 09:26 Dose: 17 gm Pregabalin (Pregabalin 25 Mg Cap) 25 mg PO TID [facility] Stop: 01/17/25 20:59 Last Admin: 12/19/24 13:20 Dose: 25 mg Vitamin D (Cholecalciferol 25 Mcg (1000 Units) Tab) 50 mcg PO DAILY [facility] Stop: 01/18/25 08:59 Last Admin: 12/19/24 09:22 Dose: 50 mcg (3) Hypertension Hypertension type: unspecified Qualified Code(s): I10 - Essential (primary) hypertension (5) Hypothyroidism Hypothyroidism type: unspecified Qualified Code(s): E03.9 - Hypothyroidism, unspecified (7) Type 2 diabetes mellitus Diabetes mellitus intermediate project manager insulin use: unspecified correction insulin use status Diabetes mellitus complication status: without complication Qualified Code(s): E11.9 - Type 2 diabetes mellitus without complications
--- NOTE | 2024-12-20 14:18 | Hospitalist Progress Note ---
Date of Service December 20, 2024 Assessment & Plan (1) Lumbar stenosis with neurogenic claudication: (2) Recurrent falls: (3) Hypertension: (4) Stage 3b chronic kidney disease (CKD): (5) Hypothyroidism: (6) Hypomagnesemia: (7) Type 2 diabetes mellitus: Plan 84 yo female with pmhx of DM Type 2, hypothyroidism, HTN, dyslipidemia, CKD Stage 3b, osteoarthritis, s/p bilateral T9-T10 facetectomies/foraminotomies and fusion done on 09/09/24 c/b radicular pain/chronic pain syndrome now following with pain management who presents to the ED today for fall and intractable back pain in the setting of deconditioning and chronic pain syndrome. Work-up in the ED included thoracic and lumbar spine x-rays, which were negative. Labs without evidence of leukocytosis or anemia. Magnesium low at 1.6. Creatinine appears to be around baseline at 1.30. Pt was referred for admission for pain management, evaluation by PT/OT, and additional work-up of worsening back pain and recurrent falls. -Suspect patient with mechanical falls at home due to progressive deconditioning and weakness/giving out of RLE -Patient has neuropathic pain with nociceptive components, neuropathic pain not being addressed by medications at home - was prescribed gabapentin in the past but reports she is not taking this/does not recall taking it -treatment for chronic pain is physical therapy, non-opioids, multifaceted pain management #Fall #Intractable Back Pain #Chronic Pain Syndrome - chronic pain in setting of facetectomy and foraminotomies in 08/2024 - has had injection at the back as an outpatient without any improvement Denies any bladder and/or bowel problem -rotate oxycodone 5mg/tramadol 50mg to dilaudid 2mg (oxycodone not effective at home, 5mg oxy=7.5MME/4=around 2, no dose reduction given noneffective oxycodone) -IV dilaudid 0.5mg for breakthrough pain -would titrate off opioids post discharge if possible -start pregablin 25mg tid, target dose 150 mg per day due to renal function - orthospine consult has not been placed - awaiting MRI of the lumbar and thoracic spine for further evaluation Minimally better since admission Will ask Ortho evaluation by Dr. Porras as per patient choice Remains symptomatic with back pain and radiculopathy and awaiting lumbar and thoracic MRI Appreciate orthospine input and recommendation Remains hemodynamically stable #Hypomagnesemia - Replete and repeat labs in the AM Magnesium is normal #HTN - BPs elevated in the ED, likely due to pain in combination with missed doses of medications this morning -continue lisinopril -continue metoprolol per cardiology recommendations (outpatient cardio note from July 2024 in Epic reviewed) -continue aspirin #DM Type 2 -not on meds at home -monitor #Hypothyroidism -continue levothyroxine #HLD -continue statin Code status: full code DVT prophylaxis: Lovenox Pt's son Bharathi (Gio Johnston) updated at the bedside. He reports that his brother (Preston Giles) has POA for decision-making. Admission and Anticipated Discharge Date Admission Date: December 18, 2024 Subjective 12/19/2024 The patient was seen and examined in medical floor in presence of her sister She was admitted with intractable back pain with radiculopathy with failed outpatient injection Denies any urinary and/or bowel problem Will have MRI and further management as per orthospine 12/20/2024 The patient was seen and examined in medical floor in presence of the son She has been complaining of back pain with bilateral leg weakness and numbness and tingling involving the legs Denies any problem with urine or bowel habit Awaiting MRIs Review of Systems Review of Systems: All systems reviewed and are unremarkable except as noted below Physical Exam Physical Exam: Sitting on a chair with low back pain and numbness involving the legs Constitutional: well developed, well nourished, + ill appearing and + obese Eyes: PERRL, conjunctivae normal, anicteric sclerae ENMT: external ear and nose normal, oropharynx normal Neck: trachea midline, no thyromegaly Respiratory: no respiratory distress Auscultation: lungs clear to auscultation bilaterally Cardiovascular: Rate/Rhythm: regular rate and regular rhythm; not tachycardic Heart Sounds: normal S1 and normal S2; no murmur Extremities: no edema Gastrointestinal (Abdomen): Inspection/Auscultation: normal bowel sounds; abdomen not distended Percussion/Palpation: abdomen soft; abdomen nontender Neurologic: normal touch/pain/proprioception and moves all extremities; no focal motor deficits Lymphatic: no cervical or axillary lymphadenopathy Results & Data Results & Data Vital Signs (Past 12 Hours) Vital Signs Temp Pulse Resp BP Pulse Ox O2 Del Method 12/20/24 11:59 36.6 C 74 18 132/84 96 Room Air 12/20/24 08:00 Room Air 12/20/24 07:53 36.3 C L 65 18 111/65 97 Room Air Medications Administered Current Inpatient Medications Acetaminophen (Acetaminophen Susp 160 Mg/5 Ml Btl) 1,000 mg PO Q8 [facility] Stop: 01/17/25 21:59 Last Admin: 12/20/24 13:46 Dose: 1,000 mg Allopurinol (Allopurinol 300 Mg Tab) 300 mg PO [facility] Stop: 01/18/25 08:59 Last Admin: 12/20/24 09:09 Dose: 300 mg Aspirin (Aspirin 81 Mg Ectab) 81 mg PO [facility] Stop: 01/18/25 08:59 Last Admin: 12/20/24 09:09 Dose: 81 mg Atorvastatin Calcium (Atorvastatin 40 Mg Tab) 80 mg PO [facility] Stop: 01/18/25 08:59 Last Admin: 12/20/24 09:10 Dose: 80 mg Enoxaparin Sodium (Enoxaparin Inj 40 Mg/0.4 Ml Syr) 40 mg SQ Q24H [facility] Stop: 01/17/25 20:59 Last Admin: 12/19/24 20:40 Dose: 40 mg Hydromorphone HCl (Hydromorphone Hcl 2 Mg Tab) 2 mg PO Q4 PRN PRN Reason: Severe Pain (Scale 7, 8, 9,10) Stop: 01/01/25 17:34 Last Admin: 12/20/24 05:31 Dose: 2 mg Hydromorphone HCl (Hydromorphone Inj 0.5 Mg/0.5 Ml Syr) 0.5 mg IV Q4 PRN PRN Reason: Breakthrough Pain Stop: 01/01/25 17:34 Last Admin: 12/19/24 05:49 Dose: 0.5 mg Levothyroxine Sodium (Levothyroxine Sodium 50 Mcg Tablet) 50 mcg PO [facility] Stop: 01/18/25 08:59 Last Admin: 12/20/24 09:10 Dose: 50 mcg Lisinopril (Lisinopril 10 Mg Tab) 10 mg PO [facility] Stop: 01/18/25 08:59 Last Admin: 12/20/24 09:10 Dose: 10 mg Metoprolol Succinate (Metoprolol Succ 25mg Ext Rel Tab) 12.5 mg PO QAM [facility] Stop: 01/18/25 08:59 Last Admin: 12/20/24 09:10 Dose: 12.5 mg Miscellaneous (Remove Lidoderm Patch) 1 each N/A DAILY@2100 [facility] Stop: 01/17/25 20:59 Last Admin: 12/19/24 20:45 Dose: 1 each Ondansetron HCl (Ondansetron Inj 2 Mg/Ml 2 Ml Vial) 4 mg IV Q6H PRN PRN Reason: Nausea Stop: 01/17/25 20:21 Polyethylene Glycol (Polyethylene (Miralax) 17 Gm Pack) 17 gm PO DAILY PRN PRN Reason: Constipation Stop: 01/17/25 20:21 Last Admin: 12/19/24 09:26 Dose: 17 gm Pregabalin (Pregabalin 25 Mg Cap) 25 mg PO TID [facility] Stop: 01/17/25 20:59 Last Admin: 12/20/24 13:46 Dose: 25 mg Vitamin D (Cholecalciferol 25 Mcg (1000 Units) Tab) 50 mcg PO DAILY [facility] Stop: 01/18/25 08:59 Last Admin: 12/20/24 10:29 Dose: 50 mcg (3) Hypertension Hypertension type: unspecified Qualified Code(s): I10 - Essential (primary) hypertension (5) Hypothyroidism Hypothyroidism type: unspecified Qualified Code(s): E03.9 - Hypothyroidism, unspecified (7) Type 2 diabetes mellitus 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
--- NOTE | 2024-12-21 01:36 | Magnetic Resonance Report ---
Exam(s): MRI T SPINE Without Contrast EXAM: MR Thoracic Spine Without Intravenous Contrast CLINICAL HISTORY: Reason for exam: leg weakness. TECHNIQUE: Magnetic resonance images of the thoracic spine without intravenous contrast in multiple planes. COMPARISON: Prior plain film images of the lumbar spine from December 18, 2024. FINDINGS: Vertebrae: There are 12 thoracic type vertebral bodies with a mild levoscoliosis and increased thoracic kyphosis. Patient is status post posterior decompression and fusion of T8 and T9 with transpedicular screws and connecting rods in place. No acute fracture. Discs/spinal canal/neural foramina: No acute findings. Mild to moderate multilevel disc degeneration with 5.5 mm right paracentral disc protrusion at T9-10 causing a critical spinal canal stenosis with AP diameter measuring 2.5 mm Spinal cord: There is flattening of the cord at T9-10 with cord edema. Soft tissues: Unremarkable. IMPRESSION: There is a 5.5 cm right paracentral disc protrusion at T9-10 impinging the cord and causing a critical spinal canal stenosis with cord edema. Recommend neurosurgical consult for decompression. Communications: Verify Receipt Electronically signed by: Zo Hoyos MD 12/21/24 01:36 AM
--- NOTE | 2024-12-21 01:50 | Magnetic Resonance Report ---
Exam(s): MRI L SPINE Without Contrast EXAM: MR Lumbar Spine Without Intravenous Contrast CLINICAL HISTORY: Reason for exam: leg pain. TECHNIQUE: Magnetic resonance images of the lumbar spine without intravenous contrast in multiple planes. COMPARISON: No relevant prior studies available. FINDINGS: Vertebrae: There are 4 lumbar type vertebral bodies. The L5 vertebral body is transitional. There is a mild grade 1 anterolisthesis at L3 and L4 measuring 16 mm. Otherwise, there is normal vertebral body height and alignment. The bone marrow signal is heterogeneous with reactive endplate changes. Mild to advanced facet joint arthropathy with mild to advanced synovitis, most significant at L2-3 and L3-4 with bone marrow edema and inflammation of the surrounding soft tissues. No acute fracture. Positive Pine sign at L2-3 and L3-4. Spinal cord: The conus is normal size, shape and signal characteristics, terminating at L1-L2. Normal signal. Soft tissues: Advanced atrophy of the iliopsoas, paraspinous intraspinous musculature. The aorta and IVC flow voids are intact. Bilateral renal cyst. DISCS/SPINAL CANAL/NEURAL FORAMINA: L1-L2: Advanced disc degeneration with annular disc bulge causing a mild subarticular recess stenosis with disc and osteophyte extending to the neural foramina causing a mild left stenosis without evidence of neural impingement. L2-L3: Moderate disc degeneration with annular disc bulging causing a severe subarticular recess stenosis with impingement of the transiting L3 nerve roots with superimposed epidural lipomatosis a congenitally short pedicles causing a critical spinal canal stenosis with thecal sac and hemorrhage and 0.29 cm². There is disc and osteophyte extending to the neural foramina causing a mild right and moderate left stenosis with mild impingement of the left L2 nerve or ganglia. L3-L4: Moderate disc degeneration with annular disc bulge causing a mild subarticular recess stenosis with superimposed congenitally short pedicles and spondylolisthesis causing a severe spinal canal stenosis with thecal sac area measuring 0.33 cm². There is disc extending to the neural foramina causing a moderately severe bilateral stenoses with impingement of the bilateral L3 nerve or ganglia. L4-L5: There is mild disc degeneration with annular disc bulging flattening the ventral thecal sac. L5-S1: Moderate disc degeneration with annular disc bulge flattening the ventral thecal sac. IMPRESSION: 1. Advanced disc degeneration at L1-L2, moderate disc degeneration at L2- 3, L3-4, L5-S1 and mild disc degeneration at L4-5 with annular disc bulging flattening the ventral thecal sac and causing a mild subarticular recess stenosis at L1-L2 and severe subarticular recess stenosis at L2-3 and L3-4 with impingement of the transiting L3 and L4 nerve roots respectively. 2. There is a critical spinal canal stenosis at L2-3 and severe stenosis at L3-4. 3. There is a mild right and moderate left L2-3, and moderately severe bilateral L3-4 neural foraminal stenosis with impingement of the left L2 and bilateral L3 nerve root ganglia. 4. There is mild to advanced facet arthropathy with mild to advanced synovitis, most significant at the L2-3 and L3-4 facet joints. 5. No evidence of fracture, infection, tumor or arachnoiditis. Electronically signed by: Zo Hoyos MD 12/21/24 01:48 AM
--- NOTE | 2024-12-21 09:14 | Orthopedic Consultation ---
Date of Consultation December 21, 2024 Assessment & Plan (1) Spondylolisthesis, lumbar region: Assessment #1 lumbar spondylosis with radiculopathy. #2 lumbar spondylolisthesis L3-L4. #3 lumbar spinal stenosis. Plan at length discussed today with the patient reviewing MRI findings and clinical course. At this time she has advanced severe neural compression with obvious facet hypertrophy and instability on her MRI. She would be a candidate for surgery. Would require a lumbar decompression and fusion L2-L3 L3-L4. Risk benefits pros cons and alternatives were all in detail. Risk include but not limited to anesthesia blindness stroke paralysis nerve damage blood loss requiring transfusion infection requiring reoperation. Benefits hopefully be marked improvement of her radiculopathy and in time improvement of her strength and ambulation. At this time we will try to perform surgery as soon as possible. Will try to optimize her medically and plan for surgery in the next few days. History of Present Illness Reason for Consultation: Back and bilateral leg pain Attending Physician: Jenn Hall MD History of Present Illness This is an 84-year-old female well-known to me the presents with a marked decline in status over the past several months. She has had approximately 4 falls at home secondary to pain leg pain and weakness. She has been now been taken to the hospital with complaints of significant bilateral leg pain and inability to ambulate and leg weakness. This morning she is in the chair at the bedside. She states she can find a position of comfort while seated. She describes intermittent numbness and tingling in her lower extremities. She describes weakness in lower extremities as well as radicular type pain. She has had lumbar epidural injections. Unfortunately this failed to provide any relief. In fact she feels they have exacerbated her pain. Allergies Allergy/AdvReac Type Severity Reaction Status Date / Time sulfamethoxazole [Bactrim] AdvReac Intermediate "made the Verified 12/18/24 17:01 UTI worse" trimethoprim [Bactrim] AdvReac Intermediate "made the Verified 12/18/24 17:01 UTI worse" Home Medications Medication Instructions Recorded Confirmed Type acetaminophen 325 mg tablet 325 mg PO QID PRN Pain 08/18/24 12/18/24 History allopurinol 300 mg tablet 300 mg PO QAM 08/18/24 12/18/24 History aspirin 81 mg tablet,delayed 81 mg PO QAM 08/18/24 12/18/24 History release atorvastatin 80 mg tablet 80 mg PO QAM 08/18/24 12/18/24 History cholecalciferol (vitamin D3) 25 50 mcg PO DAILY 08/18/24 12/18/24 History mcg (1,000 unit) capsule (Vitamin D3) hydrochlorothiazide 12.5 mg tablet 12.5 mg PO 3XWK 08/18/24 12/18/24 History levothyroxine 50 mcg tablet 50 mcg PO QAM 08/18/24 12/18/24 History lisinopril 10 mg tablet 10 mg PO QAM 08/18/24 12/18/24 History metoprolol succinate 25 mg 12.5 mg PO QAM 08/18/24 12/18/24 History tablet,extended release 24 hr oxycodone 5 mg tablet 5 mg PO Q6H PRN Pain 12/18/24 12/18/24 History tramadol 50 mg tablet 50 mg PO Q6H PRN Pain 12/18/24 12/18/24 History Patient History Medical History (Updated 12/21/24 @ 09:13 by Wolfgang Porras DO) Carotid artery stenosis mild bilat ICA stenosis per S EMR Type 2 diabetes mellitus CKD (chronic kidney disease) stage 3, GFR 30-59 ml/min Aortic stenosis moderate RBBB Hyperlipidemia Hypertension controlled, stable per pt Degenerative disc disease Osteoarthritis Gout Hypothyroidism History of kidney stones MUSA (dyspnea on exertion) chronic Surgical History History of surgical procedure on thoracic spine T9-T10 decompression fusion - August 2024 History of dilatation and curettage History of tooth extraction History of total knee replacement right History of total hip arthroplasty bilat History of cataract surgery bilat History of tonsillectomy History of cystoscopy hx of stent and since removed Family History Mother Diabetes Aunt No problems noted. Social History Smoking Status: Never smoker Second Hand Exposure: No; Do You Dip or Chew Tobacco: No; Tobacco Cessation Education Requested by Patient: No Hx Alcohol Use: No Hx Substance Use: No Preferred Language: Mongolian Communication Ability: Effective Assembler Clip On Sunglasses Required: No Beliefs That Will Affect Care: None Current Living Situation: Family Other Information That Helps Us Care for You: No Feels Safe at Home: Yes Safety Concerns: Feels Safe At This Time Assistive Devices: Cane, Hospital Bed and Walker Physical Exam Physical Exam: Patient is in the chair at the bedside. She exhibits a 4/5 plantarflexion dorsiflexion quadriceps. She maintains sensory. Deep tendon reflexes are diminished. Negative logroll. Results & Data Vital Signs (Past 12 Hours) Vital Signs Temp Pulse Resp BP Pulse Ox O2 Del Method 12/21/24 08:09 85 17 108/68 12/21/24 07:27 36.7 C 85 16 82/54 L 96 Room Air 12/20/24 23:21 36.5 C 74 18 161/77 H 98 Room Air
--- NOTE | 2024-12-21 16:07 | Hospitalist Progress Note ---
Date of Service December 21, 2024 Assessment & Plan (1) Lumbar stenosis with neurogenic claudication: (2) Recurrent falls: (3) Hypertension: (4) Stage 3b chronic kidney disease (CKD): (5) Hypothyroidism: (6) Hypomagnesemia: (7) Type 2 diabetes mellitus: Plan 84 yo female with pmhx of DM Type 2, hypothyroidism, HTN, dyslipidemia, CKD Stage 3b, osteoarthritis, s/p bilateral T9-T10 facetectomies/foraminotomies and fusion done on 09/09/24 c/b radicular pain/chronic pain syndrome now following with pain management who presents to the ED today for fall and intractable back pain in the setting of deconditioning and chronic pain syndrome. Work-up in the ED included thoracic and lumbar spine x-rays, which were negative. Labs without evidence of leukocytosis or anemia. Magnesium low at 1.6. Creatinine appears to be around baseline at 1.30. Pt was referred for admission for pain management, evaluation by PT/OT, and additional work-up of worsening back pain and recurrent falls. -Suspect patient with mechanical falls at home due to progressive deconditioning and weakness/giving out of RLE -Patient has neuropathic pain with nociceptive components, neuropathic pain not being addressed by medications at home - was prescribed gabapentin in the past but reports she is not taking this/does not recall taking it -treatment for chronic pain is physical therapy, non-opioids, multifaceted pain management #Fall #Intractable Back Pain #Chronic Pain Syndrome - chronic pain in setting of facetectomy and foraminotomies in 08/2024 - has had injection at the back as an outpatient without any improvement Denies any bladder and/or bowel problem -rotate oxycodone 5mg/tramadol 50mg to dilaudid 2mg (oxycodone not effective at home, 5mg oxy=7.5MME/4=around 2, no dose reduction given noneffective oxycodone) -IV dilaudid 0.5mg for breakthrough pain -would titrate off opioids post discharge if possible -start pregablin 25mg tid, target dose 150 mg per day due to renal function - orthospine consult has not been placed - awaiting MRI of the lumbar and thoracic spine for further evaluation Minimally better since admission Will ask Ortho evaluation by Dr. Porras as per patient choice Remains symptomatic with back pain and radiculopathy and awaiting lumbar and thoracic MRI Appreciate orthospine input and recommendation Remains hemodynamically stable MRI of the lumbar and thoracic spine showed significant cord compression and nerve entrapment. Likely to need surgery as per orthospine -Remains otherwise medically stable and awaiting surgery by the orthospine-no medical contraindication for the proposed surgery. Has had nuclear stress echocardiogram in August which was unremarkable and the patient does not have any cardiac symptoms Pain reasonably controlled at rest #Hypomagnesemia - Replete and repeat labs in the AM Magnesium is normal #HTN - BPs elevated in the ED, likely due to pain in combination with missed doses of medications this morning -continue lisinopril -continue metoprolol per cardiology recommendations (outpatient cardio note from July 2024 in Epic reviewed) -continue aspirin Blood pressure remains stable #DM Type 2 -not on meds at home -monitor #Hypothyroidism -continue levothyroxine #HLD -continue statin Code status: full code DVT prophylaxis: Lovenox Pt's son Bharathi (Gio Johnston) updated at the bedside. He reports that his brother (Preston Giles) has POA for decision-making. Admission and Anticipated Discharge Date Admission Date: December 18, 2024 Subjective 12/19/2024 The patient was seen and examined in medical floor in presence of her sister She was admitted with intractable back pain with radiculopathy with failed outpatient injection Denies any urinary and/or bowel problem Will have MRI and further management as per orthospine 12/20/2024 The patient was seen and examined in medical floor in presence of the son She has been complaining of back pain with bilateral leg weakness and numbness and tingling involving the legs Denies any problem with urine or bowel habit Awaiting MRIs 12/21/2024 The patient was seen and examined in medical floor She has been hemodynamically stable but complaining of severe pain at the lower back with radiation down to the legs Has had MRI which did show significant spinal disease with stenosis and likely require surgery as par orthospine Review of Systems Review of Systems: All systems reviewed and are unremarkable except as noted below Physical Exam Physical Exam: Sitting on a chair with low back pain and numbness involving the legs Constitutional: well developed, well nourished, + ill appearing and + obese Eyes: PERRL, conjunctivae normal, anicteric sclerae ENMT: external ear and nose normal, oropharynx normal Neck: trachea midline, no thyromegaly Respiratory: no respiratory distress Auscultation: lungs clear to auscultation bilaterally Cardiovascular: Rate/Rhythm: regular rate and regular rhythm; not tachycardic Heart Sounds: normal S1 and normal S2; no murmur Extremities: no edema Gastrointestinal (Abdomen): Inspection/Auscultation: normal bowel sounds; abdomen not distended Percussion/Palpation: abdomen soft; abdomen nontender Neurologic: normal touch/pain/proprioception and moves all extremities; no focal motor deficits Lymphatic: no cervical or axillary lymphadenopathy Results & Data Results & Data Vital Signs (Past 12 Hours) Vital Signs Temp Pulse Resp BP Pulse Ox O2 Del Method 12/21/24 15:36 36.3 C L 83 16 122/75 96 Room Air 12/21/24 08:09 85 17 108/68 12/21/24 07:27 36.7 C 85 16 82/54 L 96 Room Air Medications Administered Current Inpatient Medications Acetaminophen (Acetaminophen Susp 160 Mg/5 Ml Btl) 1,000 mg PO Q8 [facility] Stop: 01/17/25 21:59 Last Admin: 12/21/24 13:25 Dose: 1,000 mg Allopurinol ([facility]op[facility]ol 300 Mg Tab) [facility] [place]: 01/18/25 08:59 Last Admin: 12/21/24 08:11 Dose: 300 mg Aspirin (Aspirin 81 Mg Ectab) 81 mg PO QAM [facility] Stop: 01/18/25 08:59 Last Admin: 12/21/24 08:11 Dose: 81 mg Atorvastatin Calcium (Atorvastatin 40 Mg Tab) 80 mg PO [facility] Stop: 01/18/25 08:59 Last Admin: 12/21/24 08:11 Dose: 80 mg Enoxaparin Sodium (Enoxaparin Inj 40 Mg/0.4 Ml Syr) 40 mg SQ Q24H [facility] Stop: 01/17/25 20:59 Last Admin: 12/20/24 20:17 Dose: 40 mg Hydromorphone HCl (Hydromorphone Hcl 2 Mg Tab) 2 mg PO Q4 PRN PRN Reason: Severe Pain (Scale 7, 8, 9,10) Stop: 01/01/25 17:34 Last Admin: 12/21/24 00:52 Dose: 2 mg Hydromorphone HCl (Hydromorphone Inj 0.5 Mg/0.5 Ml Syr) 0.5 mg IV Q4 PRN PRN Reason: Breakthrough Pain Stop: 01/01/25 17:34 Last Admin: 12/19/24 05:49 Dose: 0.5 mg Levothyroxine Sodium (Levothyroxine Sodium 50 Mcg Tablet) [facility] [place]: 01/18/25 08:59 Last Admin: 12/21/24 08:11 Dose: 50 mcg Lisinopril (Lisinopril 10 Mg Tab) 10 mg PO [facility] Stop: 01/18/25 08:59 Last Admin: 12/21/24 08:10 Dose: Not Given Metoprolol Succinate (Metoprolol Succ 25mg Ext Rel Tab) 12.5 mg PO [facility] Stop: 01/18/25 08:59 Last Admin: 12/21/24 08:10 Dose: Not Given Miscellaneous (Remove Lidoderm Patch) 1 each N/A DAILY@2100 [facility] Stop: 01/17/25 20:59 Last Admin: 12/20/24 20:17 Dose: 1 each Ondansetron HCl (Ondansetron Inj 2 Mg/Ml 2 Ml Vial) 4 mg IV Q6H PRN PRN Reason: Nausea Stop: 01/17/25 20:21 Polyethylene Glycol (Polyethylene (Miralax) 17 Gm Pack) 17 gm PO DAILY PRN PRN Reason: Constipation Stop: 01/17/25 20:21 Last Admin: 12/21/24 06:06 Dose: 17 gm Polyethylene Glycol (Polyethylene (Miralax) 17 Gm Pack) 17 gm PO DAILY [facility] Stop: 01/21/25 08:59 Pregabalin (Pregabalin 25 Mg Cap) 25 mg PO TID [facility] Stop: 01/17/25 20:59 Last Admin: 12/21/24 13:25 Dose: 25 mg Vitamin D (Cholecalciferol 25 Mcg (1000 Units) Tab) 50 mcg PO DAILY [facility] Stop: 01/18/25 08:59 Last Admin: 12/21/24 08:11 Dose: 50 mcg (3) Hypertension Hypertension type: unspecified Qualified Code(s): I10 - Essential (primary) hypertension (5) Hypothyroidism Hypothyroidism type: unspecified Qualified Code(s): E03.9 - Hypothyroidism, unspecified (7) Type 2 diabetes mellitus Diabetes mellitus regional sales leader insulin use: unspecified usp insulin use status Diabetes mellitus complication status: without complication Qualified Code(s): E11.9 - Type 2 diabetes mellitus without complications
[2024-12-22 06:56] LABS: Creatinine Clr Calc Pharmacy 27.5 ml/min
--- NOTE | 2024-12-22 09:12 | Orthopedic Progress Note ---
Date of Service December 22, 2024 Assessment & Plan (1) Spondylolisthesis, lumbar region: Plan: Discussed with the patient that we will plan for surgery this week. Were planning for Friday morning. Will make her n.p.o. after midnight . All questions were addressed. Admission and Anticipated Discharge Date Admission Date: December 18, 2024 Subjective Patient continues to have marked limitations with back and leg pain with weakness. Physical Exam Physical Exam: Patient is able to ambulate with assistance. Results & Data Vital Signs (Past 12 Hours) Vital Signs Temp Pulse Resp BP Pulse Ox O2 Del Method 12/22/24 07:17 36.3 C L 79 18 117/72 99 Room Air 12/21/24 23:06 36.6 C 99 H 18 118/71 98 Room Air
[2024-12-22] MEDS: POLYETHYLENE (MIRALAX) 17 GM PACK PO SCH (09:35)
[2024-12-22 11:35] LABS: Anion Gap 9.0 (3-11); Blood Urea Nitrogen 46.0 mg/dl (6-23); Calcium 9.2 mg/dl (8.6-10.3); Carbon Dioxide 23.0 mmol/L (21-32); Chloride 101.0 mmol/L (98-107); Creatinine Clr Calc Pharmacy 26.8 ml/min; Glucose 155.0 mg/dl (70-99(Fasting)); Potassium 4.9 mmol/L (3.5-5.1); Sodium 133.0 mmol/L (136-145)
[2024-12-22 13:13] LABS: Hematocrit (blood only) 38.5 % (37.0-47.0); Hemoglobin 12.4 g/dl (12.0-16.0); Immature Granulocytes # (auto) 0.10 K/uL (0.01-0.20); Immature Granulocytes % (auto) 1.0 %; Mean Corpuscular Hemoglobin 32.2 pg (25.0-34.0); Mean Corpuscular Volume 100.0 fL (80.0-100.0); Platelet Count 219 K/uL (130-400); RDW Standard Deviation 50.4 fL (36.4-46.3); Red Blood Count 3.85 M/uL (4.20-5.40); White Blood Count 9.91 K/ul (4.8-10.8)
--- NOTE | 2024-12-22 17:56 | Hospitalist Progress Note ---
Date of Service December 22, 2024 Assessment & Plan (1) Lumbar stenosis with neurogenic claudication: (2) Recurrent falls: (3) Hypertension: (4) Stage 3b chronic kidney disease (CKD): (5) Hypothyroidism: (6) Hypomagnesemia: (7) Type 2 diabetes mellitus: Plan per previous hospitalist notes with addendum: 84 yo female with pmhx of DM Type 2, hypothyroidism, HTN, dyslipidemia, CKD Stage 3b, osteoarthritis, s/p bilateral T9-T10 facetectomies/foraminotomies and fusion done on 09/09/24 c/b radicular pain/chronic pain syndrome now following with pain management who presents to the ED today for fall and intractable back pain in the setting of deconditioning and chronic pain syndrome. Work-up in the ED included thoracic and lumbar spine x-rays, which were negative. Labs without evidence of leukocytosis or anemia. Magnesium low at 1.6. Creatinine appears to be around baseline at 1.30. Pt was referred for admission for pain management, evaluation by PT/OT, and additional work-up of worsening back pain and recurrent falls. -Suspect patient with mechanical falls at home due to progressive deconditioning and weakness/giving out of RLE -Patient has neuropathic pain with nociceptive components, neuropathic pain not being addressed by medications at home - was prescribed gabapentin in the past but reports she is not taking this/does not recall taking it -treatment for chronic pain is physical therapy, non-opioids, multifaceted pain management #Fall #Intractable Back Pain #Chronic Pain Syndrome - chronic pain in setting of facetectomy and foraminotomies in 08/2024 - has had injection at the back as an outpatient without any improvement Denies any bladder and/or bowel problem -rotate oxycodone 5mg/tramadol 50mg to dilaudid 2mg (oxycodone not effective at home, 5mg oxy=7.5MME/4=around 2, no dose reduction given noneffective oxycodone) -IV dilaudid 0.5mg for breakthrough pain -would titrate off opioids post discharge if possible -start pregablin 25mg tid, target dose 150 mg per day due to renal function - orthospine consult has not been placed - awaiting MRI of the lumbar and thoracic spine for further evaluation Minimally better since admission Will ask Ortho evaluation by Dr. Chiquita as per patient choice Remains symptomatic with back pain and radiculopathy and awaiting lumbar and thoracic MRI Appreciate orthospine input and recommendation Remains hemodynamically stable MRI of the lumbar and thoracic spine showed significant cord compression and nerve entrapment. Likely to need surgery as per orthospine -Remains otherwise medically stable and awaiting surgery by the orthospine-no medical contraindication for the proposed surgery. Has had nuclear stress echocardiogram in August which was unremarkable and the patient does not have any cardiac symptoms Pain reasonably controlled at rest 12/22 pain control plan for surgical intervention on 12/24 as per Ortho #Hypomagnesemia - Replete and repeat labs in the AM Magnesium is normal #HTN - BPs elevated in the ED, likely due to pain in combination with missed doses of medications this morning -continue lisinopril -continue metoprolol per cardiology recommendations (outpatient cardio note from July 2024 in Epic reviewed) -continue aspirin Blood pressure remains stable #DM Type 2 -not on meds at home -monitor #Hypothyroidism -continue levothyroxine #HLD -continue statin Code status: full code DVT prophylaxis: Lovenox Pt's son Bharathi (Gio Johnston) updated at the bedside. He reports that his brother (Preston Giles) has POA for decision-making. Admission and Anticipated Discharge Date Admission Date: December 18, 2024 Subjective ff up for back pain, lumbar spine compression, etc seen resting in bed, not in distress states she still has significant back pain, pain meds helping has some leg weakness, no numbness no other symptoms Review of Systems Review of Systems: all noted and negative except for above Physical Exam Physical Exam: General- oriented x 3, not in distress, speaks in sentences with no effort or accessory muscle use Eyes- anicteric Neck- no JVD Lungs- clear breath sounds bilaterally, no rales/wheezes Heart- normal rate, regular rhythm; no murmurs Abdomen- normal bowel sounds, nondistended, soft, nontender Extremities- no pretibial edema, no calf tenderness Neuro- alert, oriented x 3; no gross focal neurologic deficits Skin- warm & dry Results & Data Results & Data Vital Signs (Past 12 Hours) Vital Signs Temp Pulse Resp BP Pulse Ox O2 Del Method 12/22/24 14:42 36.6 C 74 18 96/61 L 96 Room Air 12/22/24 08:00 Room Air 08/06/25 07:17 36.3 C L 79 18 117/72 99 Room Air all noted and reviewed including below (3) Hypertension Hypertension type: unspecified Qualified Code(s): I10 - Essential (primary) hypertension (5) Hypothyroidism Hypothyroidism type: unspecified Qualified Code(s): E03.9 - Hypothyroidism, unspecified (7) Type 2 diabetes mellitus Diabetes mellitus vice president of instruction insulin use: unspecified vice president of instruction insulin use status Diabetes mellitus complication status: without complication Qualified Code(s): E11.9 - Type 2 diabetes mellitus without complications
[2024-12-22] MEDS: ENOXAPARIN INJ 30 MG/0.3 ML SYR SQ SCH (20:36)
[2024-12-22] MEDS: ACETAMINOPHEN 500 MG TAB PO SCH (21:29)
--- NOTE | 2024-12-23 08:11 | Orthopedic Progress Note ---
Date of Service December 23, 2024 Assessment & Plan (1) Spondylolisthesis, lumbar region: Plan: This time I will make the patient n.p.o. after midnight we will plan for surgery tomorrow. All questions were addressed. Admission and Anticipated Discharge Date Admission Date: December 18, 2024 Subjective Patient continues to struggle with significant back and leg pain and inability to ambulate. Physical Exam Physical Exam: Patient currently is in the chair at the bedside. Breakaway weakness to testing lower extremities. Results & Data Vital Signs (Past 12 Hours) Vital Signs Temp Pulse Resp BP Pulse Ox O2 Del Method 12/22/24 23:00 36.5 C 91 H 18 94/60 L 95 Room Air
--- NOTE | 2024-12-23 17:19 | Hospitalist Progress Note ---
Date of Service December 23, 2024 Assessment & Plan (1) Lumbar stenosis with neurogenic claudication: (2) Recurrent falls: (3) Hypertension: (4) Stage 3b chronic kidney disease (CKD): (5) Hypothyroidism: (6) Hypomagnesemia: (7) Type 2 diabetes mellitus: Plan per previous hospitalist notes with addendum: 84 yo female with pmhx of DM Type 2, hypothyroidism, HTN, dyslipidemia, CKD Stage 3b, osteoarthritis, s/p bilateral T9-T10 facetectomies/foraminotomies and fusion done on 09/09/24 c/b radicular pain/chronic pain syndrome now following with pain management who presents to the ED today for fall and intractable back pain in the setting of deconditioning and chronic pain syndrome. Work-up in the ED included thoracic and lumbar spine x-rays, which were negative. Labs without evidence of leukocytosis or anemia. Magnesium low at 1.6. Creatinine appears to be around baseline at 1.30. Pt was referred for admission for pain management, evaluation by PT/OT, and additional work-up of worsening back pain and recurrent falls. -Suspect patient with mechanical falls at home due to progressive deconditioning and weakness/giving out of RLE -Patient has neuropathic pain with nociceptive components, neuropathic pain not being addressed by medications at home - was prescribed gabapentin in the past but reports she is not taking this/does not recall taking it -treatment for chronic pain is physical therapy, non-opioids, multifaceted pain management #Fall #Intractable Back Pain #Chronic Pain Syndrome - chronic pain in setting of facetectomy and foraminotomies in 08/2024 - has had injection at the back as an outpatient without any improvement Denies any bladder and/or bowel problem -rotate oxycodone 5mg/tramadol 50mg to dilaudid 2mg (oxycodone not effective at home, 5mg oxy=7.5MME/4=around 2, no dose reduction given noneffective oxycodone) -IV dilaudid 0.5mg for breakthrough pain -would titrate off opioids post discharge if possible -start pregablin 25mg tid, target dose 150 mg per day due to renal function - orthospine consult has not been placed - awaiting MRI of the lumbar and thoracic spine for further evaluation Minimally better since admission Will ask Ortho evaluation by Dr. Chiquita as per patient choice Remains symptomatic with back pain and radiculopathy and awaiting lumbar and thoracic MRI Appreciate orthospine input and recommendation Remains hemodynamically stable MRI of the lumbar and thoracic spine showed significant cord compression and nerve entrapment. Likely to need surgery as per orthospine -Remains otherwise medically stable and awaiting surgery by the orthospine-no medical contraindication for the proposed surgery. Has had nuclear stress echocardiogram in August which was unremarkable and the patient does not have any cardiac symptoms Pain reasonably controlled at rest 12/22 pain control plan for surgical intervention on 12/24 as per Ortho 12/23 stable overall continue pain medication regimen For surgical intervention tomorrow by Dr. Porras #Hypomagnesemia - Replete and repeat labs in the AM Magnesium is normal #HTN - BPs elevated in the ED, likely due to pain in combination with missed doses of medications this morning -continue lisinopril -continue metoprolol per cardiology recommendations (outpatient cardio note from July 2024 in Epic reviewed) -continue aspirin 12/23 blood pressure on the lower side Hold lisinopril Gentle IV fluids Encouraged to drink more water Monitor closely #DM Type 2 -not on meds at home -monitor #Hypothyroidism -continue levothyroxine #HLD -continue statin Code status: full code DVT prophylaxis: Lovenox Admission and Anticipated Discharge Date Admission Date: December 18, 2024 Subjective seen sitting up in bedside chair, not in distress States she still has significant, intense back pain, worse with minimal movement Current pain regimen seems to be helping no chest pain, dyspnea, palpitations, dizziness No other new symptoms Review of Systems Review of Systems: all noted and negative except for above Physical Exam Physical Exam: General- oriented x 3, not in distress, speaks in sentences with no effort or accessory muscle use Eyes- anicteric Neck- no JVD Lungs- clear breath sounds bilaterally, no rales/wheezes Heart- normal rate, regular rhythm; no murmurs Abdomen- normal bowel sounds, nondistended, soft, nontender Extremities- no pretibial edema, no calf tenderness Neuro- alert, oriented x 3; no gross focal neurologic deficits Skin- warm & dry Results & Data Results & Data Vital Signs (Past 12 Hours) Vital Signs Temp Pulse Resp BP Pulse Ox O2 Del Method 12/23/24 13:28 36.2 C L 79 16 91/51 L 98 Room Air 08/07/25 08:58 116/65 12/23/24 08:15 36.3 C L 82 16 97/61 L 94 Room Air all noted and reviewed including below (3) Hypertension Hypertension type: unspecified Qualified Code(s): I10 - Essential (primary) hypertension (5) Hypothyroidism Hypothyroidism type: unspecified Qualified Code(s): E03.9 - Hypothyroidism, unspecified (7) Type 2 diabetes mellitus Diabetes mellitus chcf insulin use: unspecified chcf insulin use status Diabetes mellitus complication status: without complication Qualified Code(s): E11.9 - Type 2 diabetes mellitus without complications
[2024-12-23] MEDS: SODIUM CHLORIDE 0.9% 1,000 ML IV SCH (18:20)
[2024-12-24] MEDS ORDERED: MIDAZOLAM HCL 1 MG/ML 2ML VIAL ONE (06:39)
[2024-12-24] MEDS ORDERED: ROCURONIUM BROMIDE 10 MG/ML 5 ML VIAL IV ONE ×2 (06:39→08:23)
[2024-12-24] MEDS ORDERED: ONDANSETRON INJ 2 MG/ML 2 ML VIAL ONE (06:39)
[2024-12-24] MEDS ORDERED: PROPOFOL IV EMULSION 10 MG/ML 20 ML VIAL IV ONE (06:39)
[2024-12-24] MEDS ORDERED: DEXAMETHASONE SOD INJ 4 MG/ML VIAL ONE (06:39)
[2024-12-24] MEDS ORDERED: SUGAMMADEX SODIUM 200 MG/2 ML VIAL IV ONE ×2 (06:39→09:04)
[2024-12-24] MEDS ORDERED: KETAMINE HCL 10MG/ML SYR ONE (06:39)
[2024-12-24] MEDS ORDERED: HYDROmorphone INJ 2 MG/ML SYR/VIAL ONE (06:40)
--- NOTE | 2024-12-24 07:34 | History & Physical Bridge Note ---
Date of Service December 24, 2024 History & Physical Bridge Note I have examined the patient, reviewed the History & Physical and in the interval since the performance of the History & Physical I have noted the following changes of clinical significance: no changes noted Decompression fusion L2-L3 L3-L4
--- NOTE | 2024-12-24 07:35 | Anesthesiology Consultation ---
Date of Service December 24, 2024 Assessment & Plan Chart Review Chart Review: Acceptable Risk for Surgery and Patient NOT seen in Pre Admission Testing Consults Requested none ASA ASA3 Proposed Anesthesia Anesthesia Type: General Risk / Benefits Reviewed With: PT / POA / Parent / Guardian, Accepts Plan and Informed Consent Obtained History Surgery Operation Date: 12/24/24 07:45 Proposed Procedures p L2-L4 Decompression and Fusion - Wolfgang Porras, Height/Weight Height: 5 ft Weight: 82.1 kg Allergies Allergy/AdvReac Type Severity Reaction Status Date / Time sulfamethoxazole [Bactrim] AdvReac Intermediate "made the Verified 12/18/24 17:01 UTI worse" trimethoprim [Bactrim] AdvReac Intermediate "made the Verified 12/18/24 17:01 UTI worse" Medications Home Medications Medication Instructions Recorded Confirmed Last Taken acetaminophen 325 mg tablet 325 mg PO QID PRN Pain 08/18/24 12/18/24 Unknown allopurinol 300 mg tablet 300 mg PO QAM 08/18/24 12/18/24 12/17/24 aspirin 81 mg tablet,delayed 81 mg PO QAM 08/18/24 12/18/24 12/17/24 release atorvastatin 80 mg tablet 80 mg PO QAM 08/18/24 12/18/24 12/17/24 cholecalciferol (vitamin D3) 25 50 mcg PO DAILY 08/18/24 12/18/24 12/17/24 mcg (1,000 unit) capsule (Vitamin D3) hydrochlorothiazide 12.5 mg tablet 12.5 mg PO 3XWK 08/18/24 12/18/24 12/17/24 levothyroxine 50 mcg tablet 50 mcg PO QAM 08/18/24 12/18/24 12/17/24 lisinopril 10 mg tablet 10 mg PO QAM 08/18/24 12/18/24 12/17/24 metoprolol succinate 25 mg 12.5 mg PO QAM 08/18/24 12/18/24 12/17/24 tablet,extended release 24 hr oxycodone 5 mg tablet 5 mg PO Q6H PRN Pain 12/18/24 12/18/24 12/17/24 12:00 tramadol 50 mg tablet 50 mg PO Q6H PRN Pain 12/18/24 12/18/24 Unknown Active Medications Generic Name Dose Route Start Last Admin Trade Name Freq PRN Reason Stop Dose Admin Acetaminophen 1,000 mg 12/22/24 22:00 12/24/24 06:13 Acetaminophen 500 Mg Tab PO 01/21/25 21:59 1,000 mg Q8H HARIKA Administration Allopurinol 300 mg 12/19/24 09:00 12/23/24 08:55 Allopurinol 300 Mg Tab PO 01/18/25 08:59 300 mg QAM HARIKA Administration Aspirin 81 mg 12/19/24 09:00 12/23/24 09:19 Aspirin 81 Mg Ectab PO 01/18/25 08:59 Not Given QAM HARIKA Atorvastatin Calcium 80 mg 12/19/24 09:00 12/23/24 08:56 Atorvastatin 40 Mg Tab PO 01/18/25 08:59 80 mg QAM HARIKA Administration Enoxaparin Sodium 30 mg 12/22/24 21:00 12/23/24 20:21 Enoxaparin Inj 30 Mg/0.3 Ml Syr SQ 01/21/25 20:59 30 mg Q24H HARIKA Administration Hydromorphone HCl 2 mg 12/18/24 17:35 12/22/24 22:33 Hydromorphone Hcl 2 Mg Tab PO 01/01/25 17:34 2 mg Q4 PRN Administration Severe Pain (Scale 7, 8, 9,10) Hydromorphone HCl 0.5 mg 12/18/24 17:35 12/19/24 05:49 Hydromorphone Inj 0.5 Mg/0.5 Ml Syr IV 01/01/25 17:34 0.5 mg Q4 PRN Administration Breakthrough Pain Sodium Chloride 1,000 mls @ 60 mls/hr 12/23/24 15:15 12/23/24 18:20 Nss IV 12/24/24 07:54 60 mls/hr .[id number] HARIKA Administration Levothyroxine Sodium 50 mcg 12/19/24 09:00 12/23/24 08:56 Levothyroxine Sodium 50 Mcg Tablet PO 01/18/25 08:59 50 mcg QAM HARIKA Administration Metoprolol Succinate 12.5 mg 12/19/24 09:00 12/23/24 08:58 Metoprolol Succ 25mg Ext Rel Tab PO 01/18/25 08:59 12.5 mg QAM HARIKA Administration Miscellaneous 1 each 12/18/24 21:00 12/23/24 20:20 Remove Lidoderm Patch N/A 01/17/25 20:59 Not Given DAILY@2100 HARIKA Polyethylene Glycol 17 gm 12/18/24 20:22 12/21/24 06:06 Polyethylene (Miralax) 17 Gm Pack PO 01/17/25 20:21 17 gm DAILY PRN Administration Constipation Polyethylene Glycol 17 gm 12/22/24 09:00 12/23/24 08:54 Polyethylene (Miralax) 17 Gm Pack PO 01/21/25 08:59 Not Given DAILY HARIKA Pregabalin 25 mg 12/18/24 21:00 12/23/24 22:19 Pregabalin 25 Mg Cap PO 01/17/25 20:59 25 mg TID HARIKA Administration Vitamin D 50 mcg 12/19/24 09:00 12/23/24 08:56 Cholecalciferol 25 Mcg (1000 Units) Tab PO 01/18/25 08:59 50 mcg DAILY HARIKA Administration NPO Date Last Intake of Fluids: 12/23/24 Time Last Intake of Fluids: 21:00 Last Intake of Fluids Comment: tylenol at 0600 sip of water Date Last Intake of Solids: 12/23/24 Time Last Intake of Solids: 21:00 Past Medical History Medical History Carotid artery stenosis mild bilat ICA stenosis per [facility] EMR Type 2 diabetes mellitus CKD (chronic kidney disease) stage 3, GFR 30-59 ml/min Aortic stenosis moderate RBBB Hyperlipidemia Hypertension controlled, stable per pt Degenerative disc disease Osteoarthritis Gout Hypothyroidism History of kidney stones MUSA (dyspnea on exertion) chronic Exercise / Class Metabolic Activity III < 4 Walking/Shop/Light housework Past Family History Family History Mother Diabetes Aunt No problems noted. Past Surgical History Surgical History History of surgical procedure on thoracic spine T9-T10 decompression fusion - August 2024 History of dilatation and curettage History of tooth extraction History of total knee replacement right History of total hip arthroplasty bilat History of cataract surgery bilat History of tonsillectomy History of cystoscopy hx of stent and since removed Past Anesthesia History No Hx of Anesthesia Complications and No Family Hx of Anesthesia Complications History of PONV No Hx of PONV and No Hx of Motion Sickness Social History Smoking Status: Never smoker Do You Dip or Chew Tobacco: No Hx Alcohol Use: No Hx Substance Use: No substance use type: does not use Review of Systems ROS Unobtainable: All systems reviewed & are unremarkable except as noted in HPI & below Physical Exam Vital Signs Last Vital Signs Temp 36.9 C 12/24/24 07:15 Pulse 100 H 12/24/24 07:15 Resp 20 12/24/24 07:15 BP 108/54 L 12/24/24 07:15 Pulse Ox 96 12/24/24 07:15 O2 Del Method Room Air 12/24/24 07:15 ENMT Mouth: no TMJ abnormality Thyromental Distance: > or= 3.5 Finger Breadths Mallampati Class: II Neck normal visual inspection and trachea midline; neck extension not limited Respiratory normal respiratory effort Auscultation: lungs clear to auscultation bilaterally Cardiovascular Rate/Rhythm: regular rate and regular rhythm Heart Sounds: no murmur Musculoskeletal Spine: normal cervical ROM Extremities: full ROM of extremities Neurologic moves all extremities Psychiatric Orientation: alert and oriented x 3 Testing Laboratory Results 12/22/24 13:03 12/22/24 10:54 PT 10.3 Seconds (9.0-12.0) 12/18/24 14:20 INR 0.9 (0.9-1.1) 12/18/24 14:20 APTT 25 Seconds (21-31) 12/18/24 14:20 Blood Type A Negative 12/23/24 15:24 Antibody Screen NEGATIVE 12/23/24 15:24
[2024-12-24] MEDS ORDERED: PHENYLEPHRINE 100MCG/ML 5ML SYR ONE (08:14)
[2024-12-24] MEDS ORDERED: ceFAZolin 330 MG/ML 1 GM VIAL ONE (08:14)
[2024-12-24] MEDS ORDERED: PHENYLEPHRINE HCL 10 MG/ML VIAL ONE ×4 (08:14→09:01)
[2024-12-24] MEDS: BUPIVACAINE/EPINEPHRINE 0.25% 1:200,000 30 ML VIAL ONE (08:34)
[2024-12-24] MEDS: ceFAZolin 330 MG/ML 1 GM VIAL ONE ×2 (08:34→10:00)
[2024-12-24] MEDS ORDERED: ALBUMIN HUMAN 5% 12.5 GM/250 ML VIAL IV ONE (09:57)
[2024-12-24] MEDS: FLOSEAL HEMOSTATIC MATRIX 10ML TOP ONE (09:59)
--- NOTE | 2024-12-24 10:28 | Operative Report ---
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 #2 posterior spinal fusion L2-L4. #3 placement posterior instrumentation L2-L4 using camber. #4 interbody fusion L4-L3 L3-L4. #5 placement of Spira 12 x 26 mm x 2 L3-L4 and 11 x 26 mm x 2 at L2-L3. #6 placement locally harvested morselized autograft in the posterior lateral gutters. #7 placement of Proteus combined with Koros in the posterior lateral gutters and os design in the interbody space. #8 application of versa wrap over the exposed dura Surgeon Wolfgang Porras, DO Adjunct Mathematics Instructor None Estimated Blood Loss 950 Findings See Below The patient is 5 foot tall weighing over 82 kg and a BMI in excess of 35. This combined with an EBL of greater than 900 cc. Significant technical difficulty with positioning exposure and the procedure itself. This at least 50% increased operative time. And recommending a modifier 22. Specimens None Indications This is a 84-year-old female who presents problems diagnosis of failing course of nonoperative care demonstrating significant neurologic decline and functional limitation she is here for surgical invention. Description of Procedure Patient was met with identified informed consent obtained. Patient was then taken to the operative suite underwent a patient placed in a prone position on the Dany table atop the Kevon frame. All bony prominences well-padded eyes inspected to ensure no external pressure placed upon the. This point lumbar spine was prepped and draped in normal sterile fashion. Sharp dissection with the assistance of Bovie cautery from down to and exposing the lamina transverse processes of L2-L3-L4 bilaterally. Regardless of fashion complete laminectomy of L3 was performed bleeding bilateral medial facetectomies and foraminotomies addressing severe neural compression. This is followed by complete laminectomy of L2 with bilateral medial facetectomies and foraminotomies addressing severe neural compression and lastly partial laminectomy of L1 with bilateral medial facetectomies to address all subarticular stenosis. Pedicle screws were then placed in L2-L3-L4 bilaterally with assistance of fluoroscopy and appropriately sized ke contoured and placed. By way of transforaminal approach on the right a discectomy of L3-L4 was performed endplates corrected to subcortical bone and a 12 x 26 mm spiral cage tapped into position. Then proceeded to the left transforaminal region at L3-L4. Again discectomy performed. Endplates guided to subcortically bone. A second 12 x 26 mm spiral cage tapped in position. Then proceeded to L to L3 and by way of transfer approach and left a discectomy was performed. Endplates guided to subcortical bleeding bone and 11 x 26 mm spiral cage tapped in position. Number seated to the right transforaminal region at L2-L3. Again discectomy performed. Endplates coated distal cortical bleeding bone. A second 11 x 26 mm spiral cage tapped into position. Please note all cages were packed with os design bone graft. The rods were then compressed locked in a final position bilaterally. The transverse processes of L2-L3-L4 burred to subcortical bleeding bone. Proteus combined with Koros and local autograft placed in posterior gutters. First wrap placed over the exposed dura. 15 round ATA drain inserted. The incision was then closed with 1 Vicryl the fascia 2-0 Vicryl subcutaneously and 4-0 Monocryl for final skin closure. Steri-Strips sterile dressing placed. Patient waken taken to PACU stable condition. I attest to the content of the Intraoperative Record and any orders documented therein. Any exceptions are noted below.
--- NOTE | 2024-12-24 10:56 | Fluoroscopy Report ---
FL lumbar spine 2-3V CLINICAL HISTORY: L2-L4 DECOMPRESSION/FUSION COMPARISON STUDY: 12/18/2024 FLUOROSCOPY TIME: 22 seconds FLUOROSCOPY IMAGES: 3 EXPOSURE DOSE: 18 mGy FINDINGS: Fluoroscopy was provided for lumbar fusion. IMPRESSION: Intraoperative fluoroscopy. ACT 112: Negative or not required by law. Electronically signed by: Tony Noguera M.D. 12/24/2024 10:55 AM
[2024-12-24] MEDS ORDERED: SOD PHOSPHATE/SOD BIPHOSPHATE ENEMA 132 ML BTL PR PRN (11:43)
[2024-12-24] MEDS ORDERED: HYDROmorphone INJ 0.5 MG/0.5 ML SYR IV PRN (11:43)
[2024-12-24] MEDS ORDERED: MAGNESIUM HYDROXIDE SUSP 30 ML UDC PO PRN (11:43)
[2024-12-24] MEDS ORDERED: ACETAMINOPHEN 1,000 MG/100 ML VIAL IV PRN (11:43)
[2024-12-24] MEDS ORDERED: DO NOT ADMINISTER FLU VACCINE PRN (11:43)
[2024-12-24] MEDS ORDERED: ONDANSETRON 4 MG OD TAB PO PRN (11:43)
[2024-12-24] MEDS ORDERED: PROMETHAZINE 12.5 MG/50.5 ML BAG IV PRN (11:43)
[2024-12-24] MEDS ORDERED: diphenhydrAMINE Capsule 25 MG CAP PO PRN (11:43)
[2024-12-24] MEDS ORDERED: LORazepam 0.5 MG TAB PO PRN (11:43)
[2024-12-24] MEDS ORDERED: HYDROmorphone INJ 1 MG/ML SYRINGE IV PRN (11:43)
[2024-12-24] MEDS ORDERED: METOCLOPRAMIDE HCL INJ 5 MG/ML 2 ML VIAL IV PRN (11:43)
[2024-12-24] MEDS ORDERED: ALUMINUM/MAGNESIUM SUSP 30 ML UDC PO PRN (11:43)
[2024-12-24] MEDS ORDERED: NALOXONE HCL 0.4 MG/1 ML VIAL/CARP IV PRN (11:43)
[2024-12-24] MEDS ORDERED: FAMOTIDINE 20 MG TAB PO PRN (11:43)
[2024-12-24] MEDS ORDERED: DO NOT ADMINISTER PNEUMOCOCCAL VACCINE PRN (11:43)
[2024-12-24] MEDS ORDERED: ONDANSETRON INJ 2 MG/ML 2 ML VIAL IV PRN (11:43)
[2024-12-24] MEDS: ONDANSETRON INJ 2 MG/ML 2 ML VIAL IV PRN (11:45)
--- NOTE | 2024-12-24 11:57 | Anesthesiology Progress Note ---
Date of Service December 24, 2024 Anesthesia Post Procedure Vital Signs Vital Signs: Temp Pulse Pulse Resp BP Pulse Ox O2 Del Method 12/24/24 11:40 36.4 C L 92 H 14 95/59 L 95 Room Air 12/24/24 11:23 92 H 12 95/44 L 93 Room Air 12/24/24 11:15 89 12 91/55 L 92 Room Air 12/24/24 11:05 36.6 C 92 H 12 94/44 L 95 Room Air 12/24/24 10:55 89 16 102/47 L 99 Oxymask 12/24/24 10:45 87 12 92/44 L 100 Oxymask 12/24/24 10:35 88 16 101/53 L 100 Oxymask 12/24/24 10:28 36.6 C 100 H 15 125/55 L 100 Oxymask 12/24/24 07:15 36.9 C 100 H 20 108/54 L 96 Room Air 12/23/24 22:17 36.6 C 82 18 128/64 99 Room Air 12/23/24 13:28 36.2 C L 79 16 91/51 L 98 Room Air O2 Flow Rate 12/24/24 11:40 12/24/24 11:23 0 12/24/24 11:15 0 12/24/24 11:05 0 12/24/24 10:55 4 12/24/24 10:45 8 12/24/24 10:35 8 12/24/24 10:28 8 12/24/24 07:15 12/23/24 22:17 12/23/24 13:28 Pain Intensity Bilateral Back: Pain Intensity: 3 Right Leg: Pain Intensity: 4 Transfer of Care Handoff Completed per policy Notes Mental Status: alert / awake / arousable Patient Amnestic to Procedure: Yes Nausea / Vomiting: adequately controlled Pain: adequately controlled Airway Patency, RR, SpO2: stable & adequate BP & HR: stable & adequate Hydration State: stable & adequate Anesthetic Complications: no major complications apparent and Pt Satisfied with anesthetic care
[2024-12-24] MEDS: LACTATED RINGER'S 1,000 ML IV SCH (12:30)
--- NOTE | 2024-12-24 19:15 | Hospitalist Progress Note ---
Date of Service December 24, 2024 delayed entry date of service noted above Assessment & Plan (1) Lumbar stenosis with neurogenic claudication: (2) Recurrent falls: (3) Hypertension: (4) Stage 3b chronic kidney disease (CKD): (5) Hypothyroidism: (6) Hypomagnesemia: (7) Type 2 diabetes mellitus: Plan per previous hospitalist notes with addendum: 84 yo female with pmhx of DM Type 2, hypothyroidism, HTN, dyslipidemia, CKD Stage 3b, osteoarthritis, s/p bilateral T9-T10 facetectomies/foraminotomies and fusion done on 09/09/24 c/b radicular pain/chronic pain syndrome now following with pain management who presents to the ED today for fall and intractable back pain in the setting of deconditioning and chronic pain syndrome. Work-up in the ED included thoracic and lumbar spine x-rays, which were negative. Labs without evidence of leukocytosis or anemia. Magnesium low at 1.6. Creatinine appears to be around baseline at 1.30. Pt was referred for admission for pain management, evaluation by PT/OT, and additional work-up of worsening back pain and recurrent falls. -Suspect patient with mechanical falls at home due to progressive deconditioning and weakness/giving out of RLE -Patient has neuropathic pain with nociceptive components, neuropathic pain not being addressed by medications at home - was prescribed gabapentin in the past but reports she is not taking this/does not recall taking it -treatment for chronic pain is physical therapy, non-opioids, multifaceted pain management #Fall #Intractable Back Pain #Chronic Pain Syndrome - chronic pain in setting of facetectomy and foraminotomies in 08/2024 - has had injection at the back as an outpatient without any improvement Denies any bladder and/or bowel problem -rotate oxycodone 5mg/tramadol 50mg to dilaudid 2mg (oxycodone not effective at home, 5mg oxy=7.5MME/4=around 2, no dose reduction given noneffective oxycodone) -IV dilaudid 0.5mg for breakthrough pain -would titrate off opioids post discharge if possible -start pregablin 25mg tid, target dose 150 mg per day due to renal function - orthospine consult has not been placed - awaiting MRI of the lumbar and thoracic spine for further evaluation Minimally better since admission Will ask Ortho evaluation by Dr. Porras as per patient choice Remains symptomatic with back pain and radiculopathy and awaiting lumbar and thoracic MRI Appreciate orthospine input and recommendation Remains hemodynamically stable MRI of the lumbar and thoracic spine showed significant cord compression and nerve entrapment. Likely to need surgery as per orthospine -Remains otherwise medically stable and awaiting surgery by the orthospine-no medical contraindication for the proposed surgery. Has had nuclear stress echocardiogram in August which was unremarkable and the patient does not have any cardiac symptoms Pain reasonably controlled at rest 12/22 pain control plan for surgical intervention on 12/24 as per Ortho 12/23 stable overall continue pain medication regimen For surgical intervention tomorrow by Dr. Porras 12/24 continue to monitor closely #Hypomagnesemia - Replete and repeat labs in the AM Magnesium is normal #HTN - BPs elevated in the ED, likely due to pain in combination with missed doses of medications this morning -continue lisinopril -continue metoprolol per cardiology recommendations (outpatient cardio note from July 2024 in Epic reviewed) -continue aspirin 12/24 continue to monitor #DM Type 2 -not on meds at home -monitor #Hypothyroidism -continue levothyroxine #HLD -continue statin Code status: full code DVT prophylaxis: Lovenox Admission and Anticipated Discharge Date Admission Date: December 18, 2024 Subjective Resting in bed, comfortable Patient's son at the bedside visiting States she feels much better Minimal back pain Can move legs better No other new symptom Review of Systems Review of Systems: all noted and negative except for above Physical Exam Physical Exam: General- oriented x 3, not in distress, speaks in sentences with no effort or accessory muscle use Eyes- anicteric Neck- no JVD Lungs- clear breath sounds bilaterally, no rales/wheezes Heart- normal rate, regular rhythm; no murmurs Abdomen- normal bowel sounds, nondistended, soft, nontender Extremities- no pretibial edema, no calf tenderness Neuro- alert, oriented x 3; no gross focal neurologic deficits Skin- warm & dry Results & Data Results & Data Vital Signs (Past 12 Hours) Vital Signs Temp Pulse Pulse Resp BP BP Pulse Ox 12/24/24 14:41 36.4 C L 82 18 107/52 L 99 12/24/24 13:39 36.3 C L 88 18 102/62 99 12/24/24 12:40 36.4 C L 86 14 116/70 97 12/24/24 12:11 36.4 C L 87 18 110/67 96 12/24/24 11:40 36.4 C L 92 H 14 95/59 L 95 12/24/24 11:23 92 H 12 95/44 L 93 12/24/24 11:15 89 12 91/55 L 92 12/24/24 11:05 36.6 C 92 H 12 94/44 L 95 12/24/24 10:55 89 16 102/47 L 99 12/24/24 10:45 87 12 92/44 L 100 12/24/24 10:35 88 16 101/53 L 100 12/24/24 10:28 36.6 C 100 H 15 125/55 L 100 O2 Del Method O2 Flow Rate 12/24/24 14:41 Room Air 12/24/24 13:39 Room Air 12/24/24 12:40 Room Air 12/24/24 12:11 Room Air 12/24/24 11:40 Room Air 12/24/24 11:23 Room Air 0 12/24/24 11:15 Room Air 0 12/24/24 11:05 Room Air 0 12/24/24 10:55 Oxymask 4 12/24/24 10:45 Oxymask 8 12/24/24 10:35 Oxymask 8 12/24/24 10:28 Oxymask 8 all noted and reviewed including below (3) Hypertension Hypertension type: unspecified Qualified Code(s): I10 - Essential (primary) hypertension (5) Hypothyroidism Hypothyroidism type: unspecified Qualified Code(s): E03.9 - Hypothyroidism, unspecified (7) Type 2 diabetes mellitus Diabetes mellitus complication status: without complication Diabetes mellitus termite inspector insulin use: unspecified alf insulin use status Qualified Code(s): E11.9 - Type 2 diabetes mellitus without complications
[2024-12-24] MEDS: DOCUSATE SODIUM/SENNA 50/8.6MG TAB PO SCH (20:40)
[2024-12-25] MEDS: POLYETHYLENE (MIRALAX) 17 GM PACK PO SCH (05:34)
[2024-12-25 06:29] LABS: Hematocrit (blood only) 22.9 % (37.0-47.0); Hemoglobin 7.6 g/dl (12.0-16.0); Immature Granulocytes # (auto) 0.07 K/uL (0.01-0.20); Immature Granulocytes % (auto) 0.6 %; Mean Corpuscular Hemoglobin 33.2 pg (25.0-34.0); Mean Corpuscular Volume 100.0 fL (80.0-100.0); Platelet Count 163 K/uL (130-400); RDW Standard Deviation 50.5 fL (36.4-46.3); Red Blood Count 2.29 M/uL (4.20-5.40); White Blood Count 10.94 K/ul (4.8-10.8)
[2024-12-25 07:00] LABS: Polychromasia 1+
[2024-12-25 07:11] LABS: Anion Gap 8.0 (3-11); Blood Urea Nitrogen 57.0 mg/dl (6-23); Calcium 8.4 mg/dl (8.6-10.3); Carbon Dioxide 21.0 mmol/L (21-32); Chloride 107.0 mmol/L (98-107); Creatinine Clr Calc Pharmacy 22.7 ml/min; Glucose 203.0 mg/dl (70-99(Fasting)); Potassium 5.8 mmol/L (3.5-5.1); Sodium 136.0 mmol/L (136-145)
[2024-12-25] MEDS: dexAMETHasone 6 MG in SYRINGE 0 ML IV SCH (08:57)
[2024-12-25] MEDS: SODIUM CHLORIDE 0.9% 500 ML IV ONE (10:17)
--- NOTE | 2024-12-25 10:26 | Orthopedic Progress Note ---
Date of Service December 25, 2024 Assessment & Plan (1) Spondylolisthesis, lumbar region: Plan: At this time she is struggling with hypotension. She may require blood transfusion. She is however comfortable. I would encourage her to transfer to chair and ambulate as tolerated with therapy. Admission and Anticipated Discharge Date Admission Date: December 18, 2024 Subjective Patient's back pain and leg pain are improved. She struggling with hypotension. Physical Exam Physical Exam: Patient is currently in bed. She is alert and oriented. She is extracted testing. Results & Data Vital Signs (Past 12 Hours) Vital Signs Temp Pulse Resp BP Pulse Ox O2 Del Method 12/25/24 07:37 36.4 C L 86 19 109/70 98 Room Air 12/25/24 03:00 37.2 C 99 H 18 97/58 L 95 Room Air 12/24/24 23:36 37.3 C 106 H 18 105/68 97 Room Air Queries Orthopedic Spine Acute Posthemorrhagic Anemia: Yes Obesity: Yes
[2024-12-25] MEDS: SODIUM CHLORIDE 0.9% 1,000 ML IV SCH (11:23)
--- NOTE | 2024-12-25 19:56 | Hospitalist Progress Note ---
Date of Service December 25, 2024 delayed entry date of service noted above Assessment & Plan (1) Lumbar stenosis with neurogenic claudication: (2) Recurrent falls: (3) Hypertension: (4) Stage 3b chronic kidney disease (CKD): (5) Hypothyroidism: (6) Hypomagnesemia: (7) Type 2 diabetes mellitus: Plan per previous hospitalist notes with addendum: 84 yo female with pmhx of DM Type 2, hypothyroidism, HTN, dyslipidemia, CKD Stage 3b, osteoarthritis, s/p bilateral T9-T10 facetectomies/foraminotomies and fusion done on 09/09/24 c/b radicular pain/chronic pain syndrome now following with pain management who presents to the ED today for fall and intractable back pain in the setting of deconditioning and chronic pain syndrome. Work-up in the ED included thoracic and lumbar spine x-rays, which were negative. Labs without evidence of leukocytosis or anemia. Magnesium low at 1.6. Creatinine appears to be around baseline at 1.30. Pt was referred for admission for pain management, evaluation by PT/OT, and additional work-up of worsening back pain and recurrent falls. -Suspect patient with mechanical falls at home due to progressive deconditioning and weakness/giving out of RLE -Patient has neuropathic pain with nociceptive components, neuropathic pain not being addressed by medications at home - was prescribed gabapentin in the past but reports she is not taking this/does not recall taking it -treatment for chronic pain is physical therapy, non-opioids, multifaceted pain management #Fall #Intractable Back Pain #Chronic Pain Syndrome - chronic pain in setting of facetectomy and foraminotomies in 08/2024 - has had injection at the back as an outpatient without any improvement Denies any bladder and/or bowel problem -rotate oxycodone 5mg/tramadol 50mg to dilaudid 2mg (oxycodone not effective at home, 5mg oxy=7.5MME/4=around 2, no dose reduction given noneffective oxycodone) -IV dilaudid 0.5mg for breakthrough pain -would titrate off opioids post discharge if possible -start pregablin 25mg tid, target dose 150 mg per day due to renal function - orthospine consult has not been placed - awaiting MRI of the lumbar and thoracic spine for further evaluation Minimally better since admission Will ask Ortho evaluation by Dr. Porras as per patient choice Remains symptomatic with back pain and radiculopathy and awaiting lumbar and thoracic MRI Appreciate orthospine input and recommendation Remains hemodynamically stable MRI of the lumbar and thoracic spine showed significant cord compression and nerve entrapment. Likely to need surgery as per orthospine -Remains otherwise medically stable and awaiting surgery by the orthospine-no medical contraindication for the proposed surgery. Has had nuclear stress echocardiogram in August which was unremarkable and the patient does not have any cardiac symptoms Pain reasonably controlled at rest 12/22 pain control plan for surgical intervention on 12/24 as per Ortho 12/25 pain much better monitor Hg monitor closely #Hypomagnesemia - Replete and repeat labs in the AM Magnesium is normal #HTN - BPs elevated in the ED, likely due to pain in combination with missed doses of medications this morning -continue lisinopril -continue metoprolol per cardiology recommendations (outpatient cardio note from July 2024 in Epic reviewed) -continue aspirin 12/25 BP improving continue to monitor #DM Type 2 -not on meds at home -monitor #Hypothyroidism -continue levothyroxine #HLD -continue statin Code status: full code DVT prophylaxis: Lovenox Admission and Anticipated Discharge Date Admission Date: December 18, 2024 Subjective seen resting in bedside chair Good spirits States she feels much better Minimal back pain Can move a lot better No shortness of breath, chest pain, nausea No other new symptom Review of Systems Review of Systems: all noted and negative except for above Physical Exam Physical Exam: General- oriented x 3, not in distress, speaks in sentences with no effort or accessory muscle use Eyes- anicteric Neck- no JVD Lungs- clear breath sounds bilaterally Heart- normal rate, regular rhythm; no murmurs Abdomen- normal bowel sounds, nondistended, soft, nontender Extremities- no pretibial edema, no calf tenderness Neuro- alert, oriented x 3; no gross focal neurologic deficits Skin- warm & dry Results & Data Results & Data Vital Signs (Past 12 Hours) Vital Signs Temp Pulse Resp BP BP Pulse Ox O2 Del Method 12/25/24 15:32 36.4 C L 77 18 113/70 96 Room Air 12/25/24 11:07 36.4 C L 77 19 110/63 97 Room Air all noted and reviewed including below (3) Hypertension Hypertension type: unspecified Qualified Code(s): I10 - Essential (primary) hypertension (5) Hypothyroidism Hypothyroidism type: unspecified Qualified Code(s): E03.9 - Hypothyroidism, unspecified (7) Type 2 diabetes mellitus Diabetes mellitus complication status: without complication Diabetes mellitus intermediate card tender insulin use: unspecified long-term insulin use status Qualified Code(s): E11.9 - Type 2 diabetes mellitus without complications
[2024-12-26 00:20] LABS: Hematocrit (blood only) 21.9 % (37.0-47.0); Hemoglobin 7.0 g/dl (12.0-16.0)
[2024-12-26 00:45] LABS: Anion Gap 7.0 (3-11); Blood Urea Nitrogen 55.0 mg/dl (6-23); Calcium 8.1 mg/dl (8.6-10.3); Carbon Dioxide 19.0 mmol/L (21-32); Chloride 106.0 mmol/L (98-107); Creatinine Clr Calc Pharmacy 24.1 ml/min; Glucose 277.0 mg/dl (70-99(Fasting)); Potassium 6.1 mmol/L (3.5-5.1); Sodium 132.0 mmol/L (136-145)
--- NOTE | 2024-12-26 00:58 | Communication Note ---
Date of Service: December 26, 2024 Made aware by RN of potassium for 5.8 from 8/9 a.m. blood work. Patient comfortable. Repeat potassium noted to be 6.1 EKG as per my interpretation rate 80, NSR, LAD, RBBB, no ischemia AP Hyperkalemia Calcium gluconate Regular insulin, bicarb Nephrology consult if without improvement
[2024-12-26] MEDS: INSULIN HUMAN REGULAR PER UNIT 5 UNITS in SYRINGE 4.95 ML IV ONE ×2 (01:09→04:29)
[2024-12-26] MEDS: SODIUM BICARB 8.4% INJ 50 MEQ/50 ML SYR IV STA (01:09)
[2024-12-26] MEDS: CALCIUM GLUCONATE 1,000 MG/60 ML BAG IV STA (01:09)
[2024-12-26] MEDS: DEXTROSE 50% 50 ML SYRINGE IV ONE ×2 (01:21→04:29)
[2024-12-26 03:40] LABS: Hematocrit (blood only) 20.2 % (37.0-47.0); Hemoglobin 6.6 g/dl (12.0-16.0); Mean Corpuscular Hemoglobin 31.9 pg (25.0-34.0); Mean Corpuscular Volume 97.6 fL (80.0-100.0); Platelet Count 157 K/uL (130-400); RDW Standard Deviation 49.1 fL (36.4-46.3); Red Blood Count 2.07 M/uL (4.20-5.40); White Blood Count 10.92 K/ul (4.8-10.8)
[2024-12-26 03:50] LABS: Anion Gap 3.0 (3-11); Blood Urea Nitrogen 56.0 mg/dl (6-23); Calcium 8.3 mg/dl (8.6-10.3); Carbon Dioxide 24.0 mmol/L (21-32); Chloride 107.0 mmol/L (98-107); Creatine Kinase 116.0 U/L (26-192); Creatinine Clr Calc Pharmacy 26.5 ml/min; Glucose 164.0 mg/dl (70-99(Fasting)); Potassium 5.8 mmol/L (3.5-5.1); Sodium 134.0 mmol/L (136-145)
[2024-12-26 03:56] LABS: Immature Granulocytes # (auto) 0.15 K/uL (0.01-0.20); Immature Granulocytes % (auto) 1.4 %; Polychromasia 1+
[2024-12-26] MEDS ORDERED: SODIUM CHLORIDE 0.9% 100 ML IV PRN (04:02)
[2024-12-26] MEDS: SODIUM ZIRCONIUM CYCLOSILICATE 10 GM PACKET PO SCH ×2 (04:29→20:18)
[2024-12-26] MEDS ORDERED: ACETAMINOPHEN 500 MG TAB PO PRN (08:33)
--- NOTE | 2024-12-26 09:30 | Orthopedic Progress Note ---
Date of Service December 26, 2024 Assessment & Plan (1) Spondylolisthesis, lumbar region: Plan: At this time we will initiate physical therapy. Continue to monitor ATA output. Anticipate discharge to rehab earlier this week. Admission and Anticipated Discharge Date Admission Date: December 18, 2024 Subjective Back pain controlled leg pain improved. Patient did not mobilize well yesterday secondary to hypotension and postop anemia. She has been transfused 1 unit. Hopefully we can begin therapy today. Physical Exam Physical Exam: Patient is in bed. She is comfortable. Distracted testing. Results & Data Vital Signs (Past 12 Hours) Vital Signs Temp Pulse Pulse Resp BP BP BP 12/26/24 08:00 36.5 C 67 134/74 12/26/24 06:56 36.5 C 77 18 146/80 H 12/26/24 06:00 36.4 C L 73 16 144/78 H 12/26/24 05:30 36.5 C 70 16 127/71 12/26/24 05:15 36.9 C 75 14 126/73 12/26/24 04:59 36.6 C 81 14 111/68 12/26/24 04:36 36.6 C 81 14 111/68 12/25/24 23:13 36.8 C 81 18 120/60 Pulse Ox O2 Del Method 12/26/24 08:00 98 12/26/24 06:56 96 12/26/24 06:00 98 12/26/24 05:30 97 12/26/24 05:15 96 12/26/24 04:59 97 12/26/24 04:36 97 Room Air 12/25/24 23:13 96 Room Air Queries Orthopedic Spine Acute Posthemorrhagic Anemia: Yes Obesity: Yes
[2024-12-26 09:46] LABS: Hematocrit (blood only) 25.5 % (37.0-47.0); Hemoglobin 8.3 g/dl (12.0-16.0)
--- NOTE | 2024-12-26 09:54 | Nephrology Consultation ---
Date of Consultation December 26, 2024 Assessment & Plan (1) Hyperkalemia: Hyperkalemia likely secondary to Rodrigo I on CKD, blood transfusion This has improved with medical management and Lokelma Renal functions have also returned to baseline after IV fluids, urine output is also good. 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 - strict low-potassium diet while in hospital( I saw bananas on her table) - needs better blood sugar control. - no NSAIDs/Curtis/ARB (2) Stage 3b chronic kidney disease (CKD): this has now returned to baseline with serum creatinine in mid 1s after IV fluids (3) S/P spinal surgery: History of Present Illness Reason for Consultation: Hyperkalemia Attending Physician: Myles Darling MD History of Present Illness 84 yo female with who presents to the ED on 12/18 w/ fall and intractable back pain s/p spinal surgery on 12/24.. Creatinine was at baseline at 1.30 with normal potassium 4.7.Since 12/25 his k has been in late 5.0's with K rising as high as 6.0 on yesterday which he received Dextrose/ insulin/ calcium and bicarbonate nad Lokelma, repeat K is 5.4, He received 1 unit PBRC on 12/25.,Renal functions has been around baseline , Peak creatnine of 1.7 on 12/25.BP has been soft w// systolics in 100's over the last 2 days. and good urine output.Weight has been stable at around 82 kilos, Blood sugar has not been adequately controlled while in the hospital. PMH-DM Type 2, hypothyroidism, HTN, dyslipidemia, CKD Stage 3b, osteoarthritis, s/p bilateral T9-T10 facetectomies/foraminotomies and fusion done on 09/09/24 c/b radicular pain/chronic pain syndrome. Allergies Allergy/AdvReac Type Severity Reaction Status Date / Time sulfamethoxazole [Bactrim] AdvReac Intermediate "made the Verified 12/18/24 17:01 UTI worse" trimethoprim [Bactrim] AdvReac Intermediate "made the Verified 12/18/24 17:01 UTI worse" Home Medications Medication Instructions Recorded Confirmed Type acetaminophen 325 mg tablet 325 mg PO QID PRN Pain 08/18/24 12/18/24 History allopurinol 300 mg tablet 300 mg PO QAM 08/18/24 12/18/24 History aspirin 81 mg tablet,delayed 81 mg PO QAM 08/18/24 12/18/24 History release atorvastatin 80 mg tablet 80 mg PO QAM 08/18/24 12/18/24 History cholecalciferol (vitamin D3) 25 50 mcg PO DAILY 08/18/24 12/18/24 History mcg (1,000 unit) capsule (Vitamin D3) hydrochlorothiazide 12.5 mg tablet 12.5 mg PO 3XWK 08/18/24 12/18/24 History levothyroxine 50 mcg tablet 50 mcg PO QAM 08/18/24 12/18/24 History lisinopril 10 mg tablet 10 mg PO QAM 08/18/24 12/18/24 History metoprolol succinate 25 mg 12.5 mg PO QAM 08/18/24 12/18/24 History tablet,extended release 24 hr oxycodone 5 mg tablet 5 mg PO Q6H PRN Pain 12/18/24 12/18/24 History tramadol 50 mg tablet 50 mg PO Q6H PRN Pain 12/18/24 12/18/24 History Patient History Medical History Carotid artery stenosis mild bilat ICA stenosis per [facility] EMR Type 2 diabetes mellitus CKD (chronic kidney disease) stage 3, GFR 30-59 ml/min Aortic stenosis moderate RBBB Hyperlipidemia Hypertension controlled, stable per pt Degenerative disc disease Osteoarthritis Gout Hypothyroidism History of kidney stones MUSA (dyspnea on exertion) chronic Surgical History History of surgical procedure on thoracic spine T9-T10 decompression fusion - August 2024 History of dilatation and curettage History of tooth extraction History of total knee replacement right History of total hip arthroplasty bilat History of cataract surgery bilat History of tonsillectomy History of cystoscopy hx of stent and since removed Family History Mother Diabetes Aunt No problems noted. Social History Smoking Status: Never smoker Second Hand Exposure: No; Do You Dip or Chew Tobacco: No; Tobacco Cessation Education Requested by Patient: No Hx Alcohol Use: No Hx Substance Use: No Preferred Language: Welsh Communication Ability: Effective Catalytic Converter Operator Required: No Beliefs That Will Affect Care: None Current Living Situation: Family Other Information That Helps Us Care for You: No Feels Safe at Home: Yes Safety Concerns: Feels Safe At This Time Assistive Devices: Cane, Hospital Bed and Walker Review of Systems 2 Review of Systems: All systems reviewed & are unremarkable except as noted in HPI & below Physical Exam 2 Physical Exam: Trace bilateral pedal edema Results & Data Vital Signs (Past 12 Hours) Vital Signs Temp Pulse Pulse Resp BP BP BP 12/26/24 08:00 36.5 C 67 134/74 12/26/24 06:56 36.5 C 77 18 146/80 H 12/26/24 06:00 36.4 C L 73 16 144/78 H 12/26/24 05:30 36.5 C 70 16 127/71 12/26/24 05:15 36.9 C 75 14 126/73 12/26/24 04:59 36.6 C 81 14 111/68 12/26/24 04:36 36.6 C 81 14 111/68 12/25/24 23:13 36.8 C 81 18 120/60 Pulse Ox O2 Del Method 12/26/24 08:00 98 12/26/24 06:56 96 12/26/24 06:00 98 12/26/24 05:30 97 12/26/24 05:15 96 12/26/24 04:59 97 12/26/24 04:36 97 Room Air 12/25/24 23:13 96 Room Air Laboratory Results 12/26/24 09:22
[2024-12-26 10:07] LABS: Anion Gap 6.0 (3-11); Blood Urea Nitrogen 55.0 mg/dl (6-23); Calcium 8.4 mg/dl (8.6-10.3); Carbon Dioxide 23.0 mmol/L (21-32); Chloride 107.0 mmol/L (98-107); Creatinine Clr Calc Pharmacy 28.5 ml/min; Glucose 241.0 mg/dl (70-99(Fasting)); Potassium 5.4 mmol/L (3.5-5.1); Sodium 136.0 mmol/L (136-145)
[2024-12-26] MEDS: LACTULOSE SYRUP 20 GM/30 ML UDC PO ONE (10:46)
[2024-12-26] MEDS: PANTOprazole 40 MG/10 ML SYR IV SCH (10:47)
[2024-12-26 14:18] LABS: Hematocrit (blood only) 30.4 % (37.0-47.0); Hemoglobin 10.1 g/dl (12.0-16.0)
--- NOTE | 2024-12-26 16:57 | Hospitalist Progress Note ---
Date of Service December 26, 2024 Assessment & Plan (1) Lumbar stenosis with neurogenic claudication: (2) Recurrent falls: (3) Hypertension: (4) Stage 3b chronic kidney disease (CKD): (5) Hypothyroidism: (6) Hypomagnesemia: (7) Type 2 diabetes mellitus: Plan per previous hospitalist notes with addendum: 84 yo female with pmhx of DM Type 2, hypothyroidism, HTN, dyslipidemia, CKD Stage 3b, osteoarthritis, s/p bilateral T9-T10 facetectomies/foraminotomies and fusion done on 09/09/24 c/b radicular pain/chronic pain syndrome now following with pain management who presents to the ED today for fall and intractable back pain in the setting of deconditioning and chronic pain syndrome. Work-up in the ED included thoracic and lumbar spine x-rays, which were negative. Labs without evidence of leukocytosis or anemia. Magnesium low at 1.6. Creatinine appears to be around baseline at 1.30. Pt was referred for admission for pain management, evaluation by PT/OT, and additional work-up of worsening back pain and recurrent falls. -Suspect patient with mechanical falls at home due to progressive deconditioning and weakness/giving out of RLE -Patient has neuropathic pain with nociceptive components, neuropathic pain not being addressed by medications at home - was prescribed gabapentin in the past but reports she is not taking this/does not recall taking it -treatment for chronic pain is physical therapy, non-opioids, multifaceted pain management #Fall #Intractable Back Pain #Chronic Pain Syndrome - chronic pain in setting of facetectomy and foraminotomies in 08/2024 - has had injection at the back as an outpatient without any improvement Denies any bladder and/or bowel problem -rotate oxycodone 5mg/tramadol 50mg to dilaudid 2mg (oxycodone not effective at home, 5mg oxy=7.5MME/4=around 2, no dose reduction given noneffective oxycodone) -IV dilaudid 0.5mg for breakthrough pain -would titrate off opioids post discharge if possible -start pregablin 25mg tid, target dose 150 mg per day due to renal function - orthospine consult has not been placed - awaiting MRI of the lumbar and thoracic spine for further evaluation Minimally better since admission Will ask Ortho evaluation by Dr. Chiquita as per patient choice Remains symptomatic with back pain and radiculopathy and awaiting lumbar and thoracic MRI Appreciate orthospine input and recommendation Remains hemodynamically stable MRI of the lumbar and thoracic spine showed significant cord compression and nerve entrapment. Likely to need surgery as per orthospine -Remains otherwise medically stable and awaiting surgery by the orthospine-no medical contraindication for the proposed surgery. Has had nuclear stress echocardiogram in August which was unremarkable and the patient does not have any cardiac symptoms Pain reasonably controlled at rest 12/26 post op day 2 #Acute Blood Loss Anemia -- likely from surgery Hg trended down to 6.6 1 unit pRBC ordered Hg incresaed to 8 --> 10 monitor closely -- FOBT negative #Hyperkalemia -- K 6.0 no ekg changes -- evaluated by Nephro Dr. Jay likely secondary to Rodrigo I on CKD, blood transfusion This has improved with medical management and Lokelma Renal functions have also returned to baseline after IV fluids, urine output is also good. 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 - strict low-potassium diet while in hospital( I saw bananas on her table) - needs better blood sugar control. - no NSAIDs/Curtis/ARB #Hypomagnesemia - Replete and repeat labs in the AM Magnesium is normal #HTN - BPs elevated in the ED, likely due to pain in combination with missed doses of medications this morning -continue lisinopril -continue metoprolol per cardiology recommendations (outpatient cardio note from July 2024 in Epic reviewed) -continue aspirin 12/26 improving Lisinopril on hold--> will need to dc given hyperkalemia #DM Type 2 -not on meds at home -monitor - A1c 7.1 - (+) hyperglycemia likely sec to steroids will order ISS and pharmacy glycemic control #Hypothyroidism -continue levothyroxine #HLD -continue statin Code status: full code DVT prophylaxis: Lovenox--> held for now in light of anemia Admission and Anticipated Discharge Date Admission Date: December 18, 2024 Subjective seen resting in chair, comfortable in good spirits states she feels better overall has some mild pain from surgical incision no leg pain can move better no dizziness, nausea, chest pain Review of Systems Review of Systems: all noted and negative except for above Physical Exam Physical Exam: General- oriented x 3, not in distress, speaks in sentences with no effort or accessory muscle use Eyes- anicteric Neck- no JVD Lungs- clear breath sounds bilaterally, no rales/wheezes Heart- normal rate, regular rhythm; no murmurs Abdomen- normal bowel sounds, nondistended, soft, nontender Extremities- no pretibial edema, no calf tenderness Neuro- alert, oriented x 3; no gross focal neurologic deficits Skin- warm & dry Results & Data Results & Data Vital Signs (Past 12 Hours) Vital Signs Temp Pulse Pulse Resp BP BP Pulse Ox 12/26/24 15:58 36.4 C L 72 20 138/66 97 12/26/24 08:00 36.5 C 67 134/74 98 12/26/24 06:56 36.5 C 77 18 146/80 H 96 12/26/24 06:00 36.4 C L 73 16 144/78 H 98 12/26/24 05:30 36.5 C 70 16 127/71 97 12/26/24 05:15 36.9 C 75 14 126/73 96 12/26/24 04:59 36.6 C 81 14 111/68 97 O2 Del Method 12/26/24 15:58 Room Air 12/26/24 08:00 12/26/24 06:56 12/26/24 06:00 12/26/24 05:30 12/26/24 05:15 12/26/24 04:59 all noted and reviewed including below (3) Hypertension Hypertension type: unspecified Qualified Code(s): I10 - Essential (primary) hypertension (5) Hypothyroidism Hypothyroidism type: unspecified Qualified Code(s): E03.9 - Hypothyroidism, unspecified (7) Type 2 diabetes mellitus Diabetes mellitus complication status: without complication Diabetes mellitus director long term care insulin use: unspecified director long term care insulin use status Qualified Code(s): E11.9 - Type 2 diabetes mellitus without complications
[2024-12-26] MEDS ORDERED: CARBOHYDRATES FOR HYPOGLYCEMIA PO PRN (17:06)
[2024-12-26] MEDS ORDERED: PHARMACY GLYCEMIC MGMT CONSULT PRN (17:06)
[2024-12-26] MEDS ORDERED: DEXTROSE 50% 50 ML SYRINGE IV PRN (17:06)
[2024-12-26] MEDS ORDERED: GLUCOSE 10 TAB/TUBE PO PRN (17:06)
[2024-12-26] MEDS ORDERED: GLUCOSE 40% GEL 15 GM TUBE PO PRN (17:06)
[2024-12-26] MEDS ORDERED: GLUCAGON FOR INJ 1 MG VIAL SQ PRN (17:06)
[2024-12-26] MEDS: INSULIN ASPART PER UNIT CHARGE SC SCH (18:14)
[2024-12-26] MEDS: ACETAMINOPHEN 500 MG TAB PO PRN (20:21)
[2024-12-26] MEDS: LANTUS PER UNIT CHARGE SC ONE (22:08)
--- NOTE | 2024-12-27 08:09 | Electrocardiogram Report ---
Test Reason : Blood Pressure : */* mmHG Vent. 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
--- NOTE | 2024-12-27 08:16 | Electrocardiogram Report ---
Test Reason : Blood Pressure : */* mmHG Vent. 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
[2024-12-27] MEDS: FUROSEMIDE 20 MG TAB PO SCH (08:34)
[2024-12-27] MEDS: LANTUS PER UNIT CHARGE SC SCH (08:40)
--- NOTE | 2024-12-27 08:59 | Orthopedic Progress Note ---
Date of Service December 27, 2024 Assessment & Plan (1) Lumbar stenosis with neurogenic claudication: Plan: At this time we will continue physical therapy monitor ATA output anticipate discharge to rehab in the next day or so. Admission and Anticipated Discharge Date Admission Date: December 18, 2024 Subjective Patient back pain is controlled leg pain improved. Physical Exam Physical Exam: Patient is in the chair at the bedside. Is constricted testing. Is comfortable. Results & Data Vital Signs (Past 12 Hours) Vital Signs Temp Pulse Pulse Resp BP BP Pulse Ox 12/27/24 07:48 36.5 C 74 16 138/80 96 12/26/24 21:30 36.5 C 79 18 134/79 98 O2 Del Method 12/27/24 07:48 Room Air 12/26/24 21:30 Room Air Queries Orthopedic Spine Acute Posthemorrhagic Anemia: Yes Obesity: Yes
--- NOTE | 2024-12-27 10:32 | Pharmacy Report ---
Pharmacy Glycemic Short Note 2 - Date of Service December 27, 2024 - Glycemic Short BSG Results (Last 24 hours): 12/26/24 12/26/24 12/27/24 17:50 20:16 08:07 POC Glucose 271 H 274 H 178 H OUTPATIENT ANTIDIABETIC REGIMEN: * N/A ASSESSMENT: * 84 year old POD 3 surgery - pharmacy consulted for glycemic management last evening. Patient's A1c ~7% 08/2024 - indicating diabetes, however not on any medications outpatient. BSGs >200 yesterday, likely related to steroids ordered ongoing postop. * Lantus/novolog started last evening - received total of 22 units of insulin yesterday, of which 12 units were basal insulin * Will receive one more dose of IV dexamethasone this AM - will continue with Lantus 12 units x 1 this AM. Will tighten novolog SSI slightly more this AM given elevated blood sugars and ongoing steroids. PLAN FOR INPATIENT GLYCEMIC CONTROL: * Hold outpatient oral diabetes medications * Basal insulin * Lantus 12 units x 1 now - to give with IV dexamethasone * Bolus insulin * NovoLog per scale ACHS or Q6hrs while NPO * Goal Range: Low 120 mg/dL - High 160 mg/dL * Correction Factor: 20 mg/dL/unit * Nutritional / Prandial insulin per carb ratio of 1 unit per 8 grams CHO consumed
[2024-12-27 11:31] LABS: Hematocrit (blood only) 26.4 % (37.0-47.0); Hemoglobin 8.8 g/dl (12.0-16.0); Immature Granulocytes # (auto) 0.57 K/uL (0.01-0.20); Immature Granulocytes % (auto) 4.5 %; Mean Corpuscular Hemoglobin 32.6 pg (25.0-34.0); Mean Corpuscular Volume 97.8 fL (80.0-100.0); Platelet Count 177 K/uL (130-400); RDW Standard Deviation 53.6 fL (36.4-46.3); Red Blood Count 2.70 M/uL (4.20-5.40); White Blood Count 12.53 K/ul (4.8-10.8)
[2024-12-27 11:48] LABS: Anion Gap 8.0 (3-11); Bilirubin,Total 0.3 mg/dl (0.2-1.0); Calcium 8.4 mg/dl (8.6-10.3); Carbon Dioxide 22.0 mmol/L (21-32); Chloride 109.0 mmol/L (98-107); Magnesium 1.8 mg/dl (1.7-2.4); Potassium 5.0 mmol/L (3.5-5.1); Sodium 139.0 mmol/L (136-145)
[2024-12-27 11:54] LABS: Alanine Aminotransferase 11.0 U/L (7-52); Albumin Globulin Ratio 1.2 (0.9-2); Alkaline Phosphatase 78.0 U/L (34-104); Blood Urea Nitrogen 50.0 mg/dl (6-23); Creatinine Clr Calc Pharmacy 29.5 ml/min; Globulin 2.6 gm/dl (2.5-4.0); Glucose 205.0 mg/dl (70-99(Fasting)); Total Protein 5.7 gm/dl (6.0-8.3)
[2024-12-27 12:23] LABS: Hemoglobin A1C 7.0 % (4.5-5.6)
[2024-12-27] MEDS: NYSTATIN CR 15 GM TUBE EXT SCH (13:55)
[2024-12-27] MEDS: FUROSEMIDE INJ 20 MG/2 ML VIAL IV ONE (14:01)
[2024-12-27] MEDS: EUCERIN CR 120 GM JAR EXT SCH (14:29)
--- NOTE | 2024-12-27 19:28 | Hospitalist Progress Note ---
Date of Service December 27, 2024 Assessment & Plan (1) Lumbar stenosis with neurogenic claudication: (2) Recurrent falls: (3) Hypertension: (4) Stage 3b chronic kidney disease (CKD): (5) Hypothyroidism: (6) Hypomagnesemia: (7) Type 2 diabetes mellitus: Plan per previous hospitalist notes with addendum: 84 yo female with pmhx of DM Type 2, hypothyroidism, HTN, dyslipidemia, CKD Stage 3b, osteoarthritis, s/p bilateral T9-T10 facetectomies/foraminotomies and fusion done on 09/09/24 c/b radicular pain/chronic pain syndrome now following with pain management who presents to the ED today for fall and intractable back pain in the setting of deconditioning and chronic pain syndrome. Work-up in the ED included thoracic and lumbar spine x-rays, which were negative. Labs without evidence of leukocytosis or anemia. Magnesium low at 1.6. Creatinine appears to be around baseline at 1.30. Pt was referred for admission for pain management, evaluation by PT/OT, and additional work-up of worsening back pain and recurrent falls. -Suspect patient with mechanical falls at home due to progressive deconditioning and weakness/giving out of RLE -Patient has neuropathic pain with nociceptive components, neuropathic pain not being addressed by medications at home - was prescribed gabapentin in the past but reports she is not taking this/does not recall taking it -treatment for chronic pain is physical therapy, non-opioids, multifaceted pain management #Fall #Intractable Back Pain #Chronic Pain Syndrome - chronic pain in setting of facetectomy and foraminotomies in 08/2024 - has had injection at the back as an outpatient without any improvement Denies any bladder and/or bowel problem -rotate oxycodone 5mg/tramadol 50mg to dilaudid 2mg (oxycodone not effective at home, 5mg oxy=7.5MME/4=around 2, no dose reduction given noneffective oxycodone) -IV dilaudid 0.5mg for breakthrough pain -would titrate off opioids post discharge if possible -start pregablin 25mg tid, target dose 150 mg per day due to renal function - orthospine consult has not been placed - awaiting MRI of the lumbar and thoracic spine for further evaluation Minimally better since admission Will ask Ortho evaluation by Dr. Chiquita as per patient choice Remains symptomatic with back pain and radiculopathy and awaiting lumbar and thoracic MRI Appreciate orthospine input and recommendation Remains hemodynamically stable MRI of the lumbar and thoracic spine showed significant cord compression and nerve entrapment. Likely to need surgery as per orthospine -Remains otherwise medically stable and awaiting surgery by the orthospine-no medical contraindication for the proposed surgery. Has had nuclear stress echocardiogram in August which was unremarkable and the patient does not have any cardiac symptoms Pain reasonably controlled at rest 12/27 post op day 3 stable overall today continue PT/OT evaluation #Acute Blood Loss Anemia -- likely from surgery Hg trended down to 6.6 1 unit pRBC ordered Hg increased to 8.8 minimal output from ATA drain as per RN -- FOBT negative -- monitor closely #Hyperkalemia -- K 6.0 no ekg changes -- evaluated by Nephro Dr. Jay 12/26 likely secondary to Rodrigo I on CKD, blood transfusion This has improved with medical management and Lokelma Renal functions have also returned to baseline after IV fluids, urine output is also good. 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 - strict low-potassium diet while in hospital( I saw bananas on her table) - needs better blood sugar control. - no NSAIDs/Curtis/ARB 12/27 Potassium back to normal Continue Lokelma 5 mg twice daily x 2 more days Additional Lasix 20 mg IV 1 dose given today in light of generalized edema Continue with Lasix 20 mg p.o. daily #Hypomagnesemia - Replete and repeat labs in the AM Magnesium is normal #HTN 12/28 BP low before surgery improving Lisinopril on hold--> will need to dc given hyperkalemia #DM Type 2 -not on meds at home -monitor - A1c 7.1 - (+) hyperglycemia likely sec to steroids will order ISS and pharmacy glycemic control #Hypothyroidism -continue levothyroxine #HLD -continue statin Code status: full code DVT prophylaxis: Lovenox Disposition transfer to [facility] in 1-2 days Admission and Anticipated Discharge Date Admission Date: December 18, 2024 Subjective seen resting in bed, comfortable, not in distress, in good spirits States she continues to feel improved overall Able to ambulate in the hallways today Minimal back discomfort Reports itching of bilateral feet right greater than left No chest pain, shortness of breath, dizziness, palpitations No other new symptom Review of Systems Review of Systems: all noted and negative except for above Physical Exam Physical Exam: General- oriented x 3, not in distress, speaks in sentences with no effort or accessory muscle use Eyes- anicteric Neck- no JVD Lungs- clear breath sounds BL Heart- normal rate, regular rhythm; no murmurs Abdomen- normal bowel sounds, nondistended, soft, nontender Extremities- BL forearms: (+) mild edema BL lower legs: (+) mild edema Neuro- alert, oriented x 3; no gross focal neurologic deficits Skin- warm & dry Results & Data Results & Data Vital Signs (Past 12 Hours) Vital Signs Temp Pulse Resp BP Pulse Ox O2 Del Method 12/27/24 13:23 36.6 C 81 17 136/74 96 Room Air 12/27/24 07:48 36.5 C 74 16 138/80 96 Room Air all noted and reviewed including below (3) Hypertension Hypertension type: unspecified Qualified Code(s): I10 - Essential (primary) hypertension (5) Hypothyroidism Hypothyroidism type: unspecified Qualified Code(s): E03.9 - Hypothyroidism, unspecified (7) Type 2 diabetes mellitus Diabetes mellitus complication status: without complication 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
--- NOTE | 2024-12-27 20:31 | Communication Note ---
Date of Service: December 27, 2024 Patient requesting for NSS IVF to be discontinued due to fluffiness (third spacing) as per RN. Hold NSS for now.
[2024-12-27 20:53] VITALS: O2SAT 97
[2024-12-27 22:18] LABS: Anion Gap 8.0 (3-11); Calcium 8.3 mg/dl (8.6-10.3); Carbon Dioxide 20.0 mmol/L (21-32); Chloride 109.0 mmol/L (98-107); Potassium 5.0 mmol/L (3.5-5.1); Sodium 137.0 mmol/L (136-145)
[2024-12-27 22:24] LABS: Blood Urea Nitrogen 51.0 mg/dl (6-23); Creatinine Clr Calc Pharmacy 27.2 ml/min; Glucose 226.0 mg/dl (70-99(Fasting))
[2024-12-28] MEDS: ALBUMIN 25% 12.5 GM/50 ML VIAL IV ONE (00:50)
[2024-12-28 07:17] VITALS: BP 135/71; PULSE 67; RESP 17; TEMP 98.1
[2024-12-28 08:02] LABS: Hematocrit (blood only) 23.7 % (37.0-47.0); Hemoglobin 7.6 g/dl (12.0-16.0); Mean Corpuscular Hemoglobin 31.4 pg (25.0-34.0); Mean Corpuscular Volume 97.9 fL (80.0-100.0); Platelet Count 164 K/uL (130-400); RDW Standard Deviation 54.4 fL (36.4-46.3); Red Blood Count 2.42 M/uL (4.20-5.40); White Blood Count 10.08 K/ul (4.8-10.8)
--- NOTE | 2024-12-28 08:10 | Orthopedic Progress Note ---
Date of Service December 28, 2024 Assessment & Plan (1) Spondylolisthesis, lumbar region: Plan: At this time patient is stable from orthopedic standpoint to discharge to rehab. Will see in the office in 2 weeks Admission and Anticipated Discharge Date Admission Date: December 18, 2024 Subjective Back pain is well-controlled leg symptoms improved. Patient tolerating physical therapy. Physical Exam Physical Exam: Patient is in bed at this time. Has good strength testing. Sensory intact. Results & Data Vital Signs (Past 12 Hours) Vital Signs Temp Pulse Resp BP BP Pulse Ox O2 Del Method 12/28/24 07:15 36.7 C 67 17 135/71 97 Room Air 12/27/24 23:32 Room Air 12/27/24 20:52 36.5 C 77 21 125/63 97 Room Air Queries Orthopedic Spine Acute Posthemorrhagic Anemia: Yes Obesity: Yes
--- NOTE | 2024-12-28 08:25 | Nephrology Progress Note ---
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 - strict low-potassium diet while in hospital >>>ordered per diem c/s for teaching on low K at home - keep working on better blood sugar control. - no NSAIDs/Curtis/ARB NEPHRO SIGN OFF NOTE DX: hyperkalemia, Stage 1 prerenal RODRIGO RX: -resume lisinopril at d/c 10 mg daily -resume hctz 12.5 mg DAILY not 3X weekly -no lokelma needed at d/c -no NSAIDS systemically OTHER CARE: -BMP weekly x 3 to be ordered by PCP rehab -continue moderately low K diet F/U APPTS: -hospital d/c appt w/ me w/in 3 wks of d/c -keep March neph appt on books for now Care coordinated with Dr. Mosquera via [place] text regarding discharge recommendations above including medications, follow-up labs and appointments; we are in agreement. (2) Stage 3b chronic kidney disease (CKD): Plan: as of 12/26 had returned to baseline creatinine 1.2-1.3 after IV fluids (3) S/P spinal surgery: Plan: per ortho, primary service NO nsaids systemically Admission and Anticipated Discharge Date Admission Date: December 18, 2024 Subjective slated to finish lokelma 6 doses today; for transfer late this morning to [facility]. No worsening shortness of breath. Does complain of ongoing edema particularly all 4 distal extremities. No nausea vomiting. Unclear to her what high or low potassium foods are. Pain is well-controlled and legs are much less numb than they had been previously Review of Systems 2 Review of Systems: All systems reviewed & are unremarkable except as noted in Subjective Physical Exam 2 Constitutional: well developed, well nourished and cooperative (Sitting up in chair on room air); no acute distress Eyes: EOM intact bilaterally ENMT: Mouth: + dry oral mucous membranes Respiratory: normal respiratory effort Auscultation: + diminished lung sounds Cardiovascular: Rate/Rhythm: regular rate and regular rhythm Heart Sounds: + murmur Extremities: + edema (2+ dorsi feet and hands particularly left upper extremity) Gastrointestinal (Abdomen): Inspection/Auscultation: normal bowel sounds P ercussion/Palpation: abdomen soft; abdomen nontender Musculoskeletal: Extremities: strength 5/5 throughout Skin: no rashes, warm and dry Neurologic: yi, fluent speech, no tremor Results & Data Vital Signs (Past 12 Hours) Vital Signs Temp Pulse Resp BP BP Pulse Ox O2 Del Method 12/28/24 07:15 36.7 C 67 17 135/71 97 Room Air 12/27/24 23:32 Room Air 12/27/24 20:52 36.5 C 77 21 125/63 97 Room Air Laboratory Results 12/28/24 07:01 12/28/24 07:01
[2024-12-28 08:36] LABS: Anion Gap 6.0 (3-11); Bilirubin,Total 0.3 mg/dl (0.2-1.0); Calcium 8.2 mg/dl (8.6-10.3); Carbon Dioxide 24.0 mmol/L (21-32); Chloride 111.0 mmol/L (98-107); Magnesium 1.8 mg/dl (1.7-2.4); Potassium 4.6 mmol/L (3.5-5.1); Sodium 141.0 mmol/L (136-145)
[2024-12-28 08:42] LABS: Alanine Aminotransferase 7.0 U/L (7-52); Albumin Globulin Ratio 1.4 (0.9-2); Alkaline Phosphatase 60.0 U/L (34-104); Blood Urea Nitrogen 49.0 mg/dl (6-23); Creatinine Clr Calc Pharmacy 28.9 ml/min; Globulin 2.1 gm/dl (2.5-4.0); Glucose 167.0 mg/dl (70-99(Fasting)); Total Protein 5.0 gm/dl (6.0-8.3)
[2024-12-28] MEDS: LANTUS PER UNIT CHARGE SC SCH (08:53)
[2024-12-28 09:10] LABS: Immature Granulocytes # (auto) 0.53 K/uL (0.01-0.20); Immature Granulocytes % (auto) 5.3 %; Ovalocytes 1+; Polychromasia 2+
--- NOTE | 2024-12-28 09:10 | Discharge Summary ---
Discharge Summary Date of Service December 28, 2024 Principal Dx & Hospital Course #1 = Principal Diagnosis (1) Lumbar stenosis with neurogenic claudication: (2) Recurrent falls: (3) Hypertension: (4) Stage 3b chronic kidney disease (CKD): (5) Hypothyroidism: (6) Hypomagnesemia: (7) Type 2 diabetes mellitus: Plan Ms. Giles is an 84 yo female with pmhx of DM Type 2, hypothyroidism, HTN, dyslipidemia, CKD Stage 3b, osteoarthritis, s/p bilateral T9-T10 facetectomies/foraminotomies and fusion done on 09/09/24 c/b radicular pain/chronic pain syndrome now following with pain management who presents to the ED today for fall and intractable back pain in the setting of deconditioning and chronic pain syndrome. Imaging revealed severe cord compression prompting surgical intervention with Dr. Porras on 12/24. Postoperatively course complicated by NICHO and hyperkalemia. #Fall #Intractable Back Pain #lumbar spondylosis with radiculopathy #lumbar spondylolisthesis with radiculopathy #lumbar spinal stenosis #Chronic Pain Syndrome - chronic pain in setting of facetectomy and foraminotomies in 08/2024 Ortho evaluation revealed significant cord compression and nerve entrapment - orthospine consult has not been placed s/p decompression and facetectomies stable overall today continue PT/OT evaluation #Acute Blood Loss Anemia -- likely from surgery Hg trended down to 6.6 s/p 1UPRBC minimal output from ATA drain as per RN -- FOBT negative #NICHO on CKD back at baseline on d/c Plan for BMP weekly x 3 to be ordered by PCP rehab -continue moderately low K diet F/U APPTS: -hospital d/c appt w/ nephro w/in 3 wks of d/c -keep March neph appt on books for now #Hyperkalemia postopertiavely K 6.0 -- evaluated by Nephro Dr. 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 - continue on Lokelma 5 mg x 1 more dose - Resume home HCTZ daily rather than 3xweek encourage low potassium diets no NSAIDs/Curtis/ARB resume lisinopril upon d/c #Hypomagnesemia - Replete and repeat labs in the AM Magnesium is normal #HTN BP low before surgery improving Lisinopril on hold--> resume upon d/c #DM Type 2 -not on meds at home -monitor - A1c 7.1 - (+) hyperglycemia likely sec to steroids will order ISS and pharmacy glycemic control #Hypothyroidism -continue levothyroxine #HLD -continue statin Notes For Next Care Provider Please order BMP weekly x 3 to be ordered by PCP/Rehab continue moderately low K [facility] d/c appt w/ Ethan w/in 3 wks of d/c keep November neph appt on books for now Medication Changes From Visit -resume lisinopril at d/c 10 mg daily -resume hctz 12.5 mg DAILY not 3X weekly -no NSAIDS systemically Admission HPI Per Admitting Provider 84 yo female with pmhx of DM Type 2, hypothyroidism, HTN, dyslipidemia, CKD Stage 3b, osteoarthritis, s/p bilateral T9-T10 facetectomies/foraminotomies and fusion done on 09/09/24 c/b radicular pain/chronic pain syndrome now following with pain management who presents to the ED today for fall and intractable back pain. Last admission was on 08/2024 for the facetectomies and foraminotomies/fusion. Pt reports improvement of her thoracic back pain since surgery but increasing pain in the lumbar area. She underwent L3L4 MARCELO on 11/15/24 with one day of relief before return of pain. Since the MARCELO, her pain and functional status has continued to worsen. She reports four falls in the last month, with most recent being around 1 am today when she went to get into bed and could lift her right leg resulting in a loss of balance and fall onto her knees. She denies LOC or hitting her head. Her son, who she lives with, came and helped her into bed. This morning, when she went to get out of bed, she was unable to move her legs to get up. When her son came home, he found her in bed and called EMS. Pt reports ongoing issues with numbness and pain radiating in her right > left leg, right leg is giving out on her at times which is contributing to her falls. She denies loss of control of bowel or bladder. She does struggle with some constipation but uses prn stool softeners, salads to help regulate bowel movements. She denies recent illness, denies chest pain, palpitations, shortness of breath, syncope, dizziness, VELÁSQUEZ. She is taking acetaminophen twice a day most days and more recently has tried using the Tramadol and oxycodone she received after her surgery in August but it doesn't seem to help her pain. She lives with her son, uses a cane to ambulate but does have access to a walker as well. She was given morphine in the ED for pain with partial improvement of her symptoms. Admission Exam Per Admitting Provider General: awake, alert, appears anxious HEENT: no scleral icterus, moist oral mucosa Neck: supple, trachea midline Heart: RRR, +systolic murmur Lungs: CTA bilaterally, no W/R/R Abdomen: soft, NT, +BS Extremities: no pedal edema, distal pulses intact and equal Skin: warm, dry Neurologic: Ox3, no confusion or dysarthria, moving all extremities, dorsiflexion/plantar flexion 3-4/5 bilaterally but unclear how much is true weakness vs. related to movement causing pain Back: mild to moderate lumbosacral tenderness to palpation Discharge Exam Constitutional WD/WN, vitals as above Respiratory normal respiratory effort, lungs clear to auscultation Cardiovascular RRR, no murmur, no edema Gastrointestinal (Abdomen) normal bowel sounds, soft, nontender, no hepatosplenomegaly Updated Medication List Medication Instructions Recorded Confirmed Type acetaminophen 325 mg tablet 325 mg PO QID PRN Pain 08/18/24 12/18/24 History allopurinol 300 mg tablet 300 mg PO QAM 08/18/24 12/18/24 History aspirin 81 mg tablet,delayed 81 mg PO QAM 08/18/24 12/18/24 History release atorvastatin 80 mg tablet 80 mg PO QAM 08/18/24 12/18/24 History cholecalciferol (vitamin D3) 25 50 mcg PO DAILY 08/18/24 12/18/24 History mcg (1,000 unit) capsule (Vitamin D3) levothyroxine 50 mcg tablet 50 mcg PO QAM 08/18/24 12/18/24 History lisinopril 10 mg tablet 10 mg PO QAM 08/18/24 12/18/24 History metoprolol succinate 25 mg 12.5 mg PO QAM 08/18/24 12/18/24 History tablet,extended release 24 hr oxycodone 5 mg tablet 5 mg PO Q6H PRN Pain 12/18/24 12/18/24 History tramadol 50 mg tablet 50 mg PO Q6H PRN Pain 12/18/24 12/18/24 History hydrochlorothiazide 12.5 mg tablet 12.5 mg PO DAILY #0 tabs 12/28/24 12/18/24 Rx sodium zirconium cyclosilicate 10 5 g PO ONCE 1 day #0 ea 12/28/24 Rx gram oral powder packet (Lokelma) tramadol 50 mg tablet 50 mg PO Q6H PRN pain, moderate 12/28/24 Rx #30 tabs Hospital Stay Data Consultations 12/18/24 17:13 ED Decision to Admit Stat 12/19/24 13:38 Consult Orthopedic Spine Surgery Routine 12/23/24 06:13 Consult Anesthesiology Routine 12/26/24 08:24 Consult Nephrology Routine Procedures Performed Operation Date: 12/24/24 07:45 Actual Procedures p L2-L4 Decompression and Fusion(Not Applicable) - Wolfgang Porras, DO Diagnostic Imagining Performed 12/20/24 07:52 MR lumbar spine wo con Urgent MR thoracic spine wo con Urgent 12/24/24 07:45 FL lumbar spine 2-3V Routine Pending Results Patient Have Any Pending Studies at Discharge: No Discharge Instructions Given to Patient (Per Discharging Provider) You were admitted for back pain and noted to have spinal cord compression. Dr. Porras performed revision on 12/24. You were also noted to have a kidney injury and high potassium. You will continue Lokelma for one more dose this evening, 12/28,at your rehab. You will have a blood test to check your kidney function and potassium level at the end of the week, Friday. You will continue your hydrochlorothiazide 12.5 mg daily. Please avoid NSAIDS You will need follow up in 3 weeks with nephrology ACTIVITY RECOMMENDATIONS: SELF CARE INSTRUCTIONS AFTER THORACIC/LUMBAR FUSIONS 1. You may walk to your tolerance. It is good exercise for your legs and back. Expect some back and intermittent leg aches and pains. 2. You may perform "counter-top" level activities (make a sandwich, randy with a project, etc.). 3. No bending or lifting of more than 10 pounds or back twisting of any nature (roll like a log when turning in bed). 4. You may ride in a car for 20-30 minutes at a time. No driving until after your first visit with your doctor. 5. Frequent changes of position and restricting sitting to 30 minutes at a time will help limit the amount of back spasms and stiffness you may experience. 6. You may discontinue the use of ambulatory aids (cane, crutches, etc.) once your strength and confidence allow. 7. You may xerox machine assembler the shower and let water strike your incision when you arrive home at least once daily. Do not take a tub bath, sit in a hot tub or go into a swimming pool until after your first recheck in the office. 8. You may resume previous diet. SPECIAL CARE INSTRUCTIONS: VERY IMPORTANT TO READ AND REVIEW A. Your surgical incision has been closed with a cosmetic suture under the skin that will dissolve in about 6 weeks. In 14 days, you can use a pair of clean scissors and cut the suture that is left outside of the skin at the ends of your incision. 1. The small skin tapes can be removed 7 days after surgery if they have not fallen off by that point. 2. You may keep the wound open to air as much as possible to promote healing after post-op day number 5 unless told otherwise by your doctor. 3. If you think the wound looks like it is becoming infected (redness or worsening drainage) and/or you are experiencing fever, chill or worsening back pain and muscle spasms, contact the office so that we may evaluate you as soon as possible. B. Complications are uncommon, but please contact us if you have any signs or symptoms of: 1. wound infection (fever higher than 102.5 degrees F, redness, separation of wound, drainage, or increasing pain from the incision) 2. blood clots in legs (pain, swelling, redness and warmth in legs) 3. urinary tract infection (fever higher than 102.5 degrees F, burning upon urination or increased frequency of urination) 4. nerve problems (inability to walk on your toes or heels, numbness, loss of bowel or bladder control) 5. any other symptoms that concern you C. Please call the office at if you have any concerns or questions about your operation or recovery. D. No smoking! Smoking drastically decreases the chance of a solid fusion. E. Do not take any anti-inflammatory medications (Indocin, Advil, Motrin, Aspirin, Naprosyn, etc.) as these may inhibit the chance of a solid fusion. Tylenol is okay to take for pain. MANAGING PAIN AFTER SPINAL SURGERY 1. Narcotic medication is intended for short-term use and will be provided for surgical pain. Surgical pain usually lasts for a period of 4-6 weeks. Narcotic medication includes Percocet, Vicodin, Darvocet, Tylenol #3 or Lortab. 2. Longer-term pain is more appropriately treated with non-narcotic medication such as Tylenol ES. 3. Muscle spasm is not appropriately treated with narcotics. Muscle relaxers such as Soma, Flexeril or Skelaxin can be used along with Tylenol ES. 4. Remember that we all live with some "aches and pains". This is not unusual or uncommon after an injury or as we get older. a. Back pain is expected and may include muscle spasms for 4 to 6 weeks after surgery. The pain should gradually improve. If the pain worsens for no apparent reason, please contact the office. b. Intermittent leg pain may also be experienced and should not be concerned about unless it worsens for no apparent reason. If so, please contact the office. 5. We will provide appropriate medication within the normal guidelines of their prescribed use. We will also be very cautious and aware of potential abuse and extended duration of patients' medication needs. a. Pain medications are for your comfort and to assist with sleep and rest so that the tissue can heal. They are not provided in order to return to normal activity and should not be used through the day. To do so or worsening pain at night can result from ongoing tissue damage and development of tolerance to the prescribed medicine. 6. Please allow 2-3 days to process refills. Prescriptions will not be mailed but must be picked up at the office. FOLLOW UP VISIT: Keep your scheduled follow-up appointment. Any questions, please call the office at . Total Time Total Time Spent Total Time Spent (In Minutes): 45
== END 2024-12-28 11:22 | DRG 427 ==
LOC: ED 14:12 → 3N 17:34 → SUATTDRO 17:34 → 3N 19:53

== ENCOUNTER 2025-01-07 15:55 | Inpatient (IN) ==
--- NOTE | 2025-01-07 16:03 | History & Physical Report ---
Date of Service January 07, 2025 Assessment & Plan (1) Closed fracture of lumbar vertebral body: Plan Pt is an 84y/o F with PMHx significant for DMII [Hgb A1c 7% as of 12/27/24], HLD, long-standing HTN, hypothyroidism, CKD stage IIIb [baseline Cr 1.2-1.4], nonrheumatic AV stenosis, exertional dyspnea, mild bilateral internal carotid artery disease, chronic RBBB, diastolic dysfunction, generalized osteoarthritis, severe thoracic spinal stenosis and myelopathy s/p T9-T10 decompression and fusion on 09/09/24 and chronic pain syndrome who is a direct admission from [facility] for surgical evaluation by Dr. Porras regarding L4 vertebral body fractures. Recent confinement under our service from 12/18/24-12/28/24 for intractable low back pain s/p fall ISO deconditioning and chronic pain syndrome. Was found to have advanced severe neural compression with obvious facet hypertrophy and instability on lumbar spine MRI imaging requiring surgical intervention. S/p L2- L3, L3-L4 decompression and fusion performed by Dr. Porras on 12/24/24. Postop course c/b NICHO, hyperkalemia and ABLA s/p 1U PRBCs. Was discharged to [facility]. Pt with development of severe RLE pain while at [facility]. CT lumbar spine w/o contrast completed on 01/04/25 concerning for L4 vertebral body fractures Dr. Meghana harris was notified of these findings and he recommended that the pt be directly admitted under our service for formal surgical evaluation by him with tentative surgical repair to take place on 01/10/25. #Severe RLE pain #L4 vertebral body fractures #Urinary retention -Mccormack placed on 01/03 per patient at facility for retention -Will reluctantly keep mccormack in place until after surgery -Voiding trial when she can ambulate -Bowel regimen. Last BM was 01/06 #HTN Continue lisinopril, BB w/ hold parameters #HLD #Mild bilateral internal carotid artery disease Continue statin, ASA #History of gout Continue allopurinol #Hypothyroidism Continue levothyroxine DVT Prophylaxis: SCDs/TEDs for now pending surgical evaluation by Dr. Porras Disposition: Direct admit to med/surg, obtain PT/OT evals for routine DC planning I spent a total of 60 minutes coordinating, documenting, and providing care for this patient excluding time spent in the performance of separately billed services or time spent by another provider/QHP. This included personally reviewing all current laboratories and imaging studies, medical reconciliation, outpatient chart review and discussion with specialists. History of Present Illness Chief Complaint: Direct admission from [facility] for surgical evaluation by Dr. Porras: L4 vertebral body fractures Primary Care Provider: Jose Patino MD Pt is an 84y/o F with PMHx significant for DMII [Hgb A1c 7% as of 12/27/24], HLD, long-standing HTN, hypothyroidism, CKD stage IIIb [baseline Cr 1.2-1.4], nonrheumatic AV stenosis, exertional dyspnea, mild bilateral internal carotid artery disease, chronic RBBB, diastolic dysfunction, generalized osteoarthritis, severe thoracic spinal stenosis and myelopathy s/p T9-T10 decompression and fusion on 09/09/24 and chronic pain syndrome who is a direct admission from [facility] for surgical evaluation by Dr. Porras regarding L4 vertebral body fractures. Recent admission from 12/18/24-12/28/24 for intractable low back pain s/p fall ISO deconditioning and chronic pain syndrome. Was found to have advanced severe neural compression with obvious facet hypertrophy and instability on lumbar spine MRI imaging requiring surgical intervention. S/p L2-L3, L3-L4 decompression and fusion performed by Dr. Porras on 12/24/24. Postop course c/b NICHO, hyperkalemia and ABLA s/p 1U PRBCs. Was discharged to [facility]. Pt with development of severe RLE pain while at [facility]. CT lumbar spine w/o contrast completed on 01/04/25 concerning for L4 vertebral body fractures Dr. Porras was notified of these findings by Dr. Velázquez at [facility]. He recommended that the pt be directly admitted under our service for formal surgical evaluation by him with tentative surgical repair to take place on 01/10/25. Patient seen at bedside in room 303. she is feeling well overall other than acute on chronic RLE pain. Patient denies F/C, CP, palpitations, SOB, dyspnea, abd pain, N/V/D. She has a mccormack in and states it was placed about 4 days ago at facility due to difficulties urinating. Allergies Allergy/AdvReac Type Severity Reaction Status Date / Time sulfamethoxazole [Bactrim] AdvReac Intermediate "made the Verified 01/06/25 07:13 UTI worse" trimethoprim [Bactrim] AdvReac Intermediate "made the Verified 01/06/25 07:13 UTI worse" Home Medications Medication Instructions Recorded Confirmed Type acetaminophen 325 mg tablet 325 mg PO QID PRN Pain 08/18/24 01/07/25 History allopurinol 300 mg tablet 300 mg PO QAM 08/18/24 01/07/25 History aspirin 81 mg tablet,delayed 81 mg PO QAM 08/18/24 01/07/25 History release atorvastatin 80 mg tablet 80 mg PO QAM 08/18/24 01/07/25 History cholecalciferol (vitamin D3) 25 50 mcg PO DAILY 08/18/24 01/07/25 History mcg (1,000 unit) capsule (Vitamin D3) levothyroxine 50 mcg tablet 50 mcg PO QAM 08/18/24 01/07/25 History lisinopril 10 mg tablet 10 mg PO QAM 08/18/24 01/07/25 History metoprolol succinate 25 mg 12.5 mg PO QAM 08/18/24 01/07/25 History tablet,extended release 24 hr oxycodone 5 mg tablet 5 mg PO Q6H PRN Severe Pain (Scale 12/18/24 01/07/25 History Score 7-10) hydrochlorothiazide 12.5 mg tablet 12.5 mg PO DAILY #0 tabs 12/28/24 01/07/25 Rx tramadol 50 mg tablet 50 mg PO Q6H PRN Moderate Pain 01/07/25 01/07/25 History (Scale Score 5-6) Past Med/Surg History Problem List Closed fracture of lumbar vertebral body Hyperkalemia Spondylolisthesis, lumbar region Hypomagnesemia Recurrent falls Back pain (Acute) Lumbar stenosis with neurogenic claudication Stage 3b chronic kidney disease (CKD) S/P spinal surgery 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) Medical History Carotid artery stenosis mild bilat ICA stenosis per S EMR Type 2 diabetes mellitus CKD (chronic kidney disease) stage 3, GFR 30-59 ml/min Aortic stenosis moderate RBBB Hyperlipidemia Hypertension controlled, stable per pt Degenerative disc disease Osteoarthritis Gout Hypothyroidism History of kidney stones MUSA (dyspnea on exertion) chronic Surgical History History of surgical procedure on thoracic spine T9-T10 decompression fusion - August 2024 History of dilatation and curettage History of tooth extraction History of total knee replacement right History of total hip arthroplasty bilat History of cataract surgery bilat History of tonsillectomy History of cystoscopy hx of stent and since removed Family History Mother Diabetes Aunt No problems noted. Social History Smoking Status: Never smoker Second Hand Exposure: No; Do You Dip or Chew Tobacco: No; Hx Alcohol Use: No Hx Substance Use: No Preferred Language: Botswanan Communication Ability: Effective Microsoft Net Developer Required: No Beliefs That Will Affect Care: None Current Living Situation: Family Feels Safe at Home: Yes and No Is there a partner from a previous relationship who is making you feel unsafe now?: No Assistive Devices: Cane, Hospital Bed and Walker Review of Systems Review of Systems: At least ten systems reviewed and negative, except as noted in the HPI. Physical Exam Physical Exam: Vitals and labs reviewed General: Well appearing, NAD HEENT: EOMI, PERRLA Neck: Supple Cardiac: RRR no rubs gallops systolic murmur Lungs: CTA no rhonchi wheezing or rales Abd: S NT ND BS positive : Mccormack MSK: ROM limited by pain No obvious deformities Ext: No Edema cyanosis Skin: Warm, Dry Neuro: AOx3 No focal deficits. moving lower extremities bilaterally Psych: Normal Mood Results & Data Results & Data Diagnostic Findings EXAM: LUMBAR SPINE CT WITHOUT CONTRAST. 01/04/2025 1:43 pm. HISTORY: Dx: Pain, unspecified R52 (ICD-10-CM). mammography technologist notes: Recent lumbar surgery. 12/24/2024 operative report (outside hospital): L1-L2, L2-L3, and L3-L4 bilateral medial facetectomies/foraminotomies, L2-L4 posterior spinal fusion, L2-L3 and L3-L4 interbody fusion. TECHNIQUE: Lumbar spine CT images without intravenous iodinated contrast administration. MPR reconstructions. COMPARISON: LUMBAR SPINE MR WITHOUT CONTRAST dated 04/01/2024; THORACIC SPINE MR WITHOUT CONTRAST dated 07/23/2024. FINDINGS: Transitional lumbar spine anatomy. 4 [id number] lumbar type vertebral bodies, stable compared with 03/2024 lumbar spine MR 12 rib-bearing thoracic type vertebral bodies on 07/2024 thoracic spine MR. Lumbosacral transitional vertebra (LSTV) designated as L5 for this dictation. L5 sacralization, with rudimentary L5-S1 disc, left L5 transverse process-S1 osseous fusion, and right L5 transverse process-S1 diarthrodial joint (Castellvi IV). L4 vertebral body radiolucencies involving inferior endplate, bilateral lateral abad, and posterior wall, concerning for fractures (series 10, images 79, 90, 95, 103; series 8, images 67 and 74). Status post L2-L3 and L3-L4 intervertebral cage placement, L2 and L3 total laminectomy, L1 and L4 partial laminectomy, bilateral L2-L3 and L3-L4 facetectomy, and L2-L4 instrumented posterior spinal fusion. Bilateral L2-L4 pedicle screws, transfixed by bilateral curved vertical rods. Left L2-L3 intervertebral cage extends beyond L2 posterior vertebral wall and contacts L3 posterior vertebral wall (series 10, image 94). L3-L4 right intervertebral cage and L4 right pedicle screw extend beyond L4 anterior wall (series 10, images 84 and 86). Calcific density right/posterior to L3 and vertebral body may represent migrated graft material (series 2, image 128; series 10, image 77). N o hardware failure or loosening. Neither L2/L3 nor L3/L4 osseous fusion. Grade I retrolisthesis of T12 on L1 and L1 on L2. Grade I anterolisthesis of L2 on L3 and L3 on L4. Convex right thoracolumbar scoliosis, measuring 20 degrees by Wilosn method between superior T12 and inferior L3 endplates. L4/L5 osseous fusion across bilateral facet joints. Otherwise anatomic lumbar spine alignment, without additional fracture. L1-L2 and L4-L5 degenerative disc height loss. At worst severe facet arthropathy. No sacral fracture deformity. Moderate bilateral SI joint degenerative changes. Abnormal right renal rotation. Duplicated right renal collecting system. Ureteral calculi within right superior ureter (series 4, images 76, 84, and 88 abdominal aorta atherosclerotic calcification. Probable left renal simple cyst. Colonic diverticulosis without discrete diverticulitis. Otherwise, normal included abdominal/pelvic contents. Laminectomy site soft tissue/gas cannot be further characterized. Otherwise, severe posterior/moderate anterior paraspinal muscle atrophy. IMPRESSION IMPRESSION: 1. Transitional lumbar spine anatomy. 4 [id number] lumbar type vertebral bodies, stable compared with 03/2024 lumbar spine MR 12 rib-bearing thoracic type vertebral bodies on 07/2024 thoracic spine MR. Lumbosacral transitional vertebra (LSTV) designated as L5 for this dictation. L5 sacralization, with rudimentary L5-S1 disc, left L5 transverse process-S1 osseous fusion, and right L5 transverse process-S1 diarthrodial joint (Castellvi IV). ATTENTION TO SPINE NUMBERING IS MANDATORY PRIOR TO PLANNED SPINAL SURGICAL/INTERVENTIONAL PROCEDURE. 2. L4 vertebral body radiolucencies involving inferior endplate, bilateral lateral abad, and posterior wall, new compared with 03/2024 lumbar spine MR concerning for fractures. 3. Status post L2-L3 and L3-L4 intervertebral cage placement, L2 and L3 total laminectomy, L1 and L4 partial laminectomy, bilateral L2-L3 and L3-L4 facetectomy, and L2-L4 instrumented posterior spinal fusion. Left L2-L3 intervertebral cage extends beyond L2 posterior vertebral wall and contacts L3 posterior vertebral wall. L3-L4 right intervertebral cage and L4 right pedicle screw extend beyond L4 anterior wall. No hardware failure or loosening. Neither L2/L3 nor L3/L4 osseous fusion. Laminectomy site soft tissue/gas cannot be further characterized. Contrast-enhanced lumbar spine MR is recommended, provided there is no clinical contraindication to MR or intravenous gadolinium- based contrast. 4. No additional lumbar spine fracture. 5. Abnormal right renal rotation. Duplicated right renal collecting system. Ureteral calculi within right superior ureter. Urology consultation is recommended. 6. Grade I retrolisthesis of T12 on L1 and L1 on L2. Grade I anterolisthesis of L2 on L3 and L3 on L4. 7. Convex right thoracolumbar scoliosis, measuring 20 degrees by Wilson method between superior T12 and inferior L3 endplates. 8. L4/L5 osseous fusion across bilateral facet joints. 9. L1-L2 and L4-L5 degenerative disc height loss. At worst severe facet arthropathy. Severe bilateral SI joint degenerative changes. Code Status & VTE Plan Code Status FULL CODE
[2025-01-07] MEDS ORDERED: ACETAMINOPHEN 325 MG TAB PO PRN ×2 (16:06→18:54)
[2025-01-07] MEDS ORDERED: MAGNESIUM HYDROXIDE SUSP 30 ML UDC PO PRN (16:06)
[2025-01-07] MEDS ORDERED: POLYETHYLENE (MIRALAX) 17 GM PACK PO PRN (16:06)
[2025-01-07] MEDS ORDERED: ONDANSETRON INJ 2 MG/ML 2 ML VIAL IV PRN (16:06)
[2025-01-07] MEDS ORDERED: GLUCOSE 10 TAB/TUBE PO PRN (18:29)
[2025-01-07] MEDS ORDERED: GLUCAGON FOR INJ 1 MG VIAL SQ PRN (18:29)
[2025-01-07] MEDS ORDERED: DEXTROSE 50% 50 ML SYRINGE IV PRN (18:29)
[2025-01-07] MEDS ORDERED: PHARMACY GLYCEMIC MGMT CONSULT PRN (18:29)
[2025-01-07] MEDS ORDERED: CARBOHYDRATES FOR HYPOGLYCEMIA PO PRN (18:29)
[2025-01-07] MEDS ORDERED: GLUCOSE 40% GEL 15 GM TUBE PO PRN (18:29)
[2025-01-07] MEDS: Patient's HEIGHT &/or WEIGHT Needed STA (19:57)
[2025-01-07] MEDS: Patient's HEIGHT &/or WEIGHT Needed ONE (19:57)
[2025-01-07] MEDS: INSULIN ASPART PER UNIT CHARGE SC SCH (21:28)
[2025-01-07 22:58] LABS: Hematocrit (blood only) 26.1 % (37.0-47.0); Hemoglobin 8.2 g/dl (12.0-16.0); Immature Granulocytes # (auto) 0.06 K/uL (0.01-0.20); Immature Granulocytes % (auto) 0.7 %; Mean Corpuscular Hemoglobin 30.5 pg (25.0-34.0); Mean Corpuscular Volume 97.0 fL (80.0-100.0); Platelet Count 231 K/uL (130-400); RDW Standard Deviation 63.9 fL (36.4-46.3); Red Blood Count 2.69 M/uL (4.20-5.40); White Blood Count 8.07 K/ul (4.8-10.8)
[2025-01-07 23:16] LABS: Anion Gap 6.0 (3-11); Blood Urea Nitrogen 61.0 mg/dl (6-23); Calcium 8.6 mg/dl (8.6-10.3); Carbon Dioxide 31.0 mmol/L (21-32); Chloride 99.0 mmol/L (98-107); Creatinine Clr Calc Pharmacy 27.6 ml/min; Glucose 153.0 mg/dl (70-99(Fasting)); Magnesium 1.9 mg/dl (1.7-2.4); Potassium 4.3 mmol/L (3.5-5.1); Sodium 136.0 mmol/L (136-145)
[2025-01-08] MEDS: LEVOTHYROXINE SODIUM 50 MCG TABLET PO SCH (06:20)
[2025-01-08 06:30] LABS: Hematocrit (blood only) 26.7 % (37.0-47.0); Hemoglobin 8.4 g/dl (12.0-16.0); Immature Granulocytes # (auto) 0.05 K/uL (0.01-0.20); Immature Granulocytes % (auto) 0.7 %; Mean Corpuscular Hemoglobin 30.5 pg (25.0-34.0); Mean Corpuscular Volume 97.1 fL (80.0-100.0); Platelet Count 229 K/uL (130-400); RDW Standard Deviation 63.4 fL (36.4-46.3); Red Blood Count 2.75 M/uL (4.20-5.40); White Blood Count 6.67 K/ul (4.8-10.8)
[2025-01-08 06:45] LABS: Anion Gap 6.0 (3-11); Blood Urea Nitrogen 55.0 mg/dl (6-23); Calcium 8.9 mg/dl (8.6-10.3); Carbon Dioxide 31.0 mmol/L (21-32); Chloride 101.0 mmol/L (98-107); Creatinine Clr Calc Pharmacy 30.2 ml/min; Glucose 116.0 mg/dl (70-99(Fasting)); Magnesium 2.0 mg/dl (1.7-2.4); Potassium 4.7 mmol/L (3.5-5.1); Sodium 138.0 mmol/L (136-145)
[2025-01-08] MEDS: CHOLECALCIFEROL 25 MCG (1000 UNITS) TAB PO SCH (08:07)
[2025-01-08] MEDS: ATORVASTATIN 40 MG TAB PO SCH (08:07)
[2025-01-08] MEDS: ASPIRIN 81 MG ECTAB PO SCH (08:08)
[2025-01-08] MEDS: METOPROLOL SUCC 25MG EXT REL TAB PO SCH (08:08)
[2025-01-08 08:23] LABS: Hemoglobin A1C 6.7 % (4.5-5.6)
--- NOTE | 2025-01-08 08:41 | Pharmacy Report ---
Pharmacy Glycemic Short Note 2 - Date of Service January 08, 2025 - Glycemic Short BSG Results (Last 24 hours): 01/07/25 01/07/25 01/08/25 21:01 22:32 05:32 Glucose 153 H 116 H POC Glucose 175 H 01/08/25 07:44 Glucose POC Glucose 122 H OUTPATIENT ANTIDIABETIC REGIMEN: * None * A1c 6.7% 01/08/25 ASSESSMENT: * 84 yo F, PMHx DMII, HLD, long-standing HTN, hypothyroidism, CKD stage IIIb baseline Cr 1.2-1.4, severe thoracic spinal stenosis and myelopathy s/p T9-T10 decompression and fusion on 09/09/24, direct admission from [facility] for surgical evaluation by Dr. Porras regarding L4 vertebral body fractures, tentative surgical repair to take place on 01/10/25. * No steroids ordered at this time, will start with NovoLog at this time and add basal as needed. PLAN FOR INPATIENT GLYCEMIC CONTROL: * Basal insulin * None at this time * Bolus insulin * NovoLog per scale ACHS or Q6hrs while NPO * Goal Range: Low 110 mg/dL - High 160 mg/dL * Correction Factor: 30 mg/dL/unit * Nutritional / Prandial insulin per carb ratio of 1 unit per 9 grams CHO consumed
--- NOTE | 2025-01-08 10:00 | Orthopedic Consultation ---
Date of Consultation January 08, 2025 Assessment & Plan (1) Closed fracture of lumbar vertebral body: At this time going to obtain a CAT scan for updated anatomic detail regarding the fracture pattern. Also include right hip x-ray. Plan would be for surgery Friday to revise the fusion and address any neural compression. Patient stands agrees. History of Present Illness Reason for Consultation: Right leg pain Attending Physician: Cy Ogden DO History of Present Illness This is an 84-year-old female well-known to me the presents with worsening right leg pain. She had undergone a large lumbar decompression fusion done well and was taken to rehab. Unfortunately she had marked decline in status with the past few days. Initial imaging shows some suspicion of fracture of the L3 pedicle. This is consistent with her pain. This morning she is comfortable lying in bed. She has pain described in the right groin and right anterior thigh with activity. Sitting is tolerable standing and walking miserable. Left lower extremities asymptomatic. Allergies Allergy/AdvReac Type Severity Reaction Status Date / Time sulfamethoxazole [Bactrim] AdvReac Intermediate "made the Verified 01/06/25 07:13 UTI worse" trimethoprim [Bactrim] AdvReac Intermediate "made the Verified 01/06/25 07:13 UTI worse" Home Medications Medication Instructions Recorded Confirmed Type acetaminophen 325 mg tablet 325 mg PO QID PRN Pain 08/18/24 01/07/25 History allopurinol 300 mg tablet 300 mg PO QAM 08/18/24 01/07/25 History aspirin 81 mg tablet,delayed 81 mg PO QAM 08/18/24 01/07/25 History release atorvastatin 80 mg tablet 80 mg PO QAM 08/18/24 01/07/25 History cholecalciferol (vitamin D3) 25 50 mcg PO DAILY 08/18/24 01/07/25 History mcg (1,000 unit) capsule (Vitamin D3) levothyroxine 50 mcg tablet 50 mcg PO QAM 08/18/24 01/07/25 History lisinopril 10 mg tablet 10 mg PO QAM 08/18/24 01/07/25 History metoprolol succinate 25 mg 12.5 mg PO QAM 08/18/24 01/07/25 History tablet,extended release 24 hr oxycodone 5 mg tablet 5 mg PO Q6H PRN Severe Pain (Scale 12/18/24 01/07/25 History Score 7-10) hydrochlorothiazide 12.5 mg tablet 12.5 mg PO DAILY #0 tabs 12/28/24 01/07/25 Rx tramadol 50 mg tablet 50 mg PO Q6H PRN Moderate Pain 01/07/25 01/07/25 History (Scale Score 5-6) Patient History Medical History Carotid artery stenosis mild bilat ICA stenosis per [facility] EMR Type 2 diabetes mellitus CKD (chronic kidney disease) stage 3, GFR 30-59 ml/min Aortic stenosis moderate RBBB Hyperlipidemia Hypertension controlled, stable per pt Degenerative disc disease Osteoarthritis Gout Hypothyroidism History of kidney stones MUSA (dyspnea on exertion) chronic Surgical History History of surgical procedure on thoracic spine T9-T10 decompression fusion - August 2024 History of dilatation and curettage History of tooth extraction History of total knee replacement right History of total hip arthroplasty bilat History of cataract surgery bilat History of tonsillectomy History of cystoscopy hx of stent and since removed Family History Mother Diabetes Aunt No problems noted. Social History Smoking Status: Never smoker Second Hand Exposure: No; Do You Dip or Chew Tobacco: No; Hx Alcohol Use: No Hx Substance Use: No Preferred Language: Somali Communication Ability: Effective Bounty Hunter Required: No Beliefs That Will Affect Care: None Current Living Situation: Family Other Information That Helps Us Care for You: No Feels Safe at Home: Yes Safety Concerns: Feels Safe At This Time Assistive Devices: Cane and Walker Physical Exam Physical Exam: On exam she has reasonable plus 5 out of 5 plantarflexion dorsiflexion quadrant bilaterally. She has a markedly positive logroll on the right negative on the left. Sensory intact. Results & Data Vital Signs (Past 12 Hours) Vital Signs Temp Pulse Resp BP Pulse Ox O2 Del Method 01/08/25 08:00 Room Air 01/08/25 07:40 36.7 C 89 16 138/77 96 Room Air 01/07/25 23:16 36.6 C 78 18 124/71 96 Room Air
--- NOTE | 2025-01-08 11:07 | Hospitalist Progress Note ---
Date of Service January 08, 2025 Assessment & Plan (1) Closed fracture of lumbar vertebral body: (2) Lumbar stenosis with neurogenic claudication: (3) Stage 3b chronic kidney disease (CKD): (4) Type 2 diabetes mellitus: (5) Hypothyroidism: Plan Patient status post recent lumbar surgery for L2-L3 now with no significant pain related to L4. Continue pain control Continue current medications Communication with orthospine, planning on surgical intervention on Friday Admission and Anticipated Discharge Date Admission Date: January 07, 2025 Subjective Patient states she is having severe pain in her low back extending into her right hip and down her leg to her toes. Reports that her hands and arms were much more swollen a day ago. Denies any shortness of breath. Physical Exam Physical Exam: Constitutional: Alert, moderate discomfort due to pain HEENT: Mucous membranes moist. Lungs: Decreased breath sounds CV: S1-S2, regular, murmur Abdomen: Soft, nontender, nondistended Extremities: Minimal edema in lower extremities, edema in hands and upper extremities Neuro: No focal deficits, generally weak, radicular symptoms Psych: Cooperative, normal mood Results & Data Results & Data Vital Signs (Past 12 Hours) Vital Signs Temp Pulse Resp BP Pulse Ox O2 Del Method 01/08/25 08:00 Room Air 01/08/25 07:40 36.7 C 89 16 138/77 96 Room Air 01/07/25 23:16 36.6 C 78 18 124/71 96 Room Air Laboratory Results Reviewed imaging, laboratory and diagnostic studies. Pertinent findings as below. Hemoglobin 8.4, stable Creatinine 1.38 at baseline Hemoglobin A1c 6.7% (4) Type 2 diabetes mellitus Diabetes mellitus cable splicer assistant insulin use: unspecified cable splicer assistant insulin use status Diabetes mellitus complication status: without complication Qualified Code(s): E11.9 - Type 2 diabetes mellitus without complications (5) Hypothyroidism Hypothyroidism type: unspecified Qualified Code(s): E03.9 - Hypothyroidism, unspecified
--- NOTE | 2025-01-08 12:20 | CT Scan Report ---
CT SCAN OF THE LUMBAR SPINE WITHOUT IV CONTRAST CLINICAL HISTORY: Low back pain. Recent spine surgery. COMPARISON STUDY: MRI of the lumbar spine dated 12/20/2024. Abdominal CT dated 11/06/2016. TECHNIQUE: CT scan of the lumbar spine is performed from the lower thoracic spine to sacrum. Images are reviewed in the axial, sagittal, and coronal planes. IV contrast was not administered for this ex amination. A dose lowering technique was utilized adhering to the principles of ALARA. The examinati on is degraded by motion artifact, as well as by streak artifact from metallic spinal hardware. CT DOSE: 904.63 mGy.cm FINDINGS: The skeletal structures are osteopenic. A transitional lumbosacral segment will be labeled L5 for the purposes of today's examination, in keeping with the prior MRI. There is a comminuted vert ical fracture through the mid to posterior aspect of the L4 vertebral body. There is wedging of the p osterior cortex with mild loss of height. Fracture line involves the superior and inferior endplate a s seen on sagittal image #49. Fracture also involves the medial and lateral cortex as seen on axial i mage #242. There is no significant retropulsion of fragments. Nondisplaced fracture is seen extending to the base of the L4 transverse process, best seen on coronal image #34. No additional acute fractu re is clearly seen. There is postsurgical change from discectomy at L2-L3 and L3-L4 with laminectomy and posterior fusion at L2-L4. The orthopedic hardware appears intact. There has been interpositioned bone grafting. Vertebral body height is otherwise maintained throughout the lumbar spine. Anterior a nd lateral marginal osteophytes are seen throughout. There is hyperlordosis. No lytic or blastic lesi on is seen. There is mild disc space narrowing at T12-L1 and L1-L2. The central canal is not well ass essed due to significant streak artifact. Imaged portions of the sacrum and bony pelvis appear intact . Edema, fluid, and foci of soft tissue gas posterior to the thecal sac like to represent expected po stsurgical change. There is moderate to advanced atherosclerotic calcification and mild ectasia of th e abdominal aorta. No retroperitoneal lymphadenopathy is seen. IMPRESSION: 1. A transitional lumbosacral segment will be labeled L5 for the purposes of today's examination. 2. There is postsurgical change from laminectomy and posterior fusion at L2-L4. The orthopedic hardwa re appears intact. 3. There is a comminuted L4 vertebral body fracture as detailed above with mild loss of height seen p osteriorly. No retropulsion of fragments is identified. 4. There is fracture through the base of the left transverse processes of L4. 5. No additional fracture is seen. 6. Edema, fluid, and soft tissue gas posterior to the thecal sac at the operative levels likely repre sents expected postsurgical change. Clinical correlation will be required. 7. Additional findings as above. ACT 112: Negative or not required by law. Electronically signed by: Kemal Arevalo M.D. 01/08/2025 12:18 PM
[2025-01-08] MEDS: ACETAMINOPHEN 500 MG TAB PO SCH (13:19)
[2025-01-08] MEDS: GABAPENTIN 100 MG CAP PO SCH (13:20)
--- NOTE | 2025-01-08 13:58 | XRay Report ---
SINGLE VIEW PELVIS; 2 VIEWS RIGHT HIP CLINICAL HISTORY: Right hip pain. FINDINGS: An AP view of the pelvis is obtained with AP and frog-leg views of the right hip. Correlati on is made with pelvic CT dated 11/06/2016. The skeletal structures are osteopenic. There is no radiog raphic evidence of acute fracture involving the hips or bony pelvis. Bilateral hip arthroplasties are in near-anatomic alignment. Fusion hardware is seen in the lower lumbar spine. There is degenerative sclerosis of the sacroiliac joints and pubic symphysis. The overlying soft tissues are normal as luiza ged. Phleboliths are noted in the pelvis. IMPRESSION: 1. No acute bony abnormality is identified. 2. Bilateral hip arthroplasties are in place. Electronically signed by: Kemal Arevalo M.D. 01/08/2025 1:57 PM
[2025-01-09] MEDS: POLYETHYLENE (MIRALAX) 17 GM PACK PO SCH (08:01)
--- NOTE | 2025-01-09 11:57 | Hospitalist Progress Note ---
Date of Service January 09, 2025 Assessment & Plan (1) Closed fracture of lumbar vertebral body: (2) Lumbar stenosis with neurogenic claudication: (3) Stage 3b chronic kidney disease (CKD): (4) Type 2 diabetes mellitus: (5) Hypothyroidism: Plan Continue current pain management Patient's hand edema seems to be improving on its own, continue to monitor N.p.o. after midnight in anticipation of surgical intervention Check laboratory studies in a.m. Continue monitor glucose cover with insulin Updated patient's son, Gio, aware of plans for surgery tomorrow Admission and Anticipated Discharge Date Admission Date: January 07, 2025 Subjective Patient reports that her pain is fairly well-controlled. Noticed decrease swelling in her hands. Anticipating surgery tomorrow Physical Exam Physical Exam: Constitutional: Alert, nontoxic HEENT: Mucous membranes moist. Lungs: Decreased breath sounds CV: S1-S2, regular, systolic murmur Abdomen: Soft, nontender, nondistended Extremities: Lower extremities minimal edema, upper extremity edema improved, st ill some in the hands Neuro: No focal deficits Psych: Cooperative, normal mood Results & Data Results & Data Vital Signs (Past 12 Hours) Vital Signs Temp Pulse Resp BP Pulse Ox O2 Del Method 01/09/25 08:00 Room Air 01/09/25 07:35 36.9 C 93 H 16 103/69 95 Room Air Diagnostic Findings Reviewed imaging, laboratory and diagnostic studies. Pertinent findings as below. Glucoses reviewed (4) Type 2 diabetes mellitus Diabetes mellitus manager terminal insulin use: unspecified manager terminal insulin use status Diabetes mellitus complication status: without complication Qualified Code(s): E11.9 - Type 2 diabetes mellitus without complications (5) Hypothyroidism Hypothyroidism type: unspecified Qualified Code(s): E03.9 - Hypothyroidism, unspecified
[2025-01-10 06:11] LABS: Hematocrit (blood only) 26.7 % (37.0-47.0); Hemoglobin 8.6 g/dl (12.0-16.0); Mean Corpuscular Hemoglobin 31.4 pg (25.0-34.0); Mean Corpuscular Volume 97.4 fL (80.0-100.0); Platelet Count 220 K/uL (130-400); RDW Standard Deviation 61.4 fL (36.4-46.3); Red Blood Count 2.74 M/uL (4.20-5.40); White Blood Count 6.98 K/ul (4.8-10.8)
[2025-01-10] MEDS: INSULIN ASPART PER UNIT CHARGE SC SCH ×2 (06:22→21:19)
[2025-01-10 06:38] LABS: Anion Gap 8.0 (3-11); Blood Urea Nitrogen 58.0 mg/dl (6-23); Calcium 9.0 mg/dl (8.6-10.3); Carbon Dioxide 29.0 mmol/L (21-32); Chloride 101.0 mmol/L (98-107); Creatinine Clr Calc Pharmacy 22.9 ml/min; Glucose 100.0 mg/dl (70-99(Fasting)); Magnesium 2.1 mg/dl (1.7-2.4); Potassium 4.5 mmol/L (3.5-5.1); Sodium 138.0 mmol/L (136-145)
[2025-01-10] MEDS: SODIUM CHLORIDE 0.9% 500 ML IV SCH (07:32)
[2025-01-10] MEDS ORDERED: ROCURONIUM BROMIDE 10 MG/ML 5 ML VIAL IV ONE (09:04)
[2025-01-10] MEDS ORDERED: PROPOFOL IV EMULSION 10 MG/ML 20 ML VIAL IV ONE (09:04)
[2025-01-10] MEDS ORDERED: ONDANSETRON INJ 2 MG/ML 2 ML VIAL ONE (09:04)
[2025-01-10] MEDS ORDERED: LIDOCAINE 2% 2 ML VIAL/AMP(20MG/ML) INFIL ONE (09:04)
[2025-01-10] MEDS ORDERED: DEXAMETHASONE SOD INJ 4 MG/ML VIAL ONE (09:04)
[2025-01-10] MEDS ORDERED: GLYCOPYRROLATE 0.2 MG/ML VIAL ONE (09:04)
[2025-01-10] MEDS ORDERED: SUGAMMADEX SODIUM 200 MG/2 ML VIAL IV ONE (09:09)
--- NOTE | 2025-01-10 11:57 | Hospitalist Progress Note ---
Date of Service January 10, 2025 Assessment & Plan (1) Closed fracture of lumbar vertebral body: (2) Lumbar stenosis with neurogenic claudication: (3) Stage 3b chronic kidney disease (CKD): (4) Type 2 diabetes mellitus: (5) Hypothyroidism: Plan Patient with continued back pain and radiculopathy due to L4 fracture. Anticipate orthospine surgical intervention today Discontinue oxycodone at the request of the patient, continue Tylenol gabapentin for pain control Continue to monitor renal function, appears to be within her usual range, some gentle IV hydration today in the setting of n.p.o. status for surgery After surgery will need to resume therapies, anticipate patient returning to [facility] for ongoing rehabilitation when stabilized postoperatively. Admission and Anticipated Discharge Date Admission Date: January 07, 2025 Subjective Patient is very anxious and eager to get the surgery done. States she did not sleep all that well. Does not like the oxycodone, makes her hallucinate. Does feel that the gabapentin has helped. Physical Exam Physical Exam: Constitutional: Alert, mild distress due to pain and discomfort HEENT: Mucous membranes moist. Lungs: Clear to auscultation, decreased, no wheezes rales or rhonchi CV: S1-S2, regular, blowing, systolic murmur Abdomen: Soft, nontender, nondistended Extremities: Edema in hands and arms improved Neuro: No focal d radicular symptoms, generally weak Psych: Cooperative, normal mood Results & Data Results & Data Vital Signs (Past 12 Hours) Vital Signs Temp Pulse Resp BP Pulse Ox O2 Del Method 01/10/25 11:22 36.8 C 85 17 98/64 L 94 Room Air 01/10/25 07:00 36.7 C 92 H 142/74 H 96 Room Air Diagnostic Findings Reviewed imaging, laboratory and diagnostic studies. Pertinent findings as below. WBC 6.9 Hemoglobin 8.6, improved Creatinine 1.82, slightly increased but within her previous ranges (4) Type 2 diabetes mellitus Diabetes mellitus ferry terminal supervisor insulin use: unspecified ferry terminal supervisor insulin use status Diabetes mellitus complication status: without complication Qualified Code(s): E11.9 - Type 2 diabetes mellitus without complications (5) Hypothyroidism Hypothyroidism type: unspecified Qualified Code(s): E03.9 - Hypothyroidism, unspecified
--- NOTE | 2025-01-10 12:41 | Anesthesiology Consultation ---
Date of Service January 10, 2025 Assessment & Plan Chart Review Chart Review: Acceptable Risk for Surgery and Patient NOT seen in Pre Admission Testing Consults Requested none ASA ASA4 Proposed Anesthesia Anesthesia Type: General Anesthesia Line Insertion: Arterial line History Surgery Operation Date: 01/10/25 07:00 Proposed Procedures p L2-L3 Revision Fusion - Wolfgang Porras DO Height/Weight Height: 5 ft Weight: 86.5 kg Allergies Allergy/AdvReac Type Severity Reaction Status Date / Time sulfamethoxazole [Bactrim] AdvReac Intermediate "made the Verified 01/10/25 12:23 UTI worse" trimethoprim [Bactrim] AdvReac Intermediate "made the Verified 01/10/25 12:23 UTI worse" Medications Home Medications Medication Instructions Recorded Confirmed Last Taken acetaminophen 325 mg tablet 325 mg PO QID PRN Pain 08/18/24 01/07/25 Unknown allopurinol 300 mg tablet 300 mg PO QAM 08/18/24 01/07/25 12/17/24 aspirin 81 mg tablet,delayed 81 mg PO QAM 08/18/24 01/07/25 12/17/24 release atorvastatin 80 mg tablet 80 mg PO QAM 08/18/24 01/07/25 12/17/24 cholecalciferol (vitamin D3) 25 50 mcg PO DAILY 08/18/24 01/07/25 12/17/24 mcg (1,000 unit) capsule (Vitamin D3) levothyroxine 50 mcg tablet 50 mcg PO QAM 08/18/24 01/07/25 12/17/24 lisinopril 10 mg tablet 10 mg PO QAM 08/18/24 01/07/25 12/17/24 metoprolol succinate 25 mg 12.5 mg PO QAM 08/18/24 01/07/25 12/17/24 tablet,extended release 24 hr oxycodone 5 mg tablet 5 mg PO Q6H PRN Severe Pain (Scale 12/18/24 01/07/25 12/17/24 12:00 Score 7-10) hydrochlorothiazide 12.5 mg tablet 12.5 mg PO DAILY #0 tabs 12/28/24 01/07/25 12/17/24 tramadol 50 mg tablet 50 mg PO Q6H PRN Moderate Pain 01/07/25 01/07/25 Unknown (Scale Score 5-6) Active Medications Generic Name Dose Route Start Last Admin Trade Name Radha PRN Reason Stop Dose Admin Acetaminophen 1,000 mg 01/08/25 14:00 01/10/25 08:07 Acetaminophen 500 Mg Tab PO 02/07/25 13:59 1,000 mg TID HARIKA Administration Allopurinol 300 mg 01/08/25 09:00 01/10/25 08:09 Allopurinol 300 Mg Tab PO 02/07/25 08:59 300 mg QAM HARIKA Administration Aspirin 81 mg 01/08/25 09:00 01/10/25 08:09 Aspirin 81 Mg Ectab PO 02/07/25 08:59 81 mg QAM HARIKA Administration Atorvastatin Calcium 80 mg 01/08/25 09:00 01/10/25 08:09 Atorvastatin 40 Mg Tab PO 02/07/25 08:59 80 mg QAM HARIKA Administration Gabapentin 100 mg 01/08/25 14:00 01/10/25 08:09 Gabapentin 100 Mg Cap PO 02/07/25 13:59 100 mg TID HARIKA Administration Sodium Chloride 500 mls @ 80 mls/hr 01/10/25 07:30 01/10/25 07:32 Nss IV 01/10/25 13:44 80 mls/hr .Q6H15M HARIKA Administration Insulin Aspart 0 units 01/10/25 06:00 01/10/25 11:38 Insulin Aspart Per Unit Charge SC 02/09/25 05:59 Not Given Q6 HARIKA Levothyroxine Sodium 50 mcg 01/08/25 06:30 01/10/25 06:01 Levothyroxine Sodium 50 Mcg Tablet PO 02/07/25 06:29 50 mcg DAILYBB HARIKA Administration Lisinopril 10 mg 01/08/25 09:00 01/10/25 08:09 Lisinopril 10 Mg Tab PO 02/07/25 08:59 10 mg QAM HARIKA Administration Metoprolol Succinate 12.5 mg 01/08/25 09:00 01/10/25 08:08 Metoprolol Succ 25mg Ext Rel Tab PO 02/07/25 08:59 12.5 mg QAM HARIKA Administration Polyethylene Glycol 17 gm 01/09/25 09:00 01/10/25 08:07 Polyethylene (Miralax) 17 Gm Pack PO 02/08/25 08:59 Not Given DAILY HARIKA Vitamin D 50 mcg 01/08/25 09:00 01/10/25 08:08 Cholecalciferol 25 Mcg (1000 Units) Tab PO 02/07/25 08:59 50 mcg DAILY HARIKA Administration NPO Date Last Intake of Fluids: 01/09/25 Time Last Intake of Fluids: 18:00 Date Last Intake of Solids: 01/09/25 Time Last Intake of Solids: 18:00 Past Medical History Medical History Carotid artery stenosis mild bilat ICA stenosis per [facility] EMR Type 2 diabetes mellitus CKD (chronic kidney disease) stage 3, GFR 30-59 ml/min Aortic stenosis moderate RBBB Hyperlipidemia Hypertension controlled, stable per pt Degenerative disc disease Osteoarthritis Gout Hypothyroidism History of kidney stones MUAS (dyspnea on exertion) chronic ASCVD Ao/Carotids Anemia Exercise / Class Metabolic Activity III < 4 Walking/Shop/Light housework Past Family History Family History Mother Diabetes Aunt No problems noted. Past Surgical History Surgical History History of surgical procedure on thoracic spine T9-T10 decompression fusion - August 2024 History of dilatation and curettage History of tooth extraction History of total knee replacement right History of total hip arthroplasty bilat History of cataract surgery bilat History of tonsillectomy History of cystoscopy hx of stent and since removed Past Anesthesia History No Hx of Anesthesia Complications and No Family Hx of Anesthesia Complications History of PONV No Hx of PONV and No Hx of Motion Sickness Social History Smoking Status: Never smoker Do You Dip or Chew Tobacco: No Hx Alcohol Use: No Hx Substance Use: No substance use type: does not use Physical Exam Vital Signs Last Vital Signs Temp 36.6 C 01/10/25 12:22 Pulse 79 01/10/25 12:22 Resp 20 01/10/25 12:22 BP 107/55 L 01/10/25 12:22 Pulse Ox 94 01/10/25 12:22 O2 Del Method Room Air 01/10/25 12:22 Testing Laboratory Results 01/10/25 05:21 01/10/25 05:21 Hemoglobin A1c 6.7 % (4.5-5.6) H 01/08/25 05:32 01/10/25 01/10/25 11:31 06:03 POC Glucose 107 H 109 H Electrocardiogram Date: 12/26/24 Findings: + NSR @ (@ 80; infer. infarct,age ?) and + RBBB Chest X-Ray Date: 12/18/24 Findings: + NAD Echocardiogram Date: 07/29/24 EF: 55% LV Function: normal RWMA: + none Other Findings: + LVH (mild) Valvular Disease: + , + AI (moderate) and + MR (mild) TR-mild Other Testing 07/29/2024-Carotid U/S- < 50% b/L
--- NOTE | 2025-01-10 12:59 | History & Physical Bridge Note ---
Date of Service January 10, 2025 History & Physical Bridge Note I have examined the patient, reviewed the History & Physical and in the interval since the performance of the History & Physical I have noted the following changes of clinical significance: no changes noted Revision fusion L3-L4 possible kyphoplasty L4
[2025-01-10] MEDS ORDERED: ONDANSETRON INJ 2 MG/ML 2 ML VIAL IV PRN ×2 (13:00→16:15)
[2025-01-10] MEDS ORDERED: HYDROmorphone INJ 1 MG/ML SYRINGE IV PRN (13:00)
[2025-01-10] MEDS ORDERED: PROMETHAZINE HCL 6.25 MG in SODIUM CHLORIDE 0.9% 50 ML IV PRN (13:00)
[2025-01-10] MEDS ORDERED: ATROPINE SULFATE 0.1 MG/ML 10ML SYR IV PRN (13:00)
[2025-01-10] MEDS ORDERED: NALOXONE HCL 0.4 MG/1 ML VIAL/CARP IV PRN ×2 (13:00→16:15)
[2025-01-10] MEDS ORDERED: ETOMIDATE 2 MG/ML 20 ML VIAL IV ONE (13:30)
[2025-01-10] MEDS: BUPIVACAINE/EPINEPHRINE 0.25% 1:200,000 30 ML VIAL ONE (13:56)
--- NOTE | 2025-01-10 14:10 | Pharmacy Report ---
Pharmacy Glycemic Short Note 2 - Date of Service January 10, 2025 - Glycemic Short BSG Results (Last 24 hours): 01/09/25 01/09/25 01/10/25 16:35 20:32 05:21 Glucose 100 H POC Glucose 133 H 100 H 01/10/25 01/10/25 06:03 11:31 Glucose POC Glucose 109 H 107 H OUTPATIENT ANTIDIABETIC REGIMEN: * None * A1c 6.7% 01/08/25 ASSESSMENT: 01/10: * Patient received total of 10 units of insulin yesterday, all of which were correctional insulin * Patient with surgery today, NPO - IV steroids pulled intraoperatively, potential for steroid induced hyperglycemia. Will add conservative scale for Lantus at HS in case blood sugars trend upward 01/07: * 84 yo F, PMHx DMII, HLD, long-standing HTN, hypothyroidism, CKD stage IIIb baseline Cr 1.2-1.4, severe thoracic spinal stenosis and myelopathy s/p T9-T10 decompression and fusion on 09/09/24, direct admission from [facility] for surgical evaluation by Dr. Porras regarding L4 vertebral body fractures, tentative surgical repair to take place on 01/10/25. * No steroids ordered at this time, will start with NovoLog at this time and add basal as needed. PLAN FOR INPATIENT GLYCEMIC CONTROL: * Basal insulin * 0-8 units HS * Bolus insulin * NovoLog per scale ACHS or Q6hrs while NPO * Goal Range: Low 110 mg/dL - High 160 mg/dL * Correction Factor: 30 mg/dL/unit * Nutritional / Prandial insulin per carb ratio of 1 unit per 9 grams CHO consumed
[2025-01-10] MEDS: FLOSEAL HEMOSTATIC MATRIX 10ML TOP ONE (14:20)
[2025-01-10] MEDS: VANCOMYCIN HCL 1000MG/20ML VIAL ONE (14:30)
[2025-01-10] MEDS: GENTAMICIN SULFATE 40 MG/ML 2 ML VIAL ONE (14:30)
[2025-01-10] MEDS: ceFAZolin 330 MG/ML 1 GM VIAL ONE ×2 (14:45→14:51)
--- NOTE | 2025-01-10 15:09 | Operative Report ---
Post Operative Report Pre & Post Diagnosis Operation Date: 01/10/25 07:00 Pre-Op Diagnosis: #1 L4 compression fracture #2 epidural hematoma lumbar spine Post-Op Diagnosis: Postop is the same with L2 fracture I identified the patient and participated in the time-out.: Yes Procedure Operation Date: 01/10/25 07:00 Actual Procedures #1 removal of posterior instrumentation L2-L4. #2 revision decompression L2-L3 L3-L4 with foraminotomies on the right addressing bony fragments. #3 posterior spinal fusion L2-L5. #4 placement posterior instrumentation L2-L5 including a cross-link using camber. #5 kyphoplasty of L2 and L4 vertebral bodies. Surgeon Wolfgang Porras, DO Senior Linux Engineer Genevieve Molbey Estimated Blood Loss 350 (150ml evacuate hematoma) Findings See Below Patient had obvious loosening of the L4 pedicle screws consistent with a fracture in L4. She also had marked loosening of the L2 pedicle screws consistent with fracture of the L2 body as well. She had marked epidural hematoma. Specimens None Indications This is an 84-year-old female who presents with above-mentioned diagnoses and subsequent here for urgent revision decompression and stabilization. Description of Procedure Patient was met with identified for consent obtained. Patient was then taken to the operative suite underwent the patient placed in a prone position on the Dany table top of the Kevon frame. All bony prominences well-padded eyes inspected to ensure no external pressure placed upon the. This point lumbar spine was prepped and draped in normal sterile fashion. Sharp dissection with the assistance of Bovie cautery from down to and exposing the fascial layer. The fascia was released and evidence of significant epidural hematoma noted with under significant pressure. This was removed in its entirety with irrigation of saline. And then proceeded to remove the end caps and rods from the pedicle screws from L2-L4 bilaterally. The L2 and L4 pedicle screws were grossly loose and removed by hand. All 3 was still quite stable. I then performed revision decompressions L2-L3 L3-L4 on the right addressing any bony fragments within the foramina contributing to her rights sciatica. After this is complete Kyphon balloons were inserted into the L2 vertebral body and subsequent the L4 vertebral body. Both L2 and L4 were then injected with cement with fluoroscopic visualization followed by placement of pedicle screws and L2. Was unable to successfully reinsert screws in L4 secondary to the significant pedicle pedicle component of her fracture and inability to obtain purchase. New screws were placed in L3 and I extended the dissection down to L5 and inserted screws bilaterally at L5. Appropriate size rods was then contoured and placed from L2- L5 bilaterally. Proteus and Koros was placed in the posterior gutters extending from L2-L5 to augment the bony fusion. Cross-link was locked into position. 15 round ATA drain inserted. Approximately 10 cc of Stimulan beads impregnated with vancomycin gentamicin were then placed throughout the incision. Incision was then closed with 1 Vicryl the fascia 2-0 Vicryl subcutaneously and 4-0 Monocryl for final skin closure. Steri-Strips sterile dressing placed. Patient waken taken PACU stable condition. I attest to the content of the Intraoperative Record and any orders documented therein. Any exceptions are noted below.
--- NOTE | 2025-01-10 15:10 | Fluoroscopy Report ---
FL lumbar spine 2-3V CLINICAL HISTORY: L2-L3 COMPARISON STUDY: Lumbar spine CT 01/08/2025 FLUOROSCOPY TIME: 126.1 seconds FLUOROSCOPY IMAGES: 2 EXPOSURE DOSE: 122.41 mGy FINDINGS: Posterior interbody ke and screw fusion with discectomy changes noted involving the lumbar spine with transitional lumbosacral anatomy redemonstrated. Exact numbering cannot be confirmed seco ndary to magnification. Note that the images were submitted following completion of the surgery. No d efinite unexpected opaque foreign bodies identified. IMPRESSION: Fluoroscopic assistance as above. ACT 112: Negative or not required by law. Electronically signed by: Yamil Fontaine M.D. 01/10/2025 3:08 PM
--- NOTE | 2025-01-10 15:53 | Anesthesiology Progress Note ---
Date of Service January 10, 2025 Anesthesia Post Procedure Vital Signs Vital Signs: Temp Pulse Pulse Resp BP BP Pulse Ox 01/10/25 15:50 80 17 109/59 L 99 01/10/25 15:40 83 19 96/43 L 94 01/10/25 15:30 82 12 110/46 L 100 01/10/25 15:20 86 18 102/52 L 100 01/10/25 15:14 36.4 C L 81 10 L 111/55 L 100 01/10/25 12:22 36.6 C 79 20 107/55 L 94 01/10/25 11:22 36.8 C 85 17 98/64 L 94 01/10/25 08:00 01/10/25 07:00 36.7 C 92 H 142/74 H 96 01/09/25 23:16 36.8 C 79 18 135/71 96 O2 Del Method O2 Flow Rate 01/10/25 15:50 Nasal Cannula 2 01/10/25 15:40 Room Air 01/10/25 15:30 Oxymask 9 01/10/25 15:20 Oxymask 9 01/10/25 15:14 Oxymask 9 01/10/25 12:22 Room Air 01/10/25 11:22 Room Air 01/10/25 08:00 Room Air 01/10/25 07:00 Room Air 01/09/25 23:16 Room Air Pain Intensity Right Lower Leg: Pain Intensity: 7 Transfer of Care Handoff Completed per policy Notes Mental Status: alert / awake / arousable Patient Amnestic to Procedure: Yes Nausea / Vomiting: adequately controlled Pain: adequately controlled Airway Patency, RR, SpO2: stable & adequate BP & HR: stable & adequate Hydration State: stable & adequate Anesthetic Complications: no major complications apparent
[2025-01-10] MEDS ORDERED: LORazepam 0.5 MG TAB PO PRN (16:15)
[2025-01-10] MEDS ORDERED: MAGNESIUM HYDROXIDE SUSP 30 ML UDC PO PRN (16:15)
[2025-01-10] MEDS ORDERED: ONDANSETRON 4 MG OD TAB PO PRN (16:15)
[2025-01-10] MEDS ORDERED: SOD PHOSPHATE/SOD BIPHOSPHATE ENEMA 132 ML BTL PR PRN (16:15)
[2025-01-10] MEDS ORDERED: DO NOT ADMINISTER FLU VACCINE PRN (16:15)
[2025-01-10] MEDS ORDERED: ACETAMINOPHEN 1,000 MG/100 ML VIAL IV PRN (16:15)
[2025-01-10] MEDS ORDERED: diphenhydrAMINE Capsule 25 MG CAP PO PRN (16:15)
[2025-01-10] MEDS ORDERED: METOCLOPRAMIDE HCL INJ 5 MG/ML 2 ML VIAL IV PRN (16:15)
[2025-01-10] MEDS ORDERED: FAMOTIDINE 20 MG TAB PO PRN (16:15)
[2025-01-10] MEDS ORDERED: DO NOT ADMINISTER PNEUMOCOCCAL VACCINE PRN (16:15)
[2025-01-10] MEDS ORDERED: PROMETHAZINE 12.5 MG/50.5 ML BAG IV PRN (16:15)
[2025-01-10] MEDS ORDERED: ALUMINUM/MAGNESIUM SUSP 30 ML UDC PO PRN (16:15)
[2025-01-10] MEDS ORDERED: ACETAMINOPHEN 500 MG TAB PO PRN (16:15)
[2025-01-10] MEDS: NSS + 20MEQ KCL 20 MEQ/1,000 ML BAG IV SCH (17:12)
[2025-01-10] MEDS: DOCUSATE SODIUM/SENNA 50/8.6MG TAB PO SCH (20:03)
[2025-01-10] MEDS ORDERED: Nursing to Pharmacy Communication SCH (21:15)
[2025-01-10] MEDS: LANTUS PER UNIT CHARGE SC SCH (21:18)
[2025-01-11] MEDS: POLYETHYLENE (MIRALAX) 17 GM PACK PO SCH (06:13)
[2025-01-11 07:46] LABS: Hematocrit (blood only) 24.0 % (37.0-47.0); Hemoglobin 7.5 g/dl (12.0-16.0); Immature Granulocytes # (auto) 0.05 K/uL (0.01-0.20); Immature Granulocytes % (auto) 0.7 %; Mean Corpuscular Hemoglobin 30.5 pg (25.0-34.0); Mean Corpuscular Volume 97.6 fL (80.0-100.0); Platelet Count 206 K/uL (130-400); RDW Standard Deviation 60.5 fL (36.4-46.3); Red Blood Count 2.46 M/uL (4.20-5.40); White Blood Count 7.34 K/ul (4.8-10.8)
[2025-01-11 08:01] LABS: Polychromasia 1+; Tear Drop Cells 1+
[2025-01-11 08:03] LABS: Anion Gap 8.0 (3-11); Blood Urea Nitrogen 63.0 mg/dl (6-23); Calcium 8.8 mg/dl (8.6-10.3); Carbon Dioxide 24.0 mmol/L (21-32); Chloride 106.0 mmol/L (98-107); Creatinine Clr Calc Pharmacy 23.4 ml/min; Glucose 133.0 mg/dl (70-99(Fasting)); Potassium 5.6 mmol/L (3.5-5.1); Sodium 138.0 mmol/L (136-145)
--- NOTE | 2025-01-11 09:55 | Orthopedic Progress Note ---
Date of Service January 11, 2025 Assessment & Plan (1) Closed fracture of lumbar vertebral body: Plan: This time we will begin bed to chair transfers to tolerance. Then begin ambulation. Plan for rehab the latter half of this week. Admission and Anticipated Discharge Date Admission Date: January 07, 2025 Subjective Patient is back pain is controlled leg symptoms markedly improved. She was lightheaded this morning when trying to sit up. Physical Exam Physical Exam: On exam she does appear comfortable. Has good strength testing. Results & Data Vital Signs (Past 12 Hours) Vital Signs Temp Pulse Pulse Resp BP BP Pulse Ox 01/11/25 07:05 36.5 C 73 16 99/61 L 95 01/11/25 03:03 36.5 C 77 18 107/65 96 01/10/25 23:00 36.5 C 88 18 103/63 99 O2 Del Method 01/11/25 07:05 Room Air 01/11/25 03:03 Room Air 01/10/25 23:00 Room Air Queries Orthopedic Spine Obesity: Yes Vertebral Fracture Secondary to Osteoporosis: Yes
[2025-01-11] MEDS: SODIUM CHLORIDE 0.9% 1,000 ML IV SCH (11:58)
--- NOTE | 2025-01-11 17:02 | Hospitalist Progress Note ---
Date of Service January 11, 2025 Assessment & Plan (1) Closed fracture of lumbar vertebral body: Plan: Status post posterior spinal fusion L2-L5 and evacuation of hematoma on 01/10/2025 Has pain at the lower back without radiation Noted to have very low blood pressure and she will be given adequate amount of intravenous fluid to maintain blood pressure Hemoglobin remains on the lower side at 7.5 and will monitor Hypotension Likely secondary to dehydration and induced by pain She will be given small amount of intravenous fluid and was advised to drink more fluid Will continue her small dose of beta-carmita for now Will observe in the hospital Constipation Has not had a bowel movement for the last 3 days Has been getting laxatives and will give a suppository Advised to drink more fluid (2) Lumbar stenosis with neurogenic claudication: (3) Stage 3b chronic kidney disease (CKD): (4) Type 2 diabetes mellitus: (5) Hypothyroidism: Plan Progress note from the previous hospitalist: Patient with continued back pain and radiculopathy due to L4 fracture. Anticipate orthospine surgical intervention today Discontinue oxycodone at the request of the patient, continue Tylenol gabapentin for pain control Continue to monitor renal function, appears to be within her usual range, some gentle IV hydration today in the setting of n.p.o. status for surgery After surgery will need to resume therapies, anticipate patient returning to [facility] for ongoing rehabilitation when stabilized postoperatively. Admission and Anticipated Discharge Date Admission Date: January 07, 2025 Subjective 01/11/2025 The patient was seen and examined in medical floor She is status post posterior spinal fusion L2-L5 and evacuation of hematoma Has not had a bowel movement for the last 3 days Her pain seems to be controlled and she was noted to have low blood pressure at 85/50 Review of Systems Review of Systems: All systems reviewed and are unremarkable except as noted below Physical Exam Physical Exam: Lying in bed with some discomfort due to back pain without any radiation Constitutional: well developed, well nourished, + ill appearing and + obese Eyes: PERRL, conjunctivae normal, anicteric sclerae ENMT: external ear and nose normal, oropharynx normal Neck: trachea midline, no thyromegaly Respiratory: no respiratory distress Auscultation: lungs clear to auscultation bilaterally Cardiovascular: Rate/Rhythm: regular rate and regular rhythm; not tachycardic Heart Sounds: normal S1, normal S2 and + murmur Extremities: + edema (Trace edema bilaterally) Gastrointestinal (Abdomen): Inspection/Auscultation: normal bowel sounds; abdomen not distended Percussion/Palpation: abdomen soft; abdomen nontender Musculoskeletal: No acute arthritis involving any of the joints Neurologic: normal touch/pain/proprioception and moves all extremities; no focal motor deficits Lymphatic: no cervical or axillary lymphadenopathy Results & Data Results & Data Vital Signs (Past 12 Hours) Vital Signs Temp Pulse Pulse Resp BP Pulse Ox Pulse Ox 01/11/25 16:14 36.4 C L 70 16 85/50 L 97 01/11/25 14:05 97 01/11/25 11:00 36.5 C 79 16 113/65 97 01/11/25 10:58 67 18 93 01/11/25 08:00 01/11/25 07:05 36.5 C 73 16 99/61 L 95 Pulse Ox O2 Del Method O2 Flow Rate O2 Flow Rate 01/11/25 16:14 Room Air 01/11/25 14:05 96 0 0 01/11/25 11:00 Room Air 01/11/25 10:58 Room Air 01/11/25 08:00 Room Air 01/11/25 07:05 Room Air Laboratory Results Short CBC 01/11/25 Range/Units 07:23 WBC 7.34 (4.8-10.8) K/ul Hgb 7.5 L (12.0-16.0) g/dl Hct 24.0 L (37.0-47.0) % Plt Count 206 (130-400) K/uL BMP 01/11/25 07:23 Sodium 138 Potassium 5.6 H D Chloride 106 Carbon Dioxide 24 BUN 63 H Creatinine 1.78 H Glucose 133 H Calcium 8.8 Medications Administered Current Inpatient Medications Acetaminophen (Acetaminophen 500 Mg Tab) 1,000 mg PO TID [facility] Stop: 02/07/25 13:59 Last Admin: 01/11/25 14:39 Dose: 1,000 mg Acetaminophen (Acetaminophen 500 Mg Tab) 1,000 mg PO Q8H PRN PRN Reason: MILD Pain (1,2,3) & Pre PT Stop: 02/09/25 16:14 Al Hydrox/Mg Hydrox/Simethicone (Aluminum/Magnesium Susp 30 Ml Udc) 30 ml PO Q6H PRN PRN Reason: Dyspepsia Stop: 02/09/25 16:14 Allopurinol (Allopurinol 300 Mg Tab) [facility] [place] [facility] [place]: 02/07/25 08:59 Last Admin: 01/11/25 07:51 Dose: 300 mg Aspirin (Aspirin 81 Mg Ectab) 81 mg [facility] [place] [facility] [place] Stop: 02/07/25 08:59 Last Admin: 01/11/25 07:50 Dose: 81 mg Atorvastatin Calcium (Atorvastatin 40 Mg Tab) 80 mg PO [facility] Stop: 02/07/25 08:59 Last Admin: 01/11/25 07:51 Dose: 80 mg Bisacodyl (Bisacodyl 10 Mg Supp) 10 mg MS DAILY PRN PRN Reason: Constipation Stop: 02/09/25 16:14 Dextrose (Dextrose 50% 50 Ml Syringe) 25 - 50 ml IV UD PRN; Protocol PRN Reason: Hypoglycemia Protocol Stop: 02/06/25 18:28 Diphenhydramine HCl (Diphenhydramine Capsule 25 Mg Cap) 25 mg PO Q6H PRN PRN Reason: Allergic Rhinitis/Insomnia Stop: 02/09/25 16:14 Famotidine (Famotidine 20 Mg Tab) 20 mg PO Q12H PRN PRN Reason: Dyspepsia Stop: 02/09/25 16:14 Gabapentin (Gabapentin 100 Mg Cap) 100 mg PO TID [facility] Stop: 02/07/25 13:59 Last Admin: 01/11/25 14:39 Dose: 100 mg Glucagon (Glucagon For Inj 1 Mg Vial) 1 mg SQ UD PRN; Protocol PRN Reason: Hypoglycemia Protocol Stop: 02/06/25 18:28 Glucose (Glucose 40% Gel 15 Gm Tube) 15 - 30 gm PO UD PRN; Protocol PRN Reason: Hypoglycemia Protocol Stop: 02/06/25 18:28 Glucose (Glucose 10 Tab/Tube) 4 - 8 tab PO UD PRN; Protocol PRN Reason: Hypoglycemia Protocol Stop: 02/06/25 18:28 Hydroxyzine HCl (Hydroxyzine Hcl 25 Mg Tab) 25 mg PO Q8H PRN PRN Reason: Anxiety Stop: 02/09/25 16:14 Promethazine HCl (Phenergan) 12.5 mg in 50.5 mls @ 202 mls/hr IV Q6H PRN PRN Reason: Nausea And Vomiting Stop: 02/09/25 16:14 Sodium Chloride (Nss) 1,000 mls @ 125 mls/hr IV .Q8H [facility] Stop: 01/12/25 11:44 Last Admin: 01/11/25 11:58 Dose: 125 mls/hr Influenza Virus Vaccine Quadrival (Do Not Administer Flu Vaccine) 1 each N/A PRN PRN PRN Reason: Notification Stop: 02/09/25 16:14 Insulin Aspart (Insulin Aspart Per Unit Charge) 0 units SC ACHS [facility] Stop: 02/09/25 21:14 Last Admin: 01/11/25 16:45 Dose: 9 units Levothyroxine Sodium (Levothyroxine Sodium 50 Mcg Tablet) 50 mcg PO DAILYBB [facility] Stop: 02/07/25 06:29 Last Admin: 01/11/25 06:12 Dose: 50 mcg Lisinopril (Lisinopril 10 Mg Tab) 10 mg PO QAM [facility] Stop: 02/07/25 08:59 Last Admin: 01/11/25 07:48 Dose: Not Given Lorazepam (Lorazepam 0.5 Mg Tab) 0.5 mg PO Q8H PRN PRN Reason: Sedation/Anxiety Stop: 02/09/25 16:14 Lorazepam (Lorazepam 2 Mg/1 Ml Vial) 0.5 mg IV Q8H PRN PRN Reason: Sedation/Anxiety Stop: 02/09/25 16:14 Magnesium Hydroxide (Magnesium Hydroxide Susp 30 Ml Udc) 30 ml PO Q6H PRN PRN Reason: Constipation Stop: 02/06/25 16:05 Magnesium Hydroxide (Magnesium Hydroxide Susp 30 Ml Udc) 30 ml PO Q24H PRN PRN Reason: Constipation Stop: 02/09/25 16:14 Metoclopramide HCl (Metoclopramide Hcl Inj 5 Mg/Ml 2 Ml Vial) 10 mg IV Q6H PRN PRN Reason: Nausea &/or Vomiting Stop: 02/09/25 16:14 Metoprolol Succinate (Metoprolol Succ 25mg Ext Rel Tab) 12.5 mg [facility] [place] [facility] [place] Stop: 02/07/25 08:59 Last Admin: 01/11/25 07:48 Dose: Not Given Miscellaneous (Carbohydrates For Hypoglycemia ) 15 - 30 gm PO UD PRN PRN Reason: Hypoglycemia Protocol Stop: 02/06/25 18:28 Miscellaneous Information (Pharmacy Glycemic Mgmt Consult) 1 each N/A UD PRN PRN Reason: Consult Stop: 02/06/25 18:28 Naloxone HCl (Naloxone Hcl 0.4 Mg/1 Ml Vial/Carp) 0.1 mg IV Q5M PRN PRN Reason: Oversedation/Resp depression Stop: 02/09/25 16:14 Ondansetron HCl (Ondansetron Inj 2 Mg/Ml 2 Ml Vial) 4 mg IV Q6H PRN PRN Reason: Nausea Stop: 02/06/25 16:05 Ondansetron HCl (Ondansetron Inj 2 Mg/Ml 2 Ml Vial) 4 mg IV Q6H PRN PRN Reason: Nausea &/or Vomiting Stop: 02/09/25 16:14 Ondansetron HCl (Ondansetron 4 Mg Od Tab) 4 mg PO Q6H PRN PRN Reason: Nausea Stop: 02/09/25 16:14 Oxycodone/Acetaminophen (Oxycodone/Acetaminophen 5mg/325mg Tab) 1 - 2 tab PO Q4H PRN PRN Reason: MOD/SEV Pain & Pre PT Stop: 01/24/25 16:14 Pneumococcal Polyvalent Vaccine (Do Not Administer Pneumococcal Vaccine) 1 each N/A PRN PRN PRN Reason: Notification Stop: 02/09/25 16:14 Polyethylene Glycol (Polyethylene (Miralax) 17 Gm Pack) 17 gm PO DAILY [facility] Stop: 02/08/25 08:59 Last Admin: 01/11/25 07:54 Dose: 17 gm Polyethylene Glycol (Polyethylene (Miralax) 17 Gm Pack) 17 gm PO Q6 [facility] Stop: 02/10/25 05:59 Last Admin: 01/11/25 16:48 Dose: 17 gm Senna/Docusate Sodium (Docusate Sodium/Senna 50/8.6mg Tab) 2 tab PO HS [facility] Stop: 02/09/25 20:59 Last Admin: 01/10/25 20:03 Dose: 2 tab Sodium Biphosphate/Sodium Phosphate (Sod Phosphate/Sod Biphosphate Enema 132 Ml Btl) 132 ml MS ONE PRN PRN Reason: Constipation Stop: 02/09/25 16:14 Tramadol HCl (Tramadol Hcl 50 Mg Tablet) 25 mg PO Q4H PRN PRN Reason: Pain Stop: 02/09/25 09:59 Vitamin D (Cholecalciferol 25 Mcg (1000 Units) Tab) 50 mcg PO DAILY [facility] Stop: 02/07/25 08:59 Last Admin: 01/11/25 07:50 Dose: 50 mcg (4) Type 2 diabetes mellitus Diabetes mellitus complication status: without complication Diabetes mellitus long lines operator insulin use: unspecified long lines operator insulin use status Qualified Code(s): E11.9 - Type 2 diabetes mellitus without complications (5) Hypothyroidism Hypothyroidism type: unspecified Qualified Code(s): E03.9 - Hypothyroidism, unspecified
[2025-01-12 06:22] LABS: Hematocrit (blood only) 21.7 % (37.0-47.0); Hemoglobin 6.9 g/dl (12.0-16.0); Mean Corpuscular Hemoglobin 31.1 pg (25.0-34.0); Mean Corpuscular Volume 97.7 fL (80.0-100.0); Platelet Count 205 K/uL (130-400); RDW Standard Deviation 60.0 fL (36.4-46.3); Red Blood Count 2.22 M/uL (4.20-5.40); White Blood Count 7.06 K/ul (4.8-10.8)
[2025-01-12 06:25] LABS: Anion Gap 5.0 (3-11); Blood Urea Nitrogen 60.0 mg/dl (6-23); Calcium 8.2 mg/dl (8.6-10.3); Carbon Dioxide 25.0 mmol/L (21-32); Chloride 109.0 mmol/L (98-107); Creatinine Clr Calc Pharmacy 23.8 ml/min; Glucose 114.0 mg/dl (70-99(Fasting)); Potassium 5.3 mmol/L (3.5-5.1); Sodium 139.0 mmol/L (136-145)
[2025-01-12 06:33] LABS: Immature Granulocytes # (auto) 0.05 K/uL (0.01-0.20); Immature Granulocytes % (auto) 0.7 %; Polychromasia 2+
[2025-01-12] MEDS ORDERED: SODIUM CHLORIDE 0.9% 100 ML IV PRN (06:38)
--- NOTE | 2025-01-12 06:42 | Communication Note ---
Date of Service: January 12, 2025 Made aware by RN of progressive hemoglobin drop since admission 2 days ago. 8.6 -> 7.5 -> 6.9 No overt bleeding as per RN. AP Progressive anemia Recent back surgery Hold aspirin for now Transfuse PRBC to maintain hemoglobin of at least 8 (hx carotid artery disease as per records)
[2025-01-12] MEDS: LANTUS PER UNIT CHARGE SC SCH (08:04)
--- NOTE | 2025-01-12 09:32 | Pharmacy Report ---
Pharmacy Glycemic Short Note 2 - Date of Service January 12, 2025 - Glycemic Short BSG Results (Last 24 hours): 01/11/25 01/11/25 01/11/25 11:24 16:41 20:26 Glucose POC Glucose 220 H 195 H 170 H 01/12/25 01/12/25 05:32 07:58 Glucose 114 H POC Glucose 119 H OUTPATIENT ANTIDIABETIC REGIMEN: * None * A1c 6.7% 01/08/25 ASSESSMENT: 01/12: * Patient received total of 19 units of insulin yesterday, all of which were SSI * BSGs trending upward yesterday, appears PO intake increasing - will add on low dose basal this AM * Continue same CF/CR 01/10: * Patient received total of 10 units of insulin yesterday, all of which were correctional insulin * Patient with surgery today, NPO - IV steroids pulled intraoperatively, potential for steroid induced hyperglycemia. Will add conservative scale for Lantus at HS in case blood sugars trend upward 01/07: * 84 yo F, PMHx DMII, HLD, long-standing HTN, hypothyroidism, CKD stage IIIb baseline Cr 1.2-1.4, severe thoracic spinal stenosis and myelopathy s/p T9-T10 decompression and fusion on 09/09/24, direct admission from [facility] for surgical evaluation by Dr. Porras regarding L4 vertebral body fractures, tentative surgical repair to take place on 01/10/25. * No steroids ordered at this time, will start with NovoLog at this time and add basal as needed. PLAN FOR INPATIENT GLYCEMIC CONTROL: * Basal insulin * Lantus 5 units once daily * Bolus insulin * NovoLog per scale ACHS or Q6hrs while NPO * Goal Range: Low 110 mg/dL - High 160 mg/dL * Correction Factor: 30 mg/dL/unit * Nutritional / Prandial insulin per carb ratio of 1 unit per 9 grams CHO consumed
--- NOTE | 2025-01-12 10:55 | Orthopedic Progress Note ---
Date of Service January 12, 2025 Assessment & Plan (1) Closed fracture of lumbar vertebral body: Plan: This time she will be transfused with blood today. Will continue with bed to chair therapy as tolerated. Hopefully fit for rehab Friday. Admission and Anticipated Discharge Date Admission Date: January 07, 2025 Subjective Patient is back pain is controlled. She does note improvement of her leg pain. She does feel weak. Physical Exam Physical Exam: Patient is comfortable. She has good strength testing. Results & Data Vital Signs (Past 12 Hours) Vital Signs Temp Pulse Pulse Pulse Resp BP BP 01/12/25 10:32 36.5 C 78 18 98/59 L 01/12/25 10:30 36.3 C L 81 20 104/64 01/12/25 10:13 36.6 C 81 18 116/63 01/12/25 07:55 76 98/58 L 01/12/25 07:49 36.6 C 78 17 154/98 H 01/12/25 06:31 36.5 C 73 18 107/65 01/11/25 23:26 36.6 C 73 18 BP Pulse Ox O2 Del Method 01/12/25 10:32 100 01/12/25 10:30 98 01/12/25 10:13 98 01/12/25 07:55 97 Room Air 01/12/25 07:49 96 Room Air 01/12/25 06:31 98 Room Air 01/11/25 23:26 105/65 100 Room Air Queries Orthopedic Spine Obesity: Yes Vertebral Fracture Secondary to Osteoporosis: Yes
--- NOTE | 2025-01-12 15:05 | Hospitalist Progress Note ---
Date of Service January 12, 2025 Assessment & Plan (1) Closed fracture of lumbar vertebral body: Plan: Status post posterior spinal fusion L2-L5 and evacuation of hematoma on 01/10/2025 Has pain at the lower back without radiation Noted to have very low blood pressure and she will be given adequate amount of intravenous fluid to maintain blood pressure Hemoglobin remains on the lower side at 7.5 and will monitor Hemoglobin dropped down to 6.9 this morning and the patient remained very weak and lethargic Will get 2 units of blood transfusion will monitor CBC and PRP tomorrow Hypotension Likely secondary to dehydration and induced by pain She will be given small amount of intravenous fluid and was advised to drink more fluid Will continue her small dose of beta-carmita for now Blood pressure is seems to be in the lower side at 105/62 With blood transfusion is expected to improve Constipation Has not had a bowel movement for the last 3 days Has been getting laxatives and will give a suppository Advised to drink more fluid (2) Lumbar stenosis with neurogenic claudication: (3) Stage 3b chronic kidney disease (CKD): (4) Type 2 diabetes mellitus: (5) Hypothyroidism: Plan Progress note from the previous hospitalist: Patient with continued back pain and radiculopathy due to L4 fracture. Anticipate orthospine surgical intervention today Discontinue oxycodone at the request of the patient, continue Tylenol gabapentin for pain control Continue to monitor renal function, appears to be within her usual range, some gentle IV hydration today in the setting of n.p.o. status for surgery After surgery will need to resume therapies, [facility] when stabilized postoperatively. Admission and Anticipated Discharge Date Admission Date: January 07, 2025 Subjective 01/11/2025 The patient was seen and examined in medical floor She is status post posterior spinal fusion L2-L5 and evacuation of hematoma Has not had a bowel movement for the last 3 days Her pain seems to be controlled and she was noted to have low blood pressure at 85/50 01/12/2025 The patient was seen and examined in medical floor Her hemoglobin went down to 6.9 and she remained pale with low blood pressure Except weakness she does not have any other acute symptoms She will be getting 2 units of blood transfusion Review of Systems Review of Systems: All systems reviewed and are unremarkable except as noted below Physical Exam Physical Exam: Lying in bed with some discomfort due to back pain without any radiation Constitutional: well developed, well nourished, + ill appearing and + obese Eyes: PERRL, conjunctivae normal, anicteric sclerae ENMT: external ear and nose normal, oropharynx normal Neck: trachea midline, no thyromegaly Respiratory: no respiratory distress Auscultation: lungs clear to auscultation bilaterally Cardiovascular: Rate/Rhythm: regular rate and regular rhythm; not tachycardic Heart Sounds: normal S1, normal S2 and + murmur Extremities: + edema (Trace edema bilaterally) Gastrointestinal (Abdomen): Inspection/Auscultation: normal bowel sounds; abdomen not distended Percussion/Palpation: abdomen soft; abdomen nontender Musculoskeletal: has back pain without radiation Neurologic: normal touch/pain/proprioception and moves all extremities; no focal motor deficits Lymphatic: no cervical or axillary lymphadenopathy Results & Data Results & Data Vital Signs (Past 12 Hours) Vital Signs Temp Pulse Pulse Pulse Resp BP BP 01/12/25 14:46 36.4 C L 77 18 105/62 01/12/25 14:00 36.3 C L 73 18 101/60 01/12/25 13:30 36.4 C L 77 20 107/58 L 01/12/25 13:15 36.5 C 81 22 99/58 L 01/12/25 12:51 36.5 C 80 20 135/66 01/12/25 12:40 36.3 C L 80 20 113/62 01/12/25 12:17 36.6 C 80 18 119/67 01/12/25 11:39 36.5 C 71 17 01/12/25 11:17 36.3 C L 68 16 106/62 01/12/25 10:47 36.3 C L 76 16 112/66 01/12/25 10:32 36.5 C 78 18 98/59 L 01/12/25 10:30 36.3 C L 81 20 104/64 01/12/25 10:13 36.6 C 81 18 116/63 01/12/25 07:55 76 98/58 L 01/12/25 07:49 36.6 C 78 17 154/98 H 01/12/25 06:31 36.5 C 73 18 107/65 BP Pulse Ox O2 Del Method 01/12/25 14:46 99 01/12/25 14:00 100 01/12/25 13:30 98 01/12/25 13:15 98 01/12/25 12:51 98 01/12/25 12:40 97 01/12/25 12:17 98 01/12/25 11:39 98/60 L 98 Room Air 01/12/25 11:17 99 01/12/25 10:47 99 01/12/25 10:32 100 01/12/25 10:30 98 01/12/25 10:13 98 01/12/25 07:55 97 Room Air 01/12/25 07:49 96 Room Air 01/12/25 06:31 98 Room Air Laboratory Results Short CBC 01/12/25 Range/Units 05:32 WBC 7.06 (4.8-10.8) K/ul Hgb 6.9 L* (12.0-16.0) g/dl Hct 21.7 L (37.0-47.0) % Plt Count 205 (130-400) K/uL BMP 01/12/25 05:32 Sodium 139 Potassium 5.3 H Chloride 109 H Carbon Dioxide 25 BUN 60 H Creatinine 1.75 H Glucose 114 H Calcium 8.2 L Medications Administered Current Inpatient Medications Acetaminophen (Acetaminophen 500 Mg Tab) 1,000 mg PO TID [facility] Stop: 02/07/25 13:59 Last Admin: 01/12/25 08:04 Dose: 1,000 mg Acetaminophen (Acetaminophen 500 Mg Tab) 1,000 mg PO Q8H PRN PRN Reason: MILD Pain (1,2,3) & Pre PT Stop: 02/09/25 16:14 Al Hydrox/Mg Hydrox/Simethicone (Aluminum/Magnesium Susp 30 Ml Udc) 30 ml PO Q6H PRN PRN Reason: Dyspepsia Stop: 02/09/25 16:14 Allopurinol ([facility]ol 300 Mg Tab) [facility] [place]: 02/07/25 08:59 Last Admin: 01/12/25 07:52 Dose: 300 mg Aspirin (Aspirin 81 Mg Ectab) 81 mg PO QAM [facility] Stop: 02/07/25 08:59 Last Admin: 01/11/25 07:50 Dose: 81 mg Atorvastatin Calcium (Atorvastatin 40 Mg Tab) [facility] [place] Stop: 02/07/25 08:59 Last Admin: 01/12/25 07:51 Dose: 80 mg Bisacodyl (Bisacodyl 10 Mg Supp) 10 mg [place] DAILY PRN PRN Reason: Constipation Stop: 02/09/25 16:14 Dextrose (Dextrose 50% 50 Ml Syringe) 25 - 50 ml IV UD PRN; Protocol PRN Reason: Hypoglycemia Protocol Stop: 02/06/25 18:28 Diphenhydramine HCl (Diphenhydramine Capsule 25 Mg Cap) 25 mg PO Q6H PRN PRN Reason: Allergic Rhinitis/Insomnia Stop: 02/09/25 16:14 Famotidine (Famotidine 20 Mg Tab) 20 mg PO Q12H PRN PRN Reason: Dyspepsia Stop: 02/09/25 16:14 Gabapentin (Gabapentin 100 Mg Cap) 100 mg PO TID [facility] Stop: 02/07/25 13:59 Last Admin: 01/12/25 07:52 Dose: 100 mg Glucagon (Glucagon For Inj 1 Mg Vial) 1 mg SQ UD PRN; Protocol PRN Reason: Hypoglycemia Protocol Stop: 02/06/25 18:28 Glucose (Glucose 40% Gel 15 Gm Tube) 15 - 30 gm PO UD PRN; Protocol PRN Reason: Hypoglycemia Protocol Stop: 02/06/25 18:28 Glucose (Glucose 10 Tab/Tube) 4 - 8 tab PO UD PRN; Protocol PRN Reason: Hypoglycemia Protocol Stop: 02/06/25 18:28 Hydroxyzine HCl (Hydroxyzine Hcl 25 Mg Tab) 25 mg PO Q8H PRN PRN Reason: Anxiety Stop: 02/09/25 16:14 Promethazine HCl (Phenergan) 12.5 mg in 50.5 mls @ 202 mls/hr IV Q6H PRN PRN Reason: Nausea And Vomiting Stop: 02/09/25 16:14 Cefazolin Sodium (Ancef 1000mg) 1,000 mg in 7.5 mls @ 2.5 mls/min IV Q12H [facility] Stop: 01/19/25 07:29 Last Admin: 01/12/25 08:11 Dose: 2.5 mls/min Influenza Virus Vaccine Quadrival (Do Not Administer Flu Vaccine) 1 each N/A PRN PRN PRN Reason: Notification Stop: 02/09/25 16:14 Insulin Aspart (Insulin Aspart Per Unit Charge) 0 units SC ACHS [facility] Stop: 02/09/25 21:14 Last Admin: 01/12/25 12:03 Dose: 5 units Insulin Glargine (Lantus Per Unit Charge) 5 units SC DAILY [facility] Stop: 02/11/25 08:59 Last Admin: 01/12/25 08:04 Dose: 5 units Levothyroxine Sodium (Levothyroxine Sodium 50 Mcg Tablet) 50 mcg PO DAILYBB [facility] Stop: 02/07/25 06:29 Last Admin: 01/12/25 05:42 Dose: 50 mcg Lisinopril (Lisinopril 10 Mg Tab) 10 mg PO QAM [facility] Stop: 02/07/25 08:59 Last Admin: 01/11/25 07:48 Dose: Not Given Lorazepam (Lorazepam 0.5 Mg Tab) 0.5 mg PO Q8H PRN PRN Reason: Sedation/Anxiety Stop: 02/09/25 16:14 Lorazepam (Lorazepam 2 Mg/1 Ml Vial) 0.5 mg IV Q8H PRN PRN Reason: Sedation/Anxiety Stop: 02/09/25 16:14 Magnesium Hydroxide (Magnesium Hydroxide Susp 30 Ml Udc) 30 ml PO Q6H PRN PRN Reason: Constipation Stop: 02/06/25 16:05 Magnesium Hydroxide (Magnesium Hydroxide Susp 30 Ml Udc) 30 ml PO Q24H PRN PRN Reason: Constipation Stop: 02/09/25 16:14 Metoclopramide HCl (Metoclopramide Hcl Inj 5 Mg/Ml 2 Ml Vial) 10 mg IV Q6H PRN PRN Reason: Nausea &/or Vomiting Stop: 02/09/25 16:14 Metoprolol Succinate (Metoprolol Succ 25mg Ext Rel Tab) 12.5 [facility] [place]: 02/07/25 08:59 Last Admin: 01/12/25 07:55 Dose: Not Given Miscellaneous (Carbohydrates For Hypoglycemia ) 15 - 30 gm PO UD PRN PRN Reason: Hypoglycemia Protocol Stop: 02/06/25 18:28 Miscellaneous Information (Pharmacy Glycemic Mgmt Consult) 1 each N/A UD PRN PRN Reason: Consult Stop: 02/06/25 18:28 Naloxone HCl (Naloxone Hcl 0.4 Mg/1 Ml Vial/Carp) 0.1 mg IV Q5M PRN PRN Reason: Oversedation/Resp depression Stop: 02/09/25 16:14 Ondansetron HCl (Ondansetron Inj 2 Mg/Ml 2 Ml Vial) 4 mg IV Q6H PRN PRN Reason: Nausea Stop: 02/06/25 16:05 Ondansetron HCl (Ondansetron Inj 2 Mg/Ml 2 Ml Vial) 4 mg IV Q6H PRN PRN Reason: Nausea &/or Vomiting Stop: 02/09/25 16:14 Ondansetron HCl (Ondansetron 4 Mg Od Tab) 4 mg PO Q6H PRN PRN Reason: Nausea Stop: 02/09/25 16:14 Oxycodone/Acetaminophen (Oxycodone/Acetaminophen 5mg/325mg Tab) 1 - 2 tab PO Q4H PRN PRN Reason: MOD/SEV Pain & Pre PT Stop: 01/24/25 16:14 Pneumococcal Polyvalent Vaccine (Do Not Administer Pneumococcal Vaccine) 1 each N/A PRN PRN PRN Reason: Notification Stop: 02/09/25 16:14 Polyethylene Glycol (Polyethylene (Miralax) 17 Gm Pack) 17 gm PO DAILY [facility] Stop: 02/08/25 08:59 Last Admin: 01/12/25 08:04 Dose: 17 gm Polyethylene Glycol (Polyethylene (Miralax) 17 Gm Pack) 17 gm PO Q6 [facility] Stop: 02/10/25 05:59 Last Admin: 01/12/25 12:08 Dose: Not Given Senna/Docusate Sodium (Docusate Sodium/Senna 50/8.6mg Tab) 2 tab PO HS [facility] Stop: 02/09/25 20:59 Last Admin: 01/11/25 20:08 Dose: 2 tab Sodium Biphosphate/Sodium Phosphate (Sod Phosphate/Sod Biphosphate Enema 132 Ml Btl) 132 ml [place] ONE PRN PRN Reason: Constipation Stop: 02/09/25 16:14 Tramadol HCl (Tramadol Hcl 50 Mg Tablet) 25 mg PO Q4H PRN PRN Reason: Pain Stop: 02/09/25 09:59 Vitamin D (Cholecalciferol 25 Mcg (1000 Units) Tab) 50 mcg PO DAILY [facility] Stop: 02/07/25 08:59 Last Admin: 01/12/25 07:51 Dose: 50 mcg (4) Type 2 diabetes mellitus Diabetes mellitus care home insulin use: unspecified care home insulin use status Diabetes mellitus complication status: without complication Qualified Code(s): E11.9 - Type 2 diabetes mellitus without complications (5) Hypothyroidism Hypothyroidism type: unspecified Qualified Code(s): E03.9 - Hypothyroidism, unspecified
[2025-01-13 06:20] LABS: Hematocrit (blood only) 29.4 % (37.0-47.0); Hemoglobin 9.6 g/dl (12.0-16.0); Immature Granulocytes # (auto) 0.04 K/uL (0.01-0.20); Immature Granulocytes % (auto) 0.6 %; Mean Corpuscular Hemoglobin 30.3 pg (25.0-34.0); Mean Corpuscular Volume 92.7 fL (80.0-100.0); Platelet Count 199 K/uL (130-400); RDW Standard Deviation 61.7 fL (36.4-46.3); Red Blood Count 3.17 M/uL (4.20-5.40); White Blood Count 6.37 K/ul (4.8-10.8)
[2025-01-13 06:37] LABS: Anion Gap 5.0 (3-11); Blood Urea Nitrogen 55.0 mg/dl (6-23); Calcium 8.7 mg/dl (8.6-10.3); Carbon Dioxide 24.0 mmol/L (21-32); Chloride 110.0 mmol/L (98-107); Creatinine Clr Calc Pharmacy 29.1 ml/min; Glucose 99.0 mg/dl (70-99(Fasting)); Potassium 5.3 mmol/L (3.5-5.1); Sodium 139.0 mmol/L (136-145)
--- NOTE | 2025-01-13 10:26 | Orthopedic Progress Note ---
Date of Service January 13, 2025 Assessment & Plan (1) Closed fracture of lumbar vertebral body: Plan: She is postoperative 3 status post revision fusion with kyphoplasties. She is orthopedically stable for discharge to [facility]. Will DC ATA drain just prior to discharge. DVT prophylaxis is in the form teds and SCDs. Continue with physical therapy. Continue with pain control. Admission and Anticipated Discharge Date Admission Date: January 07, 2025 Tiffany Hinojosa is postoperative day 3 status post revision fusion with kyphoplasty. She states that her right leg feels "wobbly". She was unable to walk during physical therapy yesterday. She is mostly transfers and seated to standing. ATA drain output last shift was 30 cc. She received blood transfusion yesterday. H&H are now 9.6 and 29.4 respectively. Current plan is to discharge to [facility] Review of Systems Review of Systems: All systems reviewed & are unremarkable except as noted in HPI & below Physical Exam Physical Exam: She is laying in bed alert and oriented x 3 No acute distress She was seen in conjunction with Dr. Porras dressing is clean dry and intact with functioning ATA drain Strength unchanged bilateral lower extremities Results & Data Vital Signs (Past 12 Hours) Vital Signs Temp Pulse Resp BP BP Pulse Ox O2 Del Method 01/13/25 08:55 102 H 138/80 97 Room Air 01/13/25 07:56 36.8 C 82 16 128/71 96 Room Air 01/12/25 23:08 36.5 C 74 18 125/73 97 Room Air Queries Orthopedic Spine Obesity: Yes Vertebral Fracture Secondary to Osteoporosis: Yes
--- NOTE | 2025-01-13 13:41 | Hospitalist Progress Note ---
Date of Service January 13, 2025 Assessment & Plan (1) Closed fracture of lumbar vertebral body: Plan: Status post posterior spinal fusion L2-L5 and evacuation of hematoma on 01/10/2025 Has pain at the lower back without radiation Noted to have very low blood pressure and low Hb, s/p IVF and 2 U PRBC. BP and Hb are stable now. f/u w/ orthospine on discharge. Hypotension Likely secondary to dehydration and induced by pain s/p ivf and blood, now bp better. Will continue her small dose of beta-carmita for now Constipation Has not had a bowel movement for the last 3 days Has been getting laxatives and will give a suppository prn Advised to drink more fluid Hyperkalemia: Noted last 3 days, low K diet, repeat BMP at 3 PM and in the morning. (2) Lumbar stenosis with neurogenic claudication: (3) Stage 3b chronic kidney disease (CKD): (4) Type 2 diabetes mellitus: (5) Hypothyroidism: Admission and Anticipated Discharge Date Admission Date: January 07, 2025 Subjective The patient was seen and examined in medical floor Her hemoglobin is 9.6 Complaints of weakness. Denies N/V/D, reports eating ok and moving bowels ok. Physical Exam Physical Exam: Lying in bed with some discomfort due to back pain without any radiation Constitutional: well developed, well nourished, + ill appearing and + obese Eyes: PERRL, conjunctivae normal, anicteric sclerae ENMT: external ear and nose normal, oropharynx normal Neck: trachea midline, no thyromegaly Respiratory: no respiratory distress Auscultation: lungs clear to auscultation bilaterally Cardiovascular: Rate/Rhythm: regular rate and regular rhythm; not tachycardic Heart Sounds: normal S1, normal S2 and + murmur Extremities: + edema (Trace edema bilaterally) Gastrointestinal (Abdomen): Inspection/Auscultation: normal bowel sounds; abdomen not distended Percussion/Palpation: abdomen soft; abdomen nontender Musculoskeletal: has back pain without radiation Neurologic: normal touch/pain/proprioception and moves all extremities; no focal motor deficits Lymphatic: no cervical or axillary lymphadenopathy Results & Data Results & Data Vital Signs (Past 12 Hours) Vital Signs Temp Pulse Resp BP Pulse Ox O2 Del Method 01/13/25 08:55 102 H 138/80 97 Room Air 01/13/25 07:56 36.8 C 82 16 128/71 96 Room Air (4) Type 2 diabetes mellitus 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
[2025-01-13 15:23] LABS: Hematocrit (blood only) 30.0 % (37.0-47.0); Hemoglobin 9.7 g/dl (12.0-16.0)
[2025-01-13 15:38] LABS: Anion Gap 5.0 (3-11); Blood Urea Nitrogen 50.0 mg/dl (6-23); Calcium 8.7 mg/dl (8.6-10.3); Carbon Dioxide 26.0 mmol/L (21-32); Chloride 107.0 mmol/L (98-107); Creatinine Clr Calc Pharmacy 30.9 ml/min; Glucose 116.0 mg/dl (70-99(Fasting)); Potassium 5.2 mmol/L (3.5-5.1); Sodium 138.0 mmol/L (136-145)
[2025-01-13 23:25] VITALS: TEMP 98.2
[2025-01-14 06:19] LABS: Hematocrit (blood only) 36.7 % (37.0-47.0); Hemoglobin 11.6 g/dl (12.0-16.0); Mean Corpuscular Hemoglobin 31.1 pg (25.0-34.0); Mean Corpuscular Volume 98.4 fL (80.0-100.0); Platelet Count 150 K/uL (130-400); RDW Standard Deviation 65.2 fL (36.4-46.3); Red Blood Count 3.73 M/uL (4.20-5.40); White Blood Count 4.90 K/ul (4.8-10.8)
[2025-01-14 07:13] LABS: Anion Gap 4.0 (3-11); Blood Urea Nitrogen 44.0 mg/dl (6-23); Calcium 8.8 mg/dl (8.6-10.3); Carbon Dioxide 26.0 mmol/L (21-32); Chloride 111.0 mmol/L (98-107); Creatinine Clr Calc Pharmacy 35.3 ml/min; Glucose 99.0 mg/dl (70-99(Fasting)); Magnesium 1.9 mg/dl (1.7-2.4); Potassium 5.1 mmol/L (3.5-5.1); Sodium 141.0 mmol/L (136-145)
[2025-01-14 07:36] VITALS: BP 144/78; PULSE 86; RESP 20
--- NOTE | 2025-01-14 08:57 | Orthopedic Progress Note ---
Date of Service January 14, 2025 Assessment & Plan (1) Closed fracture of lumbar vertebral body: Plan: At this time we will continue physical therapy. From orthopedic standpoint she is stable to discharge to rehab today if cleared by medicine. Admission and Anticipated Discharge Date Admission Date: January 07, 2025 Subjective Patient feeling better today. Denies any leg pain. Back pain controlled. Physical Exam Physical Exam: Patient is currently in bed. Is distracted testing. Results & Data Vital Signs (Past 12 Hours) Vital Signs Temp Pulse Resp BP Pulse Ox O2 Del Method 01/14/25 07:33 36.8 C 86 20 144/78 H 96 Room Air 01/13/25 23:25 36.8 C 74 18 123/68 96 Room Air Queries Orthopedic Spine Acute Posthemorrhagic Anemia: Yes Obesity: Yes Vertebral Fracture Secondary to Osteoporosis: Yes
--- NOTE | 2025-01-14 10:24 | Hospitalist Progress Note ---
Date of Service January 14, 2025 Assessment & Plan (1) Closed fracture of lumbar vertebral body: Plan: Status post posterior spinal fusion L2-L5 and evacuation of hematoma on 01/10/2025 Has pain at the lower back without radiation Noted to have very low blood pressure and low Hb, s/p IVF and 2 U PRBC. BP and Hb are stable now. f/u w/ orthospine on discharge. Blood pressure remains stable and she has been cleared by Ortho to go to [facility] to continue physical therapy She remains stable without any symptoms and can be discharged to [facility] to continue physical therapy Hypotension Likely secondary to dehydration and induced by pain s/p ivf and blood, now bp better. Will continue her small dose of beta-carmita for now No more hypotension following the blood transfusion Will restart her blood pressure medications on discharge Constipation Has not had a bowel movement for the last 3 days Has been getting laxatives and will give a suppository prn Advised to drink more fluid No issues with constipation now Hyperkalemia: Noted last 3 days, low K diet, repeat BMP at 3 PM and in the morning. Potassium has been stabilized She was advised to drink more fluid Other significant medical conditions remained stable: (2) Lumbar stenosis with neurogenic claudication: (3) Stage 3b chronic kidney disease (CKD): (4) Type 2 diabetes mellitus: (5) Hypothyroidism: Admission and Anticipated Discharge Date Admission Date: January 07, 2025 Subjective 01/11/2025 The patient was seen and examined in medical floor She is status post posterior spinal fusion L2-L5 and evacuation of hematoma Has not had a bowel movement for the last 3 days Her pain seems to be controlled and she was noted to have low blood pressure at 85/50 01/12/2025 The patient was seen and examined in medical floor Her hemoglobin went down to 6.9 and she remained pale with low blood pressure Except weakness she does not have any other acute symptoms She will be getting 2 units of blood transfusion 01/14/2025 The patient was seen and examined in medical floor in presence of the son She has been feeling much better but is still has weakness in the legs Denies any chest pain, palpitation but complains to have some shortness of breath with exertion She has been saturating normally on room air Review of Systems Review of Systems: All systems reviewed and are unremarkable except as noted below Physical Exam Physical Exam: Lying in bed with some discomfort due to back pain without any radiation Constitutional: well developed, well nourished, + ill appearing and + obese Eyes: PERRL, conjunctivae normal, anicteric sclerae ENMT: external ear and nose normal, oropharynx normal Neck: trachea midline, no thyromegaly Respiratory: no respiratory distress Auscultation: lungs clear to auscultation bilaterally Cardiovascular: Rate/Rhythm: regular rate and regular rhythm; not tachycardic Heart Sounds: normal S1, normal S2 and + murmur Extremities: + edema (Trace edema bilaterally) Gastrointestinal (Abdomen): Inspection/Auscultation: normal bowel sounds; abdomen not distended Percussion/Palpation: abdomen soft; abdomen nontender Neurologic: normal touch/pain/proprioception and moves all extremities; no focal motor deficits Lymphatic: no cervical or axillary lymphadenopathy Results & Data Results & Data Vital Signs (Past 12 Hours) Vital Signs Temp Pulse Resp BP Pulse Ox O2 Del Method 01/14/25 07:33 36.8 C 86 20 144/78 H 96 Room Air 01/13/25 23:25 36.8 C 74 18 123/68 96 Room Air Laboratory Results Short CBC 01/13/25 01/14/25 Range/Units 14:49 05:31 WBC 4.90 (4.8-10.8) K/ul Hgb 9.7 L 11.6 L (12.0-16.0) g/dl Hct 30.0 L 36.7 L (37.0-47.0) % Plt Count 150 (130-400) K/uL BMP 01/13/25 01/14/25 14:49 05:31 Sodium 138 141 Potassium 5.2 H 5.1 Chloride 107 111 H Carbon Dioxide 26 26 BUN 50 H 44 H Creatinine 1.35 H 1.18 Glucose 116 H 99 Calcium 8.7 8.8 (4) Type 2 diabetes mellitus Diabetes mellitus complication status: without complication 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
[2025-01-14 11:55] VITALS: O2SAT 97
--- NOTE | 2025-01-14 17:48 | Discharge Summary ---
Date of Service January 14, 2025 Admission HPI Per Admitting Provider Pt is an 84y/o F with PMHx significant for DMII [Hgb A1c 7% as of 12/27/24], HLD, long-standing HTN, hypothyroidism, CKD stage IIIb [baseline Cr 1.2-1.4], nonrheumatic AV stenosis, exertional dyspnea, mild bilateral internal carotid artery disease, chronic RBBB, diastolic dysfunction, generalized osteoarthritis, severe thoracic spinal stenosis and myelopathy s/p T9-T10 decompression and fusion on 09/09/24 and chronic pain syndrome who is a direct admission from [facility] for surgical evaluation by Dr. Porras regarding L4 vertebral body fractures. Recent admission from 12/18/24-12/28/24 for intractable low back pain s/p fall ISO deconditioning and chronic pain syndrome. Was found to have advanced severe neural compression with obvious facet hypertrophy and instability on lumbar spine MRI imaging requiring surgical intervention. S/p L2-L3, L3-L4 decompression and fusion performed by Dr. Porras on 12/24/24. Postop course c/b NICHO, hyperkalemia and ABLA s/p 1U PRBCs. Was discharged to [facility]. Pt with development of severe RLE pain while at [facility]. CT lumbar spine w/o contrast completed on 01/04/25 concerning for L4 vertebral body fractures Dr. Porras was notified of these findings by Dr. Velázquez at [facility]. He recommended that the pt be directly admitted under our service for formal surgical evaluation by him with tentative surgical repair to take place on 01/10/25. Patient seen at bedside in room 303. she is feeling well overall other than acute on chronic RLE pain. Patient denies F/C, CP, palpitations, SOB, dyspnea, abd pain, N/V/D. She has a mccormack in and states it was placed about 4 days ago at facility due to difficulties urinating. Admission Exam Per Admitting Provider Physical Exam: Vitals and labs reviewed General: Well appearing, NAD HEENT: EOMI, PERRLA Neck: Supple Cardiac: RRR no rubs gallops systolic murmur Lungs: CTA no rhonchi wheezing or rales Abd: S NT ND BS positive : Mccormack MSK: ROM limited by pain No obvious deformities Ext: No Edema cyanosis Skin: Warm, Dry Neuro: AOx3 No focal deficits. moving lower extremities bilaterally Psych: Normal Mood Principal Diagnosis L4 fracture Discharge Exam Lying in bed with some discomfort due to back pain without any radiation Constitutional well developed, well nourished, + ill appearing and + obese Eyes PERRL, conjunctivae normal, anicteric sclerae ENMT external ear and nose normal, oropharynx normal Neck trachea midline, no thyromegaly Respiratory no respiratory distress Auscultation: lungs clear to auscultation bilaterally Cardiovascular Rate/Rhythm: regular rate and regular rhythm; not tachycardic Heart Sounds: normal S1, normal S2 and + murmur Extremities: + edema (Trace edema bilaterally) Gastrointestinal (Abdomen) Inspection/Auscultation: normal bowel sounds; abdomen not distended Percussion/Palpation: abdomen soft; abdomen nontender Neurologic normal touch/pain/proprioception and moves all extremities; no focal motor deficits Lymphatic no cervical or axillary lymphadenopathy Discharge Data Allergies Allergy/AdvReac Type Severity Reaction Status Date / Time sulfamethoxazole [Bactrim] AdvReac Intermediate "made the Verified 01/10/25 12:23 UTI worse" trimethoprim [Bactrim] AdvReac Intermediate "made the Verified 01/10/25 12:23 UTI worse" Consultations 01/10/25 09:58 Consult Orthopedic Spine Surgery Routine Procedures Performed Operation Date: 01/10/25 07:00 Actual Procedures p Posterior spinal fusion L2-L5, evacuation of hematoma(Not Applicable) - DO michelle Carlson hardware removal L2-L4,(Not Applicable) - DO michelle Carlson kyphoplasty L3-L4, (Not Applicable) - Wolfgang Porras DO Ordered Studies 01/08/25 09:57 CT lumbar spine wo con Routine 01/10/25 [place] lumbar spine 2-3V Routine Hospital Course (1) Closed fracture of lumbar vertebral body: Status post posterior spinal fusion L2-L5 and evacuation of hematoma on Has pain at the lower back without radiation Noted to have very low blood pressure and low Hb, s/p IVF and 2 U PRBC. BP and Hb are stable now. f/u w/ orthospine on discharge. Blood pressure remains stable and she has been cleared by Ortho to go to [facility] to continue physical therapy She remains stable without any symptoms and can be discharged to [facility] to continue physical therapy Hypotension Likely secondary to dehydration and induced by pain s/p ivf and blood, now bp better. Will continue her small dose of beta-carmita for now No more hypotension following the blood transfusion Will restart her blood pressure medications on discharge Constipation Has not had a bowel movement for the last 3 days Has been getting laxatives and will give a suppository prn Advised to drink more fluid No issues with constipation now Hyperkalemia: Noted last 3 days, low K diet, repeat BMP at 3 PM and in the morning. Potassium has been stabilized She was advised to drink more fluid Other significant medical conditions remained stable: (2) Lumbar stenosis with neurogenic claudication: (3) Stage 3b chronic kidney disease (CKD): (4) Type 2 diabetes mellitus: (5) Hypothyroidism: Total Time Total Time Spent Total Time Spent (In Minutes): 35 Minutes Discharge Plan Discharge Items Patient Disposition: Transfer Inpatient Rehab Fac Reason For Visit: L4 VERTEBRAL BODY FRACTURES Discharge Diagnosis: L4 fracture Condition on Discharge: Fair Activity: As commented below Non-emergency contact: Primary Care Provider Call non-emergency contact if: you have any medication questions Follow-up/Referrals: Wolfgang Porras DO [Surgeon] - Jose Patino MD [Primary Care Provider] - Diet: Heart Healthy and Low Sodium (2gm) Addtl Attending Provider Instructions: Please take precautions to avoid falls Try to drink more fluid Try to use less of narcotic pain medications to avoid drowsiness, confusion and constipation Please make an appointment with your PCP within 7 days following discharge from the facility ACTIVITY RECOMMENDATIONS: SELF CARE INSTRUCTIONS AFTER THORACIC/LUMBAR FUSIONS 1. You may walk to your tolerance. It is good exercise for your legs and back. Expect some back and intermittent leg aches and pains. 2. You may perform "counter-top" level activities (make a sandwich, randy with a project, etc.). 3. No bending or lifting of more than 10 pounds or back twisting of any nature (roll like a log when turning in bed). 4. You may ride in a car for 20-30 minutes at a time. No driving until after your first visit with your doctor. 5. Frequent changes of position and restricting sitting to 30 minutes at a time will help limit the amount of back spasms and stiffness you may experience. 6. You may discontinue the use of ambulatory aids (cane, crutches, etc.) once your strength and confidence allow. 7. You may credit administration manager the shower and let water strike your incision when you arrive home at least once daily. Do not take a tub bath, sit in a hot tub or go into a swimming pool until after your first recheck in the office. 8. You may resume previous diet. SPECIAL CARE INSTRUCTIONS: VERY IMPORTANT TO READ AND REVIEW A. Your surgical incision has been closed with a cosmetic suture under the skin that will dissolve in about 6 weeks. In 14 days, you can use a pair of clean scissors and cut the suture that is left outside of the skin at the ends of your incision. 1. The small skin tapes can be removed 7 days after surgery if they have not fallen off by that point. 2. You may keep the wound open to air as much as possible to promote healing after post-op day number 5 unless told otherwise by your doctor. 3. If you think the wound looks like it is becoming infected (redness or wor sening drainage) and/or you are experiencing fever, chill or worsening back pain and muscle spasms, contact the office so that we may evaluate you as soon as possible. B. Complications are uncommon, but please contact us if you have any signs or symptoms of: 1. wound infection (fever higher than 102.5 degrees F, redness, separation of wound, drainage, or increasing pain from the incision) 2. blood clots in legs (pain, swelling, redness and warmth in legs) 3. urinary tract infection (fever higher than 102.5 degrees F, burning upon urination or increased frequency of urination) 4. nerve problems (inability to walk on your toes or heels, numbness, loss of bowel or bladder control) 5. any other symptoms that concern you C. Please call the office at if you have any concerns or questions about your operation or recovery. D. No smoking! Smoking drastically decreases the chance of a solid fusion. E. Do not take any anti-inflammatory medications (Indocin, Advil, Motrin, Aspirin, Naprosyn, etc.) as these may inhibit the chance of a solid fusion. Tylenol is okay to take for pain. MANAGING PAIN AFTER SPINAL SURGERY 1. Narcotic medication is intended for short-term use and will be provided for surgical pain. Surgical pain usually lasts for a period of 4-6 weeks. Narcotic medication includes Percocet, Vicodin, Darvocet, Tylenol #3 or Lortab. 2. Longer-term pain is more appropriately treated with non-narcotic medication such as Tylenol ES. 3. Muscle spasm is not appropriately treated with narcotics. Muscle relaxers such as Soma, Flexeril or Skelaxin can be used along with Tylenol ES. 4. Remember that we all live with some "aches and pains". This is not unusual or uncommon after an injury or as we get older. a. Back pain is expected and may include muscle spasms for 4 to 6 weeks after surgery. The pain should gradually improve. If the pain worsens for no apparent reason, please contact the office. b. Intermittent leg pain may also be experienced and should not be concerned about unless it worsens for no apparent reason. If so, please contact the office. 5. We will provide appropriate medication within the normal guidelines of their prescribed use. We will also be very cautious and aware of potential abuse and extended duration of patients' medication needs. a. Pain medications are for your comfort and to assist with sleep and rest so that the tissue can heal. They are not provided in order to return to normal activity and should not be used through the day. To do so or worsening pain at night can result from ongoing tissue damage and development of tolerance to the prescribed medicine. 6. Please allow 2-3 days to process refills. Prescriptions will not be mailed but must be picked up at the office. FOLLOW UP VISIT: Keep your scheduled follow-up appointment. Any questions, please call the office at . Pending Studies at Discharge: No Stand-Alone Forms: My [facility] Skilled Items Patient informed of condition?: Yes DNR: No Discharge Level of Care: Acute rehab Communicable Disease: No Discharge Prognosis: Improving Lines: None Urinary Catheter: No Medications and DC Order Prescriptions: New tramadol 50 mg tablet 50 mg PO Q6H PRN (Reason: pain, moderate) Qty: 30 0RF oxycodone 5 mg tablet 5 mg PO Q6H PRN (Reason: pain) Qty: 30 0RF Continued hydrochlorothiazide 12.5 mg Tablet 12.5 mg PO DAILY Qty: 0 0RF Patient Comments: M/W/F acetaminophen 325 mg Tablet 325 mg PO QID PRN (Reason: Pain) aspirin 81 mg Tablet,Delayed Release (Dr/Ec) 81 mg PO QAM levothyroxine 50 mcg Tablet 50 mcg PO QAM lisinopril 10 mg Tablet 10 mg PO QAM allopurinol 300 mg Tablet 300 mg PO QAM metoprolol succinate 25 mg Tablet Extended Release 24 Hr 12.5 mg PO QAM cholecalciferol (vitamin D3) [Vitamin D3] 25 mcg (1,000 unit) Capsule 50 mcg PO DAILY atorvastatin 80 mg Tablet 80 mg PO QAM tramadol 50 mg tablet 50 mg PO Q6H PRN (Reason: Moderate Pain (Scale Score 5-6)) Discontinued oxycodone 5 mg tablet 5 mg PO Q6H PRN (Reason: Severe Pain (Scale Score 7-10)) Discharge Orders: Discharge Order (Routine); Ordered 01/14/25 Ordered By: Wolfgang Ji/Other Patient Handouts: Managing Type 2 Diabetes Admission Data Admit Date/Time: 01/07/25 16:07 Attending Provider: Jenn Hall Admit Provider: Nam Reilly Primary Care Provider: Jose Patino Other Providers: [facility]; Wolfgang Porras; Cy Ogden; Jeremiah Valerio Other Interventions: Discharge Summary Assessment (RN) Last Done: 01/14/25 09:56
== END 2025-01-14 11:02 | DRG 456 ==
LOC: SUATTDRO 16:07 → 3E 18:38

== ENCOUNTER 2025-03-12 10:07 | Inpatient (IN) ==
--- NOTE | 2025-03-12 10:30 | Emergency Department Note ---
Impression & Plan Spinal stenosis of lumbar region with radiculopathy, Complicated urinary tract infection, NICHO (acute kidney injury), Acute urinary retention, Elevated troponin, Sacral decubitus ulcer ED Provider Note NAME: WALT CALDWELL AGE: 84 SEX: F : 1940 ARRIVES VIA: Ambulance INFORMANT: Patient ED PROVIDER(S): Navid Eldridge MD CHIEF COMPLAINT: Back pain, ambulatory dysfunction, generalized weakness, sacral ulcer PLAN: Disposition: Admit MEDICAL DECISION MAKING: The patient is a pleasant 84 year-old woman with a past medical history of hypothyroidism, hypertension, hyperlipidemia, CKD, recurrent falls, type 2 diabetes, chronic back pain with lumbar stenosis with neurogenic claudication who presents to the Emergency Department via EMS and accompanied by her son from home for evaluation of ongoing lumbar pain and generalized weakness with ambulatory dysfunction where she is unable to stand with her walker. Patient presents in setting of recent complicated course relating to her lumbar stenosis where she is status post bilateral T9-T10 facetectomies and foraminotomies and fusion in August of this year with subsequent fall and December resulting in fracture and cord compression and subsequent surgical decompression on 12/24. She had subsequently been discharged to rehab at [facility] where she had remained up until last when she was eager to return home and had requested discharge. Patient son reports that home nursing was arranged to care for her sacral ulcer and they had visited Friday and perform dressing change but otherwise does not have ongoing physical therapy. Son reports that when they got home on the patient developed acute weakness in her legs and slowly lowered to the ground but did not have any significant fall. Since being home she has been declining rapidly and no longer able to ambulate with her walker as she did when she was in rehab. They denied fevers, chills, cough, congestion, chest pain or shortness of breath. Patient reports nausea but denies vomiting. She has had poor oral intake. She was started on anxiety medication in rehab and did not take her medications yet today. On evaluation patient no distress, afebrile with heart in the 90s a blood pressure 160/70s and vital signs otherwise stable. She is anxious and tearful. She exhibits 3/5 strength of bilateral lower extremities. L5 is intact bilaterally. There is no clonus. Patient exhibits discomfort of the lower lumbar paraspinal region without midline tenderness to palpation or step-offs. Patient does have a superficial sacral ulcer without evidence of infection at this time. Of note, patient did exhibit urinary retention upon arrival with bladder scan demonstrating 500 cc of urine where the patient was unable to urinate. Raya catheter was placed and patient did feel some improvement in her back pain. EKG without overt acute ischemia. CXR negative for acute cardiopulmonary process per my personal preliminary review/interpretation. WBC within normal limits without neutrophilia or left shift. H/H approximate to prior values. Platelets within normal limits. Creatinine 1.57 similar to prior range values in setting of CKD. BUN/creatinine 47 consistent with patient's clinically dry appearance. LFTs unremarkable. High-sensitivity troponin 17.4, mildly above prior and mildly above normal and nonspecific. Lipase is normal. UA is suspicious for infection with 4+ bacteria and WBCs albeit negative nitrites and epithelial cells present. Treatment initiated with IV ceftriaxone per review of prior cultures. CT of the lumbar spine and abdomen pelvis were completed with IV contrast and demonstrate patient's recent spinal fusion extension as well as mild anterolisthesis at L2-L3 and mild spinal stenosis at L1-L2 as well as bilateral neuroforaminal narrowing from L1-L2 through L3-L4 which may affect exiting nerve roots. CT of the abdomen pelvis demonstrates 5 cm left ovarian teratoma which is increased in size from 4.5 cm compared to 2017 study. [facility]. Further management per admitting team. Triage Nursing notes reviewed and agree them. Prior/external medical records reviewed Vital Signs: reviewed Differential diagnosis: Musculoskeletal, disc herniation, fracture, metastatic disease, cord compression, discitis, sciatica, cauda equina, infection, aortic disease, renal colic, gastrointestinal, as well as other pathologies. ER treatment provided: See below. Diagnostics interpreted by me: ECG: Normal sinus rhythm, sinus arrhythmia, 90 bpm, no ectopy, right bundle branch block, no overt ST elevation or depression, QTc 496, QRS 122. Cardiac Monitoring: An order for continuous cardiac monitoring was placed and demonstrated normal sinus rhythm, 90 bpm, no ectopy. Laboratory studies: See below Imaging studies: See below Consultation(s): [facility] for [facility]. HPI: Per MDM. ROS: See above HPI for pertinent positives & negatives. A total of 10 systems reviewed and were otherwise negative. VITALS:See Below PHYSICAL EXAMINATION: GENERAL: Awake, alert, chronically ill-appearing, anxious and tearful, in no distress. HENT: Normocephalic, atraumatic. Oropharynx with dry mucous membranes and otherwise unremarkable. EYES: Normal conjunctiva. Sclera non-icteric. NECK: Supple. No nuchal rigidity. FROM. No JVD. RESPIRATORY: Clear to auscultation. CARDIAC: Regular rate, normal rhythm. Extremities warm and well perfused. Pulses equal. ABDOMEN: Soft, non-distended. No tenderness to palpation. No rebound or guarding. No masses. MUSCULOSKELETAL: Chest examination reveals no tenderness. Patient exhibits discomfort of the lower lumbar paraspinal region without midline tenderness to palpation or step-offs. LOWER EXTREMITIES: Calves are equal size bilaterally and non-tender. No edema. No discoloration. NEURO: 3/5 strength of bilateral lower extremities. L5 is intact bilaterally. There is no clonus. SKIN: No rash or jaundice noted. Superficial sacral ulcer without evidence of infection at this time. Navid Eldridge MD Past Med/Surg History Problem List (Updated 03/13/25 @ 00:58 by Navid Eldridge MD) Sacral decubitus ulcer (Acute) Elevated troponin (Acute) Acute urinary retention (Acute) NICHO (acute kidney injury) (Acute) Complicated urinary tract infection (Acute) Spinal stenosis of lumbar region with radiculopathy (Acute) NICHO (acute kidney injury) Complicated UTI (urinary tract infection) Closed fracture of lumbar vertebral body Hyperkalemia Spondylolisthesis, lumbar region Hypomagnesemia Recurrent falls Back pain (Acute) Lumbar stenosis with neurogenic claudication Stage 3b chronic kidney disease (CKD) S/P spinal surgery 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) Medical History Carotid artery stenosis mild bilat ICA stenosis per [facility] EMR Type 2 diabetes mellitus CKD (chronic kidney disease) stage 3, GFR 30-59 ml/min Aortic stenosis moderate RBBB Hyperlipidemia Hypertension controlled, stable per pt Degenerative disc disease Osteoarthritis Gout Hypothyroidism History of kidney stones MUSA (dyspnea on exertion) chronic Surgical History History of surgical procedure on thoracic spine T9-T10 decompression fusion - August 2024 History of dilatation and curettage History of tooth extraction History of total knee replacement right History of total hip arthroplasty bilat History of cataract surgery bilat History of tonsillectomy History of cystoscopy hx of stent and since removed Family History Mother Diabetes Aunt No problems noted. Social History Smoking Status: Never smoker Second Hand Exposure: No; Do You Dip or Chew Tobacco: No; Tobacco Cessation Education Requested by Patient: No Hx Alcohol Use: No Hx Substance Use: No Preferred Language: Maltese Communication Ability: Effective Wax Blender Required: No Beliefs That Will Affect Care: None Current Living Situation: Family Current Living Situation Comment: With son Bharathi Other Information That Helps Us Care for You: No Feels Safe at Home: Yes Safety Concerns: Feels Safe At This Time Assistive Devices: Walker Allergies Allergies Allergy/AdvReac Type Severity Reaction Status Date / Time sulfamethoxazole [Bactrim] AdvReac Intermediate "made the Verified 01/10/25 12:23 UTI worse" trimethoprim [Bactrim] AdvReac Intermediate "made the Verified 01/10/25 12:23 UTI worse" Home Meds Home Medications Medication Instructions Recorded Confirmed acetaminophen 325 mg tablet 325 mg PO QID PRN Pain 08/18/24 03/12/25 allopurinol 300 mg tablet 100 mg PO QAM 08/18/24 03/12/25 aspirin 81 mg tablet,delayed 81 mg PO QAM 08/18/24 03/12/25 release atorvastatin 80 mg tablet 80 mg PO QAM 08/18/24 03/12/25 cholecalciferol (vitamin D3) 25 50 mcg PO DAILY 08/18/24 03/12/25 mcg (1,000 unit) capsule (Vitamin D3) levothyroxine 50 mcg tablet 50 mcg PO QAM 08/18/24 03/12/25 lisinopril 10 mg tablet 10 mg PO QAM 08/18/24 03/12/25 metoprolol succinate 25 mg 12.5 mg PO QAM 08/18/24 03/12/25 tablet,extended release 24 hr BuSpar 15 mg PO BID 03/12/25 03/12/25 Lasix 40 mg PO DAILY 03/12/25 03/12/25 ferrous sulfate 325 mg PO QAM 03/12/25 03/12/25 gabapentin 100 mg capsule 100 mg PO HS 03/12/25 03/12/25 Previous Rx's Medication Instructions Recorded oxycodone 5 mg tablet 5 mg PO Q6H PRN pain #30 tabs 01/14/25 Results & Data (ED) Vital Signs Vital Signs - 24 hr 03/12/25 10:15 03/12/25 11:00 03/12/25 11:00 Temperature 36.5 C Temperature Source Oral Pulse Rate 93 H 88 Pulse Rate from SpO2 Sensor 90 Respiratory Rate 24 23 Respiratory Effort / Characteristics Normal for Patient Respiratory Depth Normal Respiratory Pattern Regular Blood Pressure 165/67 H 137/95 137/95 Blood Pressure Mean 99 99 99 Pulse Oximetry 100 97 Oxygen Delivery Method Room Air Sepsis Recent Fever Within 48 Hours No Sepsis New/Unexplained Change in Mental Status No Sepsis Action Taken by Nursing No Action Required 03/12/25 11:06 03/12/25 11:27 03/12/25 11:30 Temperature Temperature Source Pulse Rate 95 H 92 H 96 H Pulse Rate from SpO2 Sensor 92 H 92 H 91 H Respiratory Rate 21 19 17 Respiratory Effort / Characteristics Respiratory Depth Respiratory Pattern Blood Pressure Blood Pressure Mean Pulse Oximetry 97 98 98 Oxygen Delivery Method Sepsis Recent Fever Within 48 Hours Sepsis New/Unexplained Change in Mental Status Sepsis Action Taken by Nursing 03/12/25 11:31 03/12/25 11:54 03/12/25 11:57 Temperature Temperature Source Pulse Rate 88 89 Pulse Rate from SpO2 Sensor 88 88 Respiratory Rate 17 24 Respiratory Effort / Characteristics Respiratory Depth Respiratory Pattern Blood Pressure 125/88 Blood Pressure Mean 95 Pulse Oximetry 96 93 Oxygen Delivery Method Sepsis Recent Fever Within 48 Hours Sepsis New/Unexplained Change in Mental Status Sepsis Action Taken by Nursing 03/12/25 12:00 03/12/25 12:00 03/12/25 12:03 Temperature Temperature Source Pulse Rate 91 H Pulse Rate from SpO2 Sensor 96 H Respiratory Rate 15 Respiratory Effort / Characteristics Respiratory Depth Respiratory Pattern Blood Pressure 120/61 120/61 Blood Pressure Mean 102 102 Pulse Oximetry 94 Oxygen Delivery Method Sepsis Recent Fever Within 48 Hours Sepsis New/Unexplained Change in Mental Status Sepsis Action Taken by Nursing 03/12/25 12:12 03/12/25 12:21 03/12/25 12:45 Temperature Temperature Source Pulse Rate 90 89 93 H Pulse Rate from SpO2 Sensor 89 88 95 H Respiratory Rate 17 20 16 Respiratory Effort / Characteristics Respiratory Depth Respiratory Pattern Blood Pressure Blood Pressure Mean Pulse Oximetry 92 92 97 Oxygen Delivery Method Sepsis Recent Fever Within 48 Hours Sepsis New/Unexplained Change in Mental Status Sepsis Action Taken by Nursing 03/12/25 12:57 03/12/25 13:00 03/12/25 13:21 Temperature Temperature Source Pulse Rate 89 88 83 Pulse Rate from SpO2 Sensor 88 86 83 Respiratory Rate 26 H 19 18 Respiratory Effort / Characteristics Respiratory Depth Respiratory Pattern Blood Pressure Blood Pressure Mean Pulse Oximetry 91 93 94 Oxygen Delivery Method Sepsis Recent Fever Within 48 Hours Sepsis New/Unexplained Change in Mental Status Sepsis Action Taken by Nursing 03/12/25 13:36 03/12/25 13:42 03/12/25 14:00 Temperature Temperature Source Pulse Rate 83 90 Pulse Rate from SpO2 Sensor 84 90 Respiratory Rate 20 15 Respiratory Effort / Characteristics Respiratory Depth Respiratory Pattern Blood Pressure 122/70 Blood Pressure Mean 93 Pulse Oximetry 95 97 Oxygen Delivery Method Sepsis Recent Fever Within 48 Hours Sepsis New/Unexplained Change in Mental Status Sepsis Action Taken by Nursing 03/12/25 14:00 03/12/25 14:03 Temperature Temperature Source Pulse Rate 89 Pulse Rate from SpO2 Sensor 90 Respiratory Rate 20 Respiratory Effort / Characteristics Respiratory Depth Respiratory Pattern Blood Pressure 122/70 Blood Pressure Mean 93 Pulse Oximetry 96 Oxygen Delivery Method Sepsis Recent Fever Within 48 Hours Sepsis New/Unexplained Change in Mental Status Sepsis Action Taken by Nursing Laboratory Data Attestation: I reviewed the patient's lab results. 03/12/25 10:30 03/12/25 10:30 Lab Results 03/12/25 03/12/25 Range/Units 10:30 10:50 WBC 7.99 (4.8-10.8) K/ul RBC 3.41 L (4.20-5.40) M/uL Hgb 10.4 L (12.0-16.0) g/dl Hct 33.5 L (37.0-47.0) % MCV 98.2 (80.0-100.0) fL MCH 30.5 (25.0-34.0) pg MCHC 31.0 L (32.0-36.0) g/dL RDW Std Deviation 64.1 H (36.4-46.3) fL RDW Coeff of Rubi 17.7 H (11.5-14.5) % Plt Count 226 (130-400) K/uL MPV 9.9 (9.4-12.4) fL Immature Gran % (Auto) 0.3 % Neut % (Auto) 65.9 % Lymph % (Auto) 19.5 % [place] % (Auto) 9.3 % Eos % (Auto) 4.5 % Baso % (Auto) 0.5 % Neut # (Auto) 5.27 (1.40-6.50) K/uL Lymph # (Auto) 1.56 (1.20-3.40) K/uL [place] # (Auto) 0.74 H (0.11-0.59) K/uL Eos # (Auto) 0.36 (0.00-0.50) K/uL Baso # (Auto) 0.04 (0.00-0.20) K/uL Immature Gran # (Auto) 0.02 (0.01-0.20) K/uL PT 10.8 (9.0-12.0) Seconds INR 1.0 (0.9-1.1) Sodium 139 (136-145) mmol/L Potassium 4.6 (3.5-5.1) mmol/L Chloride 105 (98-107) mmol/L Carbon Dioxide 25 (21-32) mmol/L Anion Gap 9 (3-11) BUN 74 H (6-23) mg/dl Creatinine 1.57 H (0.6-1.2) mg/dl Est Cr Clr Drug Dosing 25.2 ml/min eGFR 32.53 BUN/Creatinine Ratio 47.1 H (10-20) Glucose 131 H (70-99(Fasting)) mg/dl Calcium 9.9 (8.6-10.3) mg/dl Total Bilirubin 0.6 (0.2-1.0) mg/dl AST 15 (13-39) U/L ALT 11 (7-52) U/L Alkaline Phosphatase 85 (34-104) U/L Troponin I High Sens 17.4 H (0-14) pg/ml Total Protein 7.4 (6.0-8.3) gm/dl Albumin 3.6 (3.4-5.0) gm/dl Globulin 3.8 (2.5-4.0) gm/dl Albumin/Globulin Ratio 0.9 (0.9-2) Lipase 14 (11-82) U/L Urine Color Yellow Urine Appearance Cloudy A (Clear) Urine pH 5.0 (4.5-7.5) Ur Specific [place] 1.018 (1.000-1.030) Urine Protein Negative (Negative) Urine Glucose (UA) Negative (Negative) Urine Ketones Negative (Negative) Urine Blood Negative (Negative) Urine Nitrite Negative (Negative) Urine Bilirubin Negative (Negative) Urine Urobilinogen Negative (Negative) Ur Leukocyte Esterase 2+ H (Negative) Urine WBC (Auto) >50 H (0-5) /hpf Urine RBC (Auto) 3-5 H (0-2) /hpf U Hyaline Cast (Auto) 3-5 H (0-2) /lpf U Epithel Cells (Auto) 3-5 H (0-2) /hpf Urine Bacteria (Auto) 4+ H (None Seen) Urine Comment Administered Medications Acetaminophen (Acetaminophen 325 Mg Tab) 650 mg PO Q4H PRN PRN Reason: pain/fever Stop: 04/11/25 17:15 Last Admin: 03/12/25 20:07 Dose: 650 mg Documented By: [id number] Aspirin (Aspirin 81 Mg Ectab) 81 mg PO QAM HARIKA Stop: 04/11/25 17:15 Last Admin: 03/12/25 18:12 Dose: Not Given Documented By: AAH Buspirone HCl (Buspirone 15 Mg Tab) 15 mg PO BID HARIKA Stop: 04/11/25 20:59 Last Admin: 03/12/25 20:01 Dose: 15 mg Documented By: [id number] Gabapentin (Gabapentin 100 Mg Cap) 100 mg PO TID HARIKA Stop: 04/11/25 20:59 Last Admin: 03/12/25 20:01 Dose: 100 mg Documented By: [id number] Heparin Sodium (Porcine) (Heparin Sod 5,000 Unit/0.5 Ml Vial) 5,000 units SQ Q12 HARIKA Stop: 04/11/25 20:59 Last Admin: 03/12/25 20:08 Dose: 5,000 units Documented By: [id number] Sodium Chloride (Nss) 1,000 mls @ 75 mls/hr IV .[id number] ONE Stop: 03/13/25 06:35 Last Admin: 03/12/25 17:45 Dose: 75 mls/hr Documented By: ALLISON Insulin Aspart (Insulin Aspart Per Unit Charge) 0 units SC ACHS HARIKA Stop: 04/11/25 17:15 Last Admin: 03/12/25 18:11 Dose: Not Given Documented By: ALLISON Miscellaneous (Remove Lidoderm Patch) 1 each N/A DAILY@2100 HARIKA Stop: 04/11/25 20:59 Last Admin: 03/12/25 20:01 Dose: 1 each Documented By: [id number] Discontinued Medications Dexamethasone Sodium Phosphate (DexamethasonePf 10 Mg/Ml Vial) 10 mg IV NOW ONE Stop: 03/12/25 14:30 Last Admin: 03/12/25 14:41 Dose: 10 mg Documented By: BS Sodium Chloride (Nss) 500 mls @ 999 mls/hr IV .Q31M STA Stop: 03/12/25 11:41 Last Infusion: 03/12/25 12:40 Dose: Infused Documented By: asm Admin: 03/12/25 11:41 Dose: 999 mls/hr Documented By: GARO Acetaminophen (Ofirmev) 1,000 mg in 100 mls @ 400 mls/hr IV NOW STA Stop: 03/12/25 11:25 Last Infusion: 03/12/25 12:09 Dose: Infused Documented By: asm Admin: 03/12/25 11:23 Dose: 400 mls/hr Documented By: asm Ceftriaxone Sodium (Rocephin) 2,000 mg in 50 mls @ 100 mls/hr IV NOW STA Stop: 03/12/25 14:31 Last Infusion: 03/12/25 15:15 Dose: Infused Documented By: Admin: 03/12/25 14:41 Dose: 100 mls/hr Documented By: GARO Ioversol (Optiray 320 100ml) 94 ml IV ONCE ONE Stop: 03/12/25 12:59 Last Admin: 03/12/25 13:00 Dose: 94 ml Documented By: KARMEN Lidocaine (Lidocaine 5% 1 Patch) 1 patch TD NOW STA Stop: 03/12/25 14:31 Last Admin: 03/12/25 14:41 Dose: 1 patch Documented By: GARO Oxycodone HCl (Oxycodone Hcl Ir 5 Mg Tab (Immediate Release)) 5 mg PO NOW STA Stop: 03/12/25 14:17 Last Admin: 03/12/25 14:41 Dose: Not Given Documented By: BS Imaging Data Radiologist's Impression: Abdomen/Pelvis CT 03/12/25 11:13 Technique: Axial computed tomography images were obtained of the abdomen and pelvis after the administration of intravenous contrast. Comparison is made to the prior CT dated 11/06/2016. Findings: The liver is overall of normal size, attenuation, and contour with no sign of cirrhosis or significant fatty infiltration. No liver mass lesion is seen. The portal vein is patent. The gallbladder appears unremarkable. No bile duct dilatation is noted. The spleen is of normal size. No focal splenic lesion is evident. The pancreas appears normal with no sign of acute or chronic pancreatitis and no mass lesion noted. The pancreatic duct is of normal caliber. The adrenal glands appear unremarkable. No definite renal or proximal ureteral calculi are seen on this contrast-enhanced study. There is no hydronephrosis or perinephric stranding. No renal mass lesion is identified. 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 There is a 1.6 cm left renal cyst. There is mild bilateral renal cortical scarring The aorta is of normal caliber. No abdominal adenopathy is seen. There is a small hiatal hernia. There is no sign of small bowel obstruction. There is extensive colonic diverticulosis without definite diverticulitis. No free intraperitoneal fluid or air is identified. No distal ureteral or bladder calculi are seen. No bladder mass lesion is evident. The iliac arteries are of normal caliber. No pelvic adenopathy is noted. There is a 5 cm fatty mass at the left adnexa, previously 4.5 cm There is mild subsegmental atelectasis in both lung bases. There are bilateral hip replacements, resulting in surrounding artifact. There is a thoracic fusion as well as a lumbar fusion. No fracture is identified. No focal osseous lesion is seen. There is a small ulcer overlying the inferior sacrum. There is no clear evidence of acute osteomyelitis. Impression: 1. 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 Small left renal cyst 3. Diverticulosis without definite diverticulitis 4. Small sacral decubitus ulcer 5. No definite sign of osteomyelitis ACT 112: Positive. There are findings on this exam that require communication between the performing entity and the patient following Patient Test Result Information Act ([place] ACT 112) guidelines. Electronically signed by Raul Johnson 03-12-2025 13:[address] 03/12/25 11:13 Technique: Axial computed tomography images were obtained of the lumbar spine after the administration of intravenous intravenous contrast. Sagittal and coronal reconstructions were obtained Comparison is made to the prior CT done 01/08/2025 Findings: There is a posterior fusion of L2-L5 with posterior fixation rods and bilateral pedicle screws, previously L2-L4. There is unchanged anterior interbody fusion at L2-3 and L3-4 with prosthetic disc placement. There is no definite sign of instrumentation failure. There is unchanged complete laminectomy defect of L2. No fracture is identified. There is grade 1 anterolisthesis at L2-3. No focal osseous lesion is evident. There is no definite sign of osteomyelitis At L1-2, there is mild spinal stenosis due to a disc bulge and a left paracentral disc protrusion. There is bilateral neural foramen narrowing that may affect the exiting L1 nerve roots At L2-3, evaluation is limited by artifact. There is no definite spinal stenosis. There is bilateral neural foramen narrowing that may affect the exiting L3 nerve roots At L3-4, there is a disc bulge without spinal stenosis. There is bilateral neural foramen narrowing that may affect the exiting L3 nerve roots At L4-5, there is a disc bulge without spinal stenosis. The neural foramen are patent At L5-S1, no disc herniation is identified. There is no spinal stenosis. The neural foramen are patent The visualized soft tissues of the abdomen and pelvis appear unremarkable Impression: 1. Interval extension of spinal fusion, now L2-L5 2. Mild anterolisthesis at L2-3 3. Mild spinal stenosis at L1-2 4. Bilateral neural foramen narrowing from L1-2 through L3-4 that may affect the exiting nerve roots ACT 112: Positive. There are findings on this exam that require communication between the performing entity and the patient following Patient Test Result Information Act ([place] ACT 112) guidelines. Electronically signed by Raul Johnson 03-12-2025 13:57 PM Discharge Plan Visit Data Chief Complaint: Back Injury/Pain Stated Complaint: [facility] ED Provider: Navid Eldridge Discharge Problem: Spinal stenosis of lumbar region with radiculopathy, Complicated urinary tract infection, NICHO (acute kidney injury), Acute urinary retention, Elevated troponin, Sacral decubitus ulcer Patient Disposition: Admitted As Inpatient Condition: Fair Discharge Instructions Interventions: ED Discharge Assessment Last Done: 03/12/25 16:41 Discharge Problem: Sacral decubitus ulcer Qualifiers: Pressure injury stage: unspecified pressure injury stage Qualified Code(s): L 89.159 - Pressure ulcer of sacral region, unspecified stage
[2025-03-12 11:22] LABS: Hematocrit (blood only) 33.5 % (37.0-47.0); Hemoglobin 10.4 g/dl (12.0-16.0); Immature Granulocytes # (auto) 0.02 K/uL (0.01-0.20); Immature Granulocytes % (auto) 0.3 %; Mean Corpuscular Hemoglobin 30.5 pg (25.0-34.0); Mean Corpuscular Volume 98.2 fL (80.0-100.0); Platelet Count 226 K/uL (130-400); RDW Standard Deviation 64.1 fL (36.4-46.3); Red Blood Count 3.41 M/uL (4.20-5.40); White Blood Count 7.99 K/ul (4.8-10.8)
[2025-03-12] MEDS: ACETAMINOPHEN 1,000 MG/100 ML VIAL IV STA (11:23)
[2025-03-12 11:30] LABS: Alanine Aminotransferase 11.0 U/L (7-52); Albumin Globulin Ratio 0.9 (0.9-2); Albumin Level 3.6 gm/dl (3.4-5.0); Alkaline Phosphatase 85.0 U/L (34-104); Anion Gap 9.0 (3-11); Bilirubin,Total 0.6 mg/dl (0.2-1.0); Blood Urea Nitrogen 74.0 mg/dl (6-23); Calcium 9.9 mg/dl (8.6-10.3); Carbon Dioxide 25.0 mmol/L (21-32); Chloride 105.0 mmol/L (98-107); Creatinine Clr Calc Pharmacy 25.2 ml/min; Globulin 3.8 gm/dl (2.5-4.0); Glucose 131.0 mg/dl (70-99(Fasting)); Lipase 14.0 U/L (11-82); Potassium 4.6 mmol/L (3.5-5.1); Sodium 139.0 mmol/L (136-145); Total Protein 7.4 gm/dl (6.0-8.3)
--- NOTE | 2025-03-12 11:35 | XRay Report ---
Technique: A frontal view of the chest was obtained Comparison is made to the prior examination dated 12/18/2024 Findings: There are no confluent pulmonary infiltrates. The heart size is at the upper limit of normal. No pleural effusion or pneumothorax is seen. There is unchanged mild prominence of the right hilum that could be due to prominent central vasculature No fracture is noted. There is an unchanged thoracic fusion. There is bilateral shoulder osteoarthritis Impression: No active disease Electronically signed by Raul Johnson 03-12-2025 11:34 AM
[2025-03-12] MEDS: SODIUM CHLORIDE 0.9% 500 ML IV STA (11:41)
[2025-03-12 11:51] LABS: INR 1.0 (0.9-1.1); Prothrombin Time 10.8 Seconds (9.0-12.0)
[2025-03-12 12:00] LABS: Appearance Urine Cloudy (Clear); Bacteria Urine Automated 4+ (None Seen); Glucose Urine UA Negative (Negative); WBC Urine Automated >50 /hpf (0-5)
[2025-03-12] MEDS: OPTIRAY 320 100ml IV ONE (13:00)
--- NOTE | 2025-03-12 13:44 | CT Scan Report ---
Technique: Axial computed tomography images were obtained of the abdomen and pelvis after the administration of intravenous contrast. Comparison is made to the prior CT dated 11/06/2016. Findings: The liver is overall of normal size, attenuation, and contour with no sign of cirrhosis or significant fatty infiltration. No liver mass lesion is seen. The portal vein is patent. The gallbladder appears unremarkable. No bile duct dilatation is noted. The spleen is of normal size. No focal splenic lesion is evident. The pancreas appears normal with no sign of acute or chronic pancreatitis and no mass lesion noted. The pancreatic duct is of normal caliber. The adrenal glands appear unremarkable. No definite renal or proximal ureteral calculi are seen on this contrast-enhanced study. There is no hydronephrosis or perinephric stranding. No renal mass lesion is identified. 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 There is a 1.6 cm left renal cyst. There is mild bilateral renal cortical scarring The aorta is of normal caliber. No abdominal adenopathy is seen. There is a small hiatal hernia. There is no sign of small bowel obstruction. There is extensive colonic diverticulosis without definite diverticulitis. No free intraperitoneal fluid or air is identified. No distal ureteral or bladder calculi are seen. No bladder mass lesion is evident. The iliac arteries are of normal caliber. No pelvic adenopathy is noted. There is a 5 cm fatty mass at the left adnexa, previously 4.5 cm There is mild subsegmental atelectasis in both lung bases. There are bilateral hip replacements, resulting in surrounding artifact. There is a thoracic fusion as well as a lumbar fusion. No fracture is identified. No focal osseous lesion is seen. There is a small ulcer overlying the inferior sacrum. There is no clear evidence of acute osteomyelitis. Impression: 1. 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 Small left renal cyst 3. Diverticulosis without definite diverticulitis 4. Small sacral decubitus ulcer 5. No definite sign of osteomyelitis ACT 112: Positive. There are findings on this exam that require communication between the performing entity and the patient following Patient Test Result Information Act ([place] ACT 112) guidelines. Electronically signed by Raul Johnson 03-12-2025 13:44 PM
--- NOTE | 2025-03-12 13:57 | CT Scan Report ---
Technique: Axial computed tomography images were obtained of the lumbar spine after the administration of intravenous intravenous contrast. Sagittal and coronal reconstructions were obtained Comparison is made to the prior CT done 01/08/2025 Findings: There is a posterior fusion of L2-L5 with posterior fixation rods and bilateral pedicle screws, previously L2-L4. There is unchanged anterior interbody fusion at L2-3 and L3-4 with prosthetic disc placement. There is no definite sign of instrumentation failure. There is unchanged complete laminectomy defect of L2. No fracture is identified. There is grade 1 anterolisthesis at L2-3. No focal osseous lesion is evident. There is no definite sign of osteomyelitis At L1-2, there is mild spinal stenosis due to a disc bulge and a left paracentral disc protrusion. There is bilateral neural foramen narrowing that may affect the exiting L1 nerve roots At L2-3, evaluation is limited by artifact. There is no definite spinal stenosis. There is bilateral neural foramen narrowing that may affect the exiting L3 nerve roots At L3-4, there is a disc bulge without spinal stenosis. There is bilateral neural foramen narrowing that may affect the exiting L3 nerve roots At L4-5, there is a disc bulge without spinal stenosis. The neural foramen are patent At L5-S1, no disc herniation is identified. There is no spinal stenosis. The neural foramen are patent The visualized soft tissues of the abdomen and pelvis appear unremarkable Impression: 1. Interval extension of spinal fusion, now L2-L5 2. Mild anterolisthesis at L2-3 3. Mild spinal stenosis at L1-2 4. Bilateral neural foramen narrowing from L1-2 through L3-4 that may affect the exiting nerve roots ACT 112: Positive. There are findings on this exam that require communication between the performing entity and the patient following Patient Test Result Information Act ([place] ACT 112) guidelines. Electronically signed by Raul Johnson 03-12-2025 13:57 PM
--- NOTE | 2025-03-12 14:06 | History & Physical Report ---
Date of Service March 12, 2025 Assessment & Plan (1) Complicated UTI (urinary tract infection): (2) Back pain: (3) NICHO (acute kidney injury): Plan Complicated urinary tract infection Acute metabolic encephalopathy secondary to above Urinary retention S/P Raya in ED --CT ABD: showed Small left renal cyst but otherwise no signs of obstructive uropathy --Blood, urine cultures pending -- Empirically started on IV Rocephin Continue gentle IV fluids Continue Raya catheter Voiding trial prior to discharge Acute kidney injury on CKD stage IIIb likely due to above Baseline creatinine 1.2 Hold Lasix, lisinopril Gentle IV fluids Avoid nephrotoxic agents as able Monitor renal function Lumbar spinal stenosis with radiculopathy Lumbar anterolisthesis Ambulatory dysfunction --Lumbar CT: Interval extension of spinal fusion, now L2-L5. Mild anterolisthesis at L2-3. Mild spinal stenosis at L1-2. 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 Small left renal cyst Needs follow-up with [employer] as outpatient Sacral decubitus ulcer Chronic Wound care consulted Check MRSA screen DM Type II: Diet controlled Last HbA1c 6.7 Utilize insulin while hospitalized Monitor blood glucose levels Chronic anemia Iron deficiency anemia Baseline hemoglobin ~ 9.5 No acute bleeding issues Continue iron supplements Monitor Diastolic dysfunction Valvular heart disease Hold diuretics due to NICHO Monitor volume status closely Other chronic conditions: Hypothyroidism--continue levothyroxine Dyslipidemia--continue atorvastatin Hypertension-hold lisinopril due to NICHO. Continue metoprolol Aortic valve stenosis Right bundle branch block Gout--continue allopurinol Carotid stenosis--continue aspirin, statin Anxiety disorder, insomnia--continue BuSpar DVT Px: Heparin SQ CODE STATUS DNI DNR as per my discussion with patient and patient's family at bedside History of Present Illness Chief Complaint: Back Pain Primary Care Provider: Jose Patino MD Patient is an 84-year-old female with history of diabetes mellitus, hypothyroidism, dyslipidemia, hypertension, sacral ulcer, CKD stage IIIb, aortic valve stenosis, lumbar spinal stenosis, right bundle branch block, gout, carotid stenosis, anxiety disorder, insomnia and other medical problems presents with history of lower back pain, generalized weakness and inability to ambulate. History is obtained from patient, patient's family at bedside, ER staff and old records. Patient had longstanding history of lower back pain and underwent lumbar decompression, fusion surgery by Dr. Porras in December 2024. She was discharged to [facility] and related to [facility] facility for further management. Patient was discharged from SNF 2 days ago and had difficulty ambulating while at home. She also had significant generalized weakness and fatigue. Patient states lower back pain is nonradiating, 7/10 intensity especially with activity, also states having " [id number]" Sensation o bilateral lower extremities associated with chills and shakiness. Patient denies any fall or trauma. She was noted to have urinary retention while in ED requiring Raya catheter placement. Patient was also noted to be confused yesterday per family. She is oriented during my encounter in the ED today. Denies any history of chest pain, dyspnea, dizziness, cough, syncope, headache, change in vision, nausea, vomiting, abdominal pain, blood in stools, dysuria, hematuria. Allergies Allergy/AdvReac Type Severity Reaction Status Date / Time sulfamethoxazole [Bactrim] AdvReac Intermediate "made the Verified 01/10/25 12:23 UTI worse" trimethoprim [Bactrim] AdvReac Intermediate "made the Verified 01/10/25 12:23 UTI worse" Home Medications Medication Instructions Recorded Confirmed Type acetaminophen 325 mg tablet 325 mg PO QID PRN Pain 08/18/24 03/12/25 History allopurinol 300 mg tablet 100 mg PO QAM 08/18/24 03/12/25 History aspirin 81 mg tablet,delayed 81 mg PO QAM 08/18/24 03/12/25 History release atorvastatin 80 mg tablet 80 mg PO QAM 08/18/24 03/12/25 History cholecalciferol (vitamin D3) 25 50 mcg PO DAILY 08/18/24 03/12/25 History mcg (1,000 unit) capsule (Vitamin D3) levothyroxine 50 mcg tablet 50 mcg PO QAM 08/18/24 03/12/25 History lisinopril 10 mg tablet 10 mg PO QAM 08/18/24 03/12/25 History metoprolol succinate 25 mg 12.5 mg PO QAM 08/18/24 03/12/25 History tablet,extended release 24 hr oxycodone 5 mg tablet 5 mg PO Q6H PRN pain #30 tabs 01/14/25 03/12/25 Rx BuSpar 15 mg PO BID 03/12/25 03/12/25 History Lasix 40 mg PO DAILY 03/12/25 03/12/25 History ferrous sulfate 325 mg PO QAM 03/12/25 03/12/25 History gabapentin 100 mg capsule 100 mg PO HS 03/12/25 03/12/25 History Past Med/Surg History Problem List (Updated 03/12/25 @ 15:20 by Alfred Thorne MD) NICHO (acute kidney injury) Complicated UTI (urinary tract infection) Closed fracture of lumbar vertebral body Hyperkalemia Spondylolisthesis, lumbar region Hypomagnesemia Recurrent falls Back pain (Acute) Lumbar stenosis with neurogenic claudication Stage 3b chronic kidney disease (CKD) S/P spinal surgery 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) Medical History Carotid artery stenosis mild bilat ICA stenosis per [facility] EMR Type 2 diabetes mellitus CKD (chronic kidney disease) stage 3, GFR 30-59 ml/min Aortic stenosis moderate RBBB Hyperlipidemia Hypertension controlled, stable per pt Degenerative disc disease Osteoarthritis Gout Hypothyroidism History of kidney stones MUSA (dyspnea on exertion) chronic Surgical History History of surgical procedure on thoracic spine T9-T10 decompression fusion - August 2024 History of dilatation and curettage History of tooth extraction History of total knee replacement right History of total hip arthroplasty bilat History of cataract surgery bilat History of tonsillectomy History of cystoscopy hx of stent and since removed Family History Mother Diabetes Aunt No problems noted. Social History Smoking Status: Never smoker Second Hand Exposure: No; Do You Dip or Chew Tobacco: No; Hx Alcohol Use: No Hx Substance Use: No Preferred Language: Jamaican Communication Ability: Effective E Commerce Developer Required: No Beliefs That Will Affect Care: None Current Living Situation: Family Feels Safe at Home: Yes Assistive Devices: Cane Review of Systems Review of Systems: All systems reviewed & are unremarkable except as noted in Subjective Physical Exam Physical Exam: Physical Exam: Vitals signs as noted above General Appearance:Obese, no apparent distress Head: normocephalic, Atraumatic Eyes: normal inspection, EOMI Neck: supple, Trachea midline Respiratory/Chest: Normal breath sounds, CTA, No accessory muscle use Cardiovascular: S1, S2, + murmur Abdomen/GI:Soft, Non tender, Bowel sounds present Back:+ Lower back closer,+ decubitus ulcer in dressing Extremities/Musculoskeletal:normal inspection, 1+ B/L LE edema Neurologic/Psych:AAOX3, grossly no focal neurological deficits Skin: normal color, warm Results & Data Results & Data Vital Signs (Past 12 Hours) Vital Signs Temp Pulse Resp BP Pulse Ox O2 Del Method 03/12/25 14:03 89 20 96 03/12/25 14:00 122/70 03/12/25 14:00 122/70 03/12/25 13:42 90 15 97 03/12/25 13:36 83 20 95 03/12/25 13:21 83 18 94 03/12/25 13:00 88 19 93 03/12/25 12:57 89 26 H 91 03/12/25 12:45 93 H 16 97 03/12/25 12:21 89 20 92 03/12/25 12:12 90 17 92 03/12/25 12:03 91 H 15 94 03/12/25 12:00 120/61 03/12/25 12:00 120/61 03/12/25 11:57 89 24 93 03/12/25 11:54 88 17 96 03/12/25 11:31 125/88 03/12/25 11:30 96 H 17 98 03/12/25 11:27 92 H 19 98 03/12/25 11:06 95 H 21 97 03/12/25 11:00 137/95 03/12/25 11:00 88 23 137/95 97 03/12/25 10:15 36.5 C 93 H 24 165/67 H 100 Room Air Laboratory Results Short CBC 03/12/25 Range/Units 10: WBC 7.99 (4.8-10.8) K/ul Hgb 10.4 L (12.0-16.0) g/dl Hct 33.5 L (37.0-47.0) % Plt Count 226 (130-400) K/uL BMP 03/12/25 10:30 Sodium 139 Potassium 4.6 Chloride 105 Carbon Dioxide 25 BUN 74 H Creatinine 1.57 H Glucose 131 H Calcium 9.9 Liver Function 03/12/25 Range/Units 10:30 Total Bilirubin 0.6 (0.2-1.0) mg/dl AST 15 (13-39) U/L ALT 11 (7-52) U/L Alkaline Phosphatase 85 (34-104) U/L Albumin 3.6 (3.4-5.0) gm/dl Urine 03/12/25 Range/Units 10:50 Urine Color Yellow Urine Appearance Cloudy A (Clear) Urine pH 5.0 (4.5-7.5) Ur Specific [place]ner 1.018 (1.000-1.030) Urine Protein Negative (Negative) Urine Glucose (UA) Negative (Negative) Diagnostic Findings --CT ABD:1. 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 Small left renal cyst. Diverticulosis without definite diverticulitis. Small sacral decubitus ulcer. No definite sign of osteomyelitis --Lumbar Spine CT:1. Interval extension of spinal fusion, now L2-L5. Mild anterolisthesis at L2-3. Mild spinal stenosis at L1-2. Bilateral neural foramen narrowing from L1-2 through L3-4 that may affect the exiting nerve roots --CXR: No active disease Medications Administered Home Medications Medication Instructions Recorded Confirmed acetaminophen 325 mg tablet 325 mg PO QID PRN Pain 08/18/24 03/12/25 allopurinol 300 mg tablet 100 mg PO QAM 08/18/24 03/12/25 aspirin 81 mg tablet,delayed 81 mg PO QAM 08/18/24 03/12/25 release atorvastatin 80 mg tablet 80 mg PO QAM 08/18/24 03/12/25 cholecalciferol (vitamin D3) 25 50 mcg PO DAILY 08/18/24 03/12/25 mcg (1,000 unit) capsule (Vitamin D3) levothyroxine 50 mcg tablet 50 mcg PO QAM 08/18/24 03/12/25 lisinopril 10 mg tablet 10 mg PO QAM 08/18/24 03/12/25 metoprolol succinate 25 mg 12.5 mg PO QAM 08/18/24 03/12/25 tablet,extended release 24 hr BuSpar 15 mg PO BID 03/12/25 03/12/25 Lasix 40 mg PO DAILY 03/12/25 03/12/25 ferrous sulfate 325 mg PO QAM 03/12/25 03/12/25 gabapentin 100 mg capsule 100 mg PO HS 03/12/25 03/12/25 Previous Rx's Medication Instructions Recorded oxycodone 5 mg tablet 5 mg PO Q6H PRN pain #30 tabs 01/14/25 ECG Additional Comments: --EKG: Normal sinus rhythm with sinus arrhythmia, right bundle branch block, nonspecific T wave changes in inferior leads, QTc 496. (2) Back pain Back pain laterality: midline Back pain location: low back pain Chronicity: acute Sciatica presence: unspecified whether sciatica present Qualified Code(s): M54.50 - Low back pain, unspecified
[2025-03-12] MEDS: dexAMETHasone**PF** 10 MG/ML VIAL IV ONE (14:41)
[2025-03-12] MEDS: cefTRIAXone SODIUM 2,000 MG/50 ML BAG IV STA (14:41)
[2025-03-12] MEDS: LIDOCAINE 5% 1 PATCH TD STA (14:41)
--- NOTE | 2025-03-12 16:55 | Electrocardiogram Report ---
Test Reason : Blood Pressure : */* mmHG Vent. 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
[2025-03-12] MEDS ORDERED: CARBOHYDRATES FOR HYPOGLYCEMIA PO PRN (17:16)
[2025-03-12] MEDS ORDERED: GLUCOSE 10 TAB/TUBE PO PRN (17:16)
[2025-03-12] MEDS ORDERED: PROMETHAZINE 6.25 MG/50.25 ML BAG IV PRN (17:16)
[2025-03-12] MEDS ORDERED: DEXTROSE 50% 50 ML SYRINGE IV PRN (17:16)
[2025-03-12] MEDS ORDERED: GLUCOSE 40% GEL 15 GM TUBE PO PRN (17:16)
[2025-03-12] MEDS ORDERED: GLUCAGON FOR INJ 1 MG VIAL SQ PRN (17:16)
[2025-03-12] MEDS: SODIUM CHLORIDE 0.9% 1,000 ML IV ONE (17:45)
[2025-03-12] MEDS: INSULIN ASPART PER UNIT CHARGE SC SCH (18:11)
[2025-03-12] MEDS: ASPIRIN 81 MG ECTAB PO SCH (18:12)
[2025-03-12] MEDS: GABAPENTIN 100 MG CAP PO SCH (20:01)
[2025-03-12] MEDS: REMOVE LIDODERM PATCH SCH (20:01)
[2025-03-12] MEDS: busPIRone 15 MG TAB PO SCH (20:01)
[2025-03-12] MEDS: ACETAMINOPHEN 325 MG TAB PO PRN (20:07)
[2025-03-12] MEDS: HEPARIN SOD 5,000 UNIT/0.5 ML VIAL SQ SCH (20:08)
[2025-03-12] MEDS ORDERED: REMOVE LIDODERM PATCH SCH (21:00)
[2025-03-13] MEDS: LEVOTHYROXINE SODIUM 50 MCG TABLET PO SCH (05:40)
[2025-03-13 06:45] LABS: Hematocrit (blood only) 31.1 % (37.0-47.0); Hemoglobin 9.6 g/dl (12.0-16.0); Mean Corpuscular Hemoglobin 30.4 pg (25.0-34.0); Mean Corpuscular Volume 98.4 fL (80.0-100.0); Platelet Count 200 K/uL (130-400); RDW Standard Deviation 62.2 fL (36.4-46.3); Red Blood Count 3.16 M/uL (4.20-5.40); White Blood Count 4.55 K/ul (4.8-10.8)
[2025-03-13 07:08] LABS: Anion Gap 11.0 (3-11); Blood Urea Nitrogen 57.0 mg/dl (6-23); Calcium 9.0 mg/dl (8.6-10.3); Carbon Dioxide 21.0 mmol/L (21-32); Chloride 108.0 mmol/L (98-107); Creatinine Clr Calc Pharmacy 32.9 ml/min; Glucose 125.0 mg/dl (70-99(Fasting)); Magnesium 2.1 mg/dl (1.7-2.4); Potassium 4.7 mmol/L (3.5-5.1); Sodium 140.0 mmol/L (136-145)
[2025-03-13] MEDS: METOPROLOL SUCC 25MG EXT REL TAB PO SCH (08:05)
[2025-03-13] MEDS: CHOLECALCIFEROL 25 MCG (1000 UNITS) TAB PO SCH (08:06)
[2025-03-13] MEDS: ATORVASTATIN 40 MG TAB PO SCH (08:06)
[2025-03-13] MEDS: FERROUS SULFATE 325 MG TAB PO SCH (08:06)
[2025-03-13] MEDS: LIDOCAINE 5% 1 PATCH TD SCH (09:30)
[2025-03-13] MEDS: cefTRIAXone SODIUM 2,000 MG/50 ML BAG IV SCH (09:57)
--- NOTE | 2025-03-13 11:10 | Hospitalist Progress Note ---
Date of Service March 13, 2025 Assessment & Plan (1) Complicated UTI (urinary tract infection): (2) Back pain: (3) NICHO (acute kidney injury): Plan Complicated urinary tract infection Acute metabolic encephalopathy - resolve Acute Urinary retention S/P Raya in ED Patient presented to the hospital with concern for altered mental status History of Raya catheter for several months; recently taken out and patient was doing timed voids. Urinalysis positive for infection Continuing empiric antibiotics; follow-up on final urine and blood culture results Continue Raya catheter; possible voiding trial at the time of the discharge. Acute kidney injury on CKD stage IIIb likely due to above Baseline creatinine 1.2 Hold Lasix, lisinopril Resolved with iv hydration Lumbar spinal stenosis with radiculopathy Lumbar anterolisthesis Ambulatory dysfunction She reports multiple recent surgeries with orthospine. Was discharged to rehab; came back home in last 3 days --Lumbar CT: Interval extension of spinal fusion, now L2-L5. Mild anterolisthesis at L2-3. Mild spinal stenosis at L1-2. 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 Small left renal cyst Needs follow-up with [employer] as outpatient Sacral decubitus ulcer-POA Wound care consulted q2 turns DM Type II: Diet controlled Last HbA1c 6.7 Utilize insulin while hospitalized Monitor blood glucose levels Chronic anemia Iron deficiency anemia Baseline hemoglobin ~ 9.5 No acute bleeding issues Continue iron supplements Monitor Diastolic dysfunction Valvular heart disease Hold diuretics due to NICHO Monitor volume status closely Other chronic conditions: Hypothyroidism--continue levothyroxine Dyslipidemia--continue atorvastatin Hypertension-hold lisinopril due to NICHO. Continue metoprolol Aortic valve stenosis Right bundle branch block Gout--continue allopurinol Carotid stenosis--continue aspirin, statin Anxiety disorder, insomnia--continue BuSpar DVT Px: Heparin SQ CODE STATUS DNI DNR Time spent evaluating patient, direct bedside care, chart review, placing orders, interpretation of diagnostic studies, discussion with consultants, patient, and family members, as well as other required patient management activities is 50 minutes Please note the above document was generated using voice recognition software. It may contain grammatical, syntax or spelling errors. Any formal questions or concerns about the content, text or information contained within the body of this dictation should be directly addressed to the provider for clarification Admission and Anticipated Discharge Date Admission Date: March 12, 2025 Subjective Patient seen and examined at bedside. She is sitting up on the bed comfortably; not in distress. She reports pain in her lower extremities; reports numbness as well. Review of Systems Review of Systems: All systems reviewed & are unremarkable except as noted in Subjective Physical Exam Physical Exam: Physical Exam: Vitals signs as noted above General Appearance:Obese, no apparent distress Respiratory/Chest: Normal breath sounds, CTA, No accessory muscle use Cardiovascular: S1, S2, + murmur Abdomen/GI:Soft, Non tender, Bowel sounds present Back:+ decubitus ulcer in dressing Extremities/Musculoskeletal:normal inspection, no edema Neurologic/Psych:AAOX3. Strength in bilateral lower extremity of 3 x 5; decreased sensation in right leg. Skin: normal color, warm Results & Data Results & Data Vital Signs (Past 12 Hours) Vital Signs Temp Pulse Resp BP Pulse Ox O2 Del Method 03/13/25 07:15 36.7 C 81 18 147/80 H 96 Room Air (2) Back pain Back pain laterality: midline Back pain location: low back pain Chronicity: acute Sciatica presence: unspecified whether sciatica present Qualified Code(s): M54.50 - Low back pain, unspecified
[2025-03-13] MEDS: SODIUM CHLORIDE 0.9% 1,000 ML IV SCH (17:42)
--- NOTE | 2025-03-14 00:26 | Ultrasound Report ---
Exam(s): US VENOUS LEFT UPPER EXTREMITY EXAM: US Duplex Left Upper Extremity Veins CLINICAL HISTORY: Reason for exam: rule out DVT. OTHER: Other Notes: HX: NO PREV. LEFT ARM SWELLING. TECH NOTES: NO OBVIOUS DVT LUE. TECHNIQUE: Real-time duplex ultrasound scan of the left upper extremity veins integrating B-mode two-dimensional vascular structure, Doppler spectral analysis, color flow Doppler imaging and compression. COMPARISON: No relevant prior studies available. FINDINGS: Deep veins: No DVT in the internal jugular, subclavian, axillary, or brachial veins. The veins demonstrate normal color flow, are normally compressible, with normal phasic flow and/or augmentation response. Superficial veins: No thrombus in the visualized basilic and cephalic veins. Soft tissues: No acute findings. IMPRESSION: No ultrasound evidence of deep venous thrombosis in left upper extremity.. Electronically signed by: Ameya Sanchez MD 03/14/25 00:26 AM
[2025-03-14 06:08] LABS: Hematocrit (blood only) 31.0 % (37.0-47.0); Hemoglobin 9.3 g/dl (12.0-16.0); Immature Granulocytes # (auto) 0.03 K/uL (0.01-0.20); Immature Granulocytes % (auto) 0.4 %; Mean Corpuscular Hemoglobin 29.9 pg (25.0-34.0); Mean Corpuscular Volume 99.7 fL (80.0-100.0); Platelet Count 179 K/uL (130-400); RDW Standard Deviation 63.4 fL (36.4-46.3); Red Blood Count 3.11 M/uL (4.20-5.40); White Blood Count 7.14 K/ul (4.8-10.8)
[2025-03-14 06:50] LABS: Anion Gap 10.0 (3-11); Blood Urea Nitrogen 52.0 mg/dl (6-23); Calcium 8.7 mg/dl (8.6-10.3); Carbon Dioxide 21.0 mmol/L (21-32); Chloride 109.0 mmol/L (98-107); Creatinine Clr Calc Pharmacy 32.1 ml/min; Glucose 108.0 mg/dl (70-99(Fasting)); Potassium 4.2 mmol/L (3.5-5.1); Sodium 140.0 mmol/L (136-145)
[2025-03-14] MEDS: POLYETHYLENE (MIRALAX) 17 GM PACK PO PRN (08:42)
[2025-03-14] MEDS: DOCUSATE SODIUM 100 MG CAP PO PRN (08:43)
[2025-03-14] MEDS: FUROSEMIDE 40 MG TAB PO SCH (08:45)
--- NOTE | 2025-03-14 10:16 | Orthopedic Consultation ---
Date of Consultation March 14, 2025 Assessment & Plan (1) Spinal stenosis of lumbar region with radiculopathy: At this time we will initiate physical therapy occupational therapy. She would be best served returning to [facility] for continued therapy. She understands agrees. History of Present Illness Reason for Consultation: Falls Attending Physician: Landon Tran MD History of Present Illness This is a very pleasant 84-year-old female well-known to me that presents the hospital after being discharged from rehab. Unfortunately she had several falls at home. She is having marked difficulty with activities of daily living and caring for self. She states right now she is comfortable in bed. She has no back pain. She describes some tenderness in her bilateral lower extremities with numbness and tingling. She notes that when she was at [facility] she was ambulating the halls with a walker. Allergies Allergy/AdvReac Type Severity Reaction Status Date / Time sulfamethoxazole [Bactrim] AdvReac Intermediate "made the Verified 01/10/25 12:23 UTI worse" trimethoprim [Bactrim] AdvReac Intermediate "made the Verified 01/10/25 12:23 UTI worse" Home Medications Medication Instructions Recorded Confirmed Type acetaminophen 325 mg tablet 325 mg PO QID PRN Pain 08/18/24 03/12/25 History allopurinol 300 mg tablet 100 mg PO QAM 08/18/24 03/12/25 History aspirin 81 mg tablet,delayed 81 mg PO QAM 08/18/24 03/12/25 History release atorvastatin 80 mg tablet 80 mg PO QAM 08/18/24 03/12/25 History cholecalciferol (vitamin D3) 25 50 mcg PO DAILY 08/18/24 03/12/25 History mcg (1,000 unit) capsule (Vitamin D3) levothyroxine 50 mcg tablet 50 mcg PO QAM 08/18/24 03/12/25 History lisinopril 10 mg tablet 10 mg PO QAM 08/18/24 03/12/25 History metoprolol succinate 25 mg 12.5 mg PO QAM 08/18/24 03/12/25 History tablet,extended release 24 hr oxycodone 5 mg tablet 5 mg PO Q6H PRN pain #30 tabs 01/14/25 03/12/25 Rx BuSpar 15 mg PO BID 03/12/25 03/12/25 History Lasix 40 mg PO DAILY 03/12/25 03/12/25 History ferrous sulfate 325 mg PO QAM 03/12/25 03/12/25 History gabapentin 100 mg capsule 100 mg PO HS 03/12/25 03/12/25 History Patient History Medical History Carotid artery stenosis mild bilat ICA stenosis per [facility] EMR Type 2 diabetes mellitus CKD (chronic kidney disease) stage 3, GFR 30-59 ml/min Aortic stenosis moderate RBBB Hyperlipidemia Hypertension controlled, stable per pt Degenerative disc disease Osteoarthritis Gout Hypothyroidism History of kidney stones MUSA (dyspnea on exertion) chronic Surgical History History of surgical procedure on thoracic spine T9-T10 decompression fusion - August 2024 History of dilatation and curettage History of tooth extraction History of total knee replacement right History of total hip arthroplasty bilat History of cataract surgery bilat History of tonsillectomy History of cystoscopy hx of stent and since removed Family History Mother Diabetes Aunt No problems noted. Social History Smoking Status: Never smoker Second Hand Exposure: No; Do You Dip or Chew Tobacco: No; Tobacco Cessation Education Requested by Patient: No Hx Alcohol Use: No Hx Substance Use: No Preferred Language: Guamanian Communication Ability: Effective National Recruiter Required: No Beliefs That Will Affect Care: None Current Living Situation: Family Current Living Situation Comment: With son Bharathi Other Information That Helps Us Care for You: No Feels Safe at Home: Yes Safety Concerns: Feels Safe At This Time Assistive Devices: Walker Physical Exam Physical Exam: On exam she has weakness to bilateral quadriceps hip flexors plantarflexion dorsiflexion. Sensory is intact. Incisions healing well. Results & Data Vital Signs (Past 12 Hours) Vital Signs Temp Pulse Resp BP Pulse Ox O2 Del Method 03/14/25 07:33 36.8 C 87 16 146/75 H 95 Room Air 03/13/25 23:05 36.6 C 83 18 115/66 95 Room Air
--- NOTE | 2025-03-14 11:11 | Hospitalist Progress Note ---
Date of Service March 14, 2025 Assessment & Plan (1) Complicated UTI (urinary tract infection): (2) Back pain: (3) NICHO (acute kidney injury): Plan Complicated urinary tract infection Acute metabolic encephalopathy - resolve Acute Urinary retention S/P Raya in ED Patient presented to the hospital with concern for altered mental status History of Raya catheter for several months; recently taken out and patient was doing timed voids. Urinalysis positive for infection urine Cx growing E.coli Blood Cx- NGTD Continue on Ceftriaxone; treat for 5 days. Continue Raya catheter given sacral wound and recurrent retention for now; can do trial of void in 7 to 10 days Acute kidney injury on CKD stage IIIb likely due to above resolved with iv hydration restarted on lasix Lumbar spinal stenosis with radiculopathy Lumbar anterolisthesis Ambulatory dysfunction She reports multiple recent surgeries with orthospine. Was discharged to rehab; came back home in last 3 days --Lumbar CT: Interval extension of spinal fusion, now L2-L5. Mild anterolisthesis at L2-3. Mild spinal stenosis at L1-2. 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 Small left renal cyst Needs follow-up with ORGANIC EXTRACTIONS TECHNICIAN as outpatient Sacral decubitus ulcer-POA Wound care consulted q2 turns DM Type II: Diet controlled Last HbA1c 6.7 Utilize insulin while hospitalized Monitor blood glucose levels Chronic anemia Iron deficiency anemia Baseline hemoglobin ~ 9.5 No acute bleeding issues Continue iron supplements Monitor Diastolic dysfunction Valvular heart disease on lasix-continue Hold lisinopril Monitor volume status closely Other chronic conditions: Hypothyroidism--continue levothyroxine Dyslipidemia--continue atorvastatin Hypertension-hold lisinopril due to NICHO. Continue metoprolol Aortic valve stenosis Right bundle branch block Gout--continue allopurinol Carotid stenosis--continue aspirin, statin Anxiety disorder, insomnia--continue BuSpar DVT Px: Heparin SQ CODE STATUS DNI DNR Time spent evaluating patient, direct bedside care, chart review, placing orders, interpretation of diagnostic studies, discussion with consultants, patient, and family members, as well as other required patient management activ ities is 50 minutes Please note the above document was generated using voice recognition software. It may contain grammatical, syntax or spelling errors. Any formal questions or concerns about the content, text or information contained within the body of this dictation should be directly addressed to the provider for clarification Admission and Anticipated Discharge Date Admission Date: March 12, 2025 Subjective Patient seen and examined at bedside. Comfortable; not in distress. Denies fever, chills, chest pain, shortness of breath, abdominal pain or urinary symptoms. No significant overnight events Review of Systems Review of Systems: All systems reviewed & are unremarkable except as noted in Subjective Physical Exam Physical Exam: Physical Exam: Vitals signs as noted above General Appearance:Obese, no apparent distress Respiratory/Chest: Normal breath sounds, CTA, No accessory muscle use Cardiovascular: S1, S2, + murmur Abdomen/GI:Soft, Non tender, Bowel sounds present Back:+ decubitus ulcer in dressing Extremities/Musculoskeletal:normal inspection, no edema Neurologic/Psych:AAOX3. Strength in bilateral lower extremity of 3 x 5; decreased sensation in right leg. Skin: normal color, warm Results & Data Results & Data Vital Signs (Past 12 Hours) Vital Signs Temp Pulse Resp BP Pulse Ox O2 Del Method 03/14/25 07:33 36.8 C 87 16 146/75 H 95 Room Air (2) Back pain Back pain laterality: midline Back pain location: low back pain Chronicity: acute Sciatica presence: unspecified whether sciatica present Qualified Code(s): M54.50 - Low back pain, unspecified
[2025-03-14] MEDS: PNEUMOCOCCAL VACCINE (PCV20) 20-VAL CONJ-DIP CRM/PF 0.5 ML SYR IM ONE (21:28)
[2025-03-14] MEDS: INFLUENZA VACC TS2025-26(65y+)/PF (IIV3) 0.5mL Syr IM ONE (21:30)
--- NOTE | 2025-03-15 11:44 | Hospitalist Progress Note ---
Date of Service March 15, 2025 Assessment & Plan (1) Complicated UTI (urinary tract infection): (2) Back pain: (3) NICHO (acute kidney injury): Plan Complicated urinary tract infection Acute metabolic encephalopathy - resolve Acute Urinary retention S/P Raya in ED Patient presented to the hospital with concern for altered mental status History of Raya catheter for several months; recently taken out and patient was doing timed voids. Urinalysis positive for infection urine Cx growing E.coli Blood Cx- NGTD Continue on Ceftriaxone; treat for 5 days. Continue Raya catheter given sacral wound and recurrent retention for now; can do trial of void in 7 to 10 days Acute kidney injury on CKD stage IIIb likely due to above resolved with iv hydration restarted on lasix Lumbar spinal stenosis with radiculopathy Lumbar anterolisthesis Ambulatory dysfunction She reports multiple recent surgeries with orthospine. Was discharged to rehab; came back home in last 3 days --Lumbar CT: Interval extension of spinal fusion, now L2-L5. Mild anterolisthesis at L2-3. Mild spinal stenosis at L1-2. 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 Small left renal cyst Needs follow-up with NUCLEAR CONTROL ROOM OPERATOR as outpatient Sacral decubitus ulcer-POA Wound care consulted q2 turns DM Type II: Diet controlled Last HbA1c 6.7 Utilize insulin while hospitalized Monitor blood glucose levels Chronic anemia Iron deficiency anemia Baseline hemoglobin ~ 9.5 No acute bleeding issues Continue iron supplements Monitor Diastolic dysfunction Valvular heart disease on lasix-continue lisinopril resumed as well Monitor volume status closely Other chronic conditions: Hypothyroidism--continue levothyroxine Dyslipidemia--continue atorvastatin Hypertension-hold lisinopril due to NICHO. Continue metoprolol Aortic valve stenosis Right bundle branch block Gout--continue allopurinol Carotid stenosis--continue aspirin, statin Anxiety disorder, insomnia--continue BuSpar DVT Px: Heparin SQ CODE STATUS DNI DNR Dispositionawaiting rehab Please note the above document was generated using voice recognition software. It may contain grammatical, syntax or spelling errors. Any formal questions or concerns about the content, text or information contained within the body of this dictation should be directly addressed to the provider for clarification Admission and Anticipated Discharge Date Admission Date: March 12, 2025 Subjective Patient seen and examined at bedside. She reports pain in her lower extremity intermittently; no other complaints at this katerin Review of Systems Review of Systems: All systems reviewed & are unremarkable except as noted in Subjective Physical Exam Physical Exam: Physical Exam: Vitals signs as noted above General Appearance:Obese, no apparent distress Respiratory/Chest: Normal breath sounds, CTA, No accessory muscle use Cardiovascular: S1, S2, + murmur Abdomen/GI:Soft, Non tender, Bowel sounds present Back:+ decubitus ulcer in dressing Extremities/Musculoskeletal:normal inspection, no edema Neurologic/Psych:AAOX3. Strength in bilateral lower extremity of 3 x 5; decreased sensation in right leg. Skin: normal color, warm Results & Data Results & Data Vital Signs (Past 12 Hours) Vital Signs Temp Pulse Resp BP Pulse Ox O2 Del Method 03/15/25 07:03 36.7 C 88 16 158/74 H 96 Room Air (2) Back pain Back pain laterality: midline Back pain location: low back pain Chronicity: acute Sciatica presence: unspecified whether sciatica present Qualified Code(s): M54.50 - Low back pain, unspecified
--- NOTE | 2025-03-15 11:55 | Electrocardiogram Report ---
Test Reason : Blood Pressure : */* mmHG Vent. Rate : 87 BPM Atrial Rate : 87 BPM P-R Int : 172 ms QRS Dur : 134 ms QT Int : 416 ms P-R-T Axes : 58 -39 27 degrees QTcB Int : 500 ms Normal sinus rhythm Left axis deviation Right bundle branch block possible Inferior infarct (cited on or before 04-Nov-2016) Abnormal ECG When compared with ECG of 12-Mar-2025 11:48, No significant change was found Confirmed by Adrian Sorto ([id number]) on 03/15/2025 11:54:57 AM Referred By: REFERRED SELF Confirmed By: Adrian Sorto
[2025-03-15 22:21] VITALS: RESP 20; O2SAT 96
[2025-03-16 07:10] LABS: Hematocrit (blood only) 32.0 % (37.0-47.0); Hemoglobin 10.2 g/dl (12.0-16.0); Immature Granulocytes # (auto) 0.02 K/uL (0.01-0.20); Immature Granulocytes % (auto) 0.3 %; Mean Corpuscular Hemoglobin 30.4 pg (25.0-34.0); Mean Corpuscular Volume 95.5 fL (80.0-100.0); Platelet Count 190 K/uL (130-400); RDW Standard Deviation 58.1 fL (36.4-46.3); Red Blood Count 3.35 M/uL (4.20-5.40); White Blood Count 6.68 K/ul (4.8-10.8)
[2025-03-16 07:28] LABS: Anion Gap 7.0 (3-11); Blood Urea Nitrogen 39.0 mg/dl (6-23); Calcium 8.8 mg/dl (8.6-10.3); Carbon Dioxide 27.0 mmol/L (21-32); Chloride 107.0 mmol/L (98-107); Creatinine Clr Calc Pharmacy 35.9 ml/min; Glucose 137.0 mg/dl (70-99(Fasting)); Potassium 4.0 mmol/L (3.5-5.1); Sodium 141.0 mmol/L (136-145)
[2025-03-16 12:10] VITALS: BP 122/73; PULSE 90; TEMP 98.1
--- NOTE | 2025-03-16 12:33 | Hospitalist Progress Note ---
Date of Service March 16, 2025 Assessment & Plan (1) Complicated UTI (urinary tract infection): (2) Back pain: (3) NICHO (acute kidney injury): Plan Complicated urinary tract infection Acute metabolic encephalopathy - resolved Acute Urinary retention S/P Raya in ED Patient presented to the hospital with concern for altered mental status H/O Raya catheter for several months; recently taken out and patient was doing timed voids. Urine Cx growing E.coli Blood Cx- NGTD Continue IV Ceftriaxone-- Day 4 Transition to oral antibiotics to complete the course Continue Raya catheter for now for bladder rest and given sacral wound Can do a voiding trial as outpatient while at rehab facility Plan to be discharged to rehab today. Acute kidney injury on CKD stage IIIb likely due to above Resolved with iv hydration Restarted lasix Lumbar spinal stenosis with radiculopathy Lumbar anterolisthesis Ambulatory dysfunction She reports multiple recent surgeries with orthospine. Was discharged to rehab; came back home in last 3 days --Lumbar CT: Interval extension of spinal fusion, now L2-L5. Mild anterolisthesis at L2-3. Mild spinal stenosis at L1-2. 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 Small left renal cyst Needs follow-up with SIGNALER as outpatient Sacral decubitus ulcer Stage III -POA Wound care consulted q2 turns DM Type II: Diet controlled Last HbA1c 6.7 Utilize insulin while hospitalized Monitor blood glucose levels Chronic anemia Iron deficiency anemia Baseline hemoglobin ~ 9.5 No acute bleeding issues Continue iron supplements Monitor Diastolic dysfunction Valvular heart disease on lasix-continue lisinopril resumed as well Monitor volume status closely Other chronic conditions: Hypothyroidism--continue levothyroxine Dyslipidemia--continue atorvastatin Hypertension-resume lisinopril, continue metoprolol Aortic valve stenosis Right bundle branch block Gout--continue allopurinol Carotid stenosis--continue aspirin, statin Anxiety disorder, insomnia--continue BuSpar DVT Px: Heparin SQ CODE STATUS DNI DNR Disposition SNF Admission and Anticipated Discharge Date Admission Date: March 12, 2025 Subjective Patient is seen and examined at bedside States having lower extremity discomfort intermittently but otherwise no complaints Denies any chest pain, dyspnea, nausea, vomiting, abdominal pain Plan to be discharged to rehab facility today Review of Systems Review of Systems: All systems reviewed & are unremarkable except as noted in Subjective Physical Exam Physical Exam: Physical Exam: Vitals signs as noted above General Appearance:Obese, no apparent distress Head: normocephalic, Atraumatic Eyes: normal inspection, EOMI Neck: supple, Trachea midline Respiratory/Chest: Normal breath sounds, CTA, No accessory muscle use Cardiovascular: S1, S2, + murmur Abdomen/GI:Soft, Non tender, Bowel sounds present Back:+ Lower paper machine backtender,+ decubitus ulcer in dressing Extremities/Musculoskeletal:normal inspection, Trace leg edema Neurologic/Psych:AAOX3, grossly no focal neurological deficits Skin: normal color, warm Results & Data Results & Data Vital Signs (Past 12 Hours) Vital Signs Temp Pulse BP Pulse Ox O2 Del Method 03/16/25 11:00 36.7 C 90 122/73 96 Room Air 03/16/25 08:45 129/76 03/16/25 07:43 Room Air 03/16/25 07:00 36.8 C 85 96/70 L Room Air Laboratory Results Short CBC 03/16/25 Range/Units 06:26 WBC 6.68 (4.8-10.8) K/ul Hgb 10.2 L (12.0-16.0) g/dl Hct 32.0 L (37.0-47.0) % Plt Count 190 (130-400) K/uL BMP 03/16/25 06:26 Sodium 141 Potassium 4.0 Chloride 107 Carbon Dioxide 27 BUN 39 H Creatinine 1.10 Glucose 137 H Calcium 8.8 (2) Back pain Back pain laterality: midline Back pain location: low back pain Chronicity: acute Sciatica presence: unspecified whether sciatica present Qualified Code(s): M54.50 - Low back pain, unspecified
--- NOTE | 2025-03-16 12:43 | Discharge Summary ---
Date of Service March 16, 2025 Admission HPI Per Admitting Provider Patient is an 84-year-old female with history of diabetes mellitus, hypothyroidism, dyslipidemia, hypertension, sacral ulcer, CKD stage IIIb, aortic valve stenosis, lumbar spinal stenosis, right bundle branch block, gout, carotid stenosis, anxiety disorder, insomnia and other medical problems presents with history of lower back pain, generalized weakness and inability to ambulate. History is obtained from patient, patient's family at bedside, ER staff and old records. Patient had longstanding history of lower back pain and underwent lumbar decompression, fusion surgery by Dr. Porras in December 2024. She was discharged to [facility] and related to shelter facility for further management. Patient was discharged from SNF 2 days ago and had difficulty ambulating while at home. She also had significant generalized weakness and fatigue. Patient states lower back pain is nonradiating, 7/10 intensity especially with activity, also states having " [id number]" Sensation o bilateral lower extremities associated with chills and shakiness. Patient denies any fall or trauma. She was noted to have urinary retention while in ED requiring Raya catheter placement. Patient was also noted to be confused yesterday per family. She is oriented during my encounter in the ED today. Denies any history of chest pain, dyspnea, dizziness, cough, syncope, headache, change in vision, nausea, vomiting, abdominal pain, blood in stools, dysuria, hematuria. Admission Exam Per Admitting Provider Physical Exam: Vitals signs as noted above General Appearance:Obese, no apparent distress Head: normocephalic, Atraumatic Eyes: normal inspection, EOMI Neck: supple, Trachea midline Respiratory/Chest: Normal breath sounds, CTA, No accessory muscle use Cardiovascular: S1, S2, + murmur Abdomen/GI:Soft, Non tender, Bowel sounds present Back:+ Lower backer up,+ decubitus ulcer in dressing Extremities/Musculoskeletal:normal inspection, 1+ B/L LE edema Neurologic/Psych:AAOX3, grossly no focal neurological deficits Skin: normal color, warm Principal Diagnosis Complicated urinary tract infection Acute metabolic encephalopathy Acute kidney injury Lumbar spinal stenosis with radiculopathy Left ovarian teratoma Stage III decubitus ulcer Discharge Data Allergies Allergy/AdvReac Type Severity Reaction Status Date / Time sulfamethoxazole [Bactrim] AdvReac Intermediate "made the Verified 01/10/25 12:23 UTI worse" trimethoprim [Bactrim] AdvReac Intermediate "made the Verified 01/10/25 12:23 UTI worse" Consultations 03/12/25 14:14 ED Decision to Admit Stat 03/12/25 17:16 Consult Orthopedic Spine Surgery Routine 03/13/25 02:32 Consult Behavioral Health Liaison Routine Procedures Performed Laboratory Results WBC 6.68 K/ul (4.8-10.8) 03/16/25 06: RBC 3.35 M/uL (4.20-5.40) L 03/16/25 06:26 Hgb 10.2 g/dl (12.0-16.0) L 03/16/25 06: Hct 32.0 % (37.0-47.0) L 03/16/25 06: MCV 95.5 fL (80.0-100.0) 03/16/25 06: MCH 30.4 pg (25.0-34.0) 03/16/25 06: MCHC 31.9 g/dL (32.0-36.0) L 03/16/25 06: RDW Std Deviation 58.1 fL (36.4-46.3) H 03/16/25 06: RDW Coeff of Rubi 16.5 % (11.5-14.5) H 03/16/25 06:26 Plt Count 190 K/uL (130-400) 03/16/25 06:26 MPV 9.6 fL (9.4-12.4) 03/16/25 06: Immature Gran % (Auto) 0.3 % 03/16/25 06: Neut % (Auto) 71.2 % 03/16/25 06: Lymph % (Auto) 14.2 % 03/16/25 06: [place] % (Auto) 8.5 % 03/16/25 06: Eos % (Auto) 5.4 % 03/16/25 06:26 Baso % (Auto) 0.4 % 03/16/25 06: Neut # (Auto) 4.75 K/uL (1.40-6.50) 03/16/25 06: Lymph # (Auto) 0.95 K/uL (1.20-3.40) L 03/16/25 06:26 [place] # (Auto) 0.57 K/uL (0.11-0.59) 03/16/25 06:26 Eos # (Auto) 0.36 K/uL (0.00-0.50) 03/16/25 06:26 Baso # (Auto) 0.03 K/uL (0.00-0.20) 03/16/25 06:26 Immature Gran # (Auto) 0.02 K/uL (0.01-0.20) 03/16/25 06:26 PT 10.8 Seconds (9.0-12.0) 03/12/25 10:30 INR 1.0 (0.9-1.1) 03/12/25 10:30 Sodium 141 mmol/L (136-145) 03/16/25 06:26 Potassium 4.0 mmol/L (3.5-5.1) 03/16/25 06:26 Chloride 107 mmol/L (98-107) 03/16/25 06:26 Carbon Dioxide 27 mmol/L (21-32) 03/16/25 06:26 Anion Gap 7 (3-11) 03/16/25 06:26 BUN 39 mg/dl (6-23) H 03/16/25 06:26 Creatinine 1.10 mg/dl (0.6-1.2) 03/16/25 06:26 Est Cr Clr Drug Dosing 35.9 ml/min 03/16/25 06:26 eGFR 49.86 03/16/25 06:26 BUN/Creatinine Ratio 35.5 (10-20) H 03/16/25 06:26 Glucose 137 mg/dl (70-99(Fasting)) H 03/16/25 06:26 POC Glucose 175 mg/dl (70-99) H 03/16/25 11:35 Calcium 8.8 mg/dl (8.6-10.3) 03/16/25 06:26 Magnesium 2.1 mg/dl (1.7-2.4) 03/13/25 05:53 Total Bilirubin 0.6 mg/dl (0.2-1.0) 03/12/25 10:30 AST 15 U/L (13-39) 03/12/25 10:30 ALT 11 U/L (7-52) 03/12/25 10:30 Alkaline Phosphatase 85 U/L (34-104) 03/12/25 10:30 Troponin I High Sens 18.5 pg/ml (0-14) H 03/13/25 01:21 Total Protein 7.4 gm/dl (6.0-8.3) 03/12/25 10: Albumin 3.6 gm/dl (3.4-5.0) 03/12/25 10: Globulin 3.8 gm/dl (2.5-4.0) 03/12/25 10: Albumin/Globulin Ratio 0.9 (0.9-2) 03/12/25 10:30 Lipase 14 U/L (11-82) 03/12/25 10:30 Urine Color Yellow 03/12/25 10:50 Urine Appearance Cloudy (Clear) A 03/12/25 10:50 Urine pH 5.0 (4.5-7.5) 03/12/25 10:50 Ur Specific Cl[place] 1.018 (1.000-1.030) 03/12/25 10:50 Urine Protein Negative (Negative) 03/12/25 10:50 Urine Glucose (UA) Negative (Negative) 03/12/25 10:50 Urine Ketones Negative (Negative) 03/12/25 10:50 Urine Blood Negative (Negative) 03/12/25 10:50 Urine Nitrite Negative (Negative) 03/12/25 10:50 Urine Bilirubin Negative (Negative) 03/12/25 10:50 Urine Urobilinogen Negative (Negative) 03/12/25 10:50 Ur Leukocyte Esterase 2+ (Negative) H 03/12/25 10:50 Urine WBC (Auto) >50 /hpf (0-5) H 03/12/25 10:50 Urine RBC (Auto) 3-5 /hpf (0-2) H 03/12/25 10:50 U Hyaline Cast (Auto) 3-5 /lpf (0-2) H 03/12/25 10:50 U Epithel Cells (Auto) 3-5 /hpf (0-2) H 03/12/25 10:50 Urine Bacteria (Auto) 4+ (None Seen) H 03/12/25 10:50 Urine Comment 03/12/25 10:50 Nasal Screen MRSA (PCR) Negative (Negative) 03/12/25 17:58 Impressions Chest X-Ray 03/12/25 11:11 Technique: A frontal view of the chest was obtained Comparison is made to the prior examination dated 12/18/2024 Findings: There are no confluent pulmonary infiltrates. The heart size is at the upper limit of normal. No pleural effusion or pneumothorax is seen. There is unchanged mild prominence of the right hilum that could be due to prominent central vasculature No fracture is noted. There is an unchanged thoracic fusion. 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 Comparison is made to the prior CT dated 11/06/2016. Findings: The liver is overall of normal size, attenuation, and contour with no sign of cirrhosis or significant fatty infiltration. No liver mass lesion is seen. The portal vein is patent. The gallbladder appears unremarkable. No bile duct dilatation is noted. The spleen is of normal size. No focal splenic lesion is evident. The pancreas appears normal with no sign of acute or chronic pancreatitis and no mass lesion noted. The pancreatic duct is of normal caliber. The adrenal glands appear unremarkable. No definite renal or proximal ureteral calculi are seen on this contrast-enhanced study. There is no hydronephrosis or perinephric stranding. No renal mass lesion is identified. 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 There is a 1.6 cm left renal cyst. There is mild bilateral renal cortical scarring The aorta is of normal caliber. No abdominal adenopathy is seen. There is a small hiatal hernia. There is no sign of small bowel obstruction. There is extensive colonic diverticulosis without definite diverticulitis. No free intraperitoneal fluid or air is identified. No distal ureteral or bladder calculi are seen. No bladder mass lesion is evident. The iliac arteries are of normal caliber. No pelvic adenopathy is noted. There is a 5 cm fatty mass at the left adnexa, previously 4.5 cm There is mild subsegmental atelectasis in both lung bases. There are bilateral hip replacements, resulting in surrounding artifact. There is a thoracic fusion as well as a lumbar fusion. No fracture is identified. No focal osseous lesion is seen. There is a small ulcer overlying the inferior sacrum. There is no clear evidence of acute osteomyelitis. Impression: 1. 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 Small left renal cyst 3. Diverticulosis without definite diverticulitis 4. Small sacral decubitus ulcer 5. No definite sign of osteomyelitis ACT 112: Positive. There are findings on this exam that require communication between the performing entity and the patient following Patient Test Result Information Act ([place] ACT 112) guidelines. Electronically signed by Raul Johnson 03-12-2025 13:[address] 03/12/25 11:13 Technique: Axial computed tomography images were obtained of the lumbar spine after the administration of intravenous intravenous contrast. Sagittal and coronal reconstructions were obtained Comparison is made to the prior CT done 01/08/2025 Findings: There is a posterior fusion of L2-L5 with posterior fixation rods and bilateral pedicle screws, previously L2-L4. There is unchanged anterior interbody fusion at L2-3 and L3-4 with prosthetic disc placement. There is no definite sign of instrumentation failure. There is unchanged complete laminectomy defect of L2. No fracture is identified. There is grade 1 anterolisthesis at L2-3. No focal osseous lesion is evident. There is no definite sign of osteomyelitis At L1-2, there is mild spinal stenosis due to a disc bulge and a left paracentral disc protrusion. There is bilateral neural foramen narrowing that may affect the exiting L1 nerve roots At L2-3, evaluation is limited by artifact. There is no definite spinal stenosis. There is bilateral neural foramen narrowing that may affect the exiting L3 nerve roots At L3-4, there is a disc bulge without spinal stenosis. There is bilateral neural foramen narrowing that may affect the exiting L3 nerve roots At L4-5, there is a disc bulge without spinal stenosis. The neural foramen are patent At L5-S1, no disc herniation is identified. There is no spinal stenosis. The neural foramen are patent The visualized soft tissues of the abdomen and pelvis appear unremarkable Impression: 1. Interval extension of spinal fusion, now L2-L5 2. Mild anterolisthesis at L2-3 3. Mild spinal stenosis at L1-2 4. Bilateral neural foramen narrowing from L1-2 through L3-4 that may affect the exiting nerve roots ACT 112: Positive. There are findings on this exam that require communication between the performing entity and the patient following Patient Test Result Information Act ([place] ACT 112) guidelines. Electronically signed by Raul Johnson 03-12-2025 13:57 PM Extremity Venous Study 03/13/25 13:31 Exam(s): US VENOUS LEFT UPPER EXTREMITY EXAM: US Duplex Left Upper Extremity Veins CLINICAL HISTORY: Reason for exam: rule out DVT. OTHER: Other Notes: HX: NO PREV. LEFT ARM SWELLING. TECH NOTES: NO OBVIOUS DVT LUE. TECHNIQUE: Real-time duplex ultrasound scan of the left upper extremity veins integrating B-mode two-dimensional vascular structure, Doppler spectral analysis, color flow Doppler imaging and compression. COMPARISON: No relevant prior studies available. FINDINGS: Deep veins: No DVT in the internal jugular, subclavian, axillary, or brachial veins. The veins demonstrate normal color flow, are normally compressible, with normal phasic flow and/or augmentation response. Superficial veins: No thrombus in the visualized basilic and cephalic veins. Soft tissues: No acute findings. IMPRESSION: No ultrasound evidence of deep venous thrombosis in left upper extremity.. Electronically signed by: Ameya Sanchez MD 03/14/25 00:26 AM Ordered Studies 03/12/25 11:13 CT abd pelvis IV con only Stat CT lumbar spine w con Stat 03/13/25 13:31 US venous doppler UE LT Routine Hospital Course (1) Complicated UTI (urinary tract infection): (2) Back pain: (3) NICHO (acute kidney injury): Plan Complicated urinary tract infection Acute metabolic encephalopathy - resolved Acute Urinary retention S/P Raya in ED Patient presented to the hospital with concern for altered mental status H/O Raya catheter for several months; recently taken out and patient was doing timed voids. Urine Cx growing E.coli Blood Cx- NGTD Continue IV Ceftriaxone-- Day 4 Transition to oral antibiotics to complete the course Continue Raya catheter for now for bladder rest and given sacral wound Can do a voiding trial as outpatient while at rehab facility Plan to be discharged to rehab today. Acute kidney injury on CKD stage IIIb likely due to above Resolved with iv hydration Restarted lasix Lumbar spinal stenosis with radiculopathy Lumbar anterolisthesis Ambulatory dysfunction She reports multiple recent surgeries with orthospine. Was discharged to rehab; came back home in last 3 days --Lumbar CT: Interval extension of spinal fusion, now L2-L5. Mild anterolisthesis at L2-3. Mild spinal stenosis at L1-2. 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 Small left renal cyst Needs follow-up with [facility] as outpatient Sacral decubitus ulcer Stage III -POA Wound care consulted q2 turns DM Type II: Diet controlled Last HbA1c 6.7 Utilize insulin while hospitalized Monitor blood glucose levels Chronic anemia Iron deficiency anemia Baseline hemoglobin ~ 9.5 No acute bleeding issues Continue iron supplements Monitor Diastolic dysfunction Valvular heart disease on lasix-continue lisinopril resumed as well Monitor volume status closely Other chronic conditions: Hypothyroidism--continue levothyroxine Dyslipidemia--continue atorvastatin Hypertension-resume lisinopril, continue metoprolol Aortic valve stenosis Right bundle branch block Gout--continue allopurinol Carotid stenosis--continue aspirin, statin Anxiety disorder, insomnia--continue BuSpar DVT Px: Heparin SQ CODE STATUS DNI DNR Disposition SNF Total Time Total Time Spent Total Time Spent (In Minutes): 48 minutes Discharge Plan Discharge Items Patient Disposition: Transfer Care Home Fac Reason For Visit: BACK PAIN Discharge Diagnosis: Complicated urinary tract infection Acute metabolic encephalopathy Acute kidney injury Lumbar spinal stenosis with radiculopathy Left ovarian teratoma Stage III decubitus ulcer Condition on Discharge: Fair Activity: Per Instructions section Exercise/Sports: Gradually increase as tolerated Non-emergency contact: Primary Care Provider, Surgeon and Urologist Call non-emergency contact if: you have any medication questions, your symptoms worsen, your pain is concerning for you and you have a fever Follow-up/Referrals: Jose Patino MD [Primary Care Provider] - Diet: Carb Consistent or DM2 Diet Texture: Easy to Chew Addtl Attending Provider Instructions: -- Follow-up with your primary care physician in 1 week upon discharge from rehab facility -- Follow-up with your orthopedic spine surgeon Dr. Porras as needed --Follow-up with your [facility] physician for further evaluation of left ovarian teratoma which was noted on your CT scan. -- Consider following with a urologist for further evaluation of urinary retention -- Complete the antibiotic course cefuroxime for 1 more day as prescribed (start taking from 03/17/2025) -- Can consider voiding trial while at rehab facility in 3 to 4 days. --Your final blood cultures are pending at the time of discharge. Follow-up with the physician for results. Seek immediate medical attention if your symptoms reoccur or worsen Please review medication list provided on discharge for any medication changes as instructed. Please call if you have any questions or problems. You can reach a [facility] hospitalist on duty at [facility] 24 hours a day by calling [phone] Pending Studies at Discharge: Yes Studies:: Blood culture Stand-Alone Forms: My [facility] Skilled Items Patient informed of condition?: Yes DNR: Yes Discharge Level of Care: Skilled Communicable Disease: No Discharge Prognosis: Stable Lines: None Urinary Catheter: Yes Medications and DC Order Prescriptions: New polyethylene glycol 3350 [Miralax] 17 gram Powder In Packet 17 g PO DAILY PRN (Reason: constipation) Qty: 30 0RF docusate sodium 100 mg Capsule 100 mg PO BID PRN (Reason: constipation) Qty: 30 0RF lidocaine 5 % Adhesive Patch,Medicated 1 patch transdermal QAM Qty: 7 0RF Rx Instructions: Lower Back cefuroxime axetil 500 mg tablet 500 mg PO BID Qty: 2 0RF Rx Instructions: Start taking from 03/17/2025 Continued acetaminophen 325 mg Tablet 325 mg PO QID PRN (Reason: Pain) Patient Comments: 03/12- otc unable to verify aspirin 81 mg Tablet,Delayed Release (Dr/Ec) 81 mg PO QAM Patient Comments: 03/12- otc unable to verify levothyroxine 50 mcg Tablet 50 mcg PO QAM lisinopril 10 mg Tablet 10 mg PO QAM Patient Comments: 03/12- last filled 11/05 90 day supply #90 allopurinol 300 mg Tablet 100 mg PO QAM Patient Comments: 03/12-last filled 09/30 90 day supply #90 metoprolol succinate 25 mg Tablet Extended Release 24 Hr 12.5 mg PO QAM Patient Comments: 03/12- last filled 09/30 90 day supply #45. Original: 12.5 mg po qam cholecalciferol (vitamin D3) [Vitamin D3] 25 mcg (1,000 unit) Capsule 50 mcg PO DAILY Patient Comments: 03/12- otc unable to verify atorvastatin 80 mg Tablet 80 mg PO QAM oxycodone 5 mg tablet 5 mg PO Q6H PRN (Reason: pain) Qty: 30 0RF Patient Comments: 03/12-last filled 09/10 7 day supply #30 Lasix 40 mg PO DAILY ferrous sulfate 325 mg PO QAM BuSpar 15 mg PO BID Changed gabapentin 100 mg capsule 100 mg PO TID Qty: 90 0RF Discharge Orders: Discharge Order (Routine); Ordered 03/16/25 Ordered By: Alfred Thorne Admission Data Admit Date/Time: 03/12/25 14:54 Attending Provider: Alfred Thorne Admit Provider: Alfred Thorne Primary Care Provider: Jose Patino Other Providers: Alfred Thorne; Wolfgang Porras [facility]; [facility]
--- NOTE | 2025-03-17 14:42 | Coding Query ---
PRESSURE ULCER DOCUMENTATION To promote full compliance with coding requirements relating to patient care, physician participation is requested in all cases of neon installer uncertainty. Please assist us with the question(s) below: Please specify the known or suspected type by placing an "X" within the parenthesis (x). A pressure ulcer of the Sacrum If possible, please check the box that provides the specific stage of the pressure ulcer ( ) Stage I ( ) Stage II (x ) Stage III ( ) Stage IV ( ) Unstageable Was the pressure ulcer present on admission? Please check the appropriate box for the pressure ulcer: (x ) Present on admission ( ) Not present on admission ( ) Unable to be clinically determined Thank you Meenu RUIZ
== END 2025-03-16 16:53 | DRG 689 ==
LOC: ED 10:07 → 3E 14:54 → SUATTDRO 14:54 → 3E 16:41

== ENCOUNTER 2025-04-25 13:06 | Inpatient (IN) ==
--- NOTE | 2025-04-25 13:29 | Emergency Department Note ---
Impression & Plan Fall from standing, Ambulatory dysfunction, NICHO (acute kidney injury) ED Provider Note HISTORY OF PRESENT ILLNESS: Patient is an 84-year-old female presenting with low back pain after a fall. Patient reports that she was just discharged home from rehab. She has been ambulatory with her walker and states that she just lost her balance and fell backwards, landing on her buttock and hitting the back of her head. She is currently complaining of low back pain. She denies any chest pain, shortness of breath or lightheadedness prior to her fall. Denies any numbness or tingling in her extremities. Denies any abdominal pain, nausea or vomiting. Denies any fevers. ROS: as above PHYSICAL EXAM: Constitutional: Patient appears in no acute distress. HENT: Head: Normocephalic and atraumatic. Eyes: EOMI, PERRL Mouth/Throat: Mucous membranes moist. Neck: Trachea midline. Neck supple. No midline cervical spine tenderness palpation. Cardiovascular: RRR, No murmurs, rubs or gallops. Intact distal pulses. Pulmonary/Chest: No respiratory distress. Breath sounds clear and equal bilaterally. No wheezes or rales. No chest wall tenderness to palpation. Abdominal: Abdomen soft, no tenderness, rebound or guarding. Back: No midline spinal tenderness, no paraspinal tenderness, no CVA tenderness. Musculoskeletal: No edema, tenderness or deformity noted. Skin: Warm and dry. No rash, erythema, pallor or cyanosis Psychiatric: Appropriate mood and affect for situation. Neurological: Alert and keenly responsive. CN II-XII grossly intact, moving all extremities equally and fully. MDM: - Vitals signs showed tachycardia - History obtained via patient. History as above. - Chronic conditions affecting care: DM-2; CKD; RBBB; HTN; HLD; hypothyroidism - Differential diagnoses include, but are not limited to: intracranial hemorrhage; skull fracture; ACS; orthostatic hypotension; dysrhythmia - Order placed for continuous cardiac monitoring. At this time, monitor showed rate of 93 bpm with normal sinus rhythm, per my interpretation. - External medical records reviewed. Discharge summary dated 03/16/2025 was reviewed. Patient was admitted that time for generalized weakness and inability to ambulate. - EKG image interpreted by myself showed normal sinus rhythm. Rate 87 bpm. QT 404. No acute ischemic changes. Noted have a right bundle branch block. - Laboratory workup interpreted by myself showed normal WBC; chronic anemia; normal PT/INR; stable electrolytes; NICHO (Cr 1.44); normal troponin; normal CK; normal lipase; normal TSH - UA showed bacteria - CXR image reviewed interpreted by myself is new for pneumonia, per my interpretation. Radiology notes cardiomegaly. - CT head wo contrast negative for acute intracranial pathology - CT cervical spine wo contrast negative for acute pathology - CT lumbar spine wo contrast showed multilevel decompression, discectomy and L2-L5 fusion. Noted to have a lucency adjacent to the bilateral L5 pedicle screws concerning for potential loosening. - Discussed results with patient. She ambulates with a walker at baseline. She attempted to ambulate with nursing staff but was quite unsteady on her feet. Will discuss case with hospitalist service. - Discussion was had with case repairer about patient's case and need for admission - Hospitalist consulted for admission - Patient admitted to [facility] Hospitalist service for further evaluation and management. ASSESSMENT AND PLAN: Diagnosis: Fall from standing; ambulatory dysfunction; NICHO Plan: Admit Past Med/Surg History Problem List (Updated 04/25/25 @ 16:19 by Cherry Jewell MD) NICHO (acute kidney injury) (Acute) Ambulatory dysfunction (Acute) Fall from standing (Acute) Sacral decubitus ulcer (Acute) Elevated troponin (Acute) Acute urinary retention (Acute) NICHO (acute kidney injury) (Acute) Complicated urinary tract infection (Acute) Spinal stenosis of lumbar region with radiculopathy (Acute) NICHO (acute kidney injury) Complicated UTI (urinary tract infection) Closed fracture of lumbar vertebral body Hyperkalemia Spondylolisthesis, lumbar region Hypomagnesemia Recurrent falls Back pain (Acute) Lumbar stenosis with neurogenic claudication Stage 3b chronic kidney disease (CKD) S/P spinal surgery 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) Medical History Carotid artery stenosis mild bilat ICA stenosis per S EMR Type 2 diabetes mellitus CKD (chronic kidney disease) stage 3, GFR 30-59 ml/min Aortic stenosis moderate RBBB Hyperlipidemia Hypertension controlled, stable per pt Degenerative disc disease Osteoarthritis Gout Hypothyroidism History of kidney stones MUSA (dyspnea on exertion) chronic Surgical History History of surgical procedure on thoracic spine T9-T10 decompression fusion - August 2024 History of dilatation and curettage History of tooth extraction History of total knee replacement right History of total hip arthroplasty bilat History of cataract surgery bilat History of tonsillectomy History of cystoscopy hx of stent and since removed Family History Mother Diabetes Aunt No problems noted. Social History Smoking Status: Never smoker Second Hand Exposure: No; Do You Dip or Chew Tobacco: No; Hx Alcohol Use: No Hx Substance Use: No Preferred Language: Yoruba Communication Ability: Effective Order Builder Required: No Beliefs That Will Affect Care: None Current Living Situation: Family Current Living Situation Comment: With son Bharathi Feels Safe at Home: Yes Assistive Devices: Cane, Glasses, Hospital Bed, Raised Toilet Seat and Walker Allergies Allergies Allergy/AdvReac Type Severity Reaction Status Date / Time sulfamethoxazole [Bactrim] AdvReac Intermediate "made the Verified 01/10/25 12:23 UTI worse" trimethoprim [Bactrim] AdvReac Intermediate "made the Verified 01/10/25 12:23 UTI worse" Home Meds Home Medications Medication Instructions Recorded Confirmed acetaminophen 325 mg tablet 325 mg PO QID PRN Pain 08/18/24 04/25/25 allopurinol 300 mg tablet 300 mg PO QAM 08/18/24 04/25/25 aspirin 81 mg tablet,delayed 81 mg PO QAM 08/18/24 04/25/25 release atorvastatin 80 mg tablet 80 mg PO HS 08/18/24 04/25/25 cholecalciferol (vitamin D3) 25 50 mcg PO DAILY 08/18/24 04/25/25 mcg (1,000 unit) capsule (Vitamin D3) levothyroxine 50 mcg tablet 50 mcg PO QAM 08/18/24 04/25/25 metoprolol succinate 25 mg 0 mg PO QAM 08/18/24 04/25/25 tablet,extended release 24 hr BuSpar 15 mg PO BID ##0 03/12/25 04/25/25 ferrous sulfate 0 mg PO QAM ##0 03/12/25 04/25/25 furosemide 40 mg tablet (Lasix) 40 mg PO DAILY ##0 03/12/25 04/25/25 gabapentin 100 mg capsule 100 mg PO UD 04/25/25 04/25/25 Results & Data (ED) Vital Signs Vital Signs - 24 hr 04/25/25 12:58 04/25/25 13:18 04/25/25 13:26 Temperature 36.5 C Temperature Source Oral Pulse Rate 89 Pulse Rate from SpO2 Sensor Pulse Rhythm Regular Pulse Strength Normal Respiratory Rate 19 Respiratory Effort / Characteristics Non-Labored Spontaneous Respiratory Depth Normal Respiratory Pattern Regular Blood Pressure 153/83 H Blood Pressure Mean 106 Blood Pressure Position Lying Pulse Oximetry 98 99 98 Oxygen Delivery Method Room Air Room Air Sepsis Recent Fever Within 48 Hours No Sepsis New/Unexplained Change in Mental Status No Sepsis Action Taken by Nursing No Action Required 04/25/25 13:27 04/25/25 13:39 04/25/25 13:40 Temperature Temperature Source Pulse Rate 82 83 Pulse Rate from SpO2 Sensor 73 Pulse Rhythm Pulse Strength Respiratory Rate 26 H Respiratory Effort / Characteristics Respiratory Depth Respiratory Pattern Blood Pressure 127/82 Blood Pressure Mean 103 Blood Pressure Position Pulse Oximetry 87 L Oxygen Delivery Method Sepsis Recent Fever Within 48 Hours Sepsis New/Unexplained Change in Mental Status Sepsis Action Taken by Nursing 04/25/25 15:03 04/25/25 15:05 04/25/25 15:12 Temperature Temperature Source Pulse Rate 90 81 Pulse Rate from SpO2 Sensor 78 Pulse Rhythm Pulse Strength Respiratory Rate 19 18 Respiratory Effort / Characteristics Respiratory Depth Respiratory Pattern Blood Pressure 140/74 Blood Pressure Mean 105 Blood Pressure Position Pulse Oximetry 98 Oxygen Delivery Method Sepsis Recent Fever Within 48 Hours Sepsis New/Unexplained Change in Mental Status Sepsis Action Taken by Nursing 04/25/25 15:21 04/25/25 15:36 04/25/25 15:36 Temperature Temperature Source Pulse Rate 87 93 H Pulse Rate from SpO2 Sensor 76 Pulse Rhythm Pulse Strength Respiratory Rate 20 21 Respiratory Effort / Characteristics Respiratory Depth Respiratory Pattern Blood Pressure 138/65 Blood Pressure Mean 116 Blood Pressure Position Pulse Oximetry 96 Oxygen Delivery Method Sepsis Recent Fever Within 48 Hours Sepsis New/Unexplained Change in Mental Status Sepsis Action Taken by Nursing Laboratory Data 04/25/25 15:00 04/25/25 15:00 Lab Results 04/25/25 04/25/25 Range/Units 15:00 15:35 WBC 9.06 (4.8-10.8) K/ul RBC 3.26 L (4.20-5.40) M/uL Hgb 10.1 L (12.0-16.0) g/dL Hct 31.0 L (37.0-47.0) % MCV 95.1 (80.0-100.0) fL MCH 31.0 (25.0-34.0) pg MCHC 32.6 (32.0-36.0) g/dL RDW Std Deviation 48.2 H (36.4-46.3) fL RDW Coeff of Rubi 13.7 (11.5-14.5) % Plt Count 237 (130-400) K/uL MPV 9.8 (9.4-12.4) fL Immature Gran % (Auto) 0.9 % Neut % (Auto) 73.9 % Lymph % (Auto) 11.9 % [place] % (Auto) 8.5 % Eos % (Auto) 4.5 % Baso % (Auto) 0.3 % Neut # (Auto) 6.69 H (1.40-6.50) K/uL Lymph # (Auto) 1.08 L (1.20-3.40) K/uL [place] # (Auto) 0.77 H (0.11-0.59) K/uL Eos # (Auto) 0.41 (0.00-0.50) K/uL Baso # (Auto) 0.03 (0.00-0.20) K/uL Immature Gran # (Auto) 0.08 (0.01-0.20) K/uL PT 10.8 (9.0-12.0) Seconds INR 1.0 (0.9-1.1) Sodium 137 (136-145) mmol/L Potassium 3.8 (3.5-5.1) mmol/L Chloride 100 (98-107) mmol/L Carbon Dioxide 27 (21-32) mmol/L Anion Gap 10 (3-11) BUN 46 H (6-23) mg/dl Creatinine 1.44 H (0.6-1.2) mg/dl Est Cr Clr Drug Dosing 27.9 ml/min eGFR 36.09 BUN/Creatinine Ratio 31.9 H (10-20) Glucose 126 H (70-99(Fasting)) mg/dl Calcium 9.4 (8.6-10.3) mg/dl Magnesium 1.8 (1.7-2.4) mg/dl Total Bilirubin 0.4 (0.2-1.0) mg/dl AST 27 (13-39) U/L ALT 32 (7-52) U/L Alkaline Phosphatase 125 H (34-104) U/L Total Creatine Kinase 40 (26-192) U/L Troponin I High Sens 10.2 (0-14) pg/ml Total Protein 7.0 (6.0-8.3) gm/dl Albumin 3.5 (3.4-5.0) gm/dl Globulin 3.5 (2.5-4.0) gm/dl Albumin/Globulin Ratio 1.0 (0.9-2) Lipase 13 (11-82) U/L TSH 3.131 (0.300-4.500) uIu/ml Urine Color Yellow Urine Appearance Clear (Clear) Urine pH 5.5 (4.5-7.5) Ur Specific [place] 1.008 (1.000-1.030) Urine Protein Negative (Negative) Urine Glucose (UA) Negative (Negative) Urine Ketones Negative (Negative) Urine Blood Negative (Negative) Urine Nitrite Negative (Negative) Urine Bilirubin Negative (Negative) Urine Urobilinogen Negative (Negative) Ur Leukocyte Esterase Trace H (Negative) Urine WBC (Auto) 0-5 (0-5) /hpf Urine RBC (Auto) 0-2 (0-2) /hpf U Hyaline Cast (Auto) 0-2 (0-2) /lpf U Epithel Cells (Auto) 0-2 (0-2) /hpf Urine Bacteria (Auto) 4+ H (None Seen) Urine Comment Imaging Data Radiologist's Impression: Cervical Spine CT 04/25/25 13:26 CT cervical spine wo con CLINICAL HISTORY: 84 years-old Female with fall. Acute neck pain status post fall COMPARISON: None. TECHNIQUE: Multiple axial CT images of the cervical spine were obtained without contrast. A dose lowering technique was utilized adhering to the principles of ALARA. FINDINGS: Multilevel degenerative changes of the cervical spine include moderate to severe disc space narrowing at C3-C4 with a posterior disc osteophyte complex formation at this level. 2 mm anterolisthesis C5 on C6 secondary to chronic severe facet arthrosis. No acute cervical spine fracture or subluxation. Multilevel neural foraminal narrowing. Small bilateral cervical ribs. Lung apices are clear without pneumothorax. Unremarkable soft tissues. Atherosclerosis of the carotid bulbs. IMPRESSION: No acute cervical spine fracture or subluxation identified. ACT 112: Negative or not required by law. The above report was generated using voice recognition software. It may contain grammatical, syntax or spelling errors. Electronically signed by: Yamil Fontaine M.D. 04/25/2025 2:43 PM Chest X-Ray 04/25/25 13:26 SINGLE VIEW CHEST CLINICAL HISTORY: Fall. FINDINGS: An AP, portable, upright chest radiograph is compared to study dated 03/12/2025 and correlated with chest CT dated 12/11/2006. The heart is enlarged noting atherosclerotic calcification of the thoracic aorta. The pulmonary vasculature is noncongested. Chronic interstitial thickening is similar to previous. Mild atelectasis is noted at the lung bases. No airspace consolidation or large pleural effusion is identified. No pneumothorax is seen. The skeletal structures are osteopenic. The bony thorax is grossly intact. The hardware is noted in the thoracic spine and in the lumbar spine. Advanced arthritic change is seen in the shoulders. IMPRESSION: Cardiomegaly with no acute cardiopulmonary abnormality identified. ACT 112: Negative or not required by law. Electronically signed by: Kemal Arevalo M.D. 04/25/2025 1:[address] 04/25/25 13:26 CT SCAN OF THE BRAIN WITHOUT IV CONTRAST CLINICAL HISTORY: Fall COMPARISON STUDY: CT of the brain dated 11/05/2016. TECHNIQUE: Unenhanced CT scan of the brain is performed from the vertex to the skull base. Images are reviewed in the axial, sagittal, coronal planes. A dose lowering technique was utilized adhering to the principles of ALARA. CT DOSE: 1914.8 mGy.cm FINDINGS: Brain parenchyma: There is age-related involutional change noting [id number] subcortical and periventricular microangiopathic disease. There is no hemorrhage, mass effect, or evidence of acute territorial ischemia by CT criteria. Srivastava-white matter differentiation is preserved. No extra-axial fluid collection is seen. Ventricles, sulci, cisterns: Prominent secondary to involutional change. Intracranial vasculature: There is atherosclerotic calcification of the cavernous carotid and vertebral arteries. Calvarium: The skeletal structures are osteopenic. No depressed calvarial fracture is seen. Soft tissues: A scalp hematoma is seen posteriorly at the vertex. Sinuses and mastoids: There is trace mucosal thickening in the right frontal sinus. The visualized paranasal sinuses are otherwise clear. The mastoid air cells are well pneumatized. Cerumen is noted in the left external auditory canal. Orbits: The bony orbits are grossly intact. There are bilateral ocular lens implants. IMPRESSION: There is no hemorrhage, mass effect, or evidence of acute territorial ischemia by CT criteria. ACT 112: Negative or not required by law. Electronically signed by: Kemal Arevalo M.D. 04/25/2025 2:[address] 04/25/25 13:26 CT OF THE LUMBAR SPINE CLINICAL HISTORY: Low back pain status post fall. COMPARISON STUDY: Lumbar spine CT March 12, 2025. TECHNIQUE: Helical axial images of the lumbar spine were obtained. Sagittal and coronal reconstructions were viewed. Automated exposure control was utilized for the study. A dose lowering technique was utilized adhering to the principles of ALARA. Lumbar spine MRI December 20, 2024. FINDINGS: For purposes of numbering on this exam, the L5-S1 disc space is assigned to axial image 269 of 332. L5 represents a transitional vertebra. There are postoperative findings consistent with L2-L3 and L3-L4 discectomy with interbody spacer placement. Posterior decompression is noted with fusion from L2 through L5. There are bilateral pedicle screws at the L2, L3 and L5 levels with kyphoplasty at the L2 and L4 levels. An L4 vertebral fracture is again noted. This is similar in appearance to CT of March 12, 2025. No additional lumbar spine fractures are present. There is lucency adjacent to the bilateral L5 pedicle screws. Central canal and neural foramen are suboptimally assessed given CT technique and artifact from the surgical hardware. A fat-containing left adnexal lesion is partially imaged. This represents a left ovarian dermoid. IMPRESSION: 1. Status post multilevel decompression, discectomy and L2-L5 fusion. Lucency adjacent to the bilateral L5 pedicle screws raises the possibility of loosening. 2. No change in appearance of the L4 vertebral fracture since prior CT. 3. Status post L2 and L4 kyphoplasty. 4. No acute lumbar spine fractures. 5. Suboptimal evaluation of the central canal and neural foramen given CT technique and artifact from the surgical hardware. ACT 112: Negative or not required by law. Electronically signed by: John Chavarria M.D. 04/25/2025 2:38 PM Discharge Plan Visit Data Chief Complaint: Fall Stated Complaint: FALL, HEMATOMA TO HEAD, BACK PAIN ED Provider: Cherry Jewell Discharge Problem: Fall from standing, Ambulatory dysfunction, NICHO (acute kidney injury) Patient Disposition: Admitted As Inpatient Condition: Fair Forms Stand Alone Forms: My [facility] Prescriptions Prescriptions: No Action gabapentin 100 mg capsule 100 mg PO UD Rx Instructions: 100 po qam, 200mg po afternoon, 100 mg po evening acetaminophen 325 mg Tablet 325 mg PO QID PRN (Reason: Pain) Patient Comments: 03/12- otc unable to verify aspirin 81 mg Tablet,Delayed Release (Dr/Ec) 81 mg PO QAM Patient Comments: 03/12- otc unable to verify levothyroxine 50 mcg Tablet 50 mcg PO QAM allopurinol 300 mg Tablet 300 mg PO QAM Patient Comments: 03/12-last filled 09/30 90 day supply #90 metoprolol succinate 25 mg Tablet Extended Release 24 Hr 0 mg PO QAM Patient Comments: 04/25- per pt, shes not sure of this medication. Last filled 09/30 90 day supply #45 cholecalciferol (vitamin D3) [Vitamin D3] 25 mcg (1,000 unit) Capsule 50 mcg PO DAILY Patient Comments: 03/12- otc unable to verify atorvastatin 80 mg Tablet 80 mg PO HS furosemide [Lasix] 40 mg Tablet 40 mg PO DAILY Qty: 0 Patient Comments: 04/25- per pt, she still takes medication. No fill history available ferrous sulfate 0 mg PO QAM Qty: 0 Patient Comments: 04/25- per pt, she doesnt want to take the medication anymore due to giving her dark colored stool. BuSpar 15 mg PO BID Qty: 0 Patient Comments: 04/25- per pt, she still takes medication. No fill history available Referrals Referrals: Jose Patino MD [Primary Care Provider] -
--- NOTE | 2025-04-25 13:42 | XRay Report ---
SINGLE VIEW CHEST CLINICAL HISTORY: Fall. FINDINGS: An AP, portable, upright chest radiograph is compared to study dated 03/12/2025 and correla ngoc with chest CT dated 12/11/2006. The heart is enlarged noting atherosclerotic calcification of the thoracic aorta. The pulmonary vasculature is noncongested. Chronic interstitial thickening is similar to previous. Mild atelectasis is noted at the lung bases. No airspace consolidation or large pleural effusion is identified. No pneumothorax is seen. The skeletal structures are osteopenic. The bony th orax is grossly intact. The hardware is noted in the thoracic spine and in the lumbar spine. Advanced arthritic change is seen in the shoulders. IMPRESSION: Cardiomegaly with no acute cardiopulmonary abnormality identified. ACT 112: Negative or not required by law. Electronically signed by: Kemal Arevalo M.D. 04/25/2025 1:41 PM
--- NOTE | 2025-04-25 14:28 | CT Scan Report ---
CT SCAN OF THE BRAIN WITHOUT IV CONTRAST CLINICAL HISTORY: Fall COMPARISON STUDY: CT of the brain dated 11/05/2016. TECHNIQUE: Unenhanced CT scan of the brain is performed from the vertex to the skull base. Images are reviewed in the axial, sagittal, coronal planes. A dose lowering technique was utilized adhering to the principles of ALARA. CT DOSE: 1914.8 mGy.cm FINDINGS: Brain parenchyma: There is age-related involutional change noting [id number] subcortical and pe riventricular microangiopathic disease. There is no hemorrhage, mass effect, or evidence of acute ter ritorial ischemia by CT criteria. Srivastava-white matter differentiation is preserved. No extra-axial flui d collection is seen. Ventricles, sulci, cisterns: Prominent secondary to involutional change. Intracranial vasculature: There is atherosclerotic calcification of the cavernous carotid and vertebr al arteries. Calvarium: The skeletal structures are osteopenic. No depressed calvarial fracture is seen. Soft tissues: A scalp hematoma is seen posteriorly at the vertex. Sinuses and mastoids: There is trace mucosal thickening in the right frontal sinus. The visualized pa ranasal sinuses are otherwise clear. The mastoid air cells are well pneumatized. Cerumen is noted in the left external auditory canal. Orbits: The bony orbits are grossly intact. There are bilateral ocular lens implants. IMPRESSION: There is no hemorrhage, mass effect, or evidence of acute territorial ischemia by CT butch bourgeois. ACT 112: Negative or not required by law. Electronically signed by: Kemal Arevalo M.D. 04/25/2025 2:26 PM
--- NOTE | 2025-04-25 14:39 | CT Scan Report ---
CT OF THE LUMBAR SPINE CLINICAL HISTORY: Low back pain status post fall. COMPARISON STUDY: Lumbar spine CT March 12, 2025. TECHNIQUE: Helical axial images of the lumbar spine were obtained. Sagittal and coronal reconstruct ions were viewed. Automated exposure control was utilized for the study. A dose lowering technique was utilized adhering to the principles of ALARA. Lumbar spine MRI December 20, 2024. FINDINGS: For purposes of numbering on this exam, the L5-S1 disc space is assigned to axial image 269 of 332. L5 represents a transitional vertebra. There are postoperative findings consistent with L2- L3 and L3-L4 discectomy with interbody spacer placement. Posterior decompression is noted with fusion from L2 through L5. There are bilateral pedicle screws at the L2, L3 and L5 levels with kyphoplasty at the L2 and L4 levels. An L4 vertebral fracture is again noted. This is similar in appearance to CT of March 12, 2025. No additional lumbar spine fractures are present. There is lucency adjacent to the bilateral L5 pedicle screws. Central canal and neural foramen are suboptimally assessed given CT technique and artifact from the surgical hardware. A fat-containing left adnexal lesion is partially imaged. This represents a left ovarian dermoid. IMPRESSION: 1. Status post multilevel decompression, discectomy and L2-L5 fusion. Lucency adjacent to the bilater al L5 pedicle screws raises the possibility of loosening. 2. No change in appearance of the L4 vertebral fracture since prior CT. 3. Status post L2 and L4 kyphoplasty. 4. No acute lumbar spine fractures. 5. Suboptimal evaluation of the central canal and neural foramen given CT technique and artifact from the surgical hardware. ACT 112: Negative or not required by law. Electronically signed by: John Chavarria M.D. 04/25/2025 2:38 PM
--- NOTE | 2025-04-25 14:45 | CT Scan Report ---
CT cervical spine wo con CLINICAL HISTORY: 84 years-old Female with fall. Acute neck pain status post fall COMPARISON: None. TECHNIQUE: Multiple axial CT images of the cervical spine were obtained without contrast. A dose low ering technique was utilized adhering to the principles of ALARA. FINDINGS: Multilevel degenerative changes of the cervical spine include moderate to severe disc space narrowing at C3-C4 with a posterior disc osteophyte complex formation at this level. 2 mm anterolist hesis C5 on C6 secondary to chronic severe facet arthrosis. No acute cervical spine fracture or sublu xation. Multilevel neural foraminal narrowing. Small bilateral cervical ribs. Lung apices are clear w ithout pneumothorax. Unremarkable soft tissues. Atherosclerosis of the carotid bulbs. IMPRESSION: No acute cervical spine fracture or subluxation identified. ACT 112: Negative or not required by law. The above report was generated using voice recognition software. It may contain grammatical, syntax o r spelling errors. Electronically signed by: Yamil Fontaine M.D. 04/25/2025 2:43 PM
[2025-04-25 15:26] LABS: Hematocrit (blood only) 31.0 % (37.0-47.0); Hemoglobin 10.1 g/dL (12.0-16.0); Immature Granulocytes # (auto) 0.08 K/uL (0.01-0.20); Immature Granulocytes % (auto) 0.9 %; Mean Corpuscular Hemoglobin 31.0 pg (25.0-34.0); Mean Corpuscular Volume 95.1 fL (80.0-100.0); Platelet Count 237 K/uL (130-400); RDW Standard Deviation 48.2 fL (36.4-46.3); Red Blood Count 3.26 M/uL (4.20-5.40); White Blood Count 9.06 K/ul (4.8-10.8)
[2025-04-25 15:45] LABS: Alanine Aminotransferase 32.0 U/L (7-52); Albumin Globulin Ratio 1.0 (0.9-2); Albumin Level 3.5 gm/dl (3.4-5.0); Alkaline Phosphatase 125.0 U/L (34-104); Anion Gap 10.0 (3-11); Bilirubin,Total 0.4 mg/dl (0.2-1.0); Blood Urea Nitrogen 46.0 mg/dl (6-23); Calcium 9.4 mg/dl (8.6-10.3); Carbon Dioxide 27.0 mmol/L (21-32); Chloride 100.0 mmol/L (98-107); Creatine Kinase 40.0 U/L (26-192); Creatinine Clr Calc Pharmacy 27.9 ml/min; Globulin 3.5 gm/dl (2.5-4.0); Glucose 126.0 mg/dl (70-99(Fasting)); Lipase 13.0 U/L (11-82); Magnesium 1.8 mg/dl (1.7-2.4); Potassium 3.8 mmol/L (3.5-5.1); Sodium 137.0 mmol/L (136-145); Total Protein 7.0 gm/dl (6.0-8.3)
[2025-04-25 16:00] LABS: Thyroid Stimulating Hormone 3.131 uIu/ml (0.300-4.500)
[2025-04-25 16:01] LABS: INR 1.0 (0.9-1.1); Prothrombin Time 10.8 Seconds (9.0-12.0)
[2025-04-25 16:06] LABS: Appearance Urine Clear (Clear); Bacteria Urine Automated 4+ (None Seen); Cast Urine Automated 0-2 /lpf (0-2); Epithelial Cell Urine Auto 0-2 /hpf (0-2); Glucose Urine UA Negative (Negative); RBC Urine Automated 0-2 /hpf (0-2); WBC Urine Automated 0-5 /hpf (0-5)
--- NOTE | 2025-04-25 16:14 | History & Physical Report ---
Date of Service April 25, 2025 Assessment & Plan (1) Ambulatory dysfunction: Plan: Patient is a 84 year old F with a past medical history of Type II DM, hypothyroidism, dyslipidemia, HTN, Nonrheumatic AV stenosis, CKD III, anemia, spinal stenosis s/p thoracic and lumbar fusion presenting with mechanical fall. Experienced a fall this morning when using her walker, fell backwards and hit her head. Denied passing out, chest pain or dizziness at time of fall. [place] like her legs gave out. Reports feeling weak, often unstable with use of walker. Lives with son who manages her medications and care. Recently discharged from rehab on 04/20. Recent history of EColi UTI; denies urinary symptoms today. #Ambulatory dysfunction 2/2 chronic LBP with recurrent mechanical falls #Spinal stenosis w/ radiculopathy * Admit to Med Surg for additional management, consultation and evaluation of need for rehab at discharge * GLF with assistive device at home, hx of recurrent falls with recent d/c from rehab on 04/20; lives with son, possible need for additional home support vs rehab vs SNF * Head and Spine CT negative for acute injury; Lumbar spine CT showing bilateral L5 pedicle screws with possible loosening * Ortho surgery 01/10/25 for revision decompression L2-L4 for evidence of loosening screws consistent fracture L4, also spinal fusion L2-L5 with instrumentation placement; patient has not fully recovered since procedure * Trial of Prednisone today, if tolerated, continue for 5 day course * Reporting LBP and pain to sacral decub; Fearful of narcotics; Acetaminophen 1gm Q8H scheduled w/ Kpad * Continue home gabapentin regimen - pain worse in the afternoon, * Pain consult ordered and pending * PT/OT ordered; ambulated with walker at home, 2 person assist in ED, tone with walker #NICHO #CKD Stage III * Creatinine 1.44, increased from 1.1 from 03/16 * Per outside record, mild NICHO on stage 3b CKD noted while at rehab and treated with IV hydration; d/c to home on lasix reports taking moderate fluids; no urinary symptoms * Trend with labs #Lower leg edema * BLE edema, +4 on exam, reportedly taking home lasix, feels LE edema possibly worse since being home * Trialed Lasix 20 mg IV x 1 today, hypotensive 87/44 following, NSS 500 ml gi sherrell-> trend BP's and renal functioning with AM labs #Hypertension * Hold home metoprolol in setting of hypotension today * Trend and resume when able; no history Afib #Sacral decub ulcer * Chronic wound, unstageable with possible tracking; no active drainage, +slough * Wound Consult ordered #Hyperlipidemia * Continue home statin #Hypothyroidism * Continue home levothyroxine DVT Ppx: Code status: DNR/DNI PCP: SANJAY Walker Dispo: Admit Patient seen in collaboration with Dr. Mosquera. Please see addendum.I spent a total of 60 minutes coordinating, documenting and providing care for this patient excluding time spent in the performance of separately billed services or time spent by another provider/QHP. (2) Spinal stenosis of lumbar region with radiculopathy: (3) NICHO (acute kidney injury): (4) Stage 3b chronic kidney disease (CKD): (5) Lower leg edema: (6) Hypertension: (7) Sacral decubitus ulcer: (8) Hyperlipidemia: (9) Hypothyroidism: History of Present Illness Primary Care Provider: Jose Patino MD Patient is a 84 year old F with a past medical history of Type II DM, hypothyroidism, dyslipidemia, HTN, Nonrheumatic AV stenosis, CKD III, anemia, spinal stenosis s/p thoracic and lumbar fusion presenting with mechanical fall. Experienced a fall this morning when using her walker, fell backwards and hit her head. Denied passing out, chest pain or dizziness at time of fall. [place] like her legs gave out. Reports feeling weak, often unstable with use of walker. Lives with son who manages her medications and care. Recently discharged from rehab on 04/20. Recent history of EColi UTI; denies urinary symptoms today. Most recent confinement [facility] on 03/12/25-03/06/2025 for fall at home, complicated UTI, weakness, and inability to ambulate. Urine culture+ E Coli and blood cultures negative. She was treated with IV ceftriaxone and transferred to [facility] for additional PT/OT. Has been home since 04/20. Feels unstable with walker assistance. Denies fever, chills, weight loss, weakness, headache, cognitive changes, vision/hearing changes, chest pain, SOB,difficulty breathing, urinary concerns, N/V/D, joint swelling/pain, skin rashes, lesions, bleeding, bruising. Discussed with ED provider labs medical management, and need for admission d/t fall risk concerns at home and need for additional rehab. In the emergency department, patient was hemodynamically stable with no evidence of infection or sepsis. Chest Xray showed Cardiomegaly with no acute cardiopulmonary abnormality identified. Lab workup showed possible NICHO with mild increase to Cr to 1.44 with elevated BUN 46, GFR down to 31.9. Denies urinary symptoms. Urine analysis showing trace leukocyte esterase and bacteria, with no urinary symptoms. Otherwise, lab workup unremarkable. Stable H&H EKG showing NSR with no ST elevation, rate 87 bpm, QTc 486. Additional workup for mechanical fall included imaging. Head CT revealed no hemorrhage, mass effect, or evidence of acute territorial ischemia. Lumbar spine CT showing bilateral L5 pedicle screws with possible loosening; No acute lumbar spine fractures. She reported severe pain to lower back which ultimately caused anxiety. She is fearful of taking narcotic medication. Oxycodone was initially ordered and then withheld due to patient concerns. Acetaminophen was given for pain. A trial dose of Prednisone was given for suspected chronic low back pain in setting of mechanical fall and possible undertreated pain management at home. History obtained primarily from the patient and via hospitalization record. The patient's family was at the bedside and assisted with history of present illness and home needs in terms of additional support needed to keep the patient at home. Multiple options discussed with the patient and her grandson including rehab, SNF, or home health. Patient reports having a caregiver in the mornings of Friday// Friday morning only. She lives with her son, but he is out of the home several hours per day for work. Patient and family is agreeable to investigating safe options for discharge. External chart review obtained from [facility] for medications, labs, and outpatient follow up. Allergies Allergy/AdvReac Type Severity Reaction Status Date / Time sulfamethoxazole [Bactrim] AdvReac Intermediate "made the Verified 01/10/25 12:23 UTI worse" trimethoprim [Bactrim] AdvReac Intermediate "made the Verified 01/10/25 12:23 UTI worse" Home Medications Medication Instructions Recorded Confirmed Type acetaminophen 325 mg tablet 325 mg PO QID PRN Pain 08/18/24 04/25/25 History allopurinol 300 mg tablet 300 mg PO QAM 08/18/24 04/25/25 History aspirin 81 mg tablet,delayed 81 mg PO QAM 08/18/24 04/25/25 History release atorvastatin 80 mg tablet 80 mg PO HS 08/18/24 04/25/25 History cholecalciferol (vitamin D3) 25 50 mcg PO DAILY 08/18/24 04/25/25 History mcg (1,000 unit) capsule (Vitamin D3) levothyroxine 50 mcg tablet 50 mcg PO QAM 08/18/24 04/25/25 History metoprolol succinate 25 mg 0 mg PO QAM 08/18/24 04/25/25 History tablet,extended release 24 hr BuSpar 15 mg PO BID ##0 03/12/25 04/25/25 History ferrous sulfate 0 mg PO QAM ##0 03/12/25 04/25/25 History furosemide 40 mg tablet (Lasix) 40 mg PO DAILY ##0 03/12/25 04/25/25 History gabapentin 100 mg capsule 100 mg PO UD 04/25/25 04/25/25 History Past Med/Surg History Problem List Lower leg edema NICHO (acute kidney injury) (Acute) Ambulatory dysfunction (Acute) Fall from standing (Acute) Sacral decubitus ulcer (Acute) Elevated troponin (Acute) Acute urinary retention (Acute) NICHO (acute kidney injury) (Acute) Complicated urinary tract infection (Acute) Spinal stenosis of lumbar region with radiculopathy (Acute) NICHO (acute kidney injury) Complicated UTI (urinary tract infection) Closed fracture of lumbar vertebral body Hyperkalemia Spondylolisthesis, lumbar region Hypomagnesemia Recurrent falls Back pain (Acute) Lumbar stenosis with neurogenic claudication Stage 3b chronic kidney disease (CKD) S/P spinal surgery 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) Medical History Carotid artery stenosis mild bilat ICA stenosis per [facility] EMR Type 2 diabetes mellitus CKD (chronic kidney disease) stage 3, GFR 30-59 ml/min Aortic stenosis moderate RBBB Hyperlipidemia Hypertension controlled, stable per pt Degenerative disc disease Osteoarthritis Gout Hypothyroidism History of kidney stones MUSA (dyspnea on exertion) chronic Surgical History History of surgical procedure on thoracic spine T9-T10 decompression fusion - August 2024 History of dilatation and curettage History of tooth extraction History of total knee replacement right History of total hip arthroplasty bilat History of cataract surgery bilat History of tonsillectomy History of cystoscopy hx of stent and since removed Family History Mother Diabetes Aunt No problems noted. Social History Smoking Status: Never smoker Second Hand Exposure: No; Do You Dip or Chew Tobacco: No; Hx Alcohol Use: No Hx Substance Use: No Preferred Language: Surinamese Communication Ability: Effective Manager Ent Required: No Beliefs That Will Affect Care: None Current Living Situation: Family Current Living Situation Comment: With son Bharathi Feels Safe at Home: Yes Assistive Devices: Cane, Glasses, Hospital Bed, Raised Toilet Seat and Walker Review of Systems Review of Systems: All systems reviewed & are unremarkable except as noted in HPI & below Physical Exam Physical Exam: VITALS: Reviewed. WEIGHT/BMI reviewed. GEN: Healthy appearing, well-developed, NAD. PSYCH: Good Judgment. AOx3. Normal memory, mood, and affect. anxious HEENT -Head: NC/AT; -Eyes: PERRL, EOMI. No discharge or redn ess; -Ears: External ears are normal. -Nose: Normal nares. -Mouth and throat: MMM. Normal gums, muc dionne, palate,. Good dentition. NECK: Supple, with no masses. CV: RRR, no m/r/g. +4 BLE edema LUNGS: CTAB, no w/r/c. ABD: Soft, NT/ND, NBS, no masses or organomegaly. : N/A SKIN: Warm, well perfused. Sacral decub with slough, no drainage MSK: No deformities. Weak BLE EXT: No clubbing, cyanosis, or edema. NEURO: CN II-XII grossly intact. Speech clear. No focal deficits. Results & Data Results & Data Vital Signs (Past 12 Hours) Vital Signs Temp Pulse Resp BP Pulse Ox O2 Del Method 04/25/25 15:36 93 H 21 96 04/25/25 15:36 138/65 04/25/25 15:21 87 20 04/25/25 15:12 81 18 98 04/25/25 15:05 140/74 04/25/25 15:03 90 19 04/25/25 13:40 127/82 04/25/25 13:39 83 26 H 87 L 04/25/25 13:27 82 04/25/25 13:26 98 Room Air 04/25/25 13:18 99 04/25/25 12:58 36.5 C 89 19 153/83 H 98 Room Air Supervising Physician Co-Signing Physician Notes I have seen and discussed the case with the collaborating advanced practitioner. I agree with the above H&P. I have reviewed and confirmed the patients medical history, the findings on physical examination, and the patients diagnosis and treatment plan with Yonathan GRACE and agree with the information documented. Evaluated at bedside. Patient notably in discomfort, but also very anxious--reports concerns with her loss of independence, reports significant anxiety about falling--she began to shake and cry recalling falls in the bathroom. She is very worried of opioids and is fearful to trial steriod. Agreed to trial small dose of prednisone with possible plan for medrol dose pack or pred taper contingent on her response and agrees to scheduled tylenol with a heating pad. Patient reports pain in back from fall, but also pain in buttock from a "wound [she] got a few months back" She also reports her swelling in her legs has worsened in the last week, stating there has been chronic swelling before but its much worse recently. Grandson was at bedside and was actively giving patient water--she denies any issues with her appetite or po intake; denied urinary symptoms. Exam revealed tearful AO3 elderly woman, she has notable 3+ pitting edema up to her valadez, it was painful for her to have her slippers removed given notable indentations. CADEN+, diminished 2/2 positioning 2/2 pain but no apparent crackl es/wheezing; erythema of gluteal cleft with unstagable ulcer and skin maceration over coccyx notably painful to touch in surrounding areas #Mechanical Fall #generalized weakness PT/OT trial of po pred to see if patient can self reportedly tolerate "steroids", worked to enforced patient has likely had oral and iv given her back procedures, but she does not recall and is very fearful of pain meds schedule tylenol kpad ordered discussed that her care needs at home need to be discussed with son, she became tearful; grandson reports they will discuss about having 24 hour support if able using family and friends pain management consult #Severe leg edema trialed a small dose of IV lasix, her volume status is quite diffiult to ascertain--became hypotensive would be cautious about increasing gabapentin #NICHO likely prerenal given response to lasix, likely intravascularly dry small fluid bolus as tolerated trend bmp #Unstageable pressure ulcer of coccyx POA WOCN consult Rest of plan as above I spent a total of 20 minutes coordinating, documenting, and providing care for this patient excluding time spent in the performance of separately billed services. All of the aforementioned completed outside of collaborating with the assigned advanced practitioner for a full treatment plan. I have reviewed the advanced practitioner's documentation, and I agree with, and take responsibility for the plan of care (6) Hypertension Hypertension type: unspecified Qualified Code(s): I10 - Essential (primary) hypertension (7) Sacral decubitus ulcer Pressure injury stage: unspecified pressure injury stage Qualified Code(s): L89.159 - Pressure ulcer of sacral region, unspecified stage (9) Hypothyroidism Hypothyroidism type: unspecified Qualified Code(s): E03.9 - Hypothyroidism, unspecified
[2025-04-25] MEDS: FUROSEMIDE INJ 20 MG/2 ML VIAL IV ONE (17:18)
[2025-04-25] MEDS: ACETAMINOPHEN 500 MG TAB PO STA (17:18)
[2025-04-25] MEDS: ACETAMINOPHEN 1,000 MG/100 ML VIAL IV STA (17:19)
[2025-04-25] MEDS: predniSONE 20 MG TAB PO STA (17:19)
[2025-04-25] MEDS: dexAMETHasone 4 MG in SYRINGE 0 ML IV ONE (17:19)
[2025-04-25] MEDS ORDERED: POLYETHYLENE (MIRALAX) 17 GM PACK PO PRN (20:24)
[2025-04-25] MEDS ORDERED: MAGNESIUM HYDROXIDE SUSP 30 ML UDC PO PRN (20:24)
[2025-04-25] MEDS ORDERED: ALUMINUM/MAGNESIUM SUSP 30 ML UDC PO PRN (20:24)
[2025-04-25] MEDS ORDERED: ONDANSETRON INJ 2 MG/ML 2 ML VIAL IV PRN (20:24)
[2025-04-25] MEDS: busPIRone 15 MG TAB PO SCH (23:25)
[2025-04-25] MEDS: ATORVASTATIN 40 MG TAB PO SCH (23:25)
[2025-04-25] MEDS: GABAPENTIN 100 MG CAP PO SCH (23:25)
[2025-04-25] MEDS: HEPARIN SOD 5,000 UNIT/0.5 ML VIAL SQ SCH (23:29)
[2025-04-25] MEDS: ACETAMINOPHEN 1,000 MG/100 ML VIAL IV PRN (23:39)
[2025-04-26] MEDS: SODIUM CHLORIDE 0.9% 500 ML IV ONE (01:18)
[2025-04-26] MEDS: LEVOTHYROXINE SODIUM 50 MCG TABLET PO SCH (05:43)
[2025-04-26 06:18] LABS: Hematocrit (blood only) 28.2 % (37.0-47.0); Hemoglobin 9.4 g/dL (12.0-16.0); Mean Corpuscular Hemoglobin 31.2 pg (25.0-34.0); Mean Corpuscular Volume 93.7 fL (80.0-100.0); Platelet Count 233 K/uL (130-400); RDW Standard Deviation 45.9 fL (36.4-46.3); Red Blood Count 3.01 M/uL (4.20-5.40); White Blood Count 9.49 K/ul (4.8-10.8)
[2025-04-26 06:45] LABS: Anion Gap 12.0 (3-11); Blood Urea Nitrogen 48.0 mg/dl (6-23); Calcium 8.8 mg/dl (8.6-10.3); Carbon Dioxide 23.0 mmol/L (21-32); Chloride 102.0 mmol/L (98-107); Cholesterol 98.0 mg/dl (0-200); Creatinine Clr Calc Pharmacy 27.4 ml/min; Glucose 151.0 mg/dl (70-99(Fasting)); HDL Cholesterol 24.0 mg/dl; Potassium 4.2 mmol/L (3.5-5.1); Sodium 137.0 mmol/L (136-145); Triglycerides 108.0 mg/dl (0-150)
[2025-04-26] MEDS: CHOLECALCIFEROL 25 MCG (1000 UNITS) TAB PO SCH (08:24)
[2025-04-26] MEDS: ASPIRIN 81 MG ECTAB PO SCH (08:25)
--- NOTE | 2025-04-26 08:34 | Pain Management Consultation ---
Date of Consultation April 26, 2025 Assessment & Plan (1) Sacral decubitus ulcer: Pressure injury stage: unspecified pressure injury stage Qualified Code(s): L89.159 - Pressure ulcer of sacral region, unspecified stage (2) Postlaminectomy syndrome of lumbosacral region: (3) Ambulatory dysfunction: (4) Lower extremity weakness: (5) Stage 3b chronic kidney disease (CKD): Plan 1. Patient with primary complaint of axial sacral region pain associated with the sacral decubitus ulcer with primary complaint of pain with sitting or lying with associated history of lumbar postlaminectomy syndrome with lower extremity radicular pain with paresthesia of likely mixed etiology. 2. Wound clinic has been consulted to assist in caring for her sacral decubitus ulceration. 3. Pain service has nothing interventional to offer the patient at this time due to her sacral decubitus ulceration 4. We spent a great deal of time discussing medical management. Patient remains adamantly against opiate therapy. We had discussed considering a trial of tramadol versus Nucynta but she deferred. We briefly discussed a trial of Butrans but most recent EKG revealed QTc of 486 so therefore she would be a poor candidate for Butrans patch at this time. Patient was agreeable to a slight increase in her gabapentin dose. Due to her current CKD will transition her gabapentin dosing to twice daily with adjustment to 200 mg twice daily. Consider further titration pending response. 5. We discussed a trial of duloxetine at length with patient given her intermittent weepiness/mood disorder along with her chronic low back pain complaints but she is currently defers. 6. Continue with acetaminophen as prescribed 7. Given her ambulatory dysfunction would recommend PT/OT and will likely need consideration of SNF placement Thank you for allowing us to precipitate in the care of Mrs. Giles. Pain service will sign off on patient at this time. Please contact for reevaluation if needed. History of Present Illness Reason for Consultation: Lumbosacral pain Requesting Physician: SANJAY Alanis Attending Physician: Jenn Hall MD History of Present Illness Mrs. Giles is an 84-year-old white female who was admitted yesterday 04/25/2025 status post a recent fall injury in her home. The patient reportedly lost her balance in her bathroom and fell backwards onto her back striking her head. She has a past medical history significant for type 2 diabetes mellitus, hypothyroidism, dyslipidemia, hypertension, nonrheumatic AV stenosis, CKD stage III, anemia, spinal stenosis status post thoracolumbar fusion, chronic radicular pain/paresthesia and history of multiple compression fractures. The patient also has a known sacral decubiti wound which has been persistent over the past 6 months per her report. The patient reports multiple admissions within this past year relating to UTI and her back surgery as well as rehabilitative stay reporting minimal time in her own home. Patient reports that her pain is achy and sore in the sacral region as her primary pain generator which she relates to the sacral wound. She reports some radiation to the gluteal region. She rates her pain a 4-8/10. She reports her most significant pain with sitting or lying on her back. She frequently finds herself sitting with her hand under her gluteal region to elevate her sacral region. She does have chronic radicular pain to the feet with paresthesia which she believes is slightly improved with gabapentin currently at 100 mg twice daily and 200 mg midday. Patient reports that she tolerates this medication without notable side effects. She does have history of multiple lumbar spine surgery with fusion from L2-L5 with recent discovery of loosening of the L5 pedicle screws per lumbar spine CT updated at time of this admission. She reports some chronic weakness of the right lower extremity associate with her prior back surgeries. She typically utilizes acetaminophen for pain with moderate benefit. She prefers to avoid all narcotics as she had some hallucinations on oxycodone and had a son that was "addicted to opiates" and ended up with liver cancer which she relates to his use of chronic opiates. Patient was extremely emotional discussing her son's . Plan of care discussed with Dr. Sherri Vidal. Pain Assessment Full Body Front + Back: 2 1. Axial lumbosacral/sacral location Pain scale - at its best (0-10): 4 Pain scale - at its worst (0-10): 8 Allergies Allergy/AdvReac Type Severity Reaction Status Date / Time sulfamethoxazole [Bactrim] AdvReac Intermediate "made the Verified 01/10/25 12:23 UTI worse" trimethoprim [Bactrim] AdvReac Intermediate "made the Verified 01/10/25 12:23 UTI worse" Home Medications Medication Instructions Recorded Confirmed Type acetaminophen 325 mg tablet 325 mg PO QID PRN Pain 08/18/24 04/25/25 History allopurinol 300 mg tablet 300 mg PO QAM 08/18/24 04/25/25 History aspirin 81 mg tablet,delayed 81 mg PO QAM 08/18/24 04/25/25 History release atorvastatin 80 mg tablet 80 mg PO HS 08/18/24 04/25/25 History cholecalciferol (vitamin D3) 25 50 mcg PO DAILY 08/18/24 04/25/25 History mcg (1,000 unit) capsule (Vitamin D3) levothyroxine 50 mcg tablet 50 mcg PO QAM 08/18/24 04/25/25 History metoprolol succinate 25 mg 0 mg PO QAM 08/18/24 04/25/25 History tablet,extended release 24 hr BuSpar 15 mg PO BID ##0 03/12/25 04/25/25 History ferrous sulfate 0 mg PO QAM ##0 03/12/25 04/25/25 History furosemide 40 mg tablet (Lasix) 40 mg PO DAILY ##0 03/12/25 04/25/25 History gabapentin 100 mg capsule 100 mg PO UD 04/25/25 04/25/25 History Pain History Pain Intensity Pain scale - at its best (0-10): 4 Pain scale - at its worst (0-10): 8 Patient History Medical History Carotid artery stenosis mild bilat ICA stenosis per [facility] EMR Type 2 diabetes mellitus CKD (chronic kidney disease) stage 3, GFR 30-59 ml/min Aortic stenosis moderate RBBB Hyperlipidemia Hypertension controlled, stable per pt Degenerative disc disease Osteoarthritis Gout Hypothyroidism History of kidney stones MUSA (dyspnea on exertion) chronic Surgical History History of surgical procedure on thoracic spine T9-T10 decompression fusion - August 2024 History of dilatation and curettage History of tooth extraction History of total knee replacement right History of total hip arthroplasty bilat History of cataract surgery bilat History of tonsillectomy History of cystoscopy hx of stent and since removed Family History Mother Diabetes Aunt No problems noted. Social History (Reviewed 04/25/25 @ 20:03 by HANNAH Groves Smoking Status: Never smoker Second Hand Exposure: No; Do You Dip or Chew Tobacco: No; Hx Alcohol Use: No Hx Substance Use: No Preferred Language: French Communication Ability: Effective Cylinder Checker Required: No Beliefs That Will Affect Care: None Current Living Situation: Family Current Living Situation Comment: With son Bharathi Other Information That Helps Us Care for You: No Feels Safe at Home: Yes Safety Concerns: Feels Safe At This Time Assistive Devices: Walker Physical Exam 2 Physical Exam: General: Patient sleeping quietly upon entering the room. Patient was easily arousable. Speech and thought process appropriate. Mood and affect appropriate. Cognition intact. Patient oriented to person and place. Head: Normocephalic and atraumatic. ENT: No evidence of nasal or oral mucosal lesions. Mucous membranes are moist. Poor dentition noted. Eyes: Pupils equal round reactive to light. Neck: Supple without adenopathy and full range of motion. Abdomen: Soft and nondistended. No organomegaly. Bowel sounds active. Back/spine: Patient able to logroll without assistance for examination. Patient has wound VAC in place over the sacral decubitus. Patient has generalized tenderness to palpation over the lumbosacral junction extending into the gluteal area. There is no focal midline tenderness to palpation or percussion. She has well-healed surgical incision throughout the lumbar region. Lower extremities: Strength testing was 3/5 on the right with dorsiflexion, plantarflexion, EHL testing and hip flexion/extension. Patient has 2-3+ edema of the dorsal foot on the right and 2+ on the left with extension into the ankle. Sensation is diminished affecting all toes in nondermatomal patterns to sharp and dull. There are some chronic hemosiderosis distally in the pretibial and ankle location. SLR without increase in axial back pain or radicular pattern pain. Neurologic: Cranial nerves grossly intact. Ambulatory function not witnessed.
[2025-04-26] MEDS ORDERED: LEVOTHYROXINE SODIUM 50 MCG TABLET PO SCH (09:00)
[2025-04-26] MEDS: SODIUM CHLORIDE 0.9% 1,000 ML IV SCH (10:00)
[2025-04-26] MEDS: GABAPENTIN 100 MG CAP PO ONE (10:00)
--- NOTE | 2025-04-26 13:51 | Hospitalist Progress Note ---
Date of Service April 26, 2025 Assessment & Plan (1) Ambulatory dysfunction: Plan: Patient is a 84 year old F with a past medical history of Type II DM, hypothyroidism, dyslipidemia, HTN, Nonrheumatic AV stenosis, CKD III, anemia, spinal stenosis s/p thoracic and lumbar fusion presenting with mechanical fall. Experienced a fall this morning when using her walker, fell backwards and hit her head. Denied passing out, chest pain or dizziness at time of fall. [place] like her legs gave out. Reports feeling weak, often unstable with use of walker. Lives with son who manages her medications and care. Recently discharged from rehab on 04/20. Recent history of EColi UTI; denies urinary symptoms today. #Ambulatory dysfunction 2/2 chronic LBP with recurrent mechanical falls #Spinal stenosis w/ radiculopathy * Admit to Med Surg for additional management, consultation and evaluation of need for rehab at discharge * GLF with assistive device at home, hx of recurrent falls with recent d/c from rehab on 04/20; lives with son, possible need for additional home support vs rehab vs SNF * Head and Spine CT negative for acute injury; Lumbar spine CT showing bilateral L5 pedicle screws with possible loosening * Ortho surgery 01/10/25 for revision decompression L2-L4 for evidence of loosening screws consistent fracture L4, also spinal fusion L2-L5 with instrumentation placement; patient has not fully recovered since procedure * Trial of Prednisone today, if tolerated, continue for 5 day course * Reporting LBP and pain to sacral decub; Fearful of narcotics; Acetaminophen 1gm Q8H scheduled w/ [facility] * Continue home gabapentin regimen - pain worse in the afternoon, Appreciate pain therapy input and recommendation She does not want to try any narcotic pain medications and is not a candidate for injection due to significant sacral decubiti Her gabapentin dose was increased Will have PT and OT evaluation #Sacral decub ulcer * Chronic wound, unstageable with possible tracking; no active drainage, +slough * Wound Consult ordered Sacral wound seen as in picturemay have bone involvement Will get CT of the pelvis and also surgical consult for possible debridement Appreciate wound care input and recommendation #NICHO #CKD Stage III * Creatinine 1.44, increased from 1.1 from 03/16 * Per outside record, mild NICHO on stage 3b CKD noted while at rehab and treated with IV hydration; d/c to home on lasix reports taking moderate fluids; no urinary symptoms Creatinine remains elevated at 1.46 Advised to drink more fluid and IV fluid will not be given due to bilateral leg edema Received 1 dose of Lasix yesterday intravenously Will monitor BMP for now #Lower leg edema * BLE edema, +4 on exam, reportedly taking home lasix, feels LE edema possibly worse since being home * Trialed Lasix 20 mg IV x 1 today, hypotensive 87/44 following, NSS 500 ml given-> trend BP's and renal functioning with AM labs #Hypertension * Hold home metoprolol in setting of hypotension today * Trend and resume when able; no history Afib #Hyperlipidemia * Continue home statin #Hypothyroidism * Continue home levothyroxine DVT Ppx: Code status: DNR/DNI PCP: SANJAY Walker Dispo: Admit (2) Spinal stenosis of lumbar region with radiculopathy: (3) NICHO (acute kidney injury): (4) Stage 3b chronic kidney disease (CKD): (5) Lower leg edema: (6) Hypertension: (7) Sacral decubitus ulcer: (8) Hyperlipidemia: (9) Hypothyroidism: Admission and Anticipated Discharge Date Admission Date: April 25, 2025 Subjective 04/26/2025 The patient was seen and examined in medical floor She complains of some back pain Denies any other significant symptoms, no abdominal pain nausea or vomiting, no fever and chills and no cardiac and/or respiratory symptoms Review of Systems Review of Systems: All systems reviewed and unremarkable except as noted below Physical Exam Physical Exam: Lying in bed with acute pain in the lower back Constitutional: well developed, well nourished, + ill appearing and + obese Eyes: PERRL, conjunctivae normal, anicteric sclerae ENMT: external ear and nose normal, oropharynx normal Neck: trachea midline, no thyromegaly Respiratory: no respiratory distress Auscultation: lungs clear to auscultation bilaterally Cardiovascular: Rate/Rhythm: regular rate and regular rhythm; not tachycardic Heart Sounds: normal S1 and normal S2; no murmur Extremities: + edema (1+ edema bilaterally) Gastrointestinal (Abdomen): Inspection/Auscultation: normal bowel sounds; abdomen not distended Percussion/Palpation: abdomen soft; abdomen nontender Musculoskeletal: Had radiculopathic pain secondary to back pain Skin: Significant sacral wound, may need debridement Neurologic: moves all extremities; no focal motor deficits Remains generally weak Lymphatic: no cervical or axillary lymphadenopathy Results & Data Results & Data Vital Signs (Past 12 Hours) Vital Signs Temp Pulse Resp BP Pulse Ox O2 Del Method 04/26/25 11:01 Room Air 04/26/25 07:02 36.5 C 66 16 115/68 100 Room Air Laboratory Results Short CBC 04/25/25 04/26/25 Range/Units 15:00 06:00 WBC 9.06 9.49 (4.8-10.8) K/ul Hgb 10.1 L 9.4 L (12.0-16.0) g/dL Hct 31.0 L 28.2 L (37.0-47.0) % Plt Count 237 233 (130-400) K/uL BMP 04/25/25 04/26/25 15:00 06:00 Sodium 137 137 Potassium 3.8 4.2 Chloride 100 102 Carbon Dioxide 27 23 BUN 46 H 48 H Creatinine 1.44 H 1.46 H Glucose 126 H 151 H Calcium 9.4 8.8 Cardiac Enzymes 04/25/25 Range/Units 15:00 Total Creatine Kinase 40 (26-192) U/L Liver Function 04/25/25 Range/Units 15:00 Total Bilirubin 0.4 (0.2-1.0) mg/dl AST 27 (13-39) U/L ALT 32 (7-52) U/L Alkaline Phosphatase 125 H (34-104) U/L Albumin 3.5 (3.4-5.0) gm/dl Urine 04/25/25 Range/Units 15:35 Urine Color Yellow Urine Appearance Clear (Clear) Urine pH 5.5 (4.5-7.5) Ur Specific [place] 1.008 (1.000-1.030) Urine Protein Negative (Negative) Urine Glucose (UA) Negative (Negative) Medications Administered Current Inpatient Medications Al Hydrox/Mg Hydrox/Simethicone (Aluminum/Magnesium Susp 30 Ml Udc) 30 ml PO Q6H PRN PRN Reason: Dyspepsia Stop: 05/25/25 20:23 Allopurinol (Allopurinol 300 Mg Tab) 300 mg PO QAM [facility] Stop: 05/26/25 08:59 Last Admin: 04/26/25 08:25 Dose: 300 mg Aspirin (Aspirin 81 Mg Ectab) 81 mg PO QAM [facility] Stop: 05/26/25 08:59 Last Admin: 04/26/25 08:25 Dose: 81 mg Atorvastatin Calcium (Atorvastatin 40 Mg Tab) 80 mg PO HS [facility] Stop: 05/25/25 20:59 Last Admin: 04/25/25 23:25 Dose: 80 mg Buspirone HCl (Buspirone 15 Mg Tab) 15 mg PO BID [facility] Stop: 05/25/25 20:59 Last Admin: 04/26/25 08:24 Dose: 15 mg Gabapentin (Gabapentin 100 Mg Cap) 200 mg PO BID [facility] Stop: 05/26/25 20:59 Heparin Sodium (Porcine) (Heparin Sod 5,000 Unit/0.5 Ml Vial) 5,000 units SQ Q12 [facility] Stop: 05/25/25 20:59 Last Admin: 04/26/25 08:33 Dose: 5,000 units Acetaminophen (Ofirmev) 1,000 mg in 100 mls @ 400 mls/hr IV Q8H PRN PRN Reason: Pain or Fever Stop: 04/28/25 23:26 Last Infusion: 04/26/25 13:07 Dose: Infused Sodium Chloride (Nss) 1,000 mls @ 80 mls/hr IV .[id number] [facility] Stop: 04/27/25 09:59 Last Admin: 04/26/25 10:00 Dose: 80 mls/hr Levothyroxine Sodium (Levothyroxine Sodium 50 Mcg Tablet) 50 mcg PO DAILYBB [facility] Stop: 05/26/25 06:29 Last Admin: 04/26/25 05:43 Dose: 50 mcg Magnesium Hydroxide (Magnesium Hydroxide Susp 30 Ml Udc) 30 ml PO Q6H PRN PRN Reason: Constipation Stop: 05/25/25 20:23 Melatonin (Melatonin 3 Mg Tab) 3 mg PO HS PRN PRN Reason: Insomnia Stop: 05/25/25 20:23 Ondansetron HCl (Ondansetron Inj 2 Mg/Ml 2 Ml Vial) 4 mg IV Q6H PRN PRN Reason: Nausea Stop: 05/25/25 20:23 Polyethylene Glycol (Polyethylene (Miralax) 17 Gm Pack) 17 gm PO DAILY PRN PRN Reason: Constipation Stop: 05/25/25 20:23 Vitamin D (Cholecalciferol 25 Mcg (1000 Units) Tab) 50 mcg PO DAILY [facility] Stop: 05/26/25 08:59 Last Admin: 04/26/25 08:24 Dose: 50 mcg (6) Hypertension Hypertension type: unspecified Qualified Code(s): I10 - Essential (primary) hypertension (7) Sacral decubitus ulcer Pressure injury stage: unspecified pressure injury stage Qualified Code(s): L89.159 - Pressure ulcer of sacral region, unspecified stage (9) Hypothyroidism Hypothyroidism type: unspecified Qualified Code(s): E03.9 - Hypothyroidism, unspecified
[2025-04-26] MEDS ORDERED: GABAPENTIN 100 MG CAP PO SCH (14:00)
--- NOTE | 2025-04-26 15:11 | Surgery Consultation ---
<Statement entered by Emile Henriquez, - 04/26/25 23:34> This case has been discussed with the surgical PA Date of Consultation April 26, 2025 Assessment & Plan (1) Sacral decubitus ulcer: This is an 84yF with a PMH of spinal fusion, CKD stage 3, DM2, hypothyroid, AV stenosis, who presents to the [facility] on 04/25/25 after falling. She uses a walker at home. She was just discharged from rehab on 04/20/25. She lives at home with her son. We have been consulted today for evaluation of a sacral wound. It appears it has been present since at least 12/2024. Patient reports no new issues with wound. She states from where it started it has overall improved. She denies any fevers/chills, abdominal pain, n/v, or chest pain. Has some baseline SOB. She recently underwent surgery for her spine 12/2024. Wound care saw patient today, currently dressed with aquacell and optifoam. Today's blood work shows WBC 9.4, Hbg 9.4, K 4.2, Cr 1.4. Vital signs are stable. My exam was limited as transport was in the room waiting to take patient down to the CT scanner. She does have a + sacral wound with dark bloody drainage noted on aquacel and optifoam. Will await CT scan findings as there is concern it probes to bone. Continue IV abx and current dressing recommendations. Offload area as able. Will follow up tomorrow with the surgeon for a better look and determine if surgical debridement is warranted. Will follow. History of Present Illness Attending Physician: Jenn Hall MD History of Present Illness This is an 84yF with a PMH of spinal fusion, CKD stage 3, DM2, hypothyroid, AV stenosis, who presents to the [facility] on 04/25/25 after falling. She uses a walker at home. She was just discharged from rehab on 04/20/25. She lives at home with her son. We have been consulted today for evaluation of a sacral wound. It appears it has been present since at least 12/2024. Patient reports no new issues with wound. She states from where it started it has overall improved. She denies any fevers/chills, abdominal pain, n/v, or chest pain. Has some baseline SOB. She recently underwent surgery for her spine 12/2024. Wound care saw patient today. She is pending a CT scan today. Allergies Allergy/AdvReac Type Severity Reaction Status Date / Time sulfamethoxazole [Bactrim] AdvReac Intermediate "made the Verified 01/10/25 12:23 UTI worse" trimethoprim [Bactrim] AdvReac Intermediate "made the Verified 01/10/25 12:23 UTI worse" Home Medications Medication Instructions Recorded Confirmed Type acetaminophen 325 mg tablet 325 mg PO QID PRN Pain 08/18/24 04/25/25 History allopurinol 300 mg tablet 300 mg PO QAM 08/18/24 04/25/25 History aspirin 81 mg tablet,delayed 81 mg PO QAM 08/18/24 04/25/25 History release atorvastatin 80 mg tablet 80 mg PO HS 08/18/24 04/25/25 History cholecalciferol (vitamin D3) 25 50 mcg PO DAILY 08/18/24 04/25/25 History mcg (1,000 unit) capsule (Vitamin D3) levothyroxine 50 mcg tablet 50 mcg PO QAM 08/18/24 04/25/25 History metoprolol succinate 25 mg 0 mg PO QAM 08/18/24 04/25/25 History tablet,extended release 24 hr BuSpar 15 mg PO BID ##0 03/12/25 04/25/25 History ferrous sulfate 0 mg PO QAM ##0 03/12/25 04/25/25 History furosemide 40 mg tablet (Lasix) 40 mg PO DAILY ##0 03/12/25 04/25/25 History gabapentin 100 mg capsule 100 mg PO UD 04/25/25 04/25/25 History Patient History Medical History Carotid artery stenosis mild bilat ICA stenosis per S EMR Type 2 diabetes mellitus CKD (chronic kidney disease) stage 3, GFR 30-59 ml/min Aortic stenosis moderate RBBB Hyperlipidemia Hypertension controlled, stable per pt Degenerative disc disease Osteoarthritis Gout Hypothyroidism History of kidney stones MUSA (dyspnea on exertion) chronic Surgical History History of surgical procedure on thoracic spine T9-T10 decompression fusion - August 2024 History of dilatation and curettage History of tooth extraction History of total knee replacement right History of total hip arthroplasty bilat History of cataract surgery bilat History of tonsillectomy History of cystoscopy hx of stent and since removed Family History Mother Diabetes Aunt No problems noted. Social History Smoking Status: Never smoker Second Hand Exposure: No; Do You Dip or Chew Tobacco: No; Hx Alcohol Use: No Hx Substance Use: No Preferred Language: Kinyarwanda Communication Ability: Effective [employer] Division Supervisor Required: No Beliefs That Will Affect Care: None Current Living Situation: Family Current Living Situation Comment: With son Bharathi Other Information That Helps Us Care for You: No Feels Safe at Home: Yes Safety Concerns: Feels Safe At This Time Assistive Devices: Walker Review of Systems Constitutional: no fever and no chills Respiratory: no dyspnea and no dyspnea on exertion Cardiovascular: no chest pain Gastrointestinal: no abdominal pain, no nausea and no vomiting Musculoskeletal: + sacral wound pain Physical Exam Physical Exam: awake/alert, no distress Respiratory: normal respiratory effort on room air Gastrointestinal (Abdomen): Percussion/Palpation: abdomen soft; abdomen nontender Skin: + sacral wound, dark bloody drainage not ed on aquacel and optifoam Results & Data Vital Signs (Past 12 Hours) Vital Signs Temp Pulse Resp BP Pulse Ox O2 Del Method 04/26/25 11:01 Room Air 04/26/25 07:02 97.7 F 66 16 115/68 100 Room Air PG Care Time/CCT Total # of Minutes Spent Total Time Spent with Patient: Total time spent is greater than 50% in coordination of care (as documented) at patient's floor/unit and/or counseling patient: Coding Level of Care Code 19767 INT INP/OBS CARE 140MIN Diagnoses Sacral decubitus ulcer L89.159 Pressure injury stage: unspecified pressure injury stage (1) Sacral decubitus ulcer Pressure injury stage: unspecified pressure injury stage Qualified Code(s): L89.159 - Pressure ulcer of sacral region, unspecified stage
--- NOTE | 2025-04-26 16:24 | CT Scan Report ---
CT PELVIS: TECHNIQUE: Un-enhanced CT examination of the pelvis was performed. IV CONTRAST: None. HISTORY: Pelvic pain COMPARISON: CT abdomen pelvis March 12, 2025. FINDINGS: URINARY BLADDER: Mildly distended. There is a small focus of luminal air. REPRODUCTIVE ORGANS: There is a macroscopic fat-containing cystic mass of the left adnexa measuring 4.8 cm with calcifications. AORTA and ILIAC ARTERIES: No aneurysmal dilatation of the visualized portion of the aorta or iliac arteries seen. Moderate atherosclerosis LYMPH NODES: No pelvic lymph adenopathy identified. GASTROINTESTINAL: The visualized bowel is normal in caliber. Normal appendix. Colonic diverticulosis without evidence of diverticulitis PERITONEUM: No ascites is seen. No peritoneal masses seen. PELVIC WALL: No hernia is identified. There is a sacral decubitus ulcer has increased in size compared to the CT abdomen and pelvis examination of March 12, 2025 with increased extension into the right gluteal muscles. Evaluation for abscesses is limited in the absence of intravenous contrast but there are several gas containing fluid pockets measuring up to approximately 3.7 cm that likely represent abscesses (series 400, image 80 for example). OSSEOUS STRUCTURES: No definite osteomyelitis of the coccyx and the sacrum abutting the decubitus ulcer. Bilateral hip arthroplasties. Lower lumbar spine fusion IMPRESSION: Sacral decubitus ulcer has increased in size compared to the CT abdomen and pelvis examination of March 12, 2025 with increased extension into the right gluteal muscles. Evaluation for abscesses is limited in the absence of intravenous contrast but there are several gas containing fluid pockets measuring up to approximately 3.7 cm that likely represent abscesses (series 400, image 80 for example). No definite osteomyelitis of the coccyx and the sacrum abutting the decubitus ulcer. Macroscopic fat-containing left adnexal cystic mass represents either a teratoma or a dermoid cyst. Electronically signed by Richardson Driscoll 04-26-2025 4:23 PM
[2025-04-26] MEDS: 4.5GM X1 IV ONE (20:47)
[2025-04-26] MEDS: GABAPENTIN 100 MG CAP PO SCH (20:48)
[2025-04-27] MEDS: PIPERACILLIN/TAZOBACTAM 4.5 GM/100 ML BAG IV SCH (02:54)
[2025-04-27 07:34] LABS: Anion Gap 8.0 (3-11); Blood Urea Nitrogen 43.0 mg/dl (6-23); Calcium 8.4 mg/dl (8.6-10.3); Carbon Dioxide 24.0 mmol/L (21-32); Chloride 106.0 mmol/L (98-107); Creatinine Clr Calc Pharmacy 30.1 ml/min; Glucose 134.0 mg/dl (70-99(Fasting)); Magnesium 1.6 mg/dl (1.7-2.4); Potassium 4.2 mmol/L (3.5-5.1); Sodium 138.0 mmol/L (136-145)
[2025-04-27] MEDS: MAGNESIUM SULFATE / D5W 1 GM/100 ML BAG IV SCH (08:42)
--- NOTE | 2025-04-27 13:42 | Surgery Progress Note ---
Date of Service April 27, 2025 Assessment & Plan (1) Sacral decubitus ulcer: Plan: Patient here s/p fall at home, we are consulted for evaluation of sacral ulcer, present since at least december [address] obtained yesterday showing increase in size since 03/12 CT scan w/ extension into the R gluteal muscles with several gas containing pockets of fluid concerning for abscess Wound care on board and appreciate their recommendations, currently is dressed with aquacel packing and optiofoam overtop No definite evidence of osteomyelitis on CT scan. Would continue on IV abx Plan to make NPO at midnight for debridement of sacral ulcer with Dr. Henriquez in the OR tomorrow Admission and Anticipated Discharge Date Admission Date: April 25, 2025 Supervising Physician Co-Signing Physician Notes I have seen and examined this patient. I agree with this plan. Subjective Patient lying on side offsetting pressure on sacral wound. Reports pain in the area. Physical Exam Physical Exam: awake/alert, no distress Skin: sacral wound currently dressing with aquacel ag and optifoam Results & Data Vital Signs (Past 12 Hours) Vital Signs Temp Pulse Resp BP Pulse Ox O2 Del Method 04/27/25 13:11 99.3 F 75 20 130/66 98 Room Air 04/27/25 10:42 Room Air 04/27/25 08:13 99.3 F 83 22 130/68 97 Room Air PG Care Time/CCT Total # of Minutes Spent Total Time Spent with Patient: Total time spent is greater than 50% in coordination of care (as documented) at patient's floor/unit and/or counseling patient: Coding Level of Care Code 93380 SUB INP/OBS CARE 06/12MIN Diagnoses Sacral decubitus ulcer L89.159 Pressure injury stage: unspecified pressure injury stage (1) Sacral decubitus ulcer Pressure injury stage: unspecified pressure injury stage Qualified Code(s): L89.159 - Pressure ulcer of sacral region, unspecified stage
--- NOTE | 2025-04-27 14:49 | Hospitalist Progress Note ---
Date of Service April 27, 2025 Assessment & Plan (1) Ambulatory dysfunction: Plan: Patient is a 84 year old F with a past medical history of Type II DM, hypothyroidism, dyslipidemia, HTN, Nonrheumatic AV stenosis, CKD III, anemia, spinal stenosis s/p thoracic and lumbar fusion presenting with mechanical fall. Experienced a fall this morning when using her walker, fell backwards and hit her head. Denied passing out, chest pain or dizziness at time of fall. [place] like her legs gave out. Reports feeling weak, often unstable with use of walker. Lives with son who manages her medications and care. Recently discharged from rehab on 04/20. Recent history of EColi UTI; denies urinary symptoms today. Ambulatory dysfunction secondary to chronic lower back pain with recurrent mechanical falls GLF with assistive device at home, hx of recurrent falls with recent d/c from rehab on 04/20; lives with son, possible need for additional home support vs rehab vs SNF --Head and Spine CT negative for acute injury; Lumbar spine CT showing bilateral L5 pedicle screws with possible loosening --Ortho surgery 01/10/25 for revision decompression L2-L4 for evidence of loosening screws consistent fracture L4, also spinal fusion L2-L5 with inst rumentation placement; patient has not fully recovered since procedure Continue home gabapentin regimen Appreciate pain therapy input and recommendation PT OT as able Fall precautions Sacral decub ulcer Chronic wound, unstageable with possible tracking; no active drainage, +slough Appreciate surgery input Wound Consulted as well Empirically on IV Zosyn N.p.o. after midnight for debridement tomorrow Suspected hardware loosening Spinal stenosis with radiculopathy --Lumbar CT:Status post multilevel decompression, discectomy and L2-L5 fusion. Lucency adjacent to the bilateral L5 pedicle screws raises the possibility of loosening. No change in appearance of the L4 vertebral fracture since prior CT. Status post L2 and L4 kyphoplasty. No acute lumbar spine fractures. Suboptimal evaluation of the central canal and neural foramen given CT technique and artifact from the surgical hardware. -- Will request orthospine evaluation NICHO on CKD Stage III Monitor renal function Avoid nephrotoxic agents as able Lasix on hold Lower leg edema Resume home Lasix as able Monitor Hypertension Presented with hypotension Continue metoprolol with holding parameters Blood pressure stable today Monitor Hyperlipidemia Continue home statin Hypothyroidism Continue home levothyroxine DVT Ppx: Heparin SQ Code status: DNR/DNI PCP: SANJAY Walker Disposition PT OT prior to discharge (2) Spinal stenosis of lumbar region with radiculopathy: (3) NICHO (acute kidney injury): (4) Stage 3b chronic kidney disease (CKD): (5) Lower leg edema: (6) Hypertension: (7) Sacral decubitus ulcer: (8) Hyperlipidemia: (9) Hypothyroidism: Admission and Anticipated Discharge Date Admission Date: April 25, 2025 Subjective Patient is seen and examined at bedside States having pain at sacral wound Also reports chronic peripheral neuropathy Denies any chest pain, dyspnea, abdominal pain, dizziness Discussed with surgery today Review of Systems Review of Systems: All systems reviewed & are unremarkable except as noted in Subjective Physical Exam Physical Exam: Physical Exam: Vitals signs as noted above General Appearance: Obese, no apparent distress Head: normocephalic, Atraumatic Eyes: normal inspection, EOMI Neck: supple, Trachea midline Respiratory/Chest: Normal breath sounds, CTA, No accessory muscle use Cardiovascular: S1, S2, + murmur Abdomen/GI:Soft, Non tender, Bowel sounds present Extremities/Musculoskeletal:normal inspection, trace edema Neurologic/Psych:AAOX3, grossly no focal neurological deficits Skin: normal color, warm,+ sacral ulcer Results & Data Results & Data Vital Signs (Past 12 Hours) Vital Signs Temp Pulse Resp BP Pulse Ox O2 Del Method 04/27/25 13:11 37.4 C 75 20 130/66 98 Room Air 04/27/25 10:42 Room Air 04/27/25 08:13 37.4 C 83 22 130/68 97 Room Air Laboratory Results [facility] 04/27/25 06:36 Sodium 138 Potassium 4.2 Chloride 106 Carbon Dioxide 24 BUN 43 H Creatinine 1.33 H Glucose 134 H Calcium 8.4 L (6) Hypertension Hypertension type: unspecified Qualified Code(s): I10 - Essential (primary) hypertension (7) Sacral decubitus ulcer Pressure injury stage: unspecified pressure injury stage Qualified Code(s): L89.159 - Pressure ulcer of sacral region, unspecified stage (9) Hypothyroidism Hypothyroidism type: unspecified Qualified Code(s): E03.9 - Hypothyroidism, unspecified
[2025-04-27] MEDS: METOPROLOL SUCC 25MG EXT REL TAB PO SCH (15:53)
[2025-04-28 06:48] LABS: Hematocrit (blood only) 28.4 % (37.0-47.0); Hemoglobin 9.3 g/dL (12.0-16.0); Mean Corpuscular Hemoglobin 31.2 pg (25.0-34.0); Mean Corpuscular Volume 95.3 fL (80.0-100.0); Platelet Count 233 K/uL (130-400); RDW Standard Deviation 47.5 fL (36.4-46.3); Red Blood Count 2.98 M/uL (4.20-5.40); White Blood Count 8.89 K/ul (4.8-10.8)
[2025-04-28 07:35] LABS: Anion Gap 8.0 (3-11); Blood Urea Nitrogen 42.0 mg/dl (6-23); Calcium 8.4 mg/dl (8.6-10.3); Carbon Dioxide 26.0 mmol/L (21-32); Chloride 105.0 mmol/L (98-107); Creatinine Clr Calc Pharmacy 31.8 ml/min; Glucose 135.0 mg/dl (70-99(Fasting)); Magnesium 1.9 mg/dl (1.7-2.4); Potassium 4.2 mmol/L (3.5-5.1); Sodium 139.0 mmol/L (136-145)
[2025-04-28] MEDS: MAGNESIUM CHLORIDE W/CALCIUM 64MG DELAYED REL TAB PO SCH (08:43)
--- NOTE | 2025-04-28 10:09 | Orthopedic Consultation ---
Date of Consultation April 28, 2025 Assessment & Plan (1) Lower extremity weakness: At this time I have reviewed her CAT scan. I do not see any evidence of there is no need for any surgical intervention from my standpoint. Her back pain is well-controlled. Recommend she continue therapy as tolerated. History of Present Illness Reason for Consultation: Status post back surgery Attending Physician: Alfred Thorne MD History of Present Illness This is a very pleasant 84-year-old female well-known to me that presents the hospital after a fall. She is currently being managed for sacral decubiti. She denies any back pain. She states when she was at the nursing, she was ambulating the halls comfortably and well. She declined rapidly at home. She has fallen several times at home. Today she denies any back radiculopathy. Allergies Allergy/AdvReac Type Severity Reaction Status Date / Time sulfamethoxazole [Bactrim] AdvReac Intermediate "made the Verified 01/10/25 12:23 UTI worse" trimethoprim [Bactrim] AdvReac Intermediate "made the Verified 01/10/25 12:23 UTI worse" Home Medications Medication Instructions Recorded Confirmed Type acetaminophen 325 mg tablet 325 mg PO QID PRN Pain 08/18/24 04/25/25 History allopurinol 300 mg tablet 300 mg PO QAM 08/18/24 04/25/25 History aspirin 81 mg tablet,delayed 81 mg PO QAM 08/18/24 04/25/25 History release atorvastatin 80 mg tablet 80 mg PO HS 08/18/24 04/25/25 History cholecalciferol (vitamin D3) 25 50 mcg PO DAILY 08/18/24 04/25/25 History mcg (1,000 unit) capsule (Vitamin D3) levothyroxine 50 mcg tablet 50 mcg PO QAM 08/18/24 04/25/25 History metoprolol succinate 25 mg 0 mg PO QAM 08/18/24 04/25/25 History tablet,extended release 24 hr BuSpar 15 mg PO BID ##0 03/12/25 04/25/25 History ferrous sulfate 0 mg PO QAM ##0 03/12/25 04/25/25 History furosemide 40 mg tablet (Lasix) 40 mg PO DAILY ##0 03/12/25 04/25/25 History gabapentin 100 mg capsule 100 mg PO UD 04/25/25 04/25/25 History Patient History Medical History Carotid artery stenosis mild bilat ICA stenosis per [facility] EMR Type 2 diabetes mellitus CKD (chronic kidney disease) stage 3, GFR 30-59 ml/min Aortic stenosis moderate RBBB Hyperlipidemia Hypertension controlled, stable per pt Degenerative disc disease Osteoarthritis Gout Hypothyroidism History of kidney stones MUSA (dyspnea on exertion) chronic Surgical History History of surgical procedure on thoracic spine T9-T10 decompression fusion - August 2024 History of dilatation and curettage History of tooth extraction History of total knee replacement right History of total hip arthroplasty bilat History of cataract surgery bilat History of tonsillectomy History of cystoscopy hx of stent and since removed Family History Mother Diabetes Aunt No problems noted. 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 She is neurologically intact. Appears comfortable. Results & Data Vital Signs (Past 12 Hours) Vital Signs Temp Pulse Resp BP Pulse Ox O2 Del Method 04/28/25 08:00 36.6 C 67 16 128/71 96 Room Air
--- NOTE | 2025-04-28 11:09 | Surgery Progress Note ---
Date of Service April 28, 2025 Assessment & Plan (1) Sacral decubitus ulcer: Plan We will plan for surgical debridement and drainage with possible incision and deroofing of an abscess pocket. The details of the procedure have been explained to the patient including risks, benefits and alternatives. Consent was obtained. Admission and Anticipated Discharge Date Admission Date: April 25, 2025 Tiffany Hinojosa is NPO this am for planned surgical debridement. She states she has pain at the area and the surrounding area is tender Physical Exam Constitutional: + obese; not disheveled, not in distress and not diaphoretic Respiratory: normal respiratory effort; no respiratory distress, no labored breathing and does not use accessory muscles Cardiovascular: Rate/Rhythm: regular rate; not tachycardic Extremities: + edema Skin: There is purulent drainage from the small sacral wound TTP around the wound Results & Data Vital Signs (Past 12 Hours) Vital Signs Temp Pulse Resp BP Pulse Ox O2 Del Method 04/28/25 08:00 36.6 C 67 16 128/71 96 Room Air PG Care Time/CCT Total # of Minutes Spent Total Time Spent with Patient: Total time spent is greater than 50% in coordination of care (as documented) at patient's floor/unit and/or counseling patient: Coding Level of Care Code 29226 SUB INP/OBS CARE 06/12MIN Diagnoses Sacral decubitus ulcer L89.159 Pressure injury stage: unspecified pressure injury stage (1) Sacral decubitus ulcer Pressure injury stage: unspecified pressure injury stage Qualified Code(s): L89.159 - Pressure ulcer of sacral region, unspecified stage
--- NOTE | 2025-04-28 11:39 | Hospitalist Progress Note ---
Date of Service April 28, 2025 Assessment & Plan (1) Ambulatory dysfunction: Plan: Patient is a 84 year old F with a past medical history of Type II DM, hypothyroidism, dyslipidemia, HTN, Nonrheumatic AV stenosis, CKD III, anemia, spinal stenosis s/p thoracic and lumbar fusion presenting with mechanical fall. Experienced a fall this morning when using her walker, fell backwards and hit her head. Denied passing out, chest pain or dizziness at time of fall. [place] like her legs gave out. Reports feeling weak, often unstable with use of walker. Lives with son who manages her medications and care. Recently discharged from rehab on 04/20. Recent history of EColi UTI; denies urinary symptoms today. Ambulatory dysfunction secondary to chronic lower back pain with recurrent mechanical falls GLF with assistive device at home, hx of recurrent falls with recent d/c from rehab on 04/20; lives with son, possible need for additional home support vs rehab vs SNF --Head and Spine CT negative for acute injury; Lumbar spine CT showing bilateral L5 pedicle screws with possible loosening --Ortho surgery 01/10/25 for revision decompression L2-L4 for evidence of loosening screws consistent fracture L4, also spinal fusion L2-L5 with instrumentation placement; patient has not fully recovered since procedure Continue home gabapentin regimen Appreciate pain therapy input and recommendation PT OT as able Fall precautions Sacral decub ulcer Chronic wound, unstageable with possible tracking; no active drainage, +slough Appreciate surgery input Wound Consulted as well Empirically on IV Zosyn-- continue for now Plan for wound debridement today Suspected hardware loosening-- less likely Spinal stenosis with radiculopathy --Lumbar CT:Status post multilevel decompression, discectomy and L2-L5 fusion. Lucency adjacent to the bilateral L5 pedicle screws raises the possibility of loosening. No change in appearance of the L4 vertebral fracture since prior CT. Status post L2 and L4 kyphoplasty. No acute lumbar spine fractures. Suboptimal evaluation of the central canal and neural foramen given CT technique and artifact from the surgical hardware. -- Appreciate orthospine input--currently no surgical intervention recommended NICHO on CKD Stage III Monitor renal function Renal function improved Avoid nephrotoxic agents as able Lasix on hold Lower leg edema Resume home Lasix likely tomorrow Monitor Hypomagnesemia Replete and monitor Hypertension Presented with hypotension Continue metoprolol with holding parameters Blood pressure stable Hyperlipidemia Continue home statin Hypothyroidism Continue home levothyroxine DVT Ppx: Heparin SQ Code status: DNR/DNI PCP: SANJAY Walker Disposition PT OT prior to discharge (2) Spinal stenosis of lumbar region with radiculopathy: (3) NICHO (acute kidney injury): (4) Stage 3b chronic kidney disease (CKD): (5) Lower leg edema: (6) Hypertension: (7) Sacral decubitus ulcer: (8) Hyperlipidemia: (9) Hypothyroidism: Admission and Anticipated Discharge Date Admission Date: April 25, 2025 Subjective Patient is seen and examined at bedside Continues to have sacral wound pain No new complaints today Denies any chest pain, dyspnea, abdominal pain, dizziness Plan for wound debridement today Review of Systems Review of Systems: All systems reviewed & are unremarkable except as noted in Subjective Physical Exam Physical Exam: Physical Exam: Vitals signs as noted above General Appearance: Obese, no apparent distress Head: normocephalic, Atraumatic Eyes: normal inspection, EOMI Neck: supple, Trachea midline Respiratory/Chest: Normal breath sounds, CTA, No accessory muscle use Cardiovascular: S1, S2, + murmur Abdomen/GI:Soft, Non tender, Bowel sounds present Extremities/Musculoskeletal:normal inspection, trace edema Neurologic/Psych:AAOX3, grossly no focal neurological deficits Skin: normal color, warm,+ sacral ulcer Results & Data Results & Data Vital Signs (Past 12 Hours) Vital Signs Temp Pulse Resp BP Pulse Ox O2 Del Method 04/28/25 08:00 36.6 C 67 16 128/71 96 Room Air Laboratory Results Short CBC 04/28/25 Range/Units 05:55 WBC 8.89 (4.8-10.8) K/ul Hgb 9.3 L (12.0-16.0) g/dL Hct 28.4 L (37.0-47.0) % Plt Count 233 (130-400) K/uL BMP 04/28/25 05:55 Sodium 139 Potassium 4.2 Chloride 105 Carbon Dioxide 26 BUN 42 H Creatinine 1.26 H Glucose 135 H Calcium 8.4 L (6) Hypertension Hypertension type: unspecified Qualified Code(s): I10 - Essential (primary) hypertension (7) Sacral decubitus ulcer Pressure injury stage: unspecified pressure injury stage Qualified Code(s): L89.159 - Pressure ulcer of sacral region, unspecified stage (9) Hypothyroidism Hypothyroidism type: unspecified Qualified Code(s): E03.9 - Hypothyroidism, unspecified
[2025-04-28] MEDS ORDERED: ONDANSETRON INJ 2 MG/ML 2 ML VIAL IV PRN (13:41)
[2025-04-28] MEDS ORDERED: ATROPINE SULFATE 0.1 MG/ML 10ML SYR IV PRN (13:41)
--- NOTE | 2025-04-28 13:41 | Anesthesiology Consultation ---
Date of Service April 28, 2025 Assessment & Plan Chart Review Chart Review: Acceptable Risk for Surgery and Patient NOT seen in Pre Admission Testing Consults Requested none History Surgery Operation Date: 04/28/25 07:00 Proposed Procedures p Debridement Sacral Ulcer - Emile Henriquez DO Height/Weight Height: 4 ft 11 in Weight: 84 kg Allergies Allergy/AdvReac Type Severity Reaction Status Date / Time sulfamethoxazole [Bactrim] AdvReac Intermediate "made the Verified 01/10/25 12:23 UTI worse" trimethoprim [Bactrim] AdvReac Intermediate "made the Verified 01/10/25 12:23 UTI worse" Medications Home Medications Medication Instructions Recorded Confirmed Last Taken acetaminophen 325 mg tablet 325 mg PO QID PRN Pain 08/18/24 04/25/25 Unknown allopurinol 300 mg tablet 300 mg PO QAM 08/18/24 04/25/25 12/17/24 aspirin 81 mg tablet,delayed 81 mg PO QAM 08/18/24 04/25/25 12/17/24 release atorvastatin 80 mg tablet 80 mg PO HS 08/18/24 04/25/25 12/17/24 cholecalciferol (vitamin D3) 25 50 mcg PO DAILY 08/18/24 04/25/25 12/17/24 mcg (1,000 unit) capsule (Vitamin D3) levothyroxine 50 mcg tablet 50 mcg PO QAM 08/18/24 04/25/25 12/17/24 metoprolol succinate 25 mg 0 mg PO QAM 08/18/24 04/25/25 12/17/24 tablet,extended release 24 hr BuSpar 15 mg PO BID ##0 03/12/25 04/25/25 Unknown ferrous sulfate 0 mg PO QAM ##0 03/12/25 04/25/25 Unknown furosemide 40 mg tablet (Lasix) 40 mg PO DAILY ##0 03/12/25 04/25/25 Unknown gabapentin 100 mg capsule 100 mg PO UD 04/25/25 04/25/25 Unknown Active Medications Generic Name Dose Route Start Last Admin Trade Name Freq PRN Reason Stop Dose Admin Allopurinol 300 mg 04/26/25 09:00 04/28/25 08:42 Allopurinol 300 Mg Tab PO 05/26/25 08:59 300 mg QAM HARIKA Administration Aspirin 81 mg 04/26/25 09:00 04/28/25 08:43 Aspirin 81 Mg Ectab PO 05/26/25 08:59 81 mg QAM HARIKA Administration Atorvastatin Calcium 80 mg 04/25/25 21:00 04/27/25 21:59 Atorvastatin 40 Mg Tab PO 05/25/25 20:59 80 mg HS HARIKA Administration Buspirone HCl 15 mg 04/25/25 21:00 04/28/25 08:43 Buspirone 15 Mg Tab PO 05/25/25 20:59 15 mg BID HARIKA Administration Gabapentin 200 mg 04/26/25 21:00 04/28/25 08:43 Gabapentin 100 Mg Cap PO 05/26/25 20:59 200 mg BID HARIKA Administration Heparin Sodium (Porcine) 5,000 units 04/25/25 21:00 04/28/25 11:11 Heparin Sod 5,000 Unit/0.5 Ml Vial SQ 05/25/25 20:59 Not Given Q12 HARIKA Acetaminophen 1,000 mg in 100 mls @ 400 mls/hr 04/25/25 23:27 04/26/25 13:07 Ofirmev IV 04/28/25 23:26 Infused Q8H PRN Infusion Pain or Fever Piperacillin Sod/Tazobactam Sod 4.5 gm in 100 mls @ 25 mls/hr 04/27/25 02:00 04/28/25 11:10 Zosyn IV 05/04/25 01:59 25 mls/hr Q8H HARIKA Administration Protocol Levothyroxine Sodium 50 mcg 04/26/25 06:30 04/28/25 05:57 Levothyroxine Sodium 50 Mcg Tablet PO 05/26/25 06:29 50 mcg DAILYBB HARIKA Administration Magnesium Chloride 64 mg 04/28/25 09:00 04/28/25 08:43 Magnesium Chloride W/Calcium 64mg Delayed Rel Tab PO 05/28/25 08:59 64 mg BID HARIKA Administration Metoprolol Succinate 25 mg 04/27/25 15:15 04/28/25 08:44 Metoprolol Succ 25mg Ext Rel Tab PO 05/27/25 15:14 25 mg QAM HARIKA Administration Vitamin D 50 mcg 04/26/25 09:00 04/28/25 08:42 Cholecalciferol 25 Mcg (1000 Units) Tab PO 05/26/25 08:59 50 mcg DAILY HARIKA Administration NPO Date Last Intake of Fluids: 04/27/25 Time Last Intake of Fluids: 22:00 Date Last Intake of Solids: 04/27/25 Time Last Intake of Solids: 22:00 Past Medical History Medical History Carotid artery stenosis mild bilat ICA stenosis per [facility] EMR Type 2 diabetes mellitus CKD (chronic kidney disease) stage 3, GFR 30-59 ml/min Aortic stenosis moderate RBBB Hyperlipidemia Hypertension controlled, stable per pt Degenerative disc disease Osteoarthritis Gout Hypothyroidism History of kidney stones MUSA (dyspnea on exertion) chronic Past Family History Family History Mother Diabetes Aunt No problems noted. Past Surgical History Surgical History History of surgical procedure on thoracic spine T9-T10 decompression fusion - August 2024 History of dilatation and curettage History of tooth extraction History of total knee replacement right History of total hip arthroplasty bilat History of cataract surgery bilat History of tonsillectomy History of cystoscopy hx of stent and since removed Social History Smoking Status: Never smoker Do You Dip or Chew Tobacco: No Hx Alcohol Use: No Hx Substance Use: No substance use type: does not use Physical Exam Vital Signs Last Vital Signs Temp 37.1 C 04/28/25 13:13 Pulse 64 04/28/25 13:13 Resp 20 04/28/25 13:13 BP 127/40 L 04/28/25 13:13 Pulse Ox 95 04/28/25 13:13 O2 Del Method Room Air 04/28/25 13:13 Testing Laboratory Results 04/28/25 05:55 04/28/25 05:55 PT 10.8 Seconds (9.0-12.0) 04/25/25 15:00 INR 1.0 (0.9-1.1) 04/25/25 15:00 Urine Color Yellow 04/25/25 15:35 Urine Appearance Clear (Clear) 04/25/25 15:35 Urine pH 5.5 (4.5-7.5) 04/25/25 15:35 Ur Specific [place] 1.008 (1.000-1.030) 04/25/25 15:35 Urine Protein Negative (Negative) 04/25/25 15:35 Urine Glucose (UA) Negative (Negative) 04/25/25 15:35 Urine Ketones Negative (Negative) 04/25/25 15:35 Urine Nitrite Negative (Negative) 04/25/25 15:35 Ur Leukocyte Esterase Trace (Negative) H 04/25/25 15:35 Urine WBC (Auto) 0-5 /hpf (0-5) 04/25/25 15:35 Urine RBC (Auto) 0-2 /hpf (0-2) 04/25/25 15:35 U Hyaline Cast (Auto) 0-2 /lpf (0-2) 04/25/25 15:35 U Epithel Cells (Auto) 0-2 /hpf (0-2) 04/25/25 15:35 Urine Bacteria (Auto) 4+ (None Seen) H 04/25/25 15:35
[2025-04-28] MEDS: LACTATED RINGER'S 1,000 ML IV SCH (13:47)
[2025-04-28] MEDS ORDERED: MIDAZOLAM HCL 1 MG/ML 2ML VIAL ONE (14:10)
[2025-04-28] MEDS ORDERED: PROPOFOL IV EMULSION 10 MG/ML 20 ML VIAL IV ONE (14:14)
[2025-04-28] MEDS ORDERED: ROCURONIUM BROMIDE 10 MG/ML 5 ML VIAL IV ONE (14:15)
[2025-04-28] MEDS ORDERED: ONDANSETRON INJ 2 MG/ML 2 ML VIAL ONE (15:08)
[2025-04-28] MEDS ORDERED: SUGAMMADEX SODIUM 200 MG/2 ML VIAL IV ONE (15:09)
--- NOTE | 2025-04-28 15:25 | Operative Report ---
[facility] Post Operative Report Pre & Post Diagnosis Operation Date: 04/28/25 07:00 Pre-Op Diagnosis: Sacral decubitus ulcer Post-Op Diagnosis: Sacral decubitus ulcer I identified the patient and participated in the time-out.: Yes Procedure Operation Date: 04/28/25 07:00 Actual Procedures p Debridement of Sacral Wound, Incision and Drainage(Not Applicable) - Emile Henriquez DO Surgeon Emile Henriquez DO [employer] JOSE Lenz Estimated Blood Loss 3 Findings See Below Necrotic tissue over the sacrum, to the level of the periosteum centrally Purulent discharge Tissue cultures sent Specimens None Anesthesia Type General Indications Infected sacral wound Description of Procedure The patient provide to the operating room. She was connected to cardiac and oxygen monitoring, supplemental O2 was provided and SCDs were applied to bilateral lower extremities. The patient was administered general anesthesia and a secure airway was established. The patient was then placed on the operating table in prone position. The sacral area was prepped and draped in typical sterile fashion a timeout was conducted. Purulent fluid and discharge was cleared away from the small 1 cm circumferential wound at the sacrum. Once this was cleared away, grayish-black tissue was identified. The area was probed noted to undermine towards the right side of the patient involving a pocket that extended roughly 4 cm. A 15 blade was used to make an incision from the existing wound extending out laterally over this pocket exposing the tissue below. Thankfully the area of dark tissue involved the central area and did not extend deep into this pocket. The dark necrotic tissue was removed extending the depth of the wound to the level of the periosteum of the mid sacrum. Healthy fat existed at the lateral aspect of the newly created opening. The surrounding tissues appeared healthy and clean. The area was copiously irrigated and dried. All dark tissue was debrided away. The wound was dressed with a wound VAC including a bridge to the right anterior hip. The wound VAC was connected and started at a pressure of -125 mmHg. There was a good seal without leak. The patient was returned to the supine position. General anesthesia was discontinued and secured airway was removed. She was transferred to recovery in stable condition. She tolerated procedure well. The customer relations assistant aided in constructing the wound VAC and provide the bridge from the to the anterior hip. I attest to the content of the Intraoperative Record and any orders documented therein. Any exceptions are noted below.
[2025-04-28] MEDS: BUPIVACAINE 0.5 % 5 MG/1 ML MPF 30ML VIAL ONE (16:09)
--- NOTE | 2025-04-28 16:16 | Anesthesiology Progress Note ---
Date of Service April 28, 2025 Anesthesia Post Procedure Vital Signs Vital Signs: Temp Pulse Pulse Resp BP BP Pulse Ox 04/28/25 16:05 65 20 132/69 95 04/28/25 15:55 36.3 C L 66 19 148/60 H 96 04/28/25 15:45 62 19 159/58 H 99 04/28/25 15:35 63 19 150/67 H 100 04/28/25 15:28 36.2 C L 70 12 147/74 H 94 04/28/25 13:13 37.1 C 64 20 127/40 L 95 04/28/25 08:00 36.6 C 67 16 128/71 96 04/27/25 20:42 37.0 C 77 14 133/70 94 04/27/25 19:50 O2 Del Method O2 Flow Rate 04/28/25 16:05 Room Air 04/28/25 15:55 Room Air 04/28/25 15:45 Oxymask 3 04/28/25 15:35 Oxymask 7 04/28/25 15:28 Oxymask 7 04/28/25 13:13 Room Air 04/28/25 08:00 Room Air 04/27/25 20:42 Room Air 04/27/25 19:50 Room Air Pain Intensity Back: Pain Intensity: 0 Transfer of Care Handoff Completed per policy Notes Mental Status: alert / awake / arousable Patient Amnestic to Procedure: Yes Nausea / Vomiting: adequately controlled Pain: adequately controlled Airway Patency, RR, SpO2: stable & adequate BP & HR: stable & adequate Hydration State: stable & adequate Anesthetic Complications: no major complications apparent
[2025-04-28] MEDS: ACETAMINOPHEN 1,000 MG/100 ML VIAL IV SCH (16:42)
[2025-04-29 06:41] LABS: Hematocrit (blood only) 27.3 % (37.0-47.0); Hemoglobin 8.8 g/dL (12.0-16.0); Mean Corpuscular Hemoglobin 31.1 pg (25.0-34.0); Mean Corpuscular Volume 96.5 fL (80.0-100.0); Platelet Count 233 K/uL (130-400); RDW Standard Deviation 48.3 fL (36.4-46.3); Red Blood Count 2.83 M/uL (4.20-5.40); White Blood Count 9.64 K/ul (4.8-10.8)
[2025-04-29 07:02] LABS: Anion Gap 7.0 (3-11); Blood Urea Nitrogen 35.0 mg/dl (6-23); Calcium 7.9 mg/dl (8.6-10.3); Carbon Dioxide 25.0 mmol/L (21-32); Chloride 106.0 mmol/L (98-107); Creatinine Clr Calc Pharmacy 28.2 ml/min; Glucose 195.0 mg/dl (70-99(Fasting)); Magnesium 1.8 mg/dl (1.7-2.4); Potassium 4.1 mmol/L (3.5-5.1); Sodium 138.0 mmol/L (136-145)
[2025-04-29] MEDS ORDERED: GLUCAGON FOR INJ 1 MG VIAL SQ PRN (08:48)
[2025-04-29] MEDS ORDERED: GLUCOSE 40% GEL 15 GM TUBE PO PRN (08:48)
[2025-04-29] MEDS ORDERED: CARBOHYDRATES FOR HYPOGLYCEMIA PO PRN (08:48)
[2025-04-29] MEDS ORDERED: DEXTROSE 50% 50 ML SYRINGE IV PRN (08:48)
[2025-04-29] MEDS ORDERED: GLUCOSE 10 TAB/TUBE PO PRN (08:48)
--- NOTE | 2025-04-29 10:07 | Surgery Progress Note ---
Date of Service April 29, 2025 Assessment & Plan (1) Sacral decubitus ulcer: Plan POD 1 s/p sacral wound debridement, exposure of excessive tunneling and wound VAC application Wound care is on board to manage wound VAC changes and monitor the wound Recommend discharge to a facility that will continue wound VAC therapy Follow up with wound care upon hospital discharge PT per ortho recs Reconsult surgery as needed [facility] will be forming yardage control operator for surgery this weekend Admission and Anticipated Discharge Date Admission Date: April 25, 2025 Subjective I have seen and examined this pt this am. She states she does not have that much pain at her wound site. Physical Exam Constitutional: not in distress and not diaphoretic Wound VAC is in place there is roughly 200mL of dark blood in the VAC. There is no leak, the VAC is functioning well Respiratory: normal respiratory effort; no respiratory distress, no labored breathing and does not use accessory muscles Results & Data Vital Signs (Past 12 Hours) Vital Signs Temp Pulse Pulse Resp BP BP Pulse Ox 04/29/25 07:52 36.9 C 66 22 122/60 93 04/29/25 04:22 37.3 C 71 15 104/60 95 04/29/25 00:45 115/68 04/29/25 00:37 37.1 C 67 18 92/58 L 92 O2 Del Method 04/29/25 07:52 Room Air 04/29/25 04:22 Room Air 04/29/25 00:45 04/29/25 00:37 Room Air PG Care Time/CCT Total # of Minutes Spent Total Time Spent with Patient: Total time spent is greater than 50% in coordination of care (as documented) at patient's floor/unit and/or counseling patient: Coding Level of Care Code 06513 Post Operative Follow-Up Diagnoses Sacral decubitus ulcer L89.159 Pressure injury stage: unspecified pressure injury stage (1) Sacral decubitus ulcer Pressure injury stage: unspecified pressure injury stage Qualified Code(s): L89.159 - Pressure ulcer of sacral region, unspecified stage
[2025-04-29] MEDS: INSULIN ASPART PER UNIT CHARGE SC SCH (13:08)
--- NOTE | 2025-04-29 15:29 | Hospitalist Progress Note ---
Date of Service April 29, 2025 Assessment & Plan (1) Ambulatory dysfunction: Plan: Patient is a 84 year old F with a past medical history of Type II DM, hypothyroidism, dyslipidemia, HTN, Nonrheumatic AV stenosis, CKD III, anemia, spinal stenosis s/p thoracic and lumbar fusion presenting with mechanical fall. Experienced a fall this morning when using her walker, fell backwards and hit her head. Denied passing out, chest pain or dizziness at time of fall. [place] like her legs gave out. Reports feeling weak, often unstable with use of walker. Lives with son who manages her medications and care. Recently discharged from rehab on 04/20. Recent history of EColi UTI; denies urinary symptoms today. Ambulatory dysfunction secondary to chronic lower back pain with recurrent mechanical falls GLF with assistive device at home, hx of recurrent falls with recent d/c from rehab on 04/20; lives with son, possible need for additional home support vs rehab vs SNF --Head and Spine CT negative for acute injury; Lumbar spine CT showing bilateral L5 pedicle screws with possible loosening --Ortho surgery 01/10/25 for revision decompression L2-L4 for evidence of loosening screws consistent fracture L4, also spinal fusion L2-L5 with instrumentation placement; patient has not fully recovered since procedure Continue home gabapentin regimen Appreciate pain therapy input and recommendation Continue PT OT Fall precautions Will need discharge to SNF as able Sacral decub ulcer Chronic wound, unstageable with possible tracking; no active drainage, +slough --S/P debridement of sacral wound, incision and drainage on 04/28/2025 --Wound culture pending Appreciate surgery input Continue wound VAC 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 Lucency adjacent to the bilateral L5 pedicle screws raises the possibility of loosening. No change in appearance of the L4 vertebral fracture since prior CT. Status post L2 and L4 kyphoplasty. No acute lumbar spine fractures. Suboptimal evaluation of the central canal and neural foramen given CT technique and artifact from the surgical hardware. -- Appreciate orthospine input--currently no surgical intervention recommended NICHO on CKD Stage III Monitor renal function Renal function stable Avoid nephrotoxic agents as able Lasix on hold Lower leg edema Resume home Lasix likely tomorrow Monitor Hypomagnesemia Replete and monitor Hypertension Presented with hypotension Continue metoprolol with holding parameters Blood pressure stable Hyperlipidemia Continue home statin Hypothyroidism Continue home levothyroxine DVT Ppx: Heparin SQ Code status: DNR/DNI PCP: SANJAY Walker Disposition Plan to discharge to SNF as able (2) Spinal stenosis of lumbar region with radiculopathy: (3) NICHO (acute kidney injury): (4) Stage 3b chronic kidney disease (CKD): (5) Lower leg edema: (6) Hypertension: (7) Sacral decubitus ulcer: (8) Hyperlipidemia: (9) Hypothyroidism: Admission and Anticipated Discharge Date Admission Date: April 25, 2025 Subjective Patient is seen and examined at bedside No new complaints Was having sacral wound pain while dressing changed this morning Denies any chest pain, dyspnea, abdominal pain, dizziness Review of Systems Review of Systems: All systems reviewed & are unremarkable except as noted in Subjective Physical Exam Physical Exam: Physical Exam: Vitals signs as noted above General Appearance: Obese, no apparent distress Head: normocephalic, Atraumatic Eyes: normal inspection, EOMI Neck: supple, Trachea midline Respiratory/Chest: Normal breath sounds, CTA, No accessory muscle use Cardiovascular: S1, S2, + murmur Abdomen/GI:Soft, Non tender, Bowel sounds present Extremities/Musculoskeletal:normal inspection, trace edema Neurologic/Psych:AAOX3, grossly no focal neurological deficits Skin: normal color, warm,+ sacral wound and dressing Results & Data Results & Data Vital Signs (Past 12 Hours) Vital Signs Temp Pulse Pulse Resp BP Pulse Ox O2 Del Method 04/29/25 15:11 36.9 C 61 18 106/62 95 Room Air 04/29/25 11:40 36.8 C 62 20 122/70 95 Room Air 04/29/25 07:52 36.9 C 66 22 122/60 93 Room Air 04/29/25 04:22 37.3 C 71 15 104/60 95 Room Air Laboratory Results Short CBC 04/29/25 Range/Units 06:21 WBC 9.64 (4.8-10.8) K/ul Hgb 8.8 L (12.0-16.0) g/dL Hct 27.3 L (37.0-47.0) % Plt Count 233 (130-400) K/uL [facility] 04/29/25 06:21 Sodium 138 Potassium 4.1 Chloride 106 Carbon Dioxide 25 BUN 35 H Creatinine 1.42 H Glucose 195 H Calcium 7.9 L (6) Hypertension Hypertension type: unspecified Qualified Code(s): I10 - Essential (primary) hypertension (7) Sacral decubitus ulcer Pressure injury stage: unspecified pressure injury stage Qualified Code(s): L89.159 - Pressure ulcer of sacral region, unspecified stage (9) Hypothyroidism Hypothyroidism type: unspecified Qualified Code(s): E03.9 - Hypothyroidism, unspecified
[2025-04-29] MEDS: MELATONIN 3 MG TAB PO PRN (21:16)
[2025-04-30 06:19] LABS: Hematocrit (blood only) 28.2 % (37.0-47.0); Hemoglobin 8.9 g/dL (12.0-16.0); Mean Corpuscular Hemoglobin 30.7 pg (25.0-34.0); Mean Corpuscular Volume 97.2 fL (80.0-100.0); Platelet Count 249 K/uL (130-400); RDW Standard Deviation 49.1 fL (36.4-46.3); Red Blood Count 2.90 M/uL (4.20-5.40); White Blood Count 8.78 K/ul (4.8-10.8)
[2025-04-30 06:33] LABS: Anion Gap 9.0 (3-11); Blood Urea Nitrogen 30.0 mg/dl (6-23); Calcium 8.3 mg/dl (8.6-10.3); Carbon Dioxide 25.0 mmol/L (21-32); Chloride 105.0 mmol/L (98-107); Creatinine Clr Calc Pharmacy 27.6 ml/min; Glucose 129.0 mg/dl (70-99(Fasting)); Potassium 4.1 mmol/L (3.5-5.1); Sodium 139.0 mmol/L (136-145)
--- NOTE | 2025-04-30 07:20 | Electrocardiogram Report ---
Test Reason : Blood Pressure : */* mmHG Vent. 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
[2025-04-30] MEDS ORDERED: ACETAMINOPHEN 500 MG TAB PO SCH (09:15)
[2025-04-30] MEDS: ACETAMINOPHEN 325 MG TAB PO PRN (10:05)
[2025-04-30] MEDS: ADVANCED PROBIOTIC 625 MG CAPSULE PO SCH (13:28)
[2025-04-30] MEDS: LACTATED RINGER'S 1,000 ML IV ONE (14:19)
--- NOTE | 2025-04-30 15:12 | Hospitalist Progress Note ---
Date of Service April 30, 2025 Assessment & Plan (1) Ambulatory dysfunction: Plan: Patient is a 84 year old F with a past medical history of Type II DM, hypothyroidism, dyslipidemia, HTN, Nonrheumatic AV stenosis, CKD III, anemia, spinal stenosis s/p thoracic and lumbar fusion presenting with mechanical fall. Experienced a fall this morning when using her walker, fell backwards and hit her head. Denied passing out, chest pain or dizziness at time of fall. [place] like her legs gave out. Reports feeling weak, often unstable with use of walker. Lives with son who manages her medications and care. Recently discharged from rehab on 04/20. Recent history of EColi UTI; denies urinary symptoms today. Ambulatory dysfunction secondary to chronic lower back pain with recurrent mechanical falls GLF with assistive device at home, hx of recurrent falls with recent d/c from rehab on 04/20; lives with son, possible need for additional home support vs rehab vs SNF --Head and Spine CT negative for acute injury; Lumbar spine CT showing bilateral L5 pedicle screws with possible loosening --Ortho surgery 01/10/25 for revision decompression L2-L4 for evidence of loosening screws consistent fracture L4, also spinal fusion L2-L5 with instrumentation placement; patient has not fully recovered since procedure Continue home gabapentin regimen Appreciate pain therapy input and recommendation Continue PT OT Fall precautions Plan to discharge to SNF as able Sacral decub ulcer Chronic wound, unstageable with possible tracking; no active drainage, +slough --S/P debridement of sacral wound, incision and drainage on 04/28/2025 --Wound culture growing strep anginosus, bacteroids--sensitivities pending Appreciate surgery input Continue wound VAC 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 difficile pending Monitor volume status, IV fluids as needed Suspected hardware loosening-- less likely Spinal stenosis with radiculopathy --Lumbar CT:Status post multilevel decompression, discectomy and L2-L5 fusion. Lucency adjacent to the bilateral L5 pedicle screws raises the possibility of loosening. No change in appearance of the L4 vertebral fracture since prior CT. Status post L2 and L4 kyphoplasty. No acute lumbar spine fractures. Suboptimal evaluation of the central canal and neural foramen given CT technique and artifact from the surgical hardware. -- Appreciate orthospine input--currently no surgical intervention recommended NICHO on CKD Stage III Monitor renal function Renal function stable Avoid nephrotoxic agents as able Lasix on hold today Lower leg edema Resume Lasix as able Monitor Hypomagnesemia Replete and monitor Hypertension Presented with hypotension Continue metoprolol with holding parameters Blood pressure stable Hyperlipidemia Continue home statin Hypothyroidism Continue home levothyroxine DVT Ppx: Heparin SQ Code status: DNR/DNI PCP: SANJAY Walker Disposition Plan to discharge to SNF as able (2) Spinal stenosis of lumbar region with radiculopathy: (3) NICHO (acute kidney injury): (4) Stage 3b chronic kidney disease (CKD): (5) Lower leg edema: (6) Hypertension: (7) Sacral decubitus ulcer: (8) Hyperlipidemia: (9) Hypothyroidism: Admission and Anticipated Discharge Date Admission Date: April 25, 2025 Subjective Patient is seen and examined at bedside Sacral wound pain about same as yesterday Reports having multiple loose bowel movements Denies any nausea, vomiting, abdominal pain No other complaints Also denies any chest pain, dyspnea, dizziness Review of Systems Review of Systems: All systems reviewed & are unremarkable except as noted in Subjective Physical Exam Physical Exam: Physical Exam: Vitals signs as noted above General Appearance: Obese, no apparent distress Head: normocephalic, Atraumatic Eyes: normal inspection, EOMI Neck: supple, Trachea midline Respiratory/Chest: Normal breath sounds, CTA, No accessory muscle use Cardiovascular: S1, S2, + murmur Abdomen/GI:Soft, Non tender, Bowel sounds present Extremities/Musculoskeletal:normal inspection, trace edema Neurologic/Psych:AAOX3, grossly no focal neurological deficits Skin: normal color, warm,+ sacral wound and dressing Results & Data Results & Data Vital Signs (Past 12 Hours) Vital Signs Temp Pulse Resp BP Pulse Ox O2 Del Method 04/30/25 14:17 36.5 C 64 16 111/67 98 Room Air 04/30/25 11:56 Room Air 04/30/25 07:23 36.5 C 60 18 109/63 97 Room Air Laboratory Results Short CBC 04/30/25 Range/Units 05:25 WBC 8.78 (4.8-10.8) K/ul Hgb 8.9 L (12.0-16.0) g/dL Hct 28.2 L (37.0-47.0) % Plt Count 249 (130-400) K/uL [facility] 04/30/25 05:25 Sodium 139 Potassium 4.1 Chloride 105 Carbon Dioxide 25 BUN 30 H Creatinine 1.45 H Glucose 129 H Calcium 8.3 L (6) Hypertension Hypertension type: unspecified Qualified Code(s): I10 - Essential (primary) hypertension (7) Sacral decubitus ulcer Pressure injury stage: unspecified pressure injury stage Qualified Code(s): L89.159 - Pressure ulcer of sacral region, unspecified stage (9) Hypothyroidism Hypothyroidism type: unspecified Qualified Code(s): E03.9 - Hypothyroidism, unspecified
[2025-04-30 19:35] LABS: Cdiff Toxin B Gene (2yr or >) Negative Cdiff Gene (Neg)
[2025-05-01 08:52] VITALS: BP 128/76; PULSE 74; RESP 16; TEMP 97.7; O2SAT 95
[2025-05-01] MEDS: LOPERAMIDE HCL 2 MG CAP PO PRN (10:05)
--- NOTE | 2025-05-01 11:27 | Hospitalist Progress Note ---
Date of Service May 01, 2025 Assessment & Plan (1) Ambulatory dysfunction: Plan: Patient is a 84 year old F with a past medical history of Type II DM, hypothyroidism, dyslipidemia, HTN, Nonrheumatic AV stenosis, CKD III, anemia, spinal stenosis s/p thoracic and lumbar fusion presenting with mechanical fall. Experienced a fall this morning when using her walker, fell backwards and hit her head. Denied passing out, chest pain or dizziness at time of fall. [place] like her legs gave out. Reports feeling weak, often unstable with use of walker. Lives with son who manages her medications and care. Recently discharged from rehab on 04/20. Recent history of EColi UTI; denies urinary symptoms today. Ambulatory dysfunction secondary to chronic lower back pain with recurrent mechanical falls GLF with assistive device at home, hx of recurrent falls with recent d/c from rehab on 04/20; lives with son, possible need for additional home support vs rehab vs SNF --Head and Spine CT negative for acute injury; Lumbar spine CT showing bilateral L5 pedicle screws with possible loosening --Ortho surgery 01/10/25 for revision decompression L2-L4 for evidence of loosening screws consistent fracture L4, also spinal fusion L2-L5 with instrumentation placement; patient has not fully recovered since procedure Continue home gabapentin regimen Appreciate pain therapy input and recommendation Continue PT OT Fall precautions Plan to discharge to SNF today Sacral decub ulcer Chronic wound, unstageable with possible tracking; no active drainage, +slough --S/P debridement of sacral wound, incision and drainage on 04/28/2025 --Wound culture growing strep anginosus, bacteroids Appreciate surgery input Continue wound VAC 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 difficile negative Monitor volume status, IV fluids as needed Imodium as needed Suspected hardware loosening-- less likely Spinal stenosis with radiculopathy --Lumbar CT:Status post multilevel decompression, discectomy and L2-L5 fusion. Lucency adjacent to the bilateral L5 pedicle screws raises the possibility of loosening. No change in appearance of the L4 vertebral fracture since prior CT. Status post L2 and L4 kyphoplasty. No acute lumbar spine fractures. Suboptimal evaluation of the central canal and neural foramen given CT technique and artifact from the surgical hardware. -- Appreciate orthospine input--currently no surgical intervention recommended NICHO on CKD Stage III Monitor renal function Renal function stable Avoid nephrotoxic agents as able Lower leg edema Resume Lasix as able Monitor Hypomagnesemia Replete and monitor Hypertension Presented with hypotension Continue metoprolol with holding parameters Blood pressure stable Hyperlipidemia Continue home statin Hypothyroidism Continue home levothyroxine DVT Ppx: Heparin SQ Code status: DNR/DNI PCP: SANJAY Walker Disposition SNF (2) Spinal stenosis of lumbar region with radiculopathy: (3) NICHO (acute kidney injury): (4) Stage 3b chronic kidney disease (CKD): (5) Lower leg edema: (6) Hypertension: (7) Sacral decubitus ulcer: (8) Hyperlipidemia: (9) Hypothyroidism: Admission and Anticipated Discharge Date Admission Date: April 25, 2025 Subjective Patient is seen and examined at bedside Diarrhea slowly improving Still has sacral wound pain Updated patient's son over the phone Denies any nausea, vomiting, abdominal pain, chest pain, dyspnea Plan to be discharged to rehab facility today Review of Systems Review of Systems: All systems reviewed & are unremarkable except as noted in Subjective Physical Exam Physical Exam: Physical Exam: Vitals signs as noted above General Appearance: Obese, no apparent distress Head: normocephalic, Atraumatic Eyes: normal inspection, EOMI Neck: supple, Trachea midline Respiratory/Chest: Normal breath sounds, CTA, No accessory muscle use Cardiovascular: S1, S2, + murmur Abdomen/GI:Soft, Non tender, Bowel sounds present Extremities/Musculoskeletal:normal inspection, trace edema Neurologic/Psych:AAOX3, grossly no focal neurological deficits Skin: normal color, warm,+ sacral wound and dressing Results & Data Results & Data Vital Signs (Past 12 Hours) Vital Signs Temp Pulse Resp BP Pulse Ox O2 Del Method 05/01/25 08:51 36.5 C 74 16 128/76 95 Room Air 05/01/25 00:00 Room Air (6) Hypertension Hypertension type: unspecified Qualified Code(s): I10 - Essential (primary) hypertension (7) Sacral decubitus ulcer Pressure injury stage: unspecified pressure injury stage Qualified Code(s): L89.159 - Pressure ulcer of sacral region, unspecified stage (9) Hypothyroidism Hypothyroidism type: unspecified Qualified Code(s): E03.9 - Hypothyroidism, unspecified
--- NOTE | 2025-05-01 11:47 | Discharge Summary ---
Date of Service May 01, 2025 Admission HPI Per Admitting Provider Patient is a 84 year old F with a past medical history of Type II DM, hypothyroidism, dyslipidemia, HTN, Nonrheumatic AV stenosis, CKD III, anemia, spinal stenosis s/p thoracic and lumbar fusion presenting with mechanical fall. Experienced a fall this morning when using her walker, fell backwards and hit her head. Denied passing out, chest pain or dizziness at time of fall. Herrick like her legs gave out. Reports feeling weak, often unstable with use of walker. Lives with son who manages her medications and care. Recently discharged from rehab on 04/20. Recent history of EColi UTI; denies urinary symptoms today. Most recent confinement [facility] on 03/12/25-03/06/2025 for fall at home, complicated UTI, weakness, and inability to ambulate. Urine culture+ E Coli and blood cultures negative. She was treated with IV ceftriaxone and transferred to [facility] for additional PT/OT. Has been home since 04/20. Feels unstable with walker assistance. Denies fever, chills, weight loss, weakness, headache, cognitive changes, vision/hearing changes, chest pain, SOB,difficulty breathing, urinary concerns, N/V/D, joint swelling/pain, skin rashes, lesions, bleeding, bruising. Discussed with ED provider labs medical management, and need for admission d/t fall risk concerns at home and need for additional rehab. In the emergency department, patient was hemodynamically stable with no evidence of infection or sepsis. Chest Xray showed Cardiomegaly with no acute cardiopulmonary abnormality identified. Lab workup showed possible NICHO with mild increase to Cr to 1.44 with elevated BU N 46, GFR down to 31.9. Denies urinary symptoms. Urine analysis showing trace leukocyte esterase and bacteria, with no urinary symptoms. Otherwise, lab workup unremarkable. Stable H&H EKG showing NSR with no ST elevation, rate 87 bpm, QTc 486. Additional workup for mechanical fall included imaging. Head CT revealed no hemorrhage, mass effect, or evidence of acute territorial ischemia. Lumbar spine CT showing bilateral L5 pedicle screws with possible loosening; No acute lumbar spine fractures. She reported severe pain to lower back which ultimately caused anxiety. She is fearful of taking narcotic medication. Oxycodone was initially ordered and then withheld due to patient concerns. Acetaminophen was given for pain. A trial dose of Prednisone was given for suspected chronic low back pain in setting of mechanical fall and possible undertreated pain management at home. History obtained primarily from the patient and via hospitalization record. The patient's family was at the bedside and assisted with history of present illness and home needs in terms of additional support needed to keep the patient at home. Multiple options discussed with the patient and her grandson including antoine ab, SNF, or home health. Patient reports having a caregiver in the mornings of Friday// Friday morning only. She lives with her son, but he is out of the home several hours per day for work. Patient and family is agreeable to investigating safe options for discharge. External chart review obtained from [facility] for medications, labs, and outpatient follow up. Admission Exam Per Admitting Provider VITALS: Reviewed. WEIGHT/BMI reviewed. GEN: Healthy appearing, well-developed, NAD. PSYCH: Good Judgment. AOx3. Normal memory, mood, and affect. anxious HEENT -Head: NC/AT; -Eyes: PERRL, EOMI. No discharge or redness; -Ears: External ears are normal. -Nose: Normal nares. -Mouth and throat: MMM. Normal gums, mucosa, palate,. Good dentition. NECK: Supple, with no masses. CV: RRR, no m/r/g. +4 BLE edema LUNGS: CTAB, no w/r/c. ABD: Soft, NT/ND, NBS, no masses or organomegaly. : N/A SKIN: Warm, well perfused. Sacral decub with slough, no drainage MSK: No deformities. Weak BLE EXT: No clubbing, cyanosis, or edema. NEURO: CN II-XII grossly intact. Speech clear. No focal deficits. Principal Diagnosis Sacral decubitus ulcer Ambulatory dysfunction Recurrent falls NICHO on CKD stage III Diarrhea Diabetes mellitus type II-- diet controlled Discharge Data Allergies Allergy/AdvReac Type Severity Reaction Status Date / Time sulfamethoxazole [Bactrim] AdvReac Intermediate "made the Verified 01/10/25 12:23 UTI worse" trimethoprim [Bactrim] AdvReac Intermediate "made the Verified 01/10/25 12:23 UTI worse" Consultations 04/25/25 16:26 ED Decision to Admit Stat 04/25/25 20:24 Consult Behavioral Health Liaison Routine 04/26/25 09:00 Consult Pain Management Routine 04/26/25 13:27 Consult General Surgery Routine 04/27/25 11:21 Consult Orthopedic Spine Surgery Routine Procedures Performed Operation Date: 04/28/25 07:00 Actual Procedures p Debridement of Sacral Wound, Incision and Drainage(Not Applicable) - Emile Henriquez DO Ordered Studies Laboratory Results WBC 8.78 K/ul (4.8-10.8) 04/30/25 05:25 RBC 2.90 M/uL (4.20-5.40) L 04/30/25 05:25 Hgb 8.9 g/dL (12.0-16.0) L 04/30/25 05:25 Hct 28.2 % (37.0-47.0) L 04/30/25 05:25 MCV 97.2 fL (80.0-100.0) 04/30/25 05:25 MCH 30.7 pg (25.0-34.0) 04/30/25 05:25 MCHC 31.6 g/dL (32.0-36.0) L 04/30/25 05:25 RDW Std Deviation 49.1 fL (36.4-46.3) H 04/30/25 05:25 RDW Coeff of Rubi 13.7 % (11.5-14.5) 04/30/25 05:25 Plt Count 249 K/uL (130-400) 04/30/25 05:25 MPV 9.6 fL (9.4-12.4) 04/30/25 05:25 Immature Gran % (Auto) 0.9 % 04/25/25 15:00 Neut % (Auto) 73.9 % 04/25/25 15:00 Lymph % (Auto) 11.9 % 04/25/25 15:00 Starr % (Auto) 8.5 % 04/25/25 15:00 Eos % (Auto) 4.5 % 04/25/25 15:00 Baso % (Auto) 0.3 % 04/25/25 15:00 Neut # (Auto) 6.69 K/uL (1.40-6.50) H 04/25/25 15:00 Lymph # (Auto) 1.08 K/uL (1.20-3.40) L 04/25/25 15:00 Starr # (Auto) 0.77 K/uL (0.11-0.59) H 04/25/25 15:00 Eos # (Auto) 0.41 K/uL (0.00-0.50) 04/25/25 15:00 Baso # (Auto) 0.03 K/uL (0.00-0.20) 04/25/25 15:00 Immature Gran # (Auto) 0.08 K/uL (0.01-0.20) 04/25/25 15:00 PT 10.8 Seconds (9.0-12.0) 04/25/25 15:00 INR 1.0 (0.9-1.1) 04/25/25 15:00 Sodium 139 mmol/L (136-145) 04/30/25 05:25 Potassium 4.1 mmol/L (3.5-5.1) 04/30/25 05:25 Chloride 105 mmol/L (98-107) 04/30/25 05:25 Carbon Dioxide 25 mmol/L (21-32) 04/30/25 05:25 Anion Gap 9 (3-11) 04/30/25 05:25 BUN 30 mg/dl (6-23) H 04/30/25 05:25 Creatinine 1.45 mg/dl (0.6-1.2) H 04/30/25 05:25 Est Cr Clr Drug Dosing 27.6 ml/min 04/30/25 05:25 eGFR 35.79 04/30/25 05:25 BUN/Creatinine Ratio 20.7 (10-20) H 04/30/25 05:25 Glucose 129 mg/dl (70-99(Fasting)) H 04/30/25 05:25 POC Glucose 132 mg/dl (70-99) H 05/01/25 07:48 Calcium 8.3 mg/dl (8.6-10.3) L 04/30/25 05:25 Phosphorus 2.8 mg/dl (2.5-4.9) 04/27/25 06:36 Magnesium 1.8 mg/dl (1.7-2.4) 04/29/25 06:21 Total Bilirubin 0.4 mg/dl (0.2-1.0) 04/25/25 15:00 AST 27 U/L (13-39) 04/25/25 15:00 ALT 32 U/L (7-52) 04/25/25 15:00 Alkaline Phosphatase 125 U/L (34-104) H 04/25/25 15:00 Total Creatine Kinase 40 U/L (26-192) 04/25/25 15:00 Troponin I High Sens 10.2 pg/ml (0-14) 04/25/25 15:00 Total Protein 7.0 gm/dl (6.0-8.3) 04/25/25 15:00 Albumin 3.5 gm/dl (3.4-5.0) 04/25/25 15:00 Globulin 3.5 gm/dl (2.5-4.0) 04/25/25 15:00 Albumin/Globulin Ratio 1.0 (0.9-2) 04/25/25 15:00 Triglycerides 108 mg/dl (0-150) 04/26/25 06:00 Cholesterol 98 mg/dl (0-200) 04/26/25 06:00 LDL Cholesterol, Calc 52 mg/dl 04/26/25 06:00 VLDL Cholesterol, Calc 22 mg/dl (0-30) 04/26/25 06:00 HDL Cholesterol 24 mg/dl 04/26/25 06:00 Cholesterol/HDL Ratio 4.1 (0-5) 04/26/25 06:00 Lipase 13 U/L (11-82) 04/25/25 15:00 TSH 3.131 uIu/ml (0.300-4.500) 04/25/25 15:00 Urine Color Yellow 04/25/25 15:35 Urine Appearance Clear (Clear) 04/25/25 15:35 Urine pH 5.5 (4.5-7.5) 04/25/25 15:35 Ur Specific [place] 1.008 (1.000-1.030) 04/25/25 15:35 Urine Protein Negative (Negative) 04/25/25 15:35 Urine Glucose (UA) Negative (Negative) 04/25/25 15:35 Urine Ketones Negative (Negative) 04/25/25 15:35 Urine Blood Negative (Negative) 04/25/25 15:35 Urine Nitrite Negative (Negative) 04/25/25 15:35 Urine Bilirubin Negative (Negative) 04/25/25 15:35 Urine Urobilinogen Negative (Negative) 04/25/25 15:35 Ur Leukocyte Esterase Trace (Negative) H 04/25/25 15:35 Urine WBC (Auto) 0-5 /hpf (0-5) 04/25/25 15:35 Urine RBC (Auto) 0-2 /hpf (0-2) 04/25/25 15:35 U Hyaline Cast (Auto) 0-2 /lpf (0-2) 04/25/25 15:35 U Epithel Cells (Auto) 0-2 /hpf (0-2) 04/25/25 15:35 Urine Bacteria (Auto) 4+ (None Seen) H 04/25/25 15:35 Urine Comment 04/25/25 15:35 Stl C. diff Tox B Gene Negative Cdiff Gene (Neg) 04/30/25 18:35 Stl C. diff [id number] NEGATIVE 04/30/25 18:[address] 04/25/25 13:26 CT cervical spine wo con CLINICAL HISTORY: 84 years-old Female with fall. Acute neck pain status post fall COMPARISON: None. TECHNIQUE: Multiple axial CT images of the cervical spine were obtained without contrast. A dose lowering technique was utilized adhering to the principles of ALARA. FINDINGS: Multilevel degenerative changes of the cervical spine include moderate to severe disc space narrowing at C3-C4 with a posterior disc osteophyte complex formation at this level. 2 mm anterolisthesis C5 on C6 secondary to chronic severe facet arthrosis. No acute cervical spine fracture or subluxation. Multilevel neural foraminal narrowing. Small bilateral cervical ribs. Lung apices are clear without pneumothorax. Unremarkable soft tissues. Atherosclerosis of the carotid bulbs. IMPRESSION: No acute cervical spine fracture or subluxation identified. ACT 112: Negative or not required by law. The above report was generated using voice recognition software. It may contain grammatical, syntax or spelling errors. Electronically signed by: Yamil Fontaine M.D. 04/25/2025 2:43 PM Chest X-Ray 04/25/25 13:26 SINGLE VIEW CHEST CLINICAL HISTORY: Fall. FINDINGS: An AP, portable, upright chest radiograph is compared to study dated 03/12/2025 and correlated with chest CT dated 12/11/2006. The heart is enlarged noting atherosclerotic calcification of the thoracic aorta. The pulmonary vasculature is noncongested. Chronic interstitial thickening is similar to previous. Mild atelectasis is noted at the lung bases. No airspace consolidation or large pleural effusion is identified. No pneumothorax is seen. The skeletal structures are osteopenic. The bony thorax is grossly intact. The hardware is noted in the thoracic spine and in the lumbar spine. Advanced arthritic change is seen in the shoulders. IMPRESSION: Cardiomegaly with no acute cardiopulmonary abnormality identified. ACT 112: Negative or not required by law. Electronically signed by: Kemal Arevalo M.D. 04/25/2025 1:[address] 04/25/25 13:26 CT SCAN OF THE BRAIN WITHOUT IV CONTRAST CLINICAL HISTORY: Fall COMPARISON STUDY: CT of the brain dated 11/05/2016. TECHNIQUE: Unenhanced CT scan of the brain is performed from the vertex to the skull base. Images are reviewed in the axial, sagittal, coronal planes. A dose lowering technique was utilized adhering to the principles of ALARA. CT DOSE: 1914.8 mGy.cm FINDINGS: Brain parenchyma: There is age-related involutional change noting [id number] subcortical and periventricular microangiopathic disease. There is no hemorrhage, mass effect, or evidence of acute territorial ischemia by CT criteria. Srivastava-white matter differentiation is preserved. No extra-axial fluid collection is seen. Ventricles, sulci, cisterns: Prominent secondary to involutional change. Intracranial vasculature: There is atherosclerotic calcification of the cavernous carotid and vertebral arteries. Calvarium: The skeletal structures are osteopenic. No depressed calvarial fracture is seen. Soft tissues: A scalp hematoma is seen posteriorly at the vertex. Sinuses and mastoids: There is trace mucosal thickening in the right frontal sinus. The visualized paranasal sinuses are otherwise clear. The mastoid air cells are well pneumatized. Cerumen is noted in the left external auditory ca nal. Orbits: The bony orbits are grossly intact. There are bilateral ocular lens implants. IMPRESSION: There is no hemorrhage, mass effect, or evidence of acute territorial ischemia by CT criteria. ACT 112: Negative or not required by law. Electronically signed by: Kemal Arevalo M.D. 04/25/2025 2:[address] 04/25/25 13:26 CT OF THE LUMBAR SPINE CLINICAL HISTORY: Low back pain status post fall. COMPARISON STUDY: Lumbar spine CT March 12, 2025. TECHNIQUE: Helical axial images of the lumbar spine were obtained. Sagittal and coronal reconstructions were viewed. Automated exposure control was utilized for the study. A dose lowering technique was utilized adhering to the principles of ALARA. Lumbar spine MRI December 20, 2024. FINDINGS: For purposes of numbering on this exam, the L5-S1 disc space is assigned to axial image 269 of 332. L5 represents a transitional vertebra. There are postoperative findings consistent with L2-L3 and L3-L4 discectomy with interbody spacer placement. Posterior decompression is noted with fusion from L2 through L5. There are bilateral pedicle screws at the L2, L3 and L5 levels with kyphoplasty at the L2 and L4 levels. An L4 vertebral fracture is again noted. This is similar in appearance to CT of March 12, 2025. No additional lumbar spine fractures are present. There is lucency adjacent to the bilateral L5 pedicle screws. Central canal and neural foramen are suboptimally assessed given CT technique and artifact from the surgical hardware. A fat-containing left adnexal lesion is partially imaged. This represents a left ovarian dermoid. IMPRESSION: 1. Status post multilevel decompression, discectomy and L2-L5 fusion. Lucency adjacent to the bilateral L5 pedicle screws raises the possibility of loosening. 2. No change in appearance of the L4 vertebral fracture since prior CT. 3. Status post L2 and L4 kyphoplasty. 4. No acute lumbar spine fractures. 5. Suboptimal evaluation of the central canal and neural foramen given CT technique and artifact from the surgical hardware. ACT 112: Negative or not required by law. Electronically signed by: John Chavarria M.D. 04/25/2025 2:[address] 04/26/25 13:23 CT PELVIS: TECHNIQUE: Un-enhanced CT examination of the pelvis was performed. IV CONTRAST: None. HISTORY: Pelvic pain COMPARISON: CT abdomen pelvis March 12, 2025. FINDINGS: URINARY BLADDER: Mildly distended. There is a small focus of luminal air. REPRODUCTIVE ORGANS: There is a macroscopic fat-containing cystic mass of the left adnexa measuring 4.8 cm with calcifications. AORTA and ILIAC ARTERIES: No aneurysmal dilatation of the visualized portion of the aorta or iliac arteries seen. Moderate atherosclerosis LYMPH NODES: No pelvic lymph adenopathy identified. GASTROINTESTINAL: The visualized bowel is normal in caliber. Normal appendix. Colonic diverticulosis without evidence of diverticulitis PERITONEUM: No ascites is seen. No peritoneal masses seen. PELVIC WALL: No hernia is identified. There is a sacral decubitus ulcer has increased in size compared to the CT abdomen and pelvis examination of March 12, 2025 with increased extension into the right gluteal muscles. Evaluation for abscesses is limited in the absence of intravenous contrast but there are several gas containing fluid pockets measuring up to approximately 3.7 cm that likely represent abscesses (series 400, image 80 for example). OSSEOUS STRUCTURES: No definite osteomyelitis of the coccyx and the sacrum abutting the decubitus ulcer. Bilateral hip arthroplasties. Lower lumbar spine fusion IMPRESSION: Sacral decubitus ulcer has increased in size compared to the CT abdomen and pelvis examination of March 12, 2025 with increased extension into the right gluteal muscles. Evaluation for abscesses is limited in the absence of intravenous contrast but there are several gas containing fluid pockets measuring up to approximately 3.7 cm that likely represent abscesses (series 400, image 80 for example). No definite osteomyelitis of the coccyx and the sacrum abutting the decubitus ulcer. Macroscopic fat-containing left adnexal cystic mass represents either a teratoma or a dermoid cyst. Electronically signed by Richardson Driscoll 04-26-2025 4:23 PM Hospital Course (1) Ambulatory dysfunction: Patient is a 84 year old F with a past medical history of Type II DM, hypothyroidism, dyslipidemia, HTN, Nonrheumatic AV stenosis, CKD III, anemia, spinal stenosis s/p thoracic and lumbar fusion presenting with mechanical fall. Experienced a fall this morning when using her walker, fell backwards and hit her head. Denied passing out, chest pain or dizziness at time of fall. Herrick like her legs gave out. Reports feeling weak, often unstable with use of walker. Lives with son who manages her medications and care. Recently discharged from rehab on 04/20. Recent history of EColi UTI; denies urinary symptoms today. Ambulatory dysfunction secondary to chronic lower back pain with recurrent mechanical falls GLF with assistive device at home, hx of recurrent falls with recent d/c from rehab on 04/20; lives with son, possible need for additional home support vs rehab vs SNF --Head and Spine CT negative for acute injury; Lumbar spine CT showing bilateral L5 pedicle screws with possible loosening --Ortho surgery 01/10/25 for revision decompression L2-L4 for evidence of loosening screws consistent fracture L4, also spinal fusion L2-L5 with instrumentation placement; patient has not fully recovered since procedure Continue home gabapentin regimen Appreciate pain therapy input and recommendation Continue PT OT Fall precautions Plan to discharge to SNF today Sacral decub ulcer Chronic wound, unstageable with possible tracking; no active drainage, +slough --S/P debridement of sacral wound, incision and drainage on 04/28/2025 --Wound culture growing strep anginosus, bacteroids Appreciate surgery input Continue wound VAC 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 difficile negative Monitor volume status, IV fluids as needed Imodium as needed Suspected hardware loosening-- less likely Spinal stenosis with radiculopathy --Lumbar CT:Status post multilevel decompression, discectomy and L2-L5 fusion. Lucency adjacent to the bilateral L5 pedicle screws raises the possibility of loosening. No change in appearance of the L4 vertebral fracture since prior CT. Status post L2 and L4 kyphoplasty. No acute lumbar spine fractures. Suboptimal evaluation of the central canal and neural foramen given CT technique and artifact from the surgical hardware. -- Appreciate orthospine input--currently no surgical intervention recommended NICHO on CKD Stage III Monitor renal function Renal function stable Avoid nephrotoxic agents as able DM II Last HbA1c 6.7 Diet controlled Continue insulin while hospitalized Monitor blood glucose levels Lower leg edema Resume Lasix as able Monitor Hypomagnesemia Replete and monitor Hypertension Presented with hypotension Continue metoprolol with holding parameters Blood pressure stable Hyperlipidemia Continue home statin Hypothyroidism Continue home levothyroxine DVT Ppx: Heparin SQ Code status: DNR/DNI PCP: SANJAY Walker Disposition SNF (2) Spinal stenosis of lumbar region with radiculopathy: (3) NICHO (acute kidney injury): (4) Stage 3b chronic kidney disease (CKD): (5) Lower leg edema: (6) Hypertension: (7) Sacral decubitus ulcer: (8) Hyperlipidemia: (9) Hypothyroidism: Total Time Total Time Spent Total Time Spent (In Minutes): 52 minutes Discharge Plan Discharge Items Patient Disposition: Transfer [facility] Fac Reason For Visit: FALL Discharge Diagnosis: Sacral decubitus ulcer Ambulatory dysfunction Recurrent falls NICHO on CKD stage III Diarrhea Diabetes mellitus type II-- diet controlled Condition on Discharge: Fair Activity: Per Instructions section Exercise/Sports: Gradually increase as tolerated Non-emergency contact: Primary Care Provider and Surgeon Call non-emergency contact if: you have any medication questions, your symptoms worsen, your pain is concerning for you, you have a fever, your wound has increased redness, your wound has increased drainage and your wound pain has increased Follow-up/Referrals: Jose Patino MD [Primary Care Provider] - Diet: Carb Consistent or DM2 Addtl Attending Provider Instructions: -- Follow-up with your primary care physician Dr. Patino in 1 week --Follow-up with your surgeon Dr. Henriquez/wound clinic in 2 weeks --Complete the antibiotic course Augmentin as prescribed --Your final wound cultures are pending at the time of discharge. Follow-up with your physician for results. --Hold taking Lasix until your diarrhea improves Seek immediate medical attention if your symptoms reoccur or worsen Please review medication list provided on discharge for any medication changes as instructed. Please call if you have any questions or problems. You can reach a [facility] hospitalist on duty at [facility] 24 hours a day by calling [phone] Pending Studies at Discharge: Yes Studies:: Wound cultures Stand-Alone Forms: My [facility] Skilled Items Patient informed of condition?: Yes DNR: Yes Discharge Level of Care: Skilled Communicable Disease: No Discharge Prognosis: Stable Lines: Peripheral IV Urinary Catheter: Yes Medications and DC Order Prescriptions: New loperamide 2 mg Capsule 2 mg PO Q6H PRN (Reason: loose stool) Qty: 30 0RF oxycodone 5 mg Tablet 5 mg PO Q4H PRN (Reason: pain) Qty: 12 0RF magnesium chloride [Mag 64] 64 mg Tablet,Delayed Release (Dr/Ec) 64 mg PO BID Qty: 15 0RF Advanced Probiotic 625 mg (10 billion cell) Capsule 1 cap PO DAILY Qty: 10 0RF amoxicillin-pot clavulanate [Augmentin] 500-125 mg tablet 1 tab PO BID Qty: 14 0RF Continued gabapentin 100 mg capsule 100 mg PO UD Rx Instructions: 100 po qam, 200mg po afternoon, 100 mg po evening acetaminophen 325 mg Tablet 325 mg PO QID PRN (Reason: Pain) Patient Comments: 03/12- otc unable to verify aspirin 81 mg Tablet,Delayed Release (Dr/Ec) 81 mg PO QAM Patient Comments: 03/12- otc unable to verify levothyroxine 50 mcg Tablet 50 mcg PO QAM allopurinol 300 mg Tablet 300 mg PO QAM Patient Comments: 03/12-last filled 09/30 90 day supply #90 cholecalciferol (vitamin D3) [Vitamin D3] 25 mcg (1,000 unit) Capsule 50 mcg PO DAILY Patient Comments: 03/12- otc unable to verify atorvastatin 80 mg Tablet 80 mg PO HS ferrous sulfate 0 mg PO QAM Qty: 0 Patient Comments: 04/25- per pt, she doesnt want to take the medication anymore due to giving her dark colored stool. BuSpar 15 mg PO BID Qty: 0 Patient Comments: 04/25- per pt, she still takes medication. No fill history available Changed metoprolol succinate 25 mg Tablet Extended Release 24 Hr 25 mg PO QAM Qty: 0 0RF Patient Comments: 04/25- per pt, shes not sure of this medication. Last filled 09/30 90 day supply #45 Held furosemide [Lasix] 40 mg Tablet 40 mg PO DAILY Qty: 0 Hold Instructions: Hold taking until your diarrhea improves Patient Comments: 04/25- per pt, she still takes medication. No fill history available Discharge Orders: Discharge Order (Routine); Ordered 05/01/25 Ordered By: Alfred Thorne Admission Data Admit Date/Time: 04/25/25 16:37 Attending Provider: Alfred Thorne Admit Provider: Yumiko Mosquera Primary Care Provider: Jose Patino. Other Providers: Panda Bernard [facility]; [facility]; Yumiko Mosquera; Sherri Vidal; Emile Henriquez; Wolfgang Porras
== END 2025-05-01 13:39 | DRG 464 ==
LOC: ED 13:06 → SUATTDRO 16:37 → 3E 16:37